=== PATIENT | male | born 1935 | race Caucasian/White ===

== ENCOUNTER → 2016-10-10 | Outpatient (CLI) | payer MEDICARE, BC ==
--- NOTE | 2016-10-11 13:59 | NM ---
EXAMINATION TYPE: NM WBC limited DATE OF EXAM: 10/11/2016 11:16 AM COMPARISON: 04/27/2016 radiographs HISTORY: 81-year-old male evaluate for osteomyelitis. Patient with right foot plantar infection for 2 months, possibly from slipper rubbing on the site. TECHNIQUE: Following administration of 31.7 mCi Tc99m Ceretec. Images obtained 4 hour(s) and 24 grzegorz r(s) post injection. Coned-down images of the distal bilateral lower extremities were taken in multip le projections. FINDINGS: No abnormal focal increased tracer activity is identified within either ankle or foot. IMPRESSION: No abnormal focal tracer activity within either ankle or foot.
== END | disposition home or self-care (01) ==
LOC: RADNMMAIN 07:01
PROVIDERS: ATTEND Podiatrist
DX: M86.8X8 Other osteomyelitis, other site (principal)
CPT/HCPCS: 78805; A9521

== ENCOUNTER 2018-01-22 12:56 | Emergency (ER) | payer MEDICARE, BC ==
[2018-01-22] MEDS ORDERED: SODIUM CHLORIDE 0.9% 1,000 ML IV STA (13:22)
--- NOTE | 2018-01-22 13:35 | ED ---
General Adult HPI - General Chief complaint: Chest Pain Stated complaint: syncope/cardiac Time Seen by Provider: 01/22/18 13:05 Source: EMS, RN notes reviewed, old records reviewed Mode of arrival: EMS Limitations: no limitations - History of Present Illness Initial comments: This is an 80-year-old male the ER for evaluation presents today for evaluation of a trip and fall. Patient states that he has no complaints does not want to be sent ER by EMS was called on him after he fell. Patient states he went to visit his son's grave ER today. He states he had no complaints earlier in the day has no complains now. Patient per EMS was found other: Patient fallen and they came to evaluate patient after he had fallen. - Related Data Home Medications Medication Instructions Recorded Confirmed Atorvastatin [Lipitor] 40 mg PO HS 12/07/15 01/22/18 CLIDINIUM-chlordiazePOXIDE [Librax] 1 cap PO DAILY 12/07/15 01/22/18 Clopidogrel [Plavix] 75 mg PO DAILY 12/07/15 01/22/18 Donepezil [Aricept] 5 mg PO DAILY 12/07/15 01/22/18 Enalapril [Vasotec] 40 mg PO DAILY 12/07/15 01/22/18 Furosemide [Lasix] 20 mg PO DAILY 12/07/15 01/22/18 Gabapentin [Neurontin] 100 mg PO TID 12/07/15 01/22/18 Insulin Aspart [NovoLOG Flexpen] 10 units SQ AC-TID 12/07/15 01/22/18 Ketorolac 0.5% Ophth Soln [Acular] 1 drops LEFT EYE BID 12/07/15 01/22/18 Travoprost [Travatan Z 0.004%] 1 drop RIGHT EYE HS 12/07/15 01/22/18 amLODIPine BESYLATE [Norvasc] 5 mg PO BID 12/07/15 01/22/18 cloNIDine HCL [Catapres] 0.1 mg PO HS 12/07/15 01/22/18 sitaGLIPtin [Januvia] 100 mg PO DAILY 12/07/15 01/22/18 traZODone HCL [Desyrel] 50 mg PO DAILY 12/07/15 01/22/18 Citalopram Hydrobromide [CeleXA] 20 mg PO DAILY 01/22/18 01/22/18 Insulin Glargine,Hum.rec.anlog 60 unit SQ QAM 01/22/18 01/22/18 [Basaglscott Cerna U-100] Oxybutynin Chloride [Oxybutynin 10 mg PO DAILY 01/22/18 01/22/18 Chloride ER] Previous Rx's Medication Instructions Recorded Albuterol Sulfate [Proair Hfa] 1 - 2 puff INHALATION Q4H PRN #1 01/22/18 inhaler Levofloxacin [Levaquin] 750 mg PO DAILY #7 tab 01/22/18 Allergies Allergy/AdvReac Type Severity Reaction Status Date / Time No Known Allergies Allergy Verified 01/22/18 13:31 Review of Systems ROS Statement: Those systems with pertinent positive or pertinent negative responses have been documented in the HPI. ROS Other: All systems not noted in ROS Statement are negative. Past Medical History Past Medical History: CVA/TIA, Diabetes Mellitus, Hyperlipidemia, Hypertension Additional Past Medical History / Comment(s): cataract left eye. Diverticulitis. fractured ankle 03-11-16,rt. foot wound History of Any Multi-Drug Resistant Organisms: None Reported Past Surgical History: Heart Catheterization With Stent, Hernia Repair, Tonsillectomy Additional Past Surgical History / Comment(s): VASECTOMY Past Anesthesia/Blood Transfusion Reactions: No Reported Reaction Date of Last Stent Placement:: February 01, 2011 Past Psychological History: No Psychological Hx Reported Smoking Status: Former smoker Past Alcohol Use History: None Reported Past Drug Use History: None Reported - Past Family History Mother Family Medical History: Myocardial Infarction ([place]) Additional Family Medical History / Comment(s): Mother of heart attack at 64. Mother had mental illness. Brother(s) Family Medical History: Cancer Additional Family Medical History / Comment(s): Patients half-brother had stomach cancer. General Exam Limitations: no limitations General appearance: alert, in no apparent distress Head exam: Present: atraumatic, normocephalic, normal inspection Eye exam: Present: normal appearance, PERRL, EOMI. Absent: scleral icterus, conjunctival injection, periorbital swelling ENT exam: Present: normal exam, mucous membranes moist Neck exam: Present: normal inspection. Absent: tenderness, meningismus, lymphadenopathy Respiratory exam: Present: normal lung sounds bilaterally. Absent: respiratory distress, wheezes, rales, rhonchi, stridor Cardiovascular Exam: Present: regular rate, normal rhythm, normal heart sounds. Absent: systolic murmur, diastolic murmur, rubs, gallop, clicks GI/Abdominal exam: Present: soft, normal bowel sounds. Absent: distended, tenderness, guarding, rebound, rigid Extremities exam: Present: normal inspection, full ROM, normal capillary refill. Absent: tenderness, pedal edema, joint swelling, calf tenderness Back exam: Present: normal inspection Neurological exam: Present: alert, oriented X3, CN II-XII intact Psychiatric exam: Present: normal affect, normal mood Skin exam: Present: warm, dry, intact, normal color. Absent: rash Course Vital Signs 01/22/18 01/22/18 12:58 14:03 Temperature 98.8 F Pulse Rate 94 69 Respiratory 20 18 Rate Blood Pressure 110/54 120/86 O2 Sat by Pulse 94 L 94 L Oximetry - Reevaluation(s) Reevaluation #1: 01/22/18 15:01 Patient is no acute distress EKG Findings - EKG Comments: EKG Findings:: EKG shows normal sinus rhythm rate of 89, VA 154, QRS 138, QTC 503 Medical Decision Making - Medical Decision Making 82 male positive x-ray for pneumonia, will discharge home per patient's request , patient to return if symptoms worsen - Lab Data Result diagrams: 01/22/18 13:45 01/22/18 13:45 Lab Results 01/22/18 01/22/18 01/22/18 Range/Units 13:45 13:45 13:45 WBC 9.2 (3.8-10.6) k/uL RBC 4.59 (4.30-5.90) m/uL Hgb 13.4 (13.0-17.5) gm/dL Hct 39.5 (39.0-53.0) % MCV 86.0 (80.0-100.0) fL MCH 29.2 (25.0-35.0) pg MCHC 33.9 (31.0-37.0) g/dL RDW 15.1 (11.5-15.5) % Plt Count 191 (150-450) k/uL Neutrophils % 69 % Lymphocytes % 21 % Monocytes % 5 % Eosinophils % 3 % Basophils % 1 % Neutrophils # 6.4 (1.3-7.7) k/uL Lymphocytes # 2.0 (1.0-4.8) k/uL Monocytes # 0.5 (0-1.0) k/uL Eosinophils # 0.3 (0-0.7) k/uL Basophils # 0.1 (0-0.2) k/uL PT (9.0-12.0) sec INR (<1.2) APTT (22.0-30.0) sec Sodium 143 (137-145) mmol/L Potassium 4.2 (3.5-5.1) mmol/L Chloride 102 (98-107) mmol/L Carbon Dioxide 25 (22-30) mmol/L Anion Gap 16 mmol/L BUN 18 (9-20) mg/dL Creatinine 0.88 (0.66-1.25) mg/dL Est GFR (CKD-EPI)AfAm >90 (>60 ml/min/1.73 sqM) Est GFR (CKD-EPI)NonAf 80 (>60 ml/min/1.73 sqM) Glucose 271 H (74-99) mg/dL Calcium 8.7 (8.4-10.2) mg/dL Magnesium 1.8 (1.6-2.3) mg/dL Total Bilirubin 0.8 (0.2-1.3) mg/dL AST 19 (17-59) U/L ALT 32 (21-72) U/L Alkaline Phosphatase 91 (38-126) U/L Total Creatine Kinase 56 (55-170) U/L CK-MB (CK-2) 1.0 (0.0-2.4) ng/mL CK-MB (CK-2) Rel Index 1.8 Troponin I 0.016 (0.000-0.034) ng/mL Total Protein 6.8 (6.3-8.2) g/dL Albumin 3.7 (3.5-5.0) g/dL 01/22/18 Range/Units 13:45 WBC (3.8-10.6) k/uL RBC (4.30-5.90) m/uL Hgb (13.0-17.5) gm/dL Hct (39.0-53.0) % MCV (80.0-100.0) fL MCH (25.0-35.0) pg MCHC (31.0-37.0) g/dL RDW (11.5-15.5) % Plt Count (150-450) k/uL Neutrophils % % Lymphocytes % % Monocytes % % Eosinophils % % Basophils % % Neutrophils # (1.3-7.7) k/uL Lymphocytes # (1.0-4.8) k/uL Monocytes # (0-1.0) k/uL Eosinophils # (0-0.7) k/uL Basophils # (0-0.2) k/uL PT 10.2 (9.0-12.0) sec INR 1.0 (<1.2) APTT 24.3 (22.0-30.0) sec Sodium (137-145) mmol/L Potassium (3.5-5.1) mmol/L Chloride (98-107) mmol/L Carbon Dioxide (22-30) mmol/L Anion Gap mmol/L BUN (9-20) mg/dL Creatinine (0.66-1.25) mg/dL Est GFR (CKD-EPI)AfAm (>60 ml/min/1.73 sqM) Est GFR (CKD-EPI)NonAf (>60 ml/min/1.73 sqM) Glucose (74-99) mg/dL Calcium (8.4-10.2) mg/dL Magnesium (1.6-2.3) mg/dL Total Bilirubin (0.2-1.3) mg/dL AST (17-59) U/L ALT (21-72) U/L Alkaline Phosphatase (38-126) U/L Total Creatine Kinase (55-170) U/L CK-MB (CK-2) (0.0-2.4) ng/mL CK-MB (CK-2) Rel Index Troponin I (0.000-0.034) ng/mL Total Protein (6.3-8.2) g/dL Albumin (3.5-5.0) g/dL - Radiology Data Radiology results: report reviewed (Chest x-ray is positive for pneumonia), image reviewed Disposition Clinical Impression: Community acquired bacterial pneumonia Disposition: HOME SELF-CARE Condition: Good Instructions: Community Acquired Pneumonia (ED) Prescriptions: Albuterol Sulfate [Proair Hfa] 1 - 2 puff INHALATION Q4H PRN #1 inhaler PRN Reason: Shortness Of Breath Levofloxacin [Levaquin] 750 mg PO DAILY #7 tab Is patient prescribed a controlled substance at d/c from ED?: No Referrals: Ricardo Shaver MD [Primary Care Provider] - 1-2 days
[2018-01-22 13:59] LABS: Basophils # (A) 0.1 k/uL (0-0.2); Basophils % (A) 1 %; Eosinophils # (A) 0.3 k/uL (0-0.7); Eosinophils % (A) 3 %; HCT 39.5 % (39.0-53.0); HGB 13.4 gm/dL (13.0-17.5); Lymphocytes % (A) 21 %; MCH 29.2 pg (25.0-35.0); MCHC 33.9 g/dL (31.0-37.0); Mean Platelet Volume 7.1; Monocytes # (A) 0.5 k/uL (0-1.0); Monocytes % (A) 5 %; Neutrophils # (A) 6.4 k/uL (1.3-7.7); Neutrophils % (A) 69 %; Platelet Count 191 k/uL (150-450); RBC 4.59 m/uL (4.30-5.90); RDW 15.1 % (11.5-15.5); WBC 9.2 k/uL (3.8-10.6)
[2018-01-22 14:09] LABS: Partial Thromboplastin Time 24.3 sec (22.0-30.0); Prothrombin Time 10.2 sec (9.0-12.0)
--- NOTE | 2018-01-22 14:12 | XR ---
EXAMINATION TYPE: XR chest 2V DATE OF EXAM: 01/22/2018 COMPARISON: 12/07/2015 HISTORY: 82-year-old male with chest pain TECHNIQUE: AP and lateral views FINDINGS: Heart upper limits of normal in size. Atherosclerotic arch calcifications. Mild diffuse interstitial prominence is unchanged. There is some patchy left basilar opacity, new from prior. No other consolid ation or pleural effusion. IMPRESSION: Some patchy left basilar atelectasis or early developing infiltrate. Clinically correlate.
[2018-01-22 14:16] LABS: ALT 32 U/L (21-72); AST 19 U/L (17-59); Albumin 3.7 g/dL (3.5-5.0); Alkaline Phosphatase 91 U/L (38-126); Anion Gap 16 mmol/L; Blood Urea Nitrogen 18 mg/dL (9-20); Calcium 8.7 mg/dL (8.4-10.2); Carbon Dioxide 25 mmol/L (22-30); Chloride 102 mmol/L (98-107); Glucose 271 mg/dL (74-99); Magnesium 1.8 mg/dL (1.6-2.3); Potassium 4.2 mmol/L (3.5-5.1); Sodium 143 mmol/L (137-145); Total Bilirubin 0.8 mg/dL (0.2-1.3); Total Protein 6.8 g/dL (6.3-8.2)
[2018-01-22 14:27] VITALS: RESP 18
[2018-01-22 14:33] LABS: Troponin I 0.016 ng/mL (0.000-0.034)
[2018-01-22] MEDS ORDERED: LEVOFLOXACIN 750MG-D5W PMX 750 MG in DEXTROSE/WATER 1 150ML.BAG IVPB STA (14:53)
[2018-01-22] MEDS ORDERED: IPRATROPIUM-ALBUTEROL 3 ML NEB INHALATION STA (14:53)
[2018-01-22] MEDS ORDERED: LEVOFLOXACIN 750 MG TAB PO STA (15:00)
[2018-01-22] MEDS ORDERED: cefTRIAXone IN SWFI 2,000 MG/20 ML SYRINGE IVP STA (15:01)
[2018-01-22 16:32] VITALS: BP 111/56; PULSE 75; TEMP 98.5
== END 2018-01-22 16:42 | disposition home or self-care (01) ==
LOC: EC 12:56
DX: J18.9 Pneumonia, unspecified organism (principal); R55 Syncope and collapse; E11.9 Type 2 diabetes mellitus without complications; E78.5 Hyperlipidemia, unspecified; I10 Essential (primary) hypertension; Z87.891 Personal history of nicotine dependence; Z79.4 Long term (current) use of insulin; Z79.02 Long term (current) use of antithrombotics/antiplatelets; Z79.899 Other long term (current) drug therapy; Z86.73 Personal history of transient ischemic attack (TIA), and cerebral infarction without residual deficits; Z82.49 Family history of ischemic heart disease and other diseases of the circulatory system; Z95.5 Presence of coronary angioplasty implant and graft
CPT/HCPCS: 36415; 94640; 93005; 80053; 82550; 82553; 83735; 84484; 85025; 85610; 85730; 71046; 99285; 96374; 96361; J0696

== ENCOUNTER 2018-04-16 12:42 | Inpatient (IN) | payer MEDICARE, BC ==
[2018-04-16] MEDS ORDERED: ACETAMINOPHEN TAB 500 MG TAB PO STA (13:18)
[2018-04-16] MEDS ORDERED: IPRATROPIUM-ALBUTEROL 3 ML NEB INHALATION STA (13:18)
--- NOTE | 2018-04-16 13:21 | ED ---
General Adult HPI - General Chief complaint: Shortness of Breath Stated complaint: Sob Time Seen by Provider: 04/16/18 12:55 Source: patient, family, EMS, RN notes reviewed Mode of arrival: EMS Limitations: no limitations - History of Present Illness Initial comments: Patient is a pleasant 82-year-old male presenting to the emergency department with cough and difficulty breathing. Symptoms have progressed over several days to a week. Patient feels generally weak all over. Patient is having cough however has difficulty clearing his sputum. Patient is having fevers at home. Patient is having difficulty getting up and getting around. Patient did twist his ankle the other day. Patient had negative x-rays. No leg pain or leg swelling. Patient has no reported history of lung disease. is the major historian. - Related Data Home Medications Medication Instructions Recorded Confirmed Atorvastatin [Lipitor] 40 mg PO HS 12/07/15 04/16/18 CLIDINIUM-chlordiazePOXIDE [Librax] 1 cap PO DAILY 12/07/15 04/16/18 Clopidogrel [Plavix] 75 mg PO DAILY 12/07/15 04/16/18 Donepezil [Aricept] 5 mg PO DAILY 12/07/15 04/16/18 Enalapril [Vasotec] 40 mg PO DAILY 12/07/15 04/16/18 Gabapentin [Neurontin] 100 mg PO TID 12/07/15 04/16/18 Insulin Aspart [NovoLOG Flexpen] 10 units SQ TID 12/07/15 04/16/18 amLODIPine BESYLATE [Norvasc] 5 mg PO BID 12/07/15 04/16/18 cloNIDine HCL [Catapres] 0.1 mg PO HS 12/07/15 04/16/18 sitaGLIPtin [Januvia] 100 mg PO DAILY 12/07/15 04/16/18 traZODone HCL [Desyrel] 50 mg PO DAILY 12/07/15 04/16/18 Citalopram Hydrobromide [CeleXA] 20 mg PO DAILY 01/22/18 04/16/18 Insulin Glargine,Hum.rec.anlog 60 unit SQ QAM 01/22/18 04/16/18 [Basaglar Kwikpen U-100] Oxybutynin Chloride [Oxybutynin 10 mg PO DAILY 01/22/18 04/16/18 Chloride ER] Amoxicillin 500 mg PO BID 04/16/18 04/16/18 Aspirin [Adult Low Dose Aspirin EC] 81 mg PO DAILY 04/16/18 04/16/18 Furosemide [Lasix] 40 mg PO DAILY 04/16/18 04/16/18 Allergies Allergy/AdvReac Type Severity Reaction Status Date / Time No Known Allergies Allergy Verified 04/16/18 13:22 Review of Systems ROS Statement: Those systems with pertinent positive or pertinent negative responses have been documented in the HPI. ROS Other: All systems not noted in ROS Statement are negative. Constitutional: Reports: fever Eyes: Denies: eye pain ENT: Denies: ear pain Respiratory: Reports: cough, dyspnea Cardiovascular: Denies: chest pain Endocrine: Reports: fatigue Gastrointestinal: Denies: abdominal pain Genitourinary: Denies: dysuria Musculoskeletal: Denies: back pain Skin: Denies: rash Neurological: Reports: weakness (Generalized) Past Medical History Past Medical History: CVA/TIA, Diabetes Mellitus, Hyperlipidemia, Hypertension Additional Past Medical History / Comment(s): cataract left eye. Diverticulitis. fractured ankle 03-11-16,rt. foot wound History of Any Multi-Drug Resistant Organisms: None Reported Past Surgical History: Heart Catheterization With Stent, Hernia Repair, Tonsillectomy Additional Past Surgical History / Comment(s): VASECTOMY Past Anesthesia/Blood Transfusion Reactions: No Reported Reaction Date of Last Stent Placement:: February 01, 2011 Past Psychological History: No Psychological Hx Reported Smoking Status: Former smoker Past Alcohol Use History: None Reported Past Drug Use History: None Reported - Past Family History Mother Family Medical History: Myocardial Infarction ([place]) Additional Family Medical History / Comment(s): Mother of heart attack at 64. Mother had mental illness. Brother(s) Family Medical History: Cancer Additional Family Medical History / Comment(s): Patients half-brother had stomach cancer. General Exam Limitations: no limitations General appearance: alert, in no apparent distress Head exam: Present: atraumatic Eye exam: Present: other (Abnormal pupil on the right which family states is chronic) ENT exam: Present: normal oropharynx Neck exam: Present: normal inspection. Absent: meningismus Respiratory exam: Present: rales (Right base) Cardiovascular Exam: Present: regular rate, normal rhythm GI/Abdominal exam: Present: soft. Absent: tenderness Extremities exam: Present: normal inspection. Absent: calf tenderness Neurological exam: Present: alert, other (Patient has difficulty sitting up in bed.) Expanded Motor strength exam: RUE: 5, LUE: 5, RLE: 5, LLE: 5 Psychiatric exam: Present: normal affect, normal mood Skin exam: Present: normal color Course Vital Signs 04/16/18 04/16/18 04/16/18 12:44 14:20 14:56 Temperature 100.4 F H Pulse Rate 93 81 Respiratory 20 18 Rate Blood Pressure 147/62 O2 Sat by Pulse 93 L Oximetry 04/16/18 04/16/18 15:05 15:47 Temperature 97.8 F Pulse Rate 78 83 Respiratory 18 Rate Blood Pressure 154/72 O2 Sat by Pulse 95 Oximetry - Reevaluation(s) Reevaluation #1: 04/16/18 17:11 There is suspicion for sepsis based on infectious bronchitis and elevated white blood cell count and vital signs. Blood culture and lactic acid have been ordered. IV antibiotic's will be ordered. This was diagnosed at 1711. EKG Findings - EKG Comments: EKG Findings:: Normal sinus rhythm 83. OK 150. QRS 134. QT 420. QTc 43. Left axis. Right bundle branch block. No acute ST change. Medical Decision Making - Medical Decision Making Patient reevaluated and lung sounds unchanged. Patient unable to get up and ambulate even with assistance. Family is not comfortable with discharge home. Case was discussed in detail with Dr. Head, who will admit his patient. He does request antibiotics for bronchitis. Patient could have possible early pneumonia. PT and OT will be consult as well. - Lab Data Result diagrams: 04/16/18 14:10 04/16/18 14:10 Lab Results 04/16/18 04/16/18 04/16/18 Range/Units 14:10 14:10 14:10 WBC 13.6 H (3.8-10.6) k/uL RBC 4.88 (4.30-5.90) m/uL Hgb 13.6 (13.0-17.5) gm/dL Hct 42.2 (39.0-53.0) % MCV 86.5 (80.0-100.0) fL MCH 27.8 (25.0-35.0) pg MCHC 32.1 (31.0-37.0) g/dL RDW 15.0 (11.5-15.5) % Plt Count 204 (150-450) k/uL Neutrophils % 74 % Lymphocytes % 17 % Monocytes % 5 % Eosinophils % 2 % Basophils % 0 % Neutrophils # 10.1 H (1.3-7.7) k/uL Lymphocytes # 2.3 (1.0-4.8) k/uL Monocytes # 0.7 (0-1.0) k/uL Eosinophils # 0.2 (0-0.7) k/uL Basophils # 0.1 (0-0.2) k/uL PT (9.0-12.0) sec INR (<1.2) APTT (22.0-30.0) sec Sodium 142 (137-145) mmol/L Potassium 4.0 (3.5-5.1) mmol/L Chloride 104 (98-107) mmol/L Carbon Dioxide 28 (22-30) mmol/L Anion Gap 10 mmol/L BUN 23 H (9-20) mg/dL Creatinine 1.19 (0.66-1.25) mg/dL Est GFR (CKD-EPI)AfAm 66 (>60 ml/min/1.73 sqM) Est GFR (CKD-EPI)NonAf 57 (>60 ml/min/1.73 sqM) Glucose 264 H (74-99) mg/dL Plasma Lactic Acid Gt 1.0 (0.7-2.0) mmol/L Calcium 8.5 (8.4-10.2) mg/dL Total Bilirubin 1.6 H (0.2-1.3) mg/dL AST 20 (17-59) U/L ALT 22 (21-72) U/L Alkaline Phosphatase 76 (38-126) U/L NT-Pro-B Natriuret Pep pg/mL Total Protein 7.3 (6.3-8.2) g/dL Albumin 4.0 (3.5-5.0) g/dL Urine Color Urine Appearance (Clear) Urine pH (5.0-8.0) Ur Specific Otis (1.001-1.035) Urine Protein (Negative) Urine Glucose (UA) (Negative) Urine Ketones (Negative) Urine Blood (Negative) Urine Nitrite (Negative) Urine Bilirubin (Negative) Urine Urobilinogen (<2.0) mg/dL Ur Leukocyte Esterase (Negative) 04/16/18 04/16/18 04/16/18 Range/Units 14:10 14:10 15:40 WBC (3.8-10.6) k/uL RBC (4.30-5.90) m/uL Hgb (13.0-17.5) gm/dL Hct (39.0-53.0) % MCV (80.0-100.0) fL MCH (25.0-35.0) pg MCHC (31.0-37.0) g/dL RDW (11.5-15.5) % Plt Count (150-450) k/uL Neutrophils % % Lymphocytes % % Monocytes % % Eosinophils % % Basophils % % Neutrophils # (1.3-7.7) k/uL Lymphocytes # (1.0-4.8) k/uL Monocytes # (0-1.0) k/uL Eosinophils # (0-0.7) k/uL Basophils # (0-0.2) k/uL PT 10.9 (9.0-12.0) sec INR 1.1 (<1.2) APTT 24.7 (22.0-30.0) sec Sodium (137-145) mmol/L Potassium (3.5-5.1) mmol/L Chloride (98-107) mmol/L Carbon Dioxide (22-30) mmol/L Anion Gap mmol/L BUN (9-20) mg/dL Creatinine (0.66-1.25) mg/dL Est GFR (CKD-EPI)AfAm (>60 ml/min/1.73 sqM) Est GFR (CKD-EPI)NonAf (>60 ml/min/1.73 sqM) Glucose (74-99) mg/dL Plasma Lactic Acid Gt (0.7-2.0) mmol/L Calcium (8.4-10.2) mg/dL Total Bilirubin (0.2-1.3) mg/dL AST (17-59) U/L ALT (21-72) U/L Alkaline Phosphatase (38-126) U/L NT-Pro-B Natriuret Pep 987 pg/mL Total Protein (6.3-8.2) g/dL Albumin (3.5-5.0) g/dL Urine Color Yellow Urine Appearance Clear (Clear) Urine pH 5.5 (5.0-8.0) Ur Specific Otis 1.015 (1.001-1.035) Urine Protein Trace H (Negative) Urine Glucose (UA) Negative (Negative) Urine Ketones Negative (Negative) Urine Blood Negative (Negative) Urine Nitrite Negative (Negative) Urine Bilirubin Negative (Negative) Urine Urobilinogen 2.0 (<2.0) mg/dL Ur Leukocyte Esterase Negative (Negative) - Radiology Data Radiology results: report reviewed (Computed tomography scan of the brain shows atrophy. No acute intercranial hemorrhage.), image reviewed (Chest x-ray shows no acute process.) Disposition Clinical Impression: General weakness, Bronchitis Disposition: ADMITTED IP TO THIS HOSP Is patient prescribed a controlled substance at d/c from ED?: No Referrals: Ricardo Shaver MD [Primary Care Provider] - 1-2 days Decision Time: 17:11
[2018-04-16] MEDS ORDERED: SODIUM CHLORIDE 0.9% 500 ML IV SCH (13:30)
[2018-04-16 14:30] LABS: Basophils # (A) 0.1 k/uL (0-0.2); Basophils % (A) 0 %; Eosinophils # (A) 0.2 k/uL (0-0.7); Eosinophils % (A) 2 %; HCT 42.2 % (39.0-53.0); HGB 13.6 gm/dL (13.0-17.5); Lymphocytes # (A) 2.3 k/uL (1.0-4.8); Lymphocytes % (A) 17 %; MCH 27.8 pg (25.0-35.0); MCHC 32.1 g/dL (31.0-37.0); MCV 86.5 fL (80.0-100.0); Mean Platelet Volume 7.6; Monocytes # (A) 0.7 k/uL (0-1.0); Monocytes % (A) 5 %; Neutrophils # (A) 10.1 k/uL (1.3-7.7); Neutrophils % (A) 74 %; Platelet Count 204 k/uL (150-450); RBC 4.88 m/uL (4.30-5.90); WBC 13.6 k/uL (3.8-10.6)
--- NOTE | 2018-04-16 14:37 | XR ---
EXAMINATION TYPE: XR chest 2V DATE OF EXAM: 04/16/2018 COMPARISON: 01/22/2018 HISTORY: 82-year-old male with fever and shortness of breath TECHNIQUE: AP and lateral views FINDINGS: Heart borderline enlarged. Rightward patient rotation ultrasound normal cardiac and mediastinal conto urs. Bony vasculature within normal limits. Strandy atelectasis lower lungs. No consolidation or pleu ral effusion seen. IMPRESSION: Rotated exam. Borderline heart size. No acute process seen.
[2018-04-16 14:42] LABS: INR 1.1 (<1.2); Partial Thromboplastin Time 24.7 sec (22.0-30.0); Prothrombin Time 10.9 sec (9.0-12.0)
[2018-04-16 14:47] LABS: Calcium 8.5 mg/dL (8.4-10.2); Total Bilirubin 1.6 mg/dL (0.2-1.3); Total Protein 7.3 g/dL (6.3-8.2)
[2018-04-16 15:52] LABS: Appearance,Urine Clear (Clear); Bilirubin,Urine Negative (Negative); Blood,Urine Negative (Negative); Color,Urine Yellow; Glucose,Urine (UA) Negative (Negative); Ketones,Urine Negative (Negative); Leukocyte Esterase,Urine Negative (Negative); Nitrite,Urine Negative (Negative); PH, Urine 5.5 (5.0-8.0); Protein,Urine Trace (Negative); Specific Gravity,Urine 1.015 (1.001-1.035)
--- NOTE | 2018-04-16 16:35 | CT ---
EXAMINATION TYPE: CT brain wo con DATE OF EXAM: 04/16/2018 COMPARISON: 12/07/2015 HISTORY: weakness/fever/cough CT DLP: 1072.3 mGycm Automated exposure control for dose reduction was used. FINDINGS: There is cerebral cortical atrophy. There is no mass effect nor midline shift. There is no sign of in tracranial hemorrhage. The calvarium is intact. There is mild mucosal thickening in the maxillary sin uses. IMPRESSION: CEREBRAL ATROPHY. NO ACUTE INTRACRANIAL ABNORMALITY. NO CHANGE.
[2018-04-16] MEDS ORDERED: IPRATROPIUM-ALBUTEROL 3 ML NEB INHALATION PRN (17:11)
[2018-04-16] MEDS ORDERED: AZITHROMYCIN 500 MG in DEXTROSE 5% IN WATER 250 ML IVPB STA ×2 (17:11)
[2018-04-16] MEDS ORDERED: PNEUMONIA PROTOCOL UTILIZED 1 EACH MISC PO PRN (17:11)
[2018-04-16] MEDS ORDERED: cefTRIAXone IN SWFI 1,000 MG/10 ML SYRINGE IVP STA (17:11)
--- NOTE | 2018-04-16 17:12 | XR ---
EXAMINATION TYPE: XR ankle complete LT DATE OF EXAM: 04/16/2018 COMPARISON: NONE HISTORY: Ankle pain for 3 days TECHNIQUE: 3 views FINDINGS: There is a plantar calcaneal spur. Ankle mortise is anatomic. I see no fracture. IMPRESSION: No acute abnormality of the left ankle.
[2018-04-16] MEDS: SODIUM CHLORIDE 0.9% 1,000 ML IV SCH (18:19)
[2018-04-16] MEDS: IPRATROPIUM-ALBUTEROL 3 ML NEB INHALATION SCH (20:20)
[2018-04-16 20:50] LABS: Glucose,Whole Blood 252 mg/dL (75-99)
[2018-04-16] MEDS ORDERED: ACETAMINOPHEN TAB 325 MG TAB PO PRN (20:55)
[2018-04-16] MEDS ORDERED: INSULIN ASPART 100 UNIT/ML 1 ML 10 ML VIAL SQ ONE (20:55)
--- NOTE | 2018-04-16 21:08 | P.HPIM ---
History of Present Illness Chief complaint Shortness of breath and temperatures and weakness. History of present illness The patient is an 82-year-old gentleman who was brought in by EMS from home per family he has had increasing shortness of breath along with cough. He has been more tired and lethargic at home apparently running temperatures. Patient a few days previous had fallen and injured his left ankle. Was found not to have a fracture and did see orthopedics as an outpatient and placed in a soft splint. Patient denies any chest pain. No hemoptysis. At that time. He has been becoming more bedridden and not moving about the house and lethargic. 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 Mixed urinary incontinence Obesity History of cognitive impairment/late-onset Alzheimer's dementia. Medications No known ALLERGIES Home medications Trazodone 50 mg daily Januvia 100 mg daily Catapres 0.1 mg twice a day Oxybutynin 10 mg daily NovoLog flex pen 10 units before meals 3 times a day Basal glargine 60 units every morning Neurontin 100 mg 3 times a day Lasix 40 mg daily Enalapril 40 mg daily Aricept 5 mg daily Plavix 75 mg daily Celexa 20 mg daily Librax one capsule daily Lipitor 40 mg at at bedtime Aspirin 81 mg daily Patient also was recently taking Augmentin twice a day. Past surgical history Patient has had previous heart catheterization and angioplasty. Hernia repair and tonsillectomy. Vasectomy Review of systems No history of any headache or visual disturbance. No nausea or vomiting. Denies any abdominal pain. No new urinary or bowel symptomatology. No unusual edema. Patient has been having some temperature elevation at home along with generalized weakness and not getting up and moving about the house since he had fallen and sprained his left ankle. Social history the patient is a former smoker. No history of any excessive alcohol intake. He lives at home with his who is his major meeting manager. Family history Positive history in his family for heart disease and diabetes. mother apparently of a heart attack at age of 64 and also had some apparent mental illness problems. Patient has a half brother who apparently had stomach cancer. Physical examination Temperature was 100.4, but has decreased down to 98.5 with a pulse of 80 and respirations 17. Blood pressure 142/70 and he is 93% saturated on 3 L nasal cannula. Patient is overall somewhat fatigued but generally alert and knows that he is at [facility] and that I am Dr. Shaver. Head is atraumatic. Extraocular movements are intact. Neck is not stiff. No adenopathy or thyromegaly. Lungs do reveal some expiratory rhonchi at bases. Heart tones were regular without murmurs or rubs. Abdomen is obese but soft and nontender without organomegaly detected. Genital and rectal exam deferred. There is a soft splint to the left foot and ankle. There is some tenderness with range of motion. No unusual distal edema. He generally is alert but somewhat fatigued. Mildly confused. No cranial nerves or other focal peripheral deficits noted. Laboratory White count is 13.6 with a hemoglobin 13.6 and a platelet count of 204. Neutrophils are elevated at 10.1. INR is 1.1 Electrolytes were normal. Potassium 4.0 and sodium 142. BUN of 23 with a creatinine 1.19 given him a GFR 57. Blood sugars about 250. Plasma lactic acid level was 1 mild bilirubin elevated at 1.6 but other liver function tests were good. Albumin 4.0. BNP was 987. Urine revealed negative leukocyte esterase and otherwise was clear. Trace protein. Chest x-ray was read as borderline heart size and rotated exam without definite acute process. Appears possibility of a right middle lobe pneumonia to my examination of the x-ray. Ankle x-ray shows no acute fracture. Brain CAT scan Evidence of atrophy without acute intracranial abnormality. EKG shows a normal sinus rhythm with a rate of 83 and a right bundle branch block pattern with left axis deviation. Impression Patient with elevated white count and increased confusion with cough and elevated temperature. Possible toxic encephalopathy from developing pneumonia versus underlying atelectasis. Recent fall at home with sprain of right ankle. History of diabetes with elevated blood sugar. Chronic stage III renal failure. A list of past medical problems as stated above in past medical history. Plans The patient has been started on IV antibiotics in the form of Zithromax and Rocephin. Cultures being obtained. Repeat chest x-ray in the morning. Respiratory treatments. Resuming patient's home medications Physical and occupational therapies. Further recommendations pending clinical response and results of above. Continuing patient's insulin with slightly modified dosing Discussed with patient and nursing staff this evening. Prognosis still guarded. Past Medical History Past Medical History: Coronary Artery Disease (CAD), CVA/TIA, Dementia, Diabetes Mellitus, Eye Disorder, Hyperlipidemia, Hypertension, Memory Impairment , Osteoarthritis (OA), Pneumonia, Syncope Additional Past Medical History / Comment(s): cataract left eye. Diverticulitis. lt fractured ankle 03-11-16,rt. foot wound-healed, tia, hiatal hernia occ hand tremors, hx of falls,uses walker when up. incont of urine/stool wears depends. . History of Any Multi-Drug Resistant Organisms: None Reported Past Surgical History: Heart Catheterization With Stent, Hernia Repair, Tonsillectomy Additional Past Surgical History / Comment(s): VASECTOMY, rt eye cataract removed Past Anesthesia/Blood Transfusion Reactions: No Reported Reaction Additional Past Anesthesia/Blood Transfusion Reaction / Comment(s): clausterphobic Date of Last Stent Placement:: February 01, 2011 Smoking Status: Former smoker - Past Family History Father History Unknown: Yes Mother Family Medical History: Myocardial Infarction ([place]) Additional Family Medical History / Comment(s): Mother of heart attack at 64. Mother had mental illness. Brother(s) Family Medical History: Cancer Additional Family Medical History / Comment(s): Patients half-brother had stomach cancer. Medications and Allergies Home Medications Medication Instructions Recorded Confirmed Type Atorvastatin [Lipitor] 40 mg PO HS 12/07/15 04/16/18 History CLIDINIUM-chlordiazePOXIDE [Librax] 1 cap PO DAILY 12/07/15 04/16/18 History Clopidogrel [Plavix] 75 mg PO DAILY 12/07/15 04/16/18 History Donepezil [Aricept] 5 mg PO DAILY 12/07/15 04/16/18 History Enalapril [Vasotec] 40 mg PO DAILY 12/07/15 04/16/18 History Gabapentin [Neurontin] 100 mg PO TID 12/07/15 04/16/18 History Insulin Aspart [NovoLOG Flexpen] 10 units SQ TID 12/07/15 04/16/18 History amLODIPine BESYLATE [Norvasc] 5 mg PO BID 12/07/15 04/16/18 History cloNIDine HCL [Catapres] 0.1 mg PO HS 12/07/15 04/16/18 History sitaGLIPtin [Januvia] 100 mg PO DAILY 12/07/15 04/16/18 History traZODone HCL [Desyrel] 50 mg PO DAILY 12/07/15 04/16/18 History Citalopram Hydrobromide [CeleXA] 20 mg PO DAILY 01/22/18 04/16/18 History Insulin Glargine,Hum.rec.anlog 60 unit SQ QAM 01/22/18 04/16/18 History [Basaglar Kwikpen U-100] Oxybutynin Chloride [Oxybutynin 10 mg PO DAILY 01/22/18 04/16/18 History Chloride ER] Amoxicillin 500 mg PO BID 04/16/18 04/16/18 History Aspirin [Adult Low Dose Aspirin EC] 81 mg PO DAILY 04/16/18 04/16/18 History Furosemide [Lasix] 40 mg PO DAILY 04/16/18 04/16/18 History Allergies Allergy/AdvReac Type Severity Reaction Status Date / Time No Known Allergies Allergy Verified 04/16/18 13:22 Physical Exam Vitals: Vital Signs Temp Pulse Pulse Resp BP BP Pulse Ox 04/16/18 20:34 82 04/16/18 20:21 80 93 L 04/16/18 19:54 98.5 F 67 17 142/70 90 L 04/16/18 18:13 79 16 159/74 94 L 04/16/18 15:47 97.8 F 83 18 154/72 95 04/16/18 15:05 78 04/16/18 14:56 81 04/16/18 14:20 18 04/16/18 12:44 100.4 F H 93 20 147/62 93 L Intake and Output 04/16/18 04/16/18 04/16/18 06:59 14:59 22:59 Other: Weight 104.326 kg Results CBC & Chem 7: 04/16/18 14:10 04/16/18 14:10 Labs: Abnormal Lab Results - Last 24 Hours (Table) 04/16/18 04/16/18 04/16/18 Range/Units 14:10 14:10 15:40 WBC 13.6 H (3.8-10.6) k/uL Neutrophils # 10.1 H (1.3-7.7) k/uL BUN 23 H (9-20) mg/dL Glucose 264 H (74-99) mg/dL Total Bilirubin 1.6 H (0.2-1.3) mg/dL Urine Protein Trace H (Negative) Thrombosis Risk Factor Assmnt - Choose All That Apply Any of the Below Risk Factors Present?: Yes Each Factor Represents 1 point: Medical pt on bed rest, Obesity (BMI >25), Serious lung disease incl. pneumonia (< 1month) Each Risk Factor Represents 3 Points: Age 75 years or older Thrombosis Risk Factor Assessment Total Risk Factor Score: 6 Thrombosis Risk Factor Assessment Level: High Risk
[2018-04-16] MEDS: amLODIPine 5 MG TAB PO SCH (21:12)
[2018-04-16] MEDS: cloNIDine HCL 0.1 MG TAB PO SCH (21:12)
[2018-04-16] MEDS: GABAPENTIN 100 MG CAP PO SCH (21:13)
[2018-04-16] MEDS: ATORVASTATIN 40 MG TAB PO SCH (21:13)
[2018-04-16] MEDS: traZODone HCL 50 MG TAB PO SCH (21:13)
[2018-04-16] MEDS ORDERED: INSULIN ASPART 100 UNIT/ML 1 ML 10 ML VIAL SQ SCH (22:00)
[2018-04-17] MEDS: SODIUM CHLORIDE 0.9% 1,000 ML IV SCH ×3 (06:33→21:35)
[2018-04-17 06:58] LABS: Glucose,Whole Blood 94 mg/dL (75-99)
[2018-04-17] MEDS: IPRATROPIUM-ALBUTEROL 3 ML NEB INHALATION SCH ×4 (07:12→20:57)
--- NOTE | 2018-04-17 08:11 | P.PN ---
Progress Note - Text Patient presented to the emergency room yesterday and admitted after having temperatures along with cough and lethargy at home. This all seemed to start after he had a fall and injured his left ankle. X-rays have not shown fracture. Chest x-ray was somewhat ambiguous yesterday. The patient has received antibiotics along with respiratory treatments. He states he feels somewhat better this morning. Temperature this morning is 97.7 with a pulse of 72 and respirations 14. Blood pressure 149/72 and he is 92% saturated on 3 L nasal cannula. Does not appear to be in any distress at this time. Lungs generally clear although crepitations at the bases bilaterally. Heart tones were regular. Abdomen nontender. No unusual distal edema. No new focal neurological changes. Patient to have repeat PA and lateral chest x-ray. Impression and plans At this point we will continue with IV antibiotics Await repeat chest x-ray. Physical and occupational therapies. Further recommendations pending clinical response and results of above.
[2018-04-17] MEDS: amLODIPine 5 MG TAB PO SCH ×2 (08:14→21:34)
[2018-04-17] MEDS: CITALOPRAM HYDROBROMIDE 20 MG TAB PO SCH (08:14)
[2018-04-17] MEDS: GABAPENTIN 100 MG CAP PO SCH ×3 (08:14→21:34)
[2018-04-17] MEDS: LISINOPRIL 20 MG TAB PO SCH (08:14)
[2018-04-17] MEDS: LINAGLIPTIN 5 MG TABLET PO SCH (08:15)
[2018-04-17] MEDS: ASPIRIN 81 MG PO SCH (08:15)
[2018-04-17] MEDS: OXYBUTYNIN 10 MG TAB.ER.24 PO SCH (08:15)
[2018-04-17] MEDS: CLOPIDOGREL 75 MG TAB PO SCH (08:15)
[2018-04-17] MEDS: FUROSEMIDE 40 MG TAB PO SCH (08:15)
[2018-04-17] MEDS: DONEPEZIL 5 MG TAB PO SCH (08:15)
[2018-04-17] MEDS: INSULIN ASPART 100 UNIT/ML 1 ML 10 ML VIAL SQ SCH ×3 (08:16→17:17)
[2018-04-17] MEDS: INSULIN DETEMIR 100 UNIT/ML 10 ML VIAL SQ SCH (08:16)
[2018-04-17] MEDS ORDERED: INSULIN DETEMIR 100 UNIT/ML 10 ML VIAL SQ SCH (09:00)
[2018-04-17] MEDS ORDERED: traZODone HCL 50 MG TAB PO SCH (09:00)
[2018-04-17] MEDS ORDERED: LISINOPRIL 20 MG TAB PO SCH (09:00)
[2018-04-17] MEDS: CLIDINIUM-chlordiazePOXIDE (2.5-5 MG) CAP PO SCH (11:18)
[2018-04-17 11:59] LABS: Glucose,Whole Blood 194 mg/dL (75-99)
[2018-04-17 16:45] LABS: Glucose,Whole Blood 214 mg/dL (75-99)
[2018-04-17] MEDS: AZITHROMYCIN 500 MG TAB PO SCH (17:18)
[2018-04-17] MEDS: cefTRIAXone IN SWFI 1,000 MG/10 ML SYRINGE IVP SCH (17:18)
[2018-04-17 17:26] LABS: Hemoglobin A1C 6.5 % (4.0-6.0)
--- NOTE | 2018-04-17 18:22 | XR ---
EXAMINATION TYPE: XR chest 2V DATE OF EXAM: 04/17/2018 COMPARISON: 04/16/2018 HISTORY: Fever TECHNIQUE: Frontal and lateral views of the chest are obtained. FINDINGS: There is no heart failure. There is some coarse infiltrate in the right lower lobe. The le ft lung is fairly clear. There is no definite pleural effusion. IMPRESSION: There is some right lower lobe pneumonia that is increased compared to yesterday. No hea rt failure.
--- NOTE | 2018-04-17 18:31 | P.GSCN ---
History of Present Illness Consult date: 04/17/18 Reason for Consult: Urinary retention and inability to insert urethral catheter History of present illness: The patient was admitted early this morning after he had apparently fallen at home 1 or 2 days ago and developed a fever, shortness of breath and lethargy. He was felt to have a pneumonia on admission and has been started on antibiotics. He was unable to void earlier today and apparently was in and out cathed for approximately 700 mL. He remained unable to void and attempts were made to insert a catheter this afternoon but this proved impossible due to the inability to identify the urethral meatus due to phimosis. The patient denies a previous history of urinary retention. He says he normally voids every 2-4 hours during the day and denies any daytime incontinence. He says he wears diapers at night due to intermittent incontinence. He believes he may have had a urinary tract infection in the distant past but he is had no infections recently. He denies any gross hematuria. Review of Systems - Constitutional Reports fever, Reports lethargy - Cardiovascular Denies shortness of breath - Respiratory Reports cough, Denies wheezing - Gastrointestinal Denies abdominal pain - Genitourinary Reports as per HPI Past Medical History Past Medical History: Coronary Artery Disease (CAD), CVA/TIA, Dementia, Diabetes Mellitus, Eye Disorder, Hyperlipidemia, Hypertension, Memory Impairment , Osteoarthritis (OA), Pneumonia, Syncope Additional Past Medical History / Comment(s): cataract left eye. Diverticulitis. lt fractured ankle 03-11-16,rt. foot wound-healed, tia, hiatal hernia occ hand tremors, hx of falls,uses walker when up. incont of urine/stool wears depends. . History of Any Multi-Drug Resistant Organisms: None Reported Past Surgical History: Heart Catheterization With Stent, Hernia Repair, Tonsillectomy Additional Past Surgical History / Comment(s): VASECTOMY, rt eye cataract removed Past Anesthesia/Blood Transfusion Reactions: No Reported Reaction Additional Past Anesthesia/Blood Transfusion Reaction / Comm: clausterphobic Date of Last Stent Placement:: February 01, 2011 Smoking Status: Former smoker - Past Family History Father History Unknown: Yes Mother Family Medical History: Myocardial Infarction ([place]) Additional Family Medical History / Comment(s): Mother of heart attack at 64. Mother had mental illness. Brother(s) Family Medical History: Cancer Additional Family Medical History / Comment(s): Patients half-brother had stomach cancer. Medications and Allergies Home Medications Medication Instructions Recorded Confirmed Type Atorvastatin [Lipitor] 40 mg PO HS 12/07/15 04/16/18 History CLIDINIUM-chlordiazePOXIDE [Librax] 1 cap PO DAILY 12/07/15 04/16/18 History Clopidogrel [Plavix] 75 mg PO DAILY 12/07/15 04/16/18 History Donepezil [Aricept] 5 mg PO DAILY 12/07/15 04/16/18 History Enalapril [Vasotec] 40 mg PO DAILY 12/07/15 04/16/18 History Gabapentin [Neurontin] 100 mg PO TID 12/07/15 04/16/18 History Insulin Aspart [NovoLOG Flexpen] 10 units SQ TID 12/07/15 04/16/18 History amLODIPine BESYLATE [Norvasc] 5 mg PO BID 12/07/15 04/16/18 History cloNIDine HCL [Catapres] 0.1 mg PO HS 12/07/15 04/16/18 History sitaGLIPtin [Januvia] 100 mg PO DAILY 12/07/15 04/16/18 History traZODone HCL [Desyrel] 50 mg PO DAILY 12/07/15 04/16/18 History Citalopram Hydrobromide [CeleXA] 20 mg PO DAILY 01/22/18 04/16/18 History Insulin Glargine,Hum.rec.anlog 60 unit SQ QAM 01/22/18 04/16/18 History [Basaglar Kwikpen U-100] Oxybutynin Chloride [Oxybutynin 10 mg PO DAILY 01/22/18 04/16/18 History Chloride ER] Amoxicillin 500 mg PO BID 04/16/18 04/16/18 History Aspirin [Adult Low Dose Aspirin EC] 81 mg PO DAILY 04/16/18 04/16/18 History Furosemide [Lasix] 40 mg PO DAILY 04/16/18 04/16/18 History Allergies Allergy/AdvReac Type Severity Reaction Status Date / Time No Known Allergies Allergy Verified 04/16/18 13:22 Surgical - Exam Vital Signs Temp Pulse Resp BP Pulse Ox 100.4 F H 93 20 147/62 93 L 04/16/18 12:44 04/16/18 12:44 04/16/18 12:44 04/16/18 12:44 04/16/18 12:44 - General well developed, well nourished, no distress, obese - Respiratory normal respiratory effort - Abdomen Abdomen: soft, non tender, no organomegaly Hernia: none - Genitourinary other (Penis is uncircumcised and there is moderate phimosis. Both testicles are descended. No hernias are present.) Results - Labs 04/16/18 14:10 04/16/18 14:10 Abnormal Lab Results - Last 24 Hours (Table) 04/16/18 04/17/18 04/17/18 Range/Units 20:42 11:53 16:42 POC Glucose (mg/dL) 252 H 194 H 214 H (75-99) mg/dL Microbiology - Last 24 Hours (Table) 04/16/18 14:10 Blood Culture - Preliminary Blood No Growth after 24 hours 04/16/18 15:40 Urine Culture - Preliminary Urine,Voided Assessment and Plan (1) Urinary retention Narrative/Plan: The source of the patient's incomplete bladder emptying or urinary retention is not clear. The patient apparently has long-standing diabetes mellitus and it is possible that he has had a gradually increasing postvoid residual due to diabetic neuropathy and inability to sense bladder fullness. This would be consistent with his episodes of enuresis in the past. I was able to insert a Restrepo catheter which drained clear urine. It may be of benefit to start the patient on an alpha wili like tamsulosin 0.4 mg daily. I would suggest the patient's catheter remain in place for 24-48 hours and when it is removed his postvoid residual should be monitored with a bladder scan unit. Current Visit: Yes Status: Acute Code(s): R33.9 - RETENTION OF URINE, UNSPECIFIED SNOMED Code(s): 173564839
[2018-04-17 20:40] LABS: Glucose,Whole Blood 181 mg/dL (75-99)
[2018-04-17] MEDS: cloNIDine HCL 0.1 MG TAB PO SCH (21:34)
[2018-04-17] MEDS: ATORVASTATIN 40 MG TAB PO SCH (21:34)
[2018-04-17] MEDS: traZODone HCL 50 MG TAB PO SCH (21:34)
[2018-04-18 07:08] LABS: Glucose,Whole Blood 124 mg/dL (75-99)
[2018-04-18] MEDS: IPRATROPIUM-ALBUTEROL 3 ML NEB INHALATION SCH ×4 (07:25→19:34)
--- NOTE | 2018-04-18 07:59 | P.PN ---
Progress Note - Text The patient is a 82-year-old man who presented 2 days previous from home with cough and lethargy. Patient was found to have a right lower lobe pneumonia on presentation. Patient has received IV antibiotics and respiratory treatments and has had overall some improvement. The patient is sitting up in bed trying to obtain his silverware to eat breakfast and having some difficulties with that. Still having some coughing. Denies shortness of breath or chest pain. Patient also had urinary retention yesterday and urology was consulted and a Restrepo catheter was placed. Temperature is 97.2 with a pulse of 68 and respirations 20. Blood pressure 154/ 71 and he is 100% saturated on 2 L. Lungs do reveal some scattered crepitations and rhonchi more so on the right. Heart tones were regular. Abdomen obese but nontender. No unusual distal edema. No focal neurological changes noted. Laboratory Blood sugar of 124 this morning. Other labs to follow. Chest x-ray: Follow-up chest x-ray did show changes in the right middle lobe consistent with right middle lobe pneumonia. Impressions and plans Patient overall with community acquired right middle lobe pneumonia. Continue with treatment with antibiotics and respiratory treatments. We'll continue Restrepo catheter drainage and will add tamsulosin. urological no regarded. May consider trial without catheter in a couple days. Continue with physical and occupational therapies. Have discussed with family. It appears patient would be a good rehab candidate for subacute rehab upon discharge. Long-term prognosis guarded.
[2018-04-18] MEDS: INSULIN ASPART 100 UNIT/ML 1 ML 10 ML VIAL SQ SCH ×3 (08:19→17:55)
[2018-04-18] MEDS: INSULIN DETEMIR 100 UNIT/ML 10 ML VIAL SQ SCH (08:19)
[2018-04-18] MEDS: LISINOPRIL 20 MG TAB PO SCH (08:20)
[2018-04-18] MEDS: CITALOPRAM HYDROBROMIDE 20 MG TAB PO SCH (08:20)
[2018-04-18] MEDS: OXYBUTYNIN 10 MG TAB.ER.24 PO SCH (08:20)
[2018-04-18] MEDS: GABAPENTIN 100 MG CAP PO SCH ×3 (08:20→20:38)
[2018-04-18] MEDS: FUROSEMIDE 40 MG TAB PO SCH (08:20)
[2018-04-18] MEDS: CLOPIDOGREL 75 MG TAB PO SCH (08:21)
[2018-04-18] MEDS: DONEPEZIL 5 MG TAB PO SCH (08:21)
[2018-04-18] MEDS: LINAGLIPTIN 5 MG TABLET PO SCH (08:21)
[2018-04-18] MEDS: ASPIRIN 81 MG PO SCH (08:21)
[2018-04-18] MEDS: SODIUM CHLORIDE 0.9% 1,000 ML IV SCH ×2 (08:21→20:38)
[2018-04-18] MEDS: amLODIPine 5 MG TAB PO SCH ×2 (08:22→20:38)
[2018-04-18 08:23] LABS: Basophils % (A) 0 %; Eosinophils # (A) 0.4 k/uL (0-0.7); Eosinophils % (A) 3 %; HCT 36.7 % (39.0-53.0); HGB 11.9 gm/dL (13.0-17.5); Lymphocytes % (A) 23 %; MCH 28.3 pg (25.0-35.0); MCHC 32.4 g/dL (31.0-37.0); MCV 87.4 fL (80.0-100.0); Mean Platelet Volume 7.6; Monocytes # (A) 0.7 k/uL (0-1.0); Monocytes % (A) 5 %; Neutrophils # (A) 8.8 k/uL (1.3-7.7); Neutrophils % (A) 67 %; Platelet Count 204 k/uL (150-450); RDW 14.9 % (11.5-15.5); WBC 13.1 k/uL (3.8-10.6)
[2018-04-18 08:34] LABS: Anion Gap 6 mmol/L; Blood Urea Nitrogen 21 mg/dL (9-20); Calcium 8.2 mg/dL (8.4-10.2); Carbon Dioxide 28 mmol/L (22-30); Chloride 109 mmol/L (98-107); Glucose 149 mg/dL (74-99); Potassium 4.1 mmol/L (3.5-5.1); Sodium 143 mmol/L (137-145)
[2018-04-18 11:28] LABS: Glucose,Whole Blood 193 mg/dL (75-99)
[2018-04-18] MEDS: CLIDINIUM-chlordiazePOXIDE (2.5-5 MG) CAP PO SCH (12:41)
[2018-04-18 17:14] LABS: Glucose,Whole Blood 211 mg/dL (75-99)
[2018-04-18] MEDS: cefTRIAXone IN SWFI 1,000 MG/10 ML SYRINGE IVP SCH (17:49)
[2018-04-18] MEDS: TAMSULOSIN 0.4 MG CAP.ER.24H PO SCH (17:49)
[2018-04-18] MEDS: AZITHROMYCIN 500 MG TAB PO SCH (17:49)
[2018-04-18] MEDS: ATORVASTATIN 40 MG TAB PO SCH (20:38)
[2018-04-18] MEDS: traZODone HCL 50 MG TAB PO SCH (20:38)
[2018-04-18] MEDS: cloNIDine HCL 0.1 MG TAB PO SCH (20:38)
[2018-04-18 21:04] LABS: Glucose,Whole Blood 181 mg/dL (75-99)
[2018-04-19] MEDS: SODIUM CHLORIDE 0.9% 1,000 ML IV SCH ×2 (05:48→10:37)
[2018-04-19 07:26] LABS: Glucose,Whole Blood 126 mg/dL (75-99)
[2018-04-19] MEDS: GABAPENTIN 100 MG CAP PO SCH ×3 (08:02→21:38)
[2018-04-19] MEDS: CLOPIDOGREL 75 MG TAB PO SCH (08:02)
[2018-04-19] MEDS: OXYBUTYNIN 10 MG TAB.ER.24 PO SCH (08:02)
[2018-04-19] MEDS: FUROSEMIDE 40 MG TAB PO SCH (08:02)
[2018-04-19] MEDS: INSULIN ASPART 100 UNIT/ML 1 ML 10 ML VIAL SQ SCH ×6 (08:02→21:39)
[2018-04-19] MEDS: LISINOPRIL 20 MG TAB PO SCH (08:03)
[2018-04-19] MEDS: amLODIPine 5 MG TAB PO SCH ×2 (08:03→21:38)
[2018-04-19] MEDS: DONEPEZIL 5 MG TAB PO SCH (08:03)
[2018-04-19] MEDS: ASPIRIN 81 MG PO SCH (08:03)
[2018-04-19] MEDS: LINAGLIPTIN 5 MG TABLET PO SCH (08:03)
[2018-04-19] MEDS: CITALOPRAM HYDROBROMIDE 20 MG TAB PO SCH (08:03)
[2018-04-19] MEDS: IPRATROPIUM-ALBUTEROL 3 ML NEB INHALATION SCH ×4 (08:45→19:24)
[2018-04-19] MEDS: CLIDINIUM-chlordiazePOXIDE (2.5-5 MG) CAP PO SCH (08:58)
--- NOTE | 2018-04-19 10:23 | P.PN ---
Progress Note - Text The patient is an 82-year-old gentleman who 3 days previous presented from home to the emergency room with cough and lethargy and was found to have a right middle lobe pneumonia. Patient has been gradually improving on the antibiotics along with his respiratory treatments and physical and occupational therapies. This morning he is alert up in bed. No complaints of pain or unusual shortness of breath. It appears he ate his breakfast well this morning. Vital signs reveal a temperature of 98.6 with a pulse of 72 and respirations 20. Blood pressure 143/56 and he is 94% saturated on 3 L nasal cannula. Lungs are generally clear with few diffuse rhonchi. More so on the right. Heart tones were regular. Abdomen obese but nontender. No unusual edema. No new focal neurological changes. Blood sugar this morning 126. Impressions and plans The right lower lobe pneumonia. General medical debility with his age and other comorbidities. At this time we'll decrease his IV fluids. Continue IV antibiotics. Anticipating transfer to [facility] on Saturday as discussed with patient this morning. Dr. Luevano masonry instructor for me over the weekend if there are any concerns or problems.
[2018-04-19] MEDS: INSULIN DETEMIR 100 UNIT/ML 10 ML VIAL SQ SCH (10:36)
[2018-04-19 12:04] LABS: Glucose,Whole Blood 353 mg/dL (75-99)
[2018-04-19 12:04] LABS: Glucose,Whole Blood 315 mg/dL (75-99)
[2018-04-19] MEDS: cefTRIAXone IN SWFI 1,000 MG/10 ML SYRINGE IVP SCH (17:08)
[2018-04-19] MEDS: AZITHROMYCIN 500 MG TAB PO SCH (17:09)
[2018-04-19] MEDS: TAMSULOSIN 0.4 MG CAP.ER.24H PO SCH (17:10)
[2018-04-19 17:15] LABS: Glucose,Whole Blood 266 mg/dL (75-99)
[2018-04-19 20:37] LABS: Glucose,Whole Blood 154 mg/dL (75-99)
[2018-04-19] MEDS: traZODone HCL 50 MG TAB PO SCH (21:38)
[2018-04-19] MEDS: ATORVASTATIN 40 MG TAB PO SCH (21:38)
[2018-04-19] MEDS: cloNIDine HCL 0.1 MG TAB PO SCH (21:39)
[2018-04-19] MEDS: HEPARIN SODIUM,PORCINE 5,000 UNIT/ML 1 ML VIAL SQ SCH (21:39)
[2018-04-20] MEDS: IPRATROPIUM-ALBUTEROL 3 ML NEB INHALATION SCH ×4 (07:26→19:15)
[2018-04-20 07:57] LABS: Glucose,Whole Blood 59 mg/dL (75-99)
[2018-04-20 07:57] LABS: Glucose,Whole Blood 72 mg/dL (75-99)
[2018-04-20] MEDS: DONEPEZIL 5 MG TAB PO SCH (08:03)
[2018-04-20] MEDS: FUROSEMIDE 40 MG TAB PO SCH (08:03)
[2018-04-20] MEDS: GABAPENTIN 100 MG CAP PO SCH ×3 (08:03→21:36)
[2018-04-20] MEDS: HEPARIN SODIUM,PORCINE 5,000 UNIT/ML 1 ML VIAL SQ SCH ×2 (08:03→21:36)
[2018-04-20] MEDS: INSULIN ASPART 100 UNIT/ML 1 ML 10 ML VIAL SQ SCH ×7 (08:03→21:36)
[2018-04-20] MEDS: OXYBUTYNIN 10 MG TAB.ER.24 PO SCH (08:04)
[2018-04-20] MEDS: amLODIPine 5 MG TAB PO SCH ×2 (08:04→21:36)
[2018-04-20] MEDS: CLOPIDOGREL 75 MG TAB PO SCH (08:04)
[2018-04-20] MEDS: ASPIRIN 81 MG PO SCH (08:04)
[2018-04-20] MEDS: LISINOPRIL 20 MG TAB PO SCH (08:04)
[2018-04-20] MEDS: CITALOPRAM HYDROBROMIDE 20 MG TAB PO SCH (08:04)
[2018-04-20] MEDS: INSULIN DETEMIR 100 UNIT/ML 10 ML VIAL SQ SCH (09:30)
[2018-04-20] MEDS: LINAGLIPTIN 5 MG TABLET PO SCH (09:31)
[2018-04-20] MEDS: CLIDINIUM-chlordiazePOXIDE (2.5-5 MG) CAP PO SCH (09:31)
[2018-04-20] MEDS: SODIUM CHLORIDE 0.9% 1,000 ML IV SCH (10:33)
[2018-04-20 12:40] LABS: Glucose,Whole Blood 149 mg/dL (75-99)
[2018-04-20 17:13] LABS: Glucose,Whole Blood 210 mg/dL (75-99)
[2018-04-20] MEDS: AZITHROMYCIN 500 MG TAB PO SCH (18:05)
[2018-04-20] MEDS: TAMSULOSIN 0.4 MG CAP.ER.24H PO SCH (18:05)
[2018-04-20] MEDS: cefTRIAXone IN SWFI 1,000 MG/10 ML SYRINGE IVP SCH (18:09)
[2018-04-20 20:29] LABS: Glucose,Whole Blood 134 mg/dL (75-99)
[2018-04-20] MEDS: traZODone HCL 50 MG TAB PO SCH (21:36)
[2018-04-20] MEDS: cloNIDine HCL 0.1 MG TAB PO SCH (21:36)
[2018-04-20] MEDS: ATORVASTATIN 40 MG TAB PO SCH (21:36)
[2018-04-20 23:48] VITALS: RESP 21
[2018-04-21 06:46] VITALS: BP 132/77; TEMP 97.4
[2018-04-21 07:30] LABS: Glucose,Whole Blood 76 mg/dL (75-99)
[2018-04-21] MEDS: INSULIN ASPART 100 UNIT/ML 1 ML 10 ML VIAL SQ SCH ×4 (07:36→12:47)
--- NOTE | 2018-04-21 08:09 | P.DS ---
Providers Date of admission: 04/17/18 08:24 Attending physician: Ricardo Shaver Consults: 04/17/18 14:36 Consult Physician Routine Consulting Provider: Shaun Hooks Consult Reason/Comments: urinary retention. Do you want consulting provider notified?: Yes Primary care physician: Ricardo Shaver The patient is an 82-year-old gentleman who was brought by EMS from his home with coughing, shortness of breath and increasing lethargy that started about 24 -48 hours prior to admission. He apparently was having temperatures at home also. Patient had suffered a fall injuring his left ankle 2-3 days prior to his presentation here. Patient was found in the emergency room to have what appeared to be an early right middle lobe pneumonia on chest x-ray which did further demonstrate changes on subsequent x-rays. Initial laboratory values revealed an elevated white count in the emergency room of 13.6 with a hemoglobin and also 13.6 and a platelet count of 204. There was a left shift of neutrophils. INR was 1.1. Electrolytes were generally unremarkable. GFR was 57 with a BUN of 23 and creatinine 1.19 giving him a acute on chronic renal failure with stage III. Blood sugar was 250. Albumin was 4.0. Patient did have a brain scan which revealed no acute intracranial abnormalities And his presenting EKG showed no definite acute ischemic changes. There was a right bundle branch block pattern. Sinus rhythm. Hospital course: The patient was treated with IV antibiotics and respiratory treatments. Urine culture grew out probable contaminants. Blood culture was no growth. Chest x-ray was stable. Patient clinically improved and was involved with physical and occupational therapies. Patient did develop some urinary incontinence that required Restrepo catheter placement. Patient has been started on tamsulosin. Discussions were held with the patient and his family. A consultation with social service and discharge planning. Anticipation for discharge to [facility] rehab over the next 24 hours. Discharge medications Ceftin 500 mg twice a day for 5 more days to complete course of treatment. He is to continue with his [facility] respiratory treatments 4 times a day. Acetaminophen 650 mg every 6 hours when necessary for pain. Trazodone 50 mg at at bedtime Januvia 100 mg daily Catapres 0.1 mg at at bedtime Amlodipine 5 mg twice a day Oxybutynin ER 10 mg daily NovoLog flex pen 8 units before meals Levemir insulin 36 units every morning Neurontin 100 mg 3 times a day for neuropathy Lasix 40 mg daily Enalapril 20 mg daily Aricept 5 mg daily Plavix 75 mg daily Citaloprim 10 mg daily Librax one capsule daily for irritable bowel Lipitor 40 mg at at bedtime for cholesterol Aspirin 81 mg daily Tamsulosin 4 mg daily Discharge diagnoses Acute right lower lobe pneumonia associated with elevated temperature, weakness , lethargy and shortness of breath. Confusion also consistent with septic encephalopathy from pulmonary source. Unspecified organism. Acute on chronic renal failure stage III, improved with fluids and treatment of underlying pneumonia. Acute symptoms likely related to pneumonia and prerenal azotemia. 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 Have discussed with patient, spouse and family regarding placement and prognosis. Overall it is guarded in light of his multiple medical concerns and age. The patient was seen 04/21/2018 The patient this morning is easily aroused. Generally alert. Denies any chest pain or shortness of breath. Vital signs reveal temperature of 97.4 with a pulse of 87 and respirations 21. Blood pressure was 132/77 and he was 92% saturated on 3 L nasal cannula. Lungs did reveal some scattered expiratory rhonchi. Otherwise generally clear. Heart tones were regular. Abdomen obese but nontender. No unusual distal edema. No new focal neurological changes. Blood sugars this morning range from 134 down to 76. Impressions and plans: Patient and family anticipating discharge to [facility] later today. Please see orders for medications as above. Plan - Discharge Summary Discharge Rx Participant: No New Discharge Prescriptions: No Action cloNIDine HCL [Catapres] 0.1 mg PO HS amLODIPine BESYLATE [Norvasc] 5 mg PO BID Insulin Aspart [NovoLOG Flexpen] 10 units SQ TID traZODone HCL [Desyrel] 50 mg PO HS Gabapentin [Neurontin] 100 mg PO TID Enalapril [Vasotec] 40 mg PO DAILY Clopidogrel [Plavix] 75 mg PO DAILY CLIDINIUM-chlordiazePOXIDE [Librax] 1 cap PO DAILY sitaGLIPtin [Januvia] 100 mg PO DAILY Atorvastatin [Lipitor] 40 mg PO HS Donepezil [Aricept] 5 mg PO DAILY Oxybutynin Chloride [Oxybutynin Chloride ER] 10 mg PO DAILY Citalopram Hydrobromide [CeleXA] 20 mg PO DAILY Insulin Glargine,Hum.rec.anlog [Basaglar Kwikpen U-100] 60 unit SQ QAM Amoxicillin 500 mg PO BID Aspirin [Adult Low Dose Aspirin EC] 81 mg PO DAILY Furosemide [Lasix] 40 mg PO DAILY Discharge Medication List Atorvastatin [Lipitor] 40 mg PO HS 12/07/15 [History] CLIDINIUM-chlordiazePOXIDE [Librax] 1 cap PO DAILY 12/07/15 [History] Clopidogrel [Plavix] 75 mg PO DAILY 12/07/15 [History] Donepezil [Aricept] 5 mg PO DAILY 12/07/15 [History] Enalapril [Vasotec] 40 mg PO DAILY 12/07/15 [History] Gabapentin [Neurontin] 100 mg PO TID 12/07/15 [History] Insulin Aspart [NovoLOG Flexpen] 10 units SQ TID 12/07/15 [History] amLODIPine BESYLATE [Norvasc] 5 mg PO BID 12/07/15 [History] cloNIDine HCL [Catapres] 0.1 mg PO HS 12/07/15 [History] sitaGLIPtin [Januvia] 100 mg PO DAILY 12/07/15 [History] traZODone HCL [Desyrel] 50 mg PO HS 12/07/15 [History] Citalopram Hydrobromide [CeleXA] 20 mg PO DAILY 01/22/18 [History] Insulin Glargine,Hum.rec.anlog [Basaglar Kwikpen U-100] 60 unit SQ QAM 01/22/18 [History] Oxybutynin Chloride [Oxybutynin Chloride ER] 10 mg PO DAILY 01/22/18 [History] Amoxicillin 500 mg PO BID 04/16/18 [History] Aspirin [Adult Low Dose Aspirin EC] 81 mg PO DAILY 04/16/18 [History] Furosemide [Lasix] 40 mg PO DAILY 04/16/18 [History] Follow up Appointment(s)/Referral(s): Ricardo Shaver MD [Primary Care Provider] - 3 Days Patient Instructions/Handouts: Acute Bronchitis (GEN) Activity/Diet/Wound Care/Special Instructions: Cardiac, diabetic diet. Fall precautions, up with assist.
[2018-04-21] MEDS: IPRATROPIUM-ALBUTEROL 3 ML NEB INHALATION SCH ×2 (08:17→11:47)
[2018-04-21] MEDS: amLODIPine 5 MG TAB PO SCH (09:14)
[2018-04-21] MEDS: ASPIRIN 81 MG PO SCH (09:15)
[2018-04-21] MEDS: CITALOPRAM HYDROBROMIDE 20 MG TAB PO SCH (09:15)
[2018-04-21] MEDS: CLOPIDOGREL 75 MG TAB PO SCH (09:16)
[2018-04-21] MEDS: FUROSEMIDE 40 MG TAB PO SCH (09:17)
[2018-04-21] MEDS: DONEPEZIL 5 MG TAB PO SCH (09:17)
[2018-04-21] MEDS: LINAGLIPTIN 5 MG TABLET PO SCH (09:17)
[2018-04-21] MEDS: GABAPENTIN 100 MG CAP PO SCH (09:17)
[2018-04-21] MEDS: LISINOPRIL 20 MG TAB PO SCH (09:17)
[2018-04-21] MEDS: INSULIN DETEMIR 100 UNIT/ML 10 ML VIAL SQ SCH (09:17)
[2018-04-21] MEDS: HEPARIN SODIUM,PORCINE 5,000 UNIT/ML 1 ML VIAL SQ SCH (09:17)
[2018-04-21] MEDS: OXYBUTYNIN 10 MG TAB.ER.24 PO SCH (09:18)
[2018-04-21] MEDS: SODIUM CHLORIDE 0.9% 1,000 ML IV SCH (09:18)
[2018-04-21] MEDS: CLIDINIUM-chlordiazePOXIDE (2.5-5 MG) CAP PO SCH (10:15)
[2018-04-21 11:57] LABS: Glucose,Whole Blood 158 mg/dL (75-99)
[2018-04-21 12:00] VITALS: PULSE 82
== END 2018-04-21 13:32 | DRG 193 ==
LOC: EC 12:42 → 4MS4W 17:28 → OBSVTOIN 04-17 08:24
PROVIDERS: ADMIT Internal Medicine; ATTEND Internal Medicine
DX: J18.9 Pneumonia, unspecified organism (principal); G93.41 Metabolic encephalopathy; N17.9 Acute kidney failure, unspecified; E11.22 Type 2 diabetes mellitus with diabetic chronic kidney disease; E11.40 Type 2 diabetes mellitus with diabetic neuropathy, unspecified; E78.5 Hyperlipidemia, unspecified; F02.80 Dementia in other diseases classified elsewhere, unspecified severity, without behavioral disturbance, psychotic disturbance, mood disturbance, and anxiety; G30.1 Alzheimer's disease with late onset; G47.00 Insomnia, unspecified; I12.9 Hypertensive chronic kidney disease with stage 1 through stage 4 chronic kidney disease, or unspecified chronic kidney disease; I25.10 Atherosclerotic heart disease of native coronary artery without angina pectoris; N18.3 Chronic kidney disease, stage 3 (moderate); N47.1 Phimosis; N39.46 Mixed incontinence; R15.9 Full incontinence of feces; E66.9 Obesity, unspecified; F32.9 Major depressive disorder, single episode, unspecified; H26.9 Unspecified cataract; K44.9 Diaphragmatic hernia without obstruction or gangrene; M47.816 Spondylosis without myelopathy or radiculopathy, lumbar region; R33.9 Retention of urine, unspecified; M15.9 Polyosteoarthritis, unspecified; K57.90 Diverticulosis of intestine, part unspecified, without perforation or abscess without bleeding; S99.912A Unspecified injury of left ankle, initial encounter; Z74.01 Bed confinement status; Z79.02 Long term (current) use of antithrombotics/antiplatelets; Z79.4 Long term (current) use of insulin; Z79.82 Long term (current) use of aspirin; Z79.899 Other long term (current) drug therapy; Z86.73 Personal history of transient ischemic attack (TIA), and cerebral infarction without residual deficits; Z91.81 History of falling; Z87.891 Personal history of nicotine dependence; Z95.5 Presence of coronary angioplasty implant and graft; Z98.41 Cataract extraction status, right eye; Z96.1 Presence of intraocular lens; Z87.440 Personal history of urinary (tract) infections; Z80.0 Family history of malignant neoplasm of digestive organs; Z82.49 Family history of ischemic heart disease and other diseases of the circulatory system; Z81.8 Family history of other mental and behavioral disorders; W19.XXXA Unspecified fall, initial encounter; Y92.9 Unspecified place or not applicable
CPT/HCPCS: 36415; 70450; 71046; 80048; 80053; 81003; 83036; 83605; 83880; 85025; 85610; 85730; 87040; 87086; 93005; 94640; 94760; 96361; 96365; 96375; 99285

== ENCOUNTER → 2019-07-31 | Outpatient (CLI) | payer MEDICARE, BC | END | disposition home or self-care (01) | LOC: LABWHC1 15:22 | PROVIDERS: ATTEND Family Medicine | DX: R19.7 Diarrhea, unspecified (principal); R10.9 Unspecified abdominal pain | CPT/HCPCS: 83630; 87045; 87046; 87324; 87328; 87329 ==

== ENCOUNTER → 2020-12-23 | Outpatient (CLI) | payer MEDICARE ==
[2020-12-23 19:26] LABS: Basophils # (A) 0.08 X 10*3/uL (0.00-0.10); Basophils % (A) 0.9 %; Eosinophils # (A) 0.26 X 10*3/uL (0.04-0.35); Eosinophils % (A) 2.9 %; HCT 40.9 % (39.6-50.0); HGB 12.6 g/dL (13.0-17.0); Lymphocytes # (A) 2.43 X 10*3/uL (0.90-5.00); Lymphocytes % (A) 27.1 %; MCH 26.4 pg (27.0-32.0); MCHC 30.8 g/dL (32.0-37.0); MCV 85.6 fL (80.0-97.0); Mean Platelet Volume 10.6 fL (9.5-12.2); Monocytes # (A) 0.66 X 10*3/uL (0.20-1.00); Monocytes % (A) 7.4 %; Neutrophils # (A) 5.51 X 10*3/uL (1.80-7.70); Neutrophils % (A) 61.5 %; Platelet Count 231 X 10*3/uL (140-440); RBC 4.78 X 10*6/uL (4.40-5.60); RDW 15.5 % (11.5-14.5); WBC 8.96 X 10*3/uL (4.50-10.00)
[2020-12-23 20:41] LABS: African American GFR (CKD) 79.2 (60.0-200.0); Albumin 3.8 g/dL (3.80-4.90); Albumin/Globulin Ratio 1.36 (1.60-3.17); Anion Gap 5.5 mmol/L (4.00-12.00); Calcium 8.7 mg/dL (8.7-10.3); Carbon Dioxide 30.5 mmol/L (21.6-31.8); Globulin 2.8 g/dL (1.6-3.3); Non-African American GFR(CKD) 68.3 (60.0-200.0); Potassium 4.1 mmol/L (3.5-5.5); Total Bilirubin 0.4 mg/dL (0.2-1.2); Total Protein 6.6 g/dL (6.2-8.2)
== END | disposition home or self-care (01) ==
LOC: LABWHC1 11:03
PROVIDERS: ATTEND Podiatrist
DX: L97.521 Non-pressure chronic ulcer of other part of left foot limited to breakdown of skin (principal)
CPT/HCPCS: 36415; 80053; 84134; 85025

== ENCOUNTER 2022-08-11 18:33 | Emergency (ER) | payer MEDICARE ==
[2022-08-11 18:41] VITALS: BP 130/60; PULSE 59; RESP 18; TEMP 99.1
--- NOTE | 2022-08-11 19:11 | CT ---
EXAMINATION TYPE: CT brain cspine wo con DATE OF EXAM: 08/11/2022 COMPARISON: None HISTORY: Fall. CT DLP: 1608.5 mGycm Automated exposure control for dose reduction was used. Images obtained of the brain and cervical spine without contrast. The cervical vertebra have normal alignment. There is mild disc space narrowing at C5-6 and C6-7. The re is minimal hypertrophic cervical facet arthropathy. Prevertebral soft tissues are intact. The skul l base is intact. There is diffuse cerebral cortical atrophy. There is no mass effect nor midline shift. No sign of int racranial hemorrhage. There is some 3 cm area of cortical hypodensity right posterior temporal lobe c onsistent with old infarct. There is similar to centimeter hypodense area in the left posterior front al lobe consistent with old cortical infarct. The calvarium is intact. 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 These infarcts are a change com pared to old CT scan. Cervical spondylotic changes. No fracture.
[2022-08-11] MEDS ORDERED: HYDROmorphone 1 MG/ML 1 ML SYRINGE IVP STA (19:31)
[2022-08-11] MEDS ORDERED: MIDAZOLAM 1 MG/ML 5 ML VIAL IV STA (19:31)
--- NOTE | 2022-08-11 19:34 | XR ---
EXAMINATION TYPE: XR knee limited RT DATE OF EXAM: 08/11/2022 COMPARISON: NONE HISTORY: Fall. Pain TECHNIQUE: 2 views FINDINGS: There is narrowing of the medial joint space of the knee. No fracture nor dislocation. Ther e is no sign of joint effusion. There is vascular calcification. IMPRESSION: Osteoarthritis. No fracture.
--- NOTE | 2022-08-11 19:34 | XR ---
EXAMINATION TYPE: XR Hip RT and AP Pelvis DATE OF EXAM: 08/11/2022 COMPARISON: 06/28/2013 HISTORY: Pain TECHNIQUE: 4 views FINDINGS: The pelvic ring is intact. The proximal right femur and hip joint are intact. Acetabula javier ear intact. Sacroiliac joints are intact. There is mild acetabular spurring. IMPRESSION: There is mild osteoarthritis. No fracture. No significant change compared to old exams
--- NOTE | 2022-08-11 19:35 | XR ---
EXAMINATION TYPE: XR ankle limited RT DATE OF EXAM: 08/11/2022 COMPARISON: NONE HISTORY: Fall. Pain TECHNIQUE: 2 views FINDINGS: Ankle mortise appears anatomic. There is some deformity of the distal fibula consistent wit h an old fracture. There is vascular calcification. There is plantar and Achilles calcaneal spurring. IMPRESSION: No acute abnormality of the right ankle.
--- NOTE | 2022-08-11 19:37 | XR ---
EXAMINATION TYPE: XR chest 1V DATE OF EXAM: 08/11/2022 COMPARISON: 04/17/2018 HISTORY: Fall. Pain TECHNIQUE: FINDINGS: There is no heart failure nor confluent pneumonic infiltrate. Costophrenic angles are clear . There are no hilar masses. The bony thorax is intact no pneumothorax. IMPRESSION: No active cardiopulmonary disease. There is clearing of the minimal infiltrate right lung base compared to old exam.
--- NOTE | 2022-08-11 21:58 | ED ---
General Adult HPI - General Chief complaint: Fall Stated complaint: fall Time Seen by Provider: 08/11/22 18:35 Source: EMS Mode of arrival: EMS Limitations: no limitations - History of Present Illness Initial comments: This is an 87-year-old male with extensive past medical history presents emergency department after a fall in his bathroom. The patient is a history of dementia but was able to answer all questions appropriately at this time. The patient was brought in by EMS after he was found on the ground in the bathroom. The patient stated he was getting up off of the toilet when he fell forward, hitting his head but did not lose consciousness. The patient complained of mild right hip pain but did not have any other acute pain or injuries at this time. The patient is being taken care of at home with his was unable to help him up off the ground so EMS was called. The patient stated that he did not have any lightheadedness or dizziness prior to the fall. The patient was resting in bed comfortably without any further acute pain or distress on evaluation. - Related Data Home Medications Medication Instructions Recorded Confirmed Atorvastatin [Lipitor] 40 mg PO HS 12/07/15 04/16/18 CLIDINIUM-chlordiazePOXIDE [Librax] 1 cap PO DAILY 12/07/15 04/16/18 Clopidogrel [Plavix] 75 mg PO DAILY 12/07/15 04/16/18 Donepezil [Aricept] 5 mg PO DAILY 12/07/15 04/16/18 Enalapril [Vasotec] 40 mg PO DAILY 12/07/15 04/16/18 Gabapentin [Neurontin] 100 mg PO TID 12/07/15 04/16/18 Insulin Aspart [NovoLOG Flexpen] 10 units SQ TID 12/07/15 04/16/18 amLODIPine BESYLATE [Norvasc] 5 mg PO BID 12/07/15 04/16/18 cloNIDine HCL [Catapres] 0.1 mg PO HS 12/07/15 04/16/18 sitaGLIPtin [Januvia] 100 mg PO DAILY 12/07/15 04/16/18 traZODone HCL [Desyrel] 50 mg PO HS 12/07/15 04/21/18 Citalopram Hydrobromide [CeleXA] 20 mg PO DAILY 05/16/18 08/08/18 Insulin Glargine,Hum.rec.anlog 60 unit SQ QAM 01/22/18 04/16/18 [Basaglar Ryanikpen U-100] Oxybutynin Chloride [Oxybutynin 10 mg PO DAILY 01/22/18 04/16/18 Chloride ER] Amoxicillin 500 mg PO BID 04/16/18 04/16/18 Aspirin [Adult Low Dose Aspirin EC] 81 mg PO DAILY 04/16/18 04/16/18 Furosemide [Lasix] 40 mg PO DAILY 04/16/18 04/16/18 Allergies Allergy/AdvReac Type Severity Reaction Status Date / Time No Known Allergies Allergy Verified 04/16/18 13:22 Review of Systems ROS Statement: Those systems with pertinent positive or pertinent negative responses have been documented in the HPI. ROS Other: All systems not noted in ROS Statement are negative. Past Medical History Past Medical History: Coronary Artery Disease (CAD), CVA/TIA, Dementia, Diabetes Mellitus, Eye Disorder, Hyperlipidemia, Hypertension, Memory Impairment, Osteoarthritis (OA), Pneumonia, Syncope Additional Past Medical History / Comment(s): cataract left eye. Diverticulitis. lt fractured ankle 03-11-16,rt. foot wound-healed, tia, hiatal hernia occ hand tremors, hx of falls,uses walker when up. incont of urine/stool wears depends. . History of Any Multi-Drug Resistant Organisms: None Reported Past Surgical History: Heart Catheterization With Stent, Hernia Repair, Tonsillectomy Additional Past Surgical History / Comment(s): VASECTOMY, rt eye cataract removed Past Anesthesia/Blood Transfusion Reactions: No Reported Reaction Additional Past Anesthesia/Blood Transfusion Reaction / Comment(s): clausterphobic Date of Last Stent Placement:: February 01, 2011 Past Psychological History: No Psychological Hx Reported Smoking Status: Current every day smoker Past Alcohol Use History: Abuse Past Drug Use History: None Reported - Past Family History Father History Unknown: Yes Mother Family Medical History: Myocardial Infarction ([place]) Additional Family Medical History / Comment(s): Mother of heart attack at 64. Mother had mental illness. Brother(s) Family Medical History: Cancer Additional Family Medical History / Comment(s): Patients half-brother had stomach cancer. General Exam Limitations: no limitations General appearance: alert, in no apparent distress Head exam: Present: atraumatic, normocephalic, normal inspection Eye exam: Present: normal appearance, PERRL Pupils: Present: normal accommodation ENT exam: Present: normal exam, normal oropharynx, mucous membranes moist Neck exam: Present: normal inspection, full ROM Respiratory exam: Present: normal lung sounds bilaterally Cardiovascular Exam: Present: regular rate, normal rhythm, normal heart sounds GI/Abdominal exam: Present: soft, normal bowel sounds Extremities exam: Present: normal inspection, full ROM, other (Minor tenderness to rotation to the right hip, right knee but full range of motion noted) Back exam: Present: normal inspection, full ROM Neurological exam: Present: alert, altered, other (ANOx1-2, which is at his baseline) Psychiatric exam: Present: normal affect, normal mood Skin exam: Present: warm, dry Course Vital Signs 08/11/22 18:35 Temperature 99.1 F Pulse Rate 59 L Respiratory 18 Rate Blood Pressure 130/60 O2 Sat by Pulse 92 L Oximetry Medical Decision Making - Medical Decision Making The patient was seen and evaluated in the emergency department. Physical exam, the patient was resting in bed without any acute distress. Vital signs admission were stable and within normal limits. Due to the nature the patient's complaints, imaging including CT head, CT C-spine, chest x-ray, pelvis x-ray, knee x-ray and ankle x-ray. CT head and CT C-spine were both read and interpreted by myself. CT head showed old left frontal and right posterior temporal lobe cortical infarcts. The patient denied of any current or acute strokelike symptoms consistent with the findings of old infarcts. CT C-spine also showed no fractures. Chest x-ray, pelvis x-ray, knee x-ray and ankle x-ray were all obtained and read and interpreted by myself. All x-rays were negative for any fractures or pathology. The patient's family was present at the bedside and told of all of these results. They did state that the patient was at his baseline and was awake and alert. The did state that they were comfortable taking the patient home. The family was offered the option for continued evaluation and possible placement for falling at home however the patient's stated that she preferred to take care of him at home and if he continues to fall repeatedly that she will seek evaluation for group home placement. The patient's was not interested in seeking group home placement at this time. The patient was deemed stable for discharge. The patient was discharged home with both his daughter and his . Disposition Clinical Impression: Fall, Contusion of right hip Disposition: HOME SELF-CARE Condition: Stable Instructions (If sedation given, give patient instructions): Fall Prevention for Older Adults (ED) Is patient prescribed a controlled substance at d/c from ED?: No Referrals: Pablo Multani MD [Primary Care Provider] - 1-2 days Time of Disposition: 21:50
== END 2022-08-11 22:26 | disposition home or self-care (01) ==
LOC: EC 18:33
DX: S70.01XA Contusion of right hip, initial encounter (principal); M46.92 Unspecified inflammatory spondylopathy, cervical region; E11.36 Type 2 diabetes mellitus with diabetic cataract; I10 Essential (primary) hypertension; I25.10 Atherosclerotic heart disease of native coronary artery without angina pectoris; G45.9 Transient cerebral ischemic attack, unspecified; F17.200 Nicotine dependence, unspecified, uncomplicated; E78.5 Hyperlipidemia, unspecified; Z79.02 Long term (current) use of antithrombotics/antiplatelets; Z79.84 Long term (current) use of oral hypoglycemic drugs; Z79.4 Long term (current) use of insulin; Z79.899 Other long term (current) drug therapy; Z79.82 Long term (current) use of aspirin; W18.11XA Fall from or off toilet without subsequent striking against object, initial encounter
CPT/HCPCS: 70450; 71045; 72125; 73502; 99284

== ENCOUNTER 2022-12-13 14:56 | Emergency (ER) | payer MEDICARE ==
--- NOTE | 2022-12-13 15:23 | ED ---
General Adult HPI - General Chief complaint: ENT Stated complaint: GIRISH Time Seen by Provider: 12/13/22 15:00 Source: patient, RN notes reviewed, old records reviewed Mode of arrival: EMS Limitations: no limitations - History of Present Illness Initial comments: 87-year-old male, alert and oriented x 3, presents to the emergency room via EMS with sent by after choking on mucus. EMS states they gave an updraft treatment with relief. Patient has no complaints at this time. States he was eating when he started choking but doesn't know what he was eating. Patient does have a history of dementia, coronary artery disease, CVA, hypertension -: hour(s) Severity scale (1-10): 0 Consistency: now resolved Associated Symptoms: denies other symptoms Treatments Prior to Arrival: other (albuerol by EMS) - Related Data Home Medications Medication Instructions Recorded Confirmed Atorvastatin [Lipitor] 40 mg PO HS 12/07/15 12/13/22 Clopidogrel [Plavix] 75 mg PO DAILY 12/07/15 12/13/22 Enalapril [Vasotec] 40 mg PO DAILY 12/07/15 12/13/22 Gabapentin [Neurontin] 100 mg PO BID 12/07/15 12/13/22 Insulin Aspart [NovoLOG Flexpen] 6 units SQ AC-TID 12/07/15 12/13/22 amLODIPine BESYLATE [Norvasc] 5 mg PO BID 12/07/15 12/13/22 cloNIDine HCL [Catapres] 0.1 mg PO DAILY 12/07/15 12/13/22 sitaGLIPtin [Januvia] 100 mg PO DAILY 12/07/15 12/13/22 traZODone HCL [Desyrel] 50 mg PO HS 12/07/15 12/13/22 Insulin Glargine,Hum.rec.anlog 60 unit SQ DAILY 01/22/18 12/13/22 [Basaglar Kwikpen U-100] Oxybutynin Chloride [Oxybutynin 10 mg PO DAILY 01/22/18 12/13/22 Chloride ER] Furosemide [Lasix] 40 mg PO DAILY 04/16/18 12/13/22 Citalopram Hydrobromide [CeleXA] 20 mg PO DAILY 12/13/22 12/13/22 Donepezil [Aricept] 10 mg PO HS 12/13/22 12/13/22 Ketorolac 0.5% Ophth Soln [Acular 1 drop LEFT EYE BID 12/13/22 12/13/22 0.5%] Travoprost [Travatan Z 0.004%] 1 drop RIGHT EYE HS 12/13/22 12/13/22 Triamcinolone 0.5% Cream [Kenalog 1 applic TOPICAL DAILY 12/13/22 12/13/22 0.5% Cream] predniSONE 10 mg PO DAILY 12/13/22 12/13/22 Allergies Allergy/AdvReac Type Severity Reaction Status Date / Time No Known Allergies Allergy Verified 12/13/22 15:11 Review of Systems ROS Statement: Those systems with pertinent positive or pertinent negative responses have been documented in the HPI. ROS Other: All systems not noted in ROS Statement are negative. Past Medical History Past Medical History: Coronary Artery Disease (CAD), CVA/TIA, Dementia, Diabetes Mellitus, Eye Disorder, Hyperlipidemia, Hypertension, Memory Impairment, Osteoarthritis (OA), Pneumonia, Syncope Additional Past Medical History / Comment(s): cataract left eye. Diverticulitis. lt fractured ankle 03-11-16,rt. foot wound-healed, tia, hiatal hernia occ hand tremors, hx of falls,uses walker when up. incont of urine/stool wears depends. . History of Any Multi-Drug Resistant Organisms: None Reported Past Surgical History: Heart Catheterization With Stent, Hernia Repair, Tons illectomy Additional Past Surgical History / Comment(s): VASECTOMY, rt eye cataract removed Past Anesthesia/Blood Transfusion Reactions: No Reported Reaction Additional Past Anesthesia/Blood Transfusion Reaction / Comment(s): clausterphobic Date of Last Stent Placement:: February 01, 2011 Past Psychological History: No Psychological Hx Reported Smoking Status: Former smoker Past Alcohol Use History: Abuse Past Drug Use History: None Reported - Past Family History Father History Unknown: Yes Mother Family Medical History: Myocardial Infarction (SC) Additional Family Medical History / Comment(s): Mother of heart attack at 64. Mother had mental illness. Brother(s) Family Medical History: Cancer Additional Family Medical History / Comment(s): Patients half-brother had stomach cancer. General Exam Limitations: no limitations General appearance: alert, in no apparent distress Head exam: Present: atraumatic Eye exam: Absent: scleral icterus, conjunctival injection, periorbital swelling ENT exam: Present: normal oropharynx, mucous membranes moist Neck exam: Present: full ROM. Absent: tenderness, meningismus Respiratory exam: Absent: respiratory distress, accessory muscle use Cardiovascular Exam: Present: regular rate GI/Abdominal exam: Present: soft. Absent: distended, tenderness, guarding, rebound, rigid Extremities exam: Present: normal capillary refill Neurological exam: Present: alert Psychiatric exam: Present: normal affect, normal mood Skin exam: Present: warm, dry, normal color. Absent: cyanosis, diaphoretic, petechiae, pallor Course Vital Signs 12/13/22 12/13/22 14:58 16:11 Temperature 99.0 F 98.7 F Pulse Rate 60 71 Respiratory 20 16 Rate Blood Pressure 128/69 163/77 O2 Sat by Pulse 94 L 94 L Oximetry Medical Decision Making - Medical Decision Making T Chest x-ray interpreted by me shows no evidence of focal consolidation. No evidence of foreign body. Radiologist interpretation no evidence for acute pulmonary disease. Patient denies any chest pain or difficulty in breathing. Vital signs are stable. Lungs sounds clear. Oxygen saturation 94-96%. Abdomen is soft and nontender. Airway is clear. Patient was observed in the emergency room with no complaints or episodes of dyspnea. States that he is feeling better. He is alert and oriented 3. He'll be discharged home to family directed to follow up with primary care doc tor and return with any new or concerning symptoms. Case discussed with Dr. Cristina Was pt. sent in by a medical professional or institution (, PA, [employer], urgent care, hospital, or [facility]...) When possible be specific @ -No Did you speak to anyone other than the patient for history (EMS, parent, family, police, friend...)? What history was obtained from this source @ -EMS Did you review nursing and triage notes (agree or disagree)? Why? @ -I reviewed and agree with nursing and triage notes Were old charts reviewed (outside hosp., previous admission, EMS record, old EKG, old radiological studies, urgent care reports/EKG's, [facility] records)? Report findings @ -No old charts were reviewed Differential Diagnosis (chest pain, altered mental status, abdominal pain women, abdominal pain men, vaginal bleeding, weakness, fever, dyspnea, syncope, headache, dizziness, GI bleed, back pain, seizure, CVA, palpatations, mental health, musculoskeletal)? @ -Differential Dyspnea: COPD, pneumonia, pneumothorax, pulmonary effusion, anaphylaxis, this is not meant to be an all-inclusive list. EKG interpreted by me (3pts min.). @ -n/a X-rays interpreted by me (1pt min.). @ -Yes as above CT interpreted by me (1pt min.). @ -None done U/S interpreted by me (1pt. min.). @ -None done What testing was considered but not performed or refused? (CT, X-rays, U/S, labs)? Why? @ -None What meds were considered but not given or refused? Why? @ -None Did you discuss the management of the patient with other professionals (professionals i.e. , PA, [employer], lab, RT, psych nurse, social media sr strategy manager, manager perioperative, teacher, chief technology officer, therapeutic case manager)? Give summary @ -No Was smoking cessation discussed for >3mins.? @ -No Was critical care preformed (if so, how long)? @ -No Were there social determinants of health that impacted care today? How? (Homelessness, low income, unemployed, alcoholism, drug addiction, transportation, low edu. Level, literacy, decrease access to med. care, group home, rehab)? @ -No Was there de-escalation of care discussed even if they declined (Discuss DNR or withdrawal of care, Hospice)? DNR status @ -No What co-morbidities impacted this encounter? (DM, HTN, Smoking, COPD, CAD, Cancer, CVA, ARF, Chemo, Hep., AIDS, mental health diagnosis, sleep apnea, morbid obesity)? @ -Dementia, hypertension, CVA, CAD Was patient admitted / discharged? Hospital course, mention meds given and route, prescriptions, significant lab abnormalities, going to OR and other pertinent info. @ -Discharged Undiagnosed new problem with uncertain prognosis? @ -No Drug Therapy requiring intensive monitoring for toxicity (Heparin, Nitro, Insulin, Cardizem)? @ -No Were any procedures done? @ -No Diagnosis/symptom? @ -Choking episode Acute, or Chronic, or Acute on Chronic? @ -Acute Uncomplicated (without systemic symptoms) or Complicated (systemic symptoms)? @ -Uncomplicated Side effects of treatment? @ -No Exacerbation, Progression, or Severe Exacerbation? @ -No Poses a threat to life or bodily function? How? (Chest pain, USA, SC, pneumonia, PE, COPD, DKA, ARF, appy, cholecystitis, CVA, Diverticulitis, Homicidal, Suicidal, threat to staff... and all critical care pts) @ -No Disposition Clinical Impression: Choking due to phlegm Disposition: HOME SELF-CARE Condition: Good Instructions (If sedation given, give patient instructions): Acute Cough (ED) Additional Instructions: Increase your fluid intake to thin mucous. Return to the emergency room with any new or concerning symptoms. Follow-up with the primary care doctor next week. Is patient prescribed a controlled substance at d/c from ED?: No Referrals: Pablo Multani MD [Primary Care Provider] - 1-2 days Time of Disposition: 16:04
--- NOTE | 2022-12-13 15:48 | XR ---
EXAMINATION TYPE: XR chest 2V DATE OF EXAM: 12/13/2022 COMPARISON: 08/11/22 HISTORY: Shortness of breath TECHNIQUE: Frontal and lateral views of the chest are obtained. FINDINGS: Scattered senescent parenchymal changes noted. Hyperinflation compatible with COPD. No evidence for infiltrate. No evidence for atelectasis. Heart size is stable. Mediastinal structures are stable and grossly unremarkable. No evidence for hilar prominence. Degenerative changes dorsal spine. IMPRESSION: 1. No evidence for acute pulmonary disease.
[2022-12-13 16:11] VITALS: BP 163/77; PULSE 71; RESP 16; TEMP 98.7
== END 2022-12-13 16:42 | disposition home or self-care (01) ==
LOC: EC 14:56
DX: R09.89 Other specified symptoms and signs involving the circulatory and respiratory systems (principal); E11.36 Type 2 diabetes mellitus with diabetic cataract; I10 Essential (primary) hypertension; I25.10 Atherosclerotic heart disease of native coronary artery without angina pectoris; F03.90 Unspecified dementia, unspecified severity, without behavioral disturbance, psychotic disturbance, mood disturbance, and anxiety; E78.5 Hyperlipidemia, unspecified; M19.90 Unspecified osteoarthritis, unspecified site; Z87.891 Personal history of nicotine dependence; Z79.4 Long term (current) use of insulin; Z79.84 Long term (current) use of oral hypoglycemic drugs; Z79.02 Long term (current) use of antithrombotics/antiplatelets; Z79.899 Other long term (current) drug therapy; Z86.73 Personal history of transient ischemic attack (TIA), and cerebral infarction without residual deficits
CPT/HCPCS: 71046; 99285

== ENCOUNTER 2023-02-24 20:50 | Inpatient (IN) | payer MEDICARE ==
[2023-02-24] MEDS ORDERED: PROPOFOL 10 MG/ML 20 ML VIAL IV ONE (20:58)
[2023-02-24] MEDS ORDERED: SODIUM CHLORIDE 0.9% 1,000 ML IV STA ×2 (21:08→22:57)
[2023-02-24] MEDS ORDERED: IPRATROPIUM-ALBUTEROL 3 ML NEB INHALATION STA (21:08)
[2023-02-24] MEDS ORDERED: DEXAMETHASONE SOD PHOSPHATE 10 MG/ML 1 ML VIAL IV STA (21:09)
--- NOTE | 2023-02-24 21:14 | XR ---
EXAMINATION TYPE: XR chest 1V portable DATE OF EXAM: 02/24/2023 9:10 PM COMPARISON: Chest x-ray 12/13/2022 TECHNIQUE: XR chest 1V portable . CLINICAL INDICATION:Male, 87 years old with history of shortness of breath; FINDINGS: Lungs/Pleura: Low lung volumes are present. There is no evidence of pleural effusion, focal consolida tion, or pneumothorax. Pulmonary vascularity: Unremarkable. Heart/mediastinum: Cardiomediastinal silhouette is unremarkable. Atherosclerotic calcifications are seen in the aorta. Musculoskeletal: No acute osseous pathology. IMPRESSION: No acute cardiopulmonary disease/process.
[2023-02-24] MEDS ORDERED: DILTIAZEM DRIP BOLUS FROM BAG 1 MG SOLN IV ONE (21:33)
[2023-02-24] MEDS ORDERED: HEPARIN SODIUM 1,000 UN/ML (10ML VL) IV ONE (21:39)
[2023-02-24] MEDS ORDERED: HEPARIN SODIUM 1,000 UN/ML (10ML VL) IV PRN (21:39)
[2023-02-24 21:46] LABS: ALT 28 U/L (4-49); AST 23 U/L (17-59); African American GFR (CKD) 75 (>60 ml/min/1.73 sqM); Albumin 3.9 g/dL (3.5-5.0); Alkaline Phosphatase 98 U/L (38-126); Anion Gap 10 mmol/L; Blood Urea Nitrogen 28 mg/dL (9-20); Calcium 8.4 mg/dL (8.4-10.2); Carbon Dioxide 29 mmol/L (22-30); Chloride 104 mmol/L (98-107); Glucose 160 mg/dL (74-99); Magnesium 2.1 mg/dL (1.6-2.3); Non-African American GFR(CKD) 65 (>60 ml/min/1.73 sqM); Partial Thromboplastin Time 23.6 sec (22.0-30.0); Potassium 3.9 mmol/L (3.5-5.1); Prothrombin Time 10.7 sec (9.0-12.0); Sodium 143 mmol/L (137-145); Total Bilirubin 0.9 mg/dL (0.2-1.3); Total Protein 7.6 g/dL (6.3-8.2)
[2023-02-24] MEDS: DILTIAZEM 125 MG in SODIUM CHLORIDE 0.9% 100 ML IV SCH (21:46)
--- NOTE | 2023-02-24 21:47 | ED ---
General Adult HPI - General Chief complaint: Shortness of Breath Stated complaint: choking Time Seen by Provider: 02/24/23 20:51 Source: patient Mode of arrival: EMS - History of Present Illness Initial comments: Dictation was produced using [employer]reeze[employer] dictation software. please excuse any grammatical, word or spelling errors. Chief Complaint: 87-year-old male presents emergency department for choking episode. History of Present Illness: It is a 87-year-old male he was recently diagnosed with pneumonia. EMS brought the patient in from home. According to EMS patient was noted to have a choking episode. Prior to that he was in his usual state of health. Patient is a poor historian states that he does have a history of A. fib and that he is on anticoagulation medications and heart controlling medications. After further review review with the chart. The patient is not on any anticoagulation medications doesn't have a history of A. fib and is not on any beta blockers. Unable to be in ROS secondary to mental status - Related Data Home Medications Medication Instructions Recorded Confirmed Atorvastatin [Lipitor] 40 mg PO HS 12/07/15 02/24/23 Clopidogrel [Plavix] 75 mg PO DAILY 12/07/15 02/24/23 Enalapril [Vasotec] 40 mg PO DAILY 12/07/15 02/24/23 Gabapentin [Neurontin] 100 mg PO BID 12/07/15 02/24/23 Insulin Aspart [NovoLOG Flexpen] 6 units SQ AC-TID 12/07/15 02/24/23 amLODIPine BESYLATE [Norvasc] 5 mg PO BID 12/07/15 02/24/23 cloNIDine HCL [Catapres] 0.1 mg PO DAILY 12/07/15 02/24/23 sitaGLIPtin [Januvia] 100 mg PO DAILY 12/07/15 02/24/23 traZODone HCL [Desyrel] 50 mg PO HS 12/07/15 02/24/23 Insulin Glargine,Hum.rec.anlog 60 unit SQ DAILY 01/22/18 02/24/23 [Basaglar Kwikpen U-100] Oxybutynin Chloride [Oxybutynin 10 mg PO DAILY 01/22/18 02/24/23 Chloride ER] Furosemide [Lasix] 40 mg PO DAILY 04/16/18 02/24/23 Citalopram Hydrobromide [CeleXA] 20 mg PO DAILY 12/13/22 02/24/23 Donepezil [Aricept] 10 mg PO HS 12/13/22 02/24/23 Ketorolac 0.5% Ophth Soln [Acular 1 drop LEFT EYE BID 12/13/22 02/24/23 0.5%] Travoprost [Travatan Z 0.004%] 1 drop RIGHT EYE HS 12/13/22 02/24/23 Triamcinolone 0.5% Cream [Kenalog 1 applic TOPICAL DAILY 12/13/22 02/24/23 0.5% Cream] Albuterol Inhaler [Ventolin Hfa 2 puff INHALATION RT-Q4H PRN 02/24/23 02/24/23 Inhaler] Benzonatate [Tessalon Perle] 200 mg PO TID PRN 02/24/23 02/24/23 Ciprofloxacin HCl [Cipro] 250 mg PO Q12H 02/24/23 02/24/23 Allergies Allergy/AdvReac Type Severity Reaction Status Date / Time No Known Allergies Allergy Verified 02/24/23 22:13 Review of Systems ROS Statement: Those systems with pertinent positive or pertinent negative responses have been documented in the HPI. ROS Other: All systems not noted in ROS Statement are negative. Past Medical History Past Medical History: Coronary Artery Disease (CAD), CVA/TIA, Dementia, Diabetes Mellitus, Eye Disorder, Hyperlipidemia, Hypertension, Memory Impairment, Osteoarthritis (OA), Pneumonia, Syncope Additional Past Medical History / Comment(s): cataract left eye. Diverticulitis. lt fractured ankle 716,rt. foot wound-healed, tia, hiatal hernia occ hand tremors, hx of falls,uses walker when up. incont of urine/stool wears depends. . History of Any Multi-Drug Resistant Organisms: None Reported Past Surgical History: Heart Catheterization With Stent, Hernia Repair, Tonsillectomy Additional Past Surgical History / Comment(s): VASECTOMY, rt eye cataract removed Past Anesthesia/Blood Transfusion Reactions: No Reported Reaction Additional Past Anesthesia/Blood Transfusion Reaction / Comment(s): clausterphobic Date of Last Stent Placement:: February 01, 2011 Past Psychological History: No Psychological Hx Reported Smoking Status: Former smoker - Past Family History Father History Unknown: Yes Mother Family Medical History: Myocardial Infarction (MA) Additional Family Medical History / Comment(s): Mother of heart attack at 64. Mother had mental illness. Brother(s) Family Medical History: Cancer Additional Family Medical History / Comment(s): Patients half-brother had stomach cancer. General Exam - General Exam Comments Initial Comments: PHYSICAL EXAM: General Impression: Alert and oriented x2/4, dyspneic, acute distress secondary to dyspnea HEENT: Normocephalic atraumatic, extra-ocular movements intact, pupils equal and reactive to light bilaterally, dry mucous membranes Cardiovascular: Tachycardic, irregular Chest: Tachypneic, retracting, diffuse auscultatory lung wheezes, gurgly breathing Abdomen: abdomen soft, non-tender, non-distended, no organomegaly Musculoskeletal: Pulses present and equal in all extremities, 1+ pitting edema to bilateral lower extremity is Motor: no focal deficits noted Neurological: CN II-XII grossly intact, no focal motor or sensory deficits noted Skin: Intact with no visualized rashes Course Vital Signs 02/24/23 02/24/23 02/24/23 20:52 21:11 21:15 Temperature 98.3 F Pulse Rate 154 H 135 H 141 H Respiratory 26 H 51 H 26 H Rate Blood Pressure 143/82 126/80 107/71 O2 Sat by Pulse 98 92 L 93 L Oximetry Fraction of 100 Inspired Oxygen (FIO2) 02/24/23 02/24/23 02/24/23 21:30 21:45 22:15 Temperature Pulse Rate 146 H 140 H 141 H Respiratory 33 H 31 H 35 H Rate Blood Pressure 153/91 128/115 107/94 O2 Sat by Pulse 97 97 100 Oximetry Fraction of Inspired Oxygen (FIO2) 02/24/23 02/24/23 02/24/23 22:30 23:00 23:15 Temperature Pulse Rate 142 H 142 H 154 H Respiratory 39 H 30 H 26 H Rate Blood Pressure 107/61 135/68 132/111 O2 Sat by Pulse 99 98 99 Oximetry Fraction of Inspired Oxygen (FIO2) 02/25/23 02/25/23 00:00 00:20 Temperature Pulse Rate 132 H 147 H Respiratory Rate Blood Pressure O2 Sat by Pulse Oximetry Fraction of 80 Inspired Oxygen (FIO2) - Reevaluation(s) Reevaluation #1: 02/24/23 21:46 Patient seen and evaluated trauma bay #2. Patient was in significant distress. His equipment monitor phototypesetting showed atrial fibrillation with RVR. Patient complaining of chest pressure. Patient clinical presentation concerning for decompensating condition with A. fib with RVR. Multiple attempts are made for cigarette as cardioversion. Patient briefly was a normal sinus rhythm however converted almost instantaneously back to A. fib with RVR. [id number] bedside ultraso und was performed. There were no signs of pulmonary edema. BiPAP was placed. Patient given breathing treatment and Decadron. After several minutes of BiPAP patient is reevaluated with improvement of respiratory condition. Suspect that patient had aspiration event. Chest x-ray was nonacute Chart review was performed. Patient has no history of A. fib, no history of anticoagulation medications. He does have a history of dementia. 02/24/23 21:49 EKG Findings - EKG Comments: EKG Findings:: My EKG interpretation: Ventricular rate 159, A. fib with RVR, QRS 142, QTC 397. No AR prolongation, no QTC prolongation,. No obvious ischemic changes. EKG consistent with A. fib with RVR Medical Decision Making - Medical Decision Making Was pt. sent in by a medical professional or institution (, PA, SLITTER SCORER CUT OFF OPERATOR, urgent care, hospital, or fpc...) When possible be specific @ -No Did you speak to anyone other than the patient for history (EMS, parent, family, police, friend...)? What history was obtained from this source @ -spoke with family members and state that patient had what appeared to be limited choking episode Did you review nursing and triage notes (agree or disagree)? Why? @ -I reviewed and agree with nursing and triage notes Were old charts reviewed ([facility] hosp., previous admission, EMS record, old EKG, old radiological studies, urgent care reports/EKG's, fpc records)? Report findings @ -Prior chart was reviewed she is a patient was seen here several months ago for a similar issue Differential Diagnosis (chest pain, altered mental status, abdominal pain women, abdominal pain men, vaginal bleeding, musculoskeletal, weakness, fever, dyspnea, syncope, headache, dizziness, GI bleed, back pain, seizure, CVA, palpatations, mental health)? @ -Differential Dyspnea: Coronary syndrome, arrhythmia, tamponade, asthma, COPD, pulmonary embolism, pneu monia, pneumothorax, pulmonary effusion, anaphylaxis, diabetic ketoacidosis, flailed chest, pulmonary contusion, diaphragmatic rupture, anemia, neuromuscular, this is not meant to be an all-inclusive list. EKG interpreted by me (3pts min.). @ -See above X-rays interpreted by me (1pt min.). @ -chest X-rays not acute CT interpreted by me (1pt min.). @ -None done U/S interpreted by me (1pt. min.). @ -None done What testing was considered but not performed or refused? (CT, X-rays, U/S, labs)? Why? @ -None What meds were considered but not given or refused? Why? @ -None Did you discuss the management of the patient with other professionals (david khan i.e. , PA, SLITTER SCORER CUT OFF OPERATOR, lab, RT, psych nurse, elementary school social worker, it manager, teacher, youth officer, window caser)? Give summary @ -Case with icu nurse practitioner who evaluated patient bedside Was smoking cessation discussed for >3mins.? @ -No Was critical care preformed (if so, how long)? @ -73 minutes Were there social determinants of health that impacted care today? How? (Homelessness, low income, unemployed, alcoholism, drug addiction, transportation, low edu. Level, literacy, decrease access to med. care, care home, rehab)? @ -No Was there de-escalation of care discussed even if they declined (Discuss DNR or withdrawal of care, Hospice)? DNR status @ -No What co-morbidities impacted this encounter? (DM, HTN, Smoking, COPD, CAD, Cancer, CVA, ARF, Chemo, Hep., AIDS, mental health diagnosis, sleep apnea, mo rbid obesity)? @ -None Was patient admitted / discharged? Hospital course, mention meds given and route, prescriptions, significant lab abnormalities, going to OR and other pertinent info. @ -87-year-old male presents emergency department for respiratory failure. Patient dyspneic upon arrival. Clinical presentation suspicious for aspiration. Patient also and new-onset A. fib with RVR. Patient on BiPAP for several minutes which improved his breathing. Patient also is on Cardizem converted to normal sinus rhythm. Patient remained to [facility] hospitalist group with consultation to cardiology and pulmonology. Undiagnosed new problem with uncertain prognosis? @ -No Drug Therapy requiring intensive monitoring for toxicity (Heparin, Nitro, Insulin, Cardizem)? @ -No Were any procedures done? @ -No Diagnosis/symptom? Acute, or Chronic, or Acute on Chronic? Uncomplicated (without systemic symptoms) or Complicated (systemic symptoms)? @ -1. Respiratory failure, 2. New-onset A. fib Side effects of treatment? @ -No Exacerbation, Progression, or Severe Exacerbation? @ -No Poses a threat to life or bodily function? How? (Chest pain, USA, MA, pneumonia, PE, COPD, DKA, ARF, appy, cholecystitis, CVA, Diverticulitis, Homicidal, Suicidal, threat to staff... and all critical care pts) @ -yes - Lab Data Result diagrams: 02/24/23 21:00 02/24/23 21:00 Lab Results 02/24/23 02/24/23 02/24/23 Range/Units 21:00 21:00 21:00 WBC 12.5 H (3.8-10.6) k/uL RBC 5.15 (4.30-5.90) m/uL Hgb 14.3 (13.0-17.5) gm/dL Hct 45.9 (39.0-53.0) % MCV 89.2 (80.0-100.0) fL MCH 27.9 (25.0-35.0) pg MCHC 31.2 (31.0-37.0) g/dL RDW 15.1 (11.5-15.5) % Plt Count 193 (150-450) k/uL MPV 8.0 Neutrophils % (Manual) 33 % Band Neuts % (Manual) 2 % Lymphocytes % (Manual) 50 % Monocytes % (Manual) 11 % Eosinophils % (Manual) 4 % Neutrophils # (Manual) 4.30 (1.3-7.7) k/uL Lymphocytes # (Manual) 6.25 H (1.0-4.8) k/uL Monocytes # (Manual) 1.38 H (0-1.0) k/uL Eosinophils # (Manual) 0.50 (0-0.7) k/uL Nucleated RBCs 0 (0-0) /100 WBC Hypochromasia Slight Ovalocytes Present PT 10.7 (9.0-12.0) sec INR 1.0 (<1.2) APTT 23.6 (22.0-30.0) sec Sample Site ABG pH (7.35-7.45) ABG pCO2 (35-45) mmHg ABG pO2 (83-108) mmHg ABG HCO3 (21-25) mmol/L ABG Total CO2 (19-24) mmol/L ABG O2 Saturation (94-97) % ABG Base Excess mmol/L Blair Test FiO2 % Sodium 143 (137-145) mmol/L Potassium 3.9 (3.5-5.1) mmol/L Chloride 104 (98-107) mmol/L Carbon Dioxide 29 (22-30) mmol/L Anion Gap 10 mmol/L BUN 28 H (9-20) mg/dL Creatinine 1.04 (0.66-1.25) mg/dL Est GFR (CKD-EPI)AfAm 75 (>60 ml/min/1.73 sqM) Est GFR (CKD-EPI)NonAf 65 (>60 ml/min/1.73 sqM) Glucose 160 H (74-99) mg/dL Lactic Ac Sepsis Rflx Plasma Lactic Acid Gt (0.7-2.0) mmol/L Calcium 8.4 (8.4-10.2) mg/dL Magnesium 2.1 (1.6-2.3) mg/dL Total Bilirubin 0.9 (0.2-1.3) mg/dL AST 23 (17-59) U/L ALT 28 (4-49) U/L Alkaline Phosphatase 98 (38-126) U/L Troponin I (0.000-0.034) ng/mL NT-Pro-B Natriuret Pep pg/mL Total Protein 7.6 (6.3-8.2) g/dL Albumin 3.9 (3.5-5.0) g/dL 02/24/23 02/24/23 02/24/23 Range/Units 21:00 21:00 21:00 WBC (3.8-10.6) k/uL RBC (4.30-5.90) m/uL Hgb (13.0-17.5) gm/dL Hct (39.0-53.0) % MCV (80.0-100.0) fL MCH (25.0-35.0) pg MCHC (31.0-37.0) g/dL RDW (11.5-15.5) % Plt Count (150-450) k/uL MPV Neutrophils % (Manual) % Band Neuts % (Manual) % Lymphocytes % (Manual) % Monocytes % (Manual) % Eosinophils % (Manual) % Neutrophils # (Manual) (1.3-7.7) k/uL Lymphocytes # (Manual) (1.0-4.8) k/uL Monocytes # (Manual) (0-1.0) k/uL Eosinophils # (Manual) (0-0.7) k/uL Nucleated RBCs (0-0) /100 WBC Hypochromasia Ovalocytes PT (9.0-12.0) sec INR (<1.2) APTT (22.0-30.0) sec Sample Site ABG pH (7.35-7.45) ABG pCO2 (35-45) mmHg ABG pO2 (83-108) mmHg ABG HCO3 (21-25) mmol/L ABG Total CO2 (19-24) mmol/L ABG O2 Saturation (94-97) % ABG Base Excess mmol/L Blair Test FiO2 % Sodium (137-145) mmol/L Potassium (3.5-5.1) mmol/L Chloride (98-107) mmol/L Carbon Dioxide (22-30) mmol/L Anion Gap mmol/L BUN (9-20) mg/dL Creatinine (0.66-1.25) mg/dL Est GFR (CKD-EPI)AfAm (>60 ml/min/1.73 sqM) Est GFR (CKD-EPI)NonAf (>60 ml/min/1.73 sqM) Glucose (74-99) mg/dL Lactic Ac Sepsis Rflx Plasma Lactic Acid Gt 2.6 H* (0.7-2.0) mmol/L Calcium (8.4-10.2) mg/dL Magnesium (1.6-2.3) mg/dL Total Bilirubin (0.2-1.3) mg/dL AST (17-59) U/L ALT (4-49) U/L Alkaline Phosphatase (38-126) U/L Troponin I 0.016 (0.000-0.034) ng/mL NT-Pro-B Natriuret Pep 802 pg/mL Total Protein (6.3-8.2) g/dL Albumin (3.5-5.0) g/dL 02/24/23 02/24/23 02/25/23 Range/Units 22:00 22:52 01:48 WBC (3.8-10.6) k/uL RBC (4.30-5.90) m/uL Hgb (13.0-17.5) gm/dL Hct (39.0-53.0) % MCV (80.0-100.0) fL MCH (25.0-35.0) pg MCHC (31.0-37.0) g/dL RDW (11.5-15.5) % Plt Count (150-450) k/uL MPV Neutrophils % (Manual) % Band Neuts % (Manual) % Lymphocytes % (Manual) % Monocytes % (Manual) % Eosinophils % (Manual) % Neutrophils # (Manual) (1.3-7.7) k/uL Lymphocytes # (Manual) (1.0-4.8) k/uL Monocytes # (Manual) (0-1.0) k/uL Eosinophils # (Manual) (0-0.7) k/uL Nucleated RBCs (0-0) /100 WBC Hypochromasia Ovalocytes PT (9.0-12.0) sec INR (<1.2) APTT (22.0-30.0) sec Sample Site Left Brachial L rad ABG pH 7.29 L 7.28 L (7.35-7.45) ABG pCO2 65 H 63 H (35-45) mmHg ABG pO2 385 H 69 L (83-108) mmHg ABG HCO3 31 H 29 H (21-25) mmol/L ABG Total CO2 33 H 31 H (19-24) mmol/L ABG O2 Saturation 100.0 H 93.2 L (94-97) % ABG Base Excess 4.6 2.3 mmol/L Blair Test Yes Yes FiO2 100 80 % Sodium (137-145) mmol/L Potassium (3.5-5.1) mmol/L Chloride (98-107) mmol/L Carbon Dioxide (22-30) mmol/L Anion Gap mmol/L BUN (9-20) mg/dL Creatinine (0.66-1.25) mg/dL Est GFR (CKD-EPI)AfAm (>60 ml/min/1.73 sqM) Est GFR (CKD-EPI)NonAf (>60 ml/min/1.73 sqM) Glucose (74-99) mg/dL Lactic Ac Sepsis Rflx Y Plasma Lactic Acid Gt (0.7-2.0) mmol/L Calcium (8.4-10.2) mg/dL Magnesium (1.6-2.3) mg/dL Total Bilirubin (0.2-1.3) mg/dL AST (17-59) U/L ALT (4-49) U/L Alkaline Phosphatase (38-126) U/L Troponin I (0.000-0.034) ng/mL NT-Pro-B Natriuret Pep pg/mL Total Protein (6.3-8.2) g/dL Albumin (3.5-5.0) g/dL Disposition Clinical Impression: Respiratory failure Disposition: ADMITTED IP TO THIS [facility] Condition: Fair Referrals: Pablo Multani MD [Primary Care Provider] - 1-2 days Decision Time: 23:30
[2023-02-24] MEDS: HEPARIN SOD,PORK IN 0.45% NACL 25,000 UNIT in 0.45% NACL 1 250ML.BAG IV SCH (21:51)
[2023-02-24 22:00] LABS: HCT 45.9 % (39.0-53.0); HGB 14.3 gm/dL (13.0-17.5); Hypochromasia Slight; MCH 27.9 pg (25.0-35.0); MCHC 31.2 g/dL (31.0-37.0); MCV 89.2 fL (80.0-100.0); Platelet Count 193 k/uL (150-450); RBC 5.15 m/uL (4.30-5.90); RDW 15.1 % (11.5-15.5); WBC 12.5 k/uL (3.8-10.6)
[2023-02-24 22:03] LABS: ABG Base Excess 4.6 mmol/L; ABG HCO3 31 mmol/L (21-25); ABG PCO2 65 mmHg (35-45); ABG PH 7.29 (7.35-7.45); ABG PO2 385 mmHg (83-108); ABG TCO2 33 mmol/L (19-24); Allen Test Performed? Yes
[2023-02-24 22:35] LABS: Band Neutrophils % 2 %; Lymphocytes # (M) 6.25 k/uL (1.0-4.8); Monocytes # (M) 1.38 k/uL (0-1.0); Neutrophils % (M) 33 %; Nucleated Red Blood Cells 0 /100 WBC (0-0); Total Cells Counted 100
[2023-02-24 22:36] LABS: Ovalocytes Present
[2023-02-25 01:50] LABS: ABG Base Excess 2.3 mmol/L; ABG HCO3 29 mmol/L (21-25); ABG Oxygen Saturation 93.2 % (94-97); ABG PCO2 63 mmHg (35-45); ABG PH 7.28 (7.35-7.45); ABG PO2 69 mmHg (83-108); ABG TCO2 31 mmol/L (19-24); Allen Test Performed? Yes
[2023-02-25] MEDS ORDERED: NALOXONE 0.4 MG/ML 1 ML VIAL IV PRN (02:27)
[2023-02-25] MEDS ORDERED: ONDANSETRON 4 MG/2 ML VIAL IVP PRN (02:27)
[2023-02-25] MEDS ORDERED: IPRATROPIUM-ALBUTEROL 3 ML NEB INHALATION PRN (03:35)
--- NOTE | 2023-02-25 03:47 | P.CNPUL ---
History of Present Illness Consult date: 02/25/23 Requesting physician: Matthew Reyes Reason for consult: dyspnea Chief complaint: Choking and shortness of breath History of present illness: I am seeing this patient in new consultation today 02/25/2023 in the emergency room for acute hypoxemic and hypercapnic respiratory failure. Patient is an 87-year-old male with past medical history significant for Parkinson's disease, moderate to severe dementia, coronary artery disease with previous stent, hypertension, hyperlipidemia, diabetes mellitus, TIA, remote history of alcoholism, and remote history of smoking. Patient himself is a poor historian, his is at bedside, and provides most of the information. She states that yesterday evening the patient was eating popcorn and had a choking episode. He then became severely short of breath, and she called EMS. She also reports that he was recently diagnosed with pneumonia last Saturday and was treated with antibiotics on an outpatient basis. Reportedly, the patient does follow with a bog cutter located by [facility], and uses an albuterol inhaler, on a when necessary basis. On arrival to the emergency room, the patient was in atrial fibrillation with rapid ventricular rate, and a cardioversion was attempted by the ER physician. The patient reportedly went right back into atrial fibrillation with RVR. He was then started on Cardizem which is currently infusing at 15 mg per hour and low-dose heparin infusion per protocol. denies any prior history of atrial fibrillation. While in the room, the patient actually did convert into normal sinus rhythm currently at 80 bpm. Patient is currently sitting up in bed, baseline confused, in no acute dis tress. He is on a BiPAP with settings 12/6 and FiO2 of 80%. He is oxygenating at 99% on these settings. Most recent ABG was done on an FiO2 of 100% and shows a PaO2 of 385, pCO2 65, and pH of 7.29. Repeat ABG was done, but is believed to be a venous sample. Chest x-ray on arrival shows no acute cardiopulmonary process. CBC on arrival shows some mild leukocytosis with a WBC count of 12.5, hemoglobin 14.3, hematocrit 46, platelets 193. BMP shows sodium 143, potassium 3.9, chloride 104, serum CO2 29, BUN 28, creatinine 1.04, glucose 160. Lactic acid level was mildly elevated at 2.6. Normal saline is ordered at 75 ML's per hour. Troponin was 0.016. NT proBNP was only slightly elevated when adjusted for age at 802. Vital signs are stable at this time. Review of Systems REVIEW OF SYSTEMS: CONSTITUTIONAL: Denies any recent significant weight loss or weight gain. EYES: Denies change in vision. EARS, NOSE, MOUTH, THROAT: Denies headaches, denies sore throat. CARDIOVASCULAR: Denies chest pain, palpitations or syncopal episodes. RESPIRATORY: Denies cough, congestion or hemoptysis. Admits shortness of breath GASTROINTESTINAL: Denies change in appetite, abdominal pain, nausea and vomiting, or diarrhea GENITOURINARY: Denies hematuria, denies infections. MUSKULOSKELETAL: Denies pain, denies swelling. INTEGUMENTARY: Denies rash, denies eczema. NEUROLOGICAL: Denies recent memory loss, no recent seizure activity. PSYCHIATRIC: Denies anxiety, denies depression. HEMATOLOGIC/LYMPHATIC: Denies anemia, denies enlarged lymph node Past Medical History Past Medical History: Coronary Artery Disease (CAD), CVA/TIA, Dementia, Diabetes Mellitus, Eye Disorder, Hyperlipidemia, Hypertension, Memory Impairment, Osteoarthritis (OA), Pneumonia, Syncope Additional Past Medical History / Comment(s): cataract left eye. Diverticulitis. lt fractured ankle 16,rt. foot wound-healed, tia, hiatal hernia occ hand tremors, hx of falls,uses walker when up. incont of urine/stool wears depends. . History of Any Multi-Drug Resistant Organisms: None Reported Past Surgical History: Heart Catheterization With Stent, Hernia Repair, Tonsillectomy Additional Past Surgical History / Comment(s): VASECTOMY, rt eye cataract removed Past Anesthesia/Blood Transfusion Reactions: No Reported Reaction Additional Past Anesthesia/Blood Transfusion Reaction / Comment(s): clausterphobic Date of Last Stent Placement:: February 01, 2011 Past Psychological History: No Psychological Hx Reported Smoking Status: Former smoker - Past Family History Father History Unknown: Yes Mother Family Medical History: Myocardial Infarction ([place]) Additional Family Medical History / Comment(s): Mother of heart attack at 64. Mother had mental illness. Brother(s) Family Medical History: Cancer Additional Family Medical History / Comment(s): Patients half-brother had stomach cancer. Medications and Allergies Home Medications Medication Instructions Recorded Confirmed Type Atorvastatin [Lipitor] 40 mg PO HS 12/07/15 02/24/23 History Clopidogrel [Plavix] 75 mg PO DAILY 12/07/15 02/24/23 History Enalapril [Vasotec] 40 mg PO DAILY 12/07/15 02/24/23 History Gabapentin [Neurontin] 100 mg PO BID 12/07/15 02/24/23 History Insulin Aspart [NovoLOG Flexpen] 6 units SQ AC-TID 12/07/15 02/24/23 History amLODIPine BESYLATE [Norvasc] 5 mg PO BID 12/07/15 02/24/23 History cloNIDine HCL [Catapres] 0.1 mg PO DAILY 12/07/15 02/24/23 History sitaGLIPtin [Januvia] 100 mg PO DAILY 12/07/15 02/24/23 History traZODone HCL [Desyrel] 50 mg PO HS 12/07/15 02/24/23 History Insulin Glargine,Hum.rec.anlog 60 unit SQ DAILY 01/22/18 02/24/23 History [Basaglar Kwikpen U-100] Oxybutynin Chloride [Oxybutynin 10 mg PO DAILY 01/22/18 02/24/23 History Chloride ER] Furosemide [Lasix] 40 mg PO DAILY 04/16/18 02/24/23 History Citalopram Hydrobromide [CeleXA] 20 mg PO DAILY 12/13/22 02/24/23 History Donepezil [Aricept] 10 mg PO HS 12/13/22 02/24/23 History Ketorolac 0.5% Ophth Soln [Acular 1 drop LEFT EYE BID 12/13/22 02/24/23 History 0.5%] Travoprost [Travatan Z 0.004%] 1 drop RIGHT EYE HS 12/13/22 02/24/23 History Triamcinolone 0.5% Cream [Kenalog 1 applic TOPICAL DAILY 12/13/22 02/24/23 History 0.5% Cream] Albuterol Inhaler [Ventolin Hfa 2 puff INHALATION RT-Q4H PRN 02/24/23 02/24/23 History Inhaler] Benzonatate [Tessalon Perle] 200 mg PO TID PRN 02/24/23 02/24/23 History Ciprofloxacin HCl [Cipro] 250 mg PO Q12H 02/24/23 02/24/23 History Allergies Allergy/AdvReac Type Severity Reaction Status Date / Time No Known Allergies Allergy Verified 02/24/23 22:13 Physical Exam Vitals: Vital Signs Temp Pulse Resp BP Pulse Ox FiO2 02/25/23 00:20 147 H 02/25/23 00:00 132 H 80 02/24/23 23:15 154 H 26 H 132/111 99 02/24/23 23:00 142 H 30 H 135/68 98 02/24/23 22:30 142 H 39 H 107/61 99 02/24/23 22:15 141 H 35 H 107/94 100 02/24/23 21:45 140 H 31 H 128/115 97 02/24/23 21:30 146 H 33 H 153/91 97 02/24/23 21:15 141 H 26 H 107/71 93 L 100 02/24/23 21:11 135 H 51 H 126/80 92 L 02/24/23 20:52 98.3 F 154 H 26 H 143/82 98 Intake and Output 02/24/23 02/24/23 02/25/23 14:59 22:59 06:59 Intake Total 4.417 Balance 4.417 Intake: Intake, IV Titration 4.417 Amount Diltiazem 125 mg In 4.417 Sodium Chloride 0.9% 100 ml @ 5 MG/HR 5 mls/hr IV .Q24H [facility] Rx#:[id number] Other: Weight 83.915 kg GENERAL EXAM: Alert but disoriented, 87-year-old white male, fairly comfortable in no apparent distress. HEAD: Normocephalic and atraumatic EYES: Normal reaction of pupils, equal size. NOSE: Clear with pink turbinates. THROAT: No erythema or exudates. NECK: No masses, no JVD. CHEST: No chest wall deformity. LUNGS: Equal air entry with coarse rhonchi heard throughout. On the BiPAP with settings 12/6 and FiO2 of 80%. No conversational dyspnea or accessory muscle use.. CVS: S1 and S2 normal with no audible murmur, regular rhythm. No extra heart sounds ABDOMEN: No hepatosplenomegaly, active bowel sounds, no guarding or rigidity. SPINE: No scoliosis or deformity SKIN: No rashes CENTRAL NERVOUS SYSTEM: No focal deficits, tone is normal in all 4 extremities. EXTREMITIES: There is no peripheral edema, clubbing, or cyanosis. Peripheral pulses are intact. Results - Laboratory Findings CBC and BMP: 02/24/23 21:00 02/24/23 21:00 ABG ABG pH 7.28 (7.35-7.45) L 02/25/23 01:48 ABG pCO2 63 mmHg (35-45) H 02/25/23 01:48 ABG pO2 69 mmHg (83-108) L 02/25/23 01:48 ABG O2 Saturation 93.2 % (94-97) L 02/25/23 01:48 PT/INR, D-dimer PT 10.7 sec (9.0-12.0) 02/24/23 21:00 INR 1.0 (<1.2) 02/24/23 21:00 Abnormal lab findings: Abnormal Labs 02/24/23 02/24/23 02/24/23 21:00 21:00 21:00 WBC 12.5 H Lymphocytes # (Manual) 6.25 H Monocytes # (Manual) 1.38 H ABG pH ABG pCO2 ABG pO2 ABG HCO3 ABG Total CO2 ABG O2 Saturation BUN 28 H Glucose 160 H Plasma Lactic Acid Gt 2.6 H* 02/24/23 02/25/23 22:00 01:48 WBC Lymphocytes # (Manual) Monocytes # (Manual) ABG pH 7.29 L 7.28 L ABG pCO2 65 H 63 H ABG pO2 385 H 69 L ABG HCO3 31 H 29 H ABG Total CO2 33 H 31 H ABG O2 Saturation 100.0 H 93.2 L BUN Glucose Plasma Lactic Acid Gt - Diagnostic Findings Chest x-ray: image reviewed Assessment and Plan Assessment: New-onset atrial fibrillation with rapid ventricular response, converted to normal sinus rhythm. Dysphagia, with multiple reported choking episodes Acute hypoxemic and hypercapnic respiratory failure, currently on BiPAP. Chest x-ray on arrival shows no acute cardiopulmonary process. Parkinson's disease Dementia Hypertension Hyperlipidemia Coronary artery disease, with prior cardiac stent Diabetes mellitus 2, insulin-dependent History of TIA Remote history of alcohol abuse Ex-smoker Plan: Patient's medications, labs, chest x-ray reviewed Continue BiPAP support Wean FiO2 to maintain oxygen saturation of 92% or greater When necessary bronchodilators Patient did convert to normal sinus rhythm Currently on a combination of Cardizem and low intensity heparin infusions per cardiology Consult speech therapy for swallow evaluation Patient will be admitted to the cardiac stepdown unit. We will continue to follow, and make recommendations I have personally seen and examined the patient, performed the documentation and the assessment and plan as written. Number of minutes spent on the visit:20 Is a joint evaluation that was done along with the nurse practitioner. The quite debilitated at 87-year-old male patient with known history of dementia and Parkinson's disease also known to have CAD, hypertension hyperlipidemia and diabetes mellitus. He is an ex-smoker. There may be an underlying COPD. The patient comes into the hospital because of choking, shortness of breath and he states that he also fell. He was diagnosed having a pneumonia approximately a week ago and he was treated with antibiotics on an outpatient basis. During this current hospital stay, the patient was found to be nature fibrillation with RVR and the patient was started on a Cardizem drip. He was also placed on a BiPAP. Currently is off the BiPAP and he is on 4 L of O2 nasal cannula. His cardiac rhythm is still nature fibrillation. The patient has converted into sinus rhythm however I was told that on and off she goes to the A. fib still. He remains on IV heparin for now. Breath sounds are quite diminished in lung bases and the patient is also showing some crackles patient has been taken off the Cardizem drip. The patient is on bronchodilators for now. Recommend a swallow evaluation. Recommend a echocardiogram. Recommend cardiology consultation regarding his A. fib. Not a good candidate for long-term and coag ulation because of his increased risk of falls. Down FiO2 as tolerated. We'll continue to follow. Continue bronchodilators. This evaluation was on a more than 30 minutes. Time with Patient: Greater than 30
[2023-02-25] MEDS: DILTIAZEM 125 MG in SODIUM CHLORIDE 0.9% 100 ML IV SCH (05:30)
[2023-02-25 06:21] LABS: Glucose,Whole Blood 286 mg/dL (70-110)
[2023-02-25] MEDS ORDERED: BENZONATATE 100 MG CAP PO PRN (07:26)
[2023-02-25] MEDS ORDERED: ALBUTEROL HFA INHALER INHALATION PRN (07:26)
[2023-02-25] MEDS ORDERED: DEXTROSE 50% SYRINGE 50 ML IVP PRN ×2 (07:28)
[2023-02-25] MEDS: IPRATROPIUM-ALBUTEROL 3 ML NEB INHALATION SCH ×4 (07:57→21:25)
[2023-02-25 08:13] LABS: ABG Base Excess 3.4 mmol/L; ABG HCO3 30 mmol/L (21-25); ABG Oxygen Saturation 98.4 % (94-97); ABG PCO2 57 mmHg (35-45); ABG PH 7.32 (7.35-7.45); ABG PO2 111 mmHg (83-108); ABG TCO2 31 mmol/L (19-24); Allen Test Performed? Yes
[2023-02-25] MEDS: SODIUM CHLORIDE 0.9% 1,000 ML IV SCH ×2 (08:52→16:47)
[2023-02-25 09:15] LABS: Glucose,Whole Blood 323 mg/dL (70-110)
[2023-02-25] MEDS: INSULIN DETEMIR (LEVEMIR) 100 UNIT/ML SYR SQ SCH ×2 (09:19→21:45)
[2023-02-25] MEDS: INSULIN ASPART (NovoLOG) 100 UNIT/ML VIAL SQ SCH ×4 (09:19→21:46)
[2023-02-25] MEDS: CITALOPRAM HYDROBROMIDE 20 MG TAB PO SCH (09:19)
[2023-02-25] MEDS: OXYBUTYNIN 10 MG TAB.ER.24 PO SCH (09:19)
[2023-02-25] MEDS: CLOPIDOGREL 75 MG TAB PO SCH (09:19)
[2023-02-25] MEDS: LINAGLIPTIN 5 MG TABLET PO SCH (09:19)
[2023-02-25] MEDS: GABAPENTIN 100 MG CAP PO SCH ×2 (09:19→21:46)
[2023-02-25] MEDS: KETOROLAC 0.5% OPHTH DROPS 5 ML BTL LEFT EYE SCH ×2 (09:20→22:07)
[2023-02-25] MEDS: METOPROLOL TARTRATE 25 MG TAB PO SCH ×2 (09:23→21:46)
[2023-02-25 10:53] LABS: T4, Free (Free Thyroxine) 1.87 ng/dL (0.78-2.19)
[2023-02-25 11:32] LABS: Glucose,Whole Blood 434 mg/dL (70-110)
--- NOTE | 2023-02-25 14:12 | P.CRDCN ---
History of Present Illness Consult date: 02/25/23 Consult reason: atrial fibrillation (New onset) History of present illness: History of present illness: This is an 87-year-old with a past medical history of coronary artery disease with PCI stent of the RCA in 2010, diabetes, hypertension, dyslipidemia, remote history of tobacco use. We have been asked to evaluate the patient for new onset atrial fibrillation. Patient was brought into the hospital after having a choking episode at home. Patient is seen today on the cardiac stepdown unit. He is currently on BiPAP noted to have leukocytosis. He denies having any chest pain. He denies palpitations. He has been started on Cardizem drip and telemetry is atrial fibrillation with controlled rate. He is also on a heparin drip. EKG atrial fibrillation with ventricular rate of 159 Chest x-ray: No acute process WBC 12.5, hemoglobin 14.3, platelet count 193. INR 1. Electrolytes normal. BUN 28 creatinine 1.04. Lactic acid 2.6 with repeat of 1.2. Liver function tests were normal. Troponin negative 1. ProBNP 802. TSH 0.437 with normal free T4 1 0.87. Home cardiac medications: Amlodipine 5 mg twice daily, Lipitor 40 mg at bedtime, Catapres 0.1 mg daily, Plavix 75 mg daily, Lasix 40 mg daily Review Of Systems: At the time of my evaluation: Constitutional: No fever, no chills. No weakness, fatigue or lethargy. EENT: No headache. No dizziness. Lungs: Reports shortness of breath, cough, no sputum production. No wheezing. Cardiovascular: No chest pain, no lower extremity edema. No palpitations. No paroxysmal nocturnal dyspnea. No orthopnea. No lightheadedness or dizziness. No syncopal episodes. Abdominal: No abdominal pain. No nausea, vomiting. No diarrhea. No constipation. No bloody or tarry stools. Genitourinary: No dysuria.. No urinary retention. Musculoskeletal: No myalgias. No muscle weakness, no frequent falls. No back pain. No neck pain. Integumentary: No wounds. No rash. No unusual bruising. Neurologic: No aphasia. No facial droop. No change in mentation. No head injury. No headache. Physical examination: Gen: This is an 87-year-old male. He is resting bed appears to be in minimal distress VS: reviewed HEENT: Head is atraumatic, normocephalic. Pupils equal, round. Sclerae is anicteric. NECK: Supple. No JVD. . LUNGS: Diminished bilaterally. No intercostal retractions. HEART: Regular rate and rhythm. No murmur. ABDOMEN: Soft No tenderness. EXTREMITIES: No pedal edema. No calf tenderness. NEUROLOGICAL: Patient is awake, alert and oriented x3. Assessment: New onset atrial fibrillation presented with RVR, paroxysmal Coronary artery disease with previous stent Hypertension Hyperlipidemia Diabetes Plan: Discontinue Cardizem drip Continue heparin drip for another 24 hours Start patient on metoprolol 25 mg twice daily Obtain 2-D echocardiogram and Doppler study to assess cardiac structure and function Further recommendations to follow based upon clinical course Thank you kindly for this consultation. Nurse practitioner note has been reviewed, I agree with documented findings and plan of care. Patient was seen and examined. Past Medical History Past Medical History: Coronary Artery Disease (CAD), CVA/TIA, Dementia, Diabetes Mellitus, Eye Disorder, Hyperlipidemia, Hypertension, Memory Impairment, Osteoa rthritis (OA), Pneumonia, Syncope Additional Past Medical History / Comment(s): cataract left eye. Diverticulitis. lt fractured ankle 16,rt. foot wound-healed, tia, hiatal hernia occ hand tremors, hx of falls,uses walker when up. incont of urine/stool wears depends. . History of Any Multi-Drug Resistant Organisms: None Reported Past Surgical History: Heart Catheterization With Stent, Hernia Repair, Tonsillectomy Additional Past Surgical History / Comment(s): VASECTOMY, rt eye cataract lindy victoriano Past Anesthesia/Blood Transfusion Reactions: No Reported Reaction Additional Past Anesthesia/Blood Transfusion Reaction / Comment(s): lalo ic Date of Last Stent Placement:: February 01, 2011 Smoking Status: Former smoker - Past Family History Father History Unknown: Yes Mother Family Medical History: Myocardial Infarction ([place]) Additional Family Medical History / Comment(s): Mother of heart attack at 64. Mother had mental illness. Brother(s) Family Medical History: Cancer Additional Family Medical History / Comment(s): Patients half-brother had stomach cancer. Medications and Allergies Home Medications Medication Instructions Recorded Confirmed Type Atorvastatin [Lipitor] 40 mg PO HS 12/0602/24/23 History Clopidogrel [Plavix] 75 mg PO DAILY 12/07/15 02/24/23 History Enalapril [Vasotec] 40 mg PO DAILY 12/07/15 02/24/23 History Gabapentin [Neurontin] 100 mg PO BID 12/07/15 02/24/23 History Insulin Aspart [NovoLOG Flexpen] 6 units SQ AC-TID 12/07/15 02/24/23 History amLODIPine BESYLATE [Norvasc] 5 mg PO BID 12/07/15 02/24/23 History cloNIDine HCL [Catapres] 0.1 mg PO DAILY 12/07/15 02/24/23 History sitaGLIPtin [Januvia] 100 mg PO DAILY 12/07/15 02/24/23 History traZODone HCL [Desyrel] 50 mg PO HS 12/07/15 02/24/23 History Insulin Glargine,Hum.rec.anlog 60 unit SQ DAILY 01/22/18 02/24/23 History [Basaglar Kwikpen U-100] Oxybutynin Chloride [Oxybutynin 10 mg PO DAILY 01/22/18 02/24/23 History Chloride ER] Furosemide [Lasix] 40 mg PO DAILY 04/16/18 02/24/23 History Citalopram Hydrobromide [CeleXA] 20 mg PO DAILY 12/13/22 02/24/23 History Donepezil [Aricept] 10 mg PO HS 12/13/22 02/24/23 History Ketorolac 0.5% Ophth Soln [Acular 1 drop LEFT EYE BID 12/13/22 02/24/23 History 0.5%] Travoprost [Travatan Z 0.004%] 1 drop RIGHT EYE HS 12/13/22 02/24/23 History Triamcinolone 0.5% Cream [Kenalog 1 applic TOPICAL DAILY 12/13/22 02/24/23 History 0.5% Cream] Albuterol Inhaler [Ventolin Hfa 2 puff INHALATION RT-Q4H PRN 02/24/23 02/24/23 History Inhaler] Benzonatate [Tessalon Perle] 200 mg PO TID PRN 02/24/23 02/24/23 History Ciprofloxacin HCl [Cipro] 250 mg PO Q12H 02/24/23 02/24/23 History Allergies Allergy/AdvReac Type Severity Reaction Status Date / Time No Known Allergies Allergy Verified 02/24/23 22:13 Physical Exam Vitals: Vital Signs Temp Pulse Pulse Resp BP BP Pulse Ox 02/25/23 08:18 02/25/23 07:59 02/25/23 07:57 51 L 02/25/23 06:30 02/25/23 05:00 97.6 F 63 22 117/64 98 02/25/23 04:30 02/25/23 02:00 75 14 146/72 92 L 02/25/23 01:00 140 H 12 123/78 94 L 02/25/23 00:20 147 H 02/25/23 00:00 152 H 14 110/63 96 02/24/23 23:15 154 H 26 H 132/111 99 02/24/23 23:00 142 H 30 H 135/68 98 02/24/23 22:30 142 H 39 H 107/61 99 02/24/23 22:15 141 H 35 H 107/94 100 02/24/23 21:45 140 H 31 H 128/115 97 02/24/23 21:30 146 H 33 H 153/91 97 02/24/23 21:15 141 H 26 H 107/71 93 L 02/24/23 21:11 135 H 51 H 126/80 92 L 02/24/23 20:52 98.3 F 154 H 26 H 143/82 98 FiO2 02/25/23 08:18 40 02/25/23 07:59 50 02/25/23 07:57 02/25/23 06:30 50 02/25/23 05:00 80 02/25/23 04:30 80 02/25/23 02:00 02/25/23 01:00 02/25/23 00:20 02/25/23 00:00 80 02/24/23 23:15 02/24/23 23:00 02/24/23 22:30 02/24/23 22:15 02/24/23 21:45 02/24/23 21:30 02/24/23 21:15 100 02/24/23 21:11 02/24/23 20:52 Intake and Output 02/24/23 02/25/23 02/25/23 22:59 06:59 14:59 Intake Total 4.417 107.5 Balance 4.417 107.5 Intake: Intake, IV Titration 4.417 107.5 Amount Diltiazem 125 mg In 4.417 107.5 Sodium Chloride 0.9% 100 ml @ 5 MG/HR 5 mls/hr IV .Q24H [facility] Rx#:[id number] Other: # Voids 1 # Bowel Movements 1 Weight 83.915 kg 96 kg Results 02/24/23 21:00 02/24/23 21:00 Cardiac Enzymes 02/24/23 02/24/23 Range/Units 21:00 21:00 AST 23 (17-59) U/L Troponin I 0.016 (0.000-0.034) ng/mL Coagulation 02/24/23 Range/Units 21:00 PT 10.7 (9.0-12.0) sec APTT 23.6 (22.0-30.0) sec CBC 02/24/23 Range/Units 21:00 WBC 12.5 H (3.8-10.6) k/uL RBC 5.15 (4.30-5.90) m/uL Hgb 14.3 (13.0-17.5) gm/dL Hct 45.9 (39.0-53.0) % Plt Count 193 (150-450) k/uL Comprehensive Metabolic Panel 02/24/23 Range/Units 21:00 Sodium 143 (137-145) mmol/L Potassium 3.9 (3.5-5.1) mmol/L Chloride 104 (98-107) mmol/L Carbon Dioxide 29 (22-30) mmol/L BUN 28 H (9-20) mg/dL Creatinine 1.04 (0.66-1.25) mg/dL Glucose 160 H (74-99) mg/dL Calcium 8.4 (8.4-10.2) mg/dL AST 23 (17-59) U/L ALT 28 (4-49) U/L Alkaline Phosphatase 98 (38-126) U/L Total Protein 7.6 (6.3-8.2) g/dL Albumin 3.9 (3.5-5.0) g/dL Current Medications Generic Name Dose Route Start Last Admin Trade Name Freq PRN Reason Stop Dose Admin Albuterol Sulfate 2 puff 02/25/23 07:26 Albuterol Hfa Inhaler INHALATION RT-Q4H PRN Shortness Of Breath Albuterol/Ipratropium 3 ml 02/25/23 08:00 02/25/23 07:57 Ipratropium-Albuterol 3 Ml Neb INHALATION 3 ml RT-QID [facility] Administration Albuterol/Ipratropium 3 ml 02/25/23 03:35 Ipratropium-Albuterol 3 Ml Neb INHALATION RT-Q2H PRN Shortness Of Breath Or Wheezing Atorvastatin Calcium 40 mg 02/25/23 21:00 Atorvastatin 40 Mg Tab PO HS [facility] Benzonatate 200 mg 02/25/23 07:26 Benzonatate 100 Mg Cap PO TID PRN Cough Citalopram Hydrobromide 20 mg 02/25/23 09:00 Citalopram Hydrobromide 20 Mg Tab PO DAILY [facility] Clopidogrel Bisulfate 75 mg 02/25/23 09:00 Clopidogrel 75 Mg Tab PO DAILY [facility] Dextrose/Water 25 ml 02/25/23 07:28 Dextrose 50% Syringe 50 Ml IVP PER PROTOCOL PRN Hypoglycemia Protocol Dextrose/Water 50 ml 02/25/23 07:28 Dextrose 50% Syringe 50 Ml IVP PER PROTOCOL PRN Hypoglycemia Protocol Donepezil HCl 10 mg 02/25/23 21:00 Donepezil 10 Mg Tab PO HS [facility] Gabapentin 100 mg 02/25/23 09:00 Gabapentin 100 Mg Cap PO BID [facility] Heparin Sodium (Porcine) 0 unit 02/24/23 21:39 Heparin Sodium 1,000 Un/Ml (10ml Vl) IV PER PROTOCOL PRN Low PTT Protocol Diltiazem HCl 125 mg/ Sodium 125 mls @ 5 mls/hr 02/24/23 21:45 02/25/23 05:30 Chloride IV 5 mg/hr .Q24H [facility] 5 mls/hr Administration 5 MG/HR Heparin Sodium/Sodium Chloride 250 mls @ 10 mls/hr 02/24/23 21:45 02/24/23 21:51 25,000 unit/ Sodium Chloride IV 11.917 units/kg/hr .Q24H [facility] 10 mls/hr Administration Protocol 11.917 UNITS/KG/HR Sodium Chloride 1,000 mls @ 75 mls/hr 02/25/23 02:30 Saline 0.9% IV .[id number] [facility] Insulin Aspart 0 unit 02/25/23 07:30 Insulin Aspart (Novolog) 100 Unit/Ml Vial SQ ACHS [facility] Protocol Insulin Detemir 14 unit 02/25/23 09:00 Insulin Detemir (Levemir) 100 Unit/Ml Syr 0.15 unit/kg (14 unit) SQ BID@0700,2100 [facility] Ketorolac Tromethamine 1 drops 02/25/23 09:00 Ketorolac 0.5% Ophth Drops 5 Ml Btl LEFT EYE BID [facility] Latanoprost 1 drops 02/25/23 21:00 Latanoprost 0.005% Ophth Drops 2.5 Ml Btl RIGHT EYE HS [facility] Linagliptin 5 mg 02/25/23 09:00 Linagliptin 5 Mg Tablet PO DAILY [facility] Naloxone HCl 0.2 mg 02/25/23 02:27 Naloxone 0.4 Mg/Ml 1 Ml Vial IV Q2M PRN Opioid Reversal Ondansetron HCl 4 mg 02/25/23 02:27 Ondansetron 4 Mg/2 Ml Vial IVP Q8HR PRN Nausea And Vomiting Oxybutynin Chloride 10 mg 02/25/23 09:00 Oxybutynin 10 Mg Tab.Er.24 PO DAILY [facility] Trazodone HCl 50 mg 02/25/23 21:00 Trazodone Hcl 50 Mg Tab PO HS [facility] Intake and Output 02/24/23 02/25/23 02/25/23 22:59 06:59 14:59 Intake Total 4.417 107.5 Balance 4.417 107.5 Intake: Intake, IV Titration 4.417 107.5 Amount Diltiazem 125 mg In 4.417 107.5 Sodium Chloride 0.9% 100 ml @ 5 MG/HR 5 mls/hr IV .Q24H [facility] Rx#:[id number] Other: # Voids 1 # Bowel Movements 1 Weight 83.915 kg 96 kg 02/24/23 21:00 02/24/23 21:00
--- NOTE | 2023-02-25 14:23 | P.HPIM ---
History of Present Illness H&P Date: 02/25/23 History of present illness; patient is a 87-year-old gentleman with past medical history significant for dementia,Parkinson's disease, moderate to severe dementia, coronary artery disease with previous stent, hypertension, hyperlipidemia, diabetes mellitus, TIA who presented to the ER following an ep isode of choking on his food that resulted in him being short of breath. Patient apparently was eating popcorn when he choked on it and started coughing and became extreme short of breath. EMS was called and patient was brought to the ER. Patient recently been admitted to [facility] for pneumonia. Patient went to A. fib with RVR in the ER, patient was cardioverted but patient went back into A. fib. Initial lab work done in the ER showed meniscal 0.5, hemoglobin 14.3, creatinine 193, sodium 143, potassium 3.9, BUN 28, creatinine 1.04, REVIEW OF SYSTEMS: Review of systems cannot be obtained because of patient history of dementia PHYSICAL EXAMINATION: GENERAL: The patient is alert to self and person, not in any acute distress. Well developed, well nourished. HEENT: Pupils are round and equally reacting to light. EOMI. No scleral icterus. No conjunctival pallor. Normocephalic, atraumatic. No pharyngeal erythema. No thyromegaly. CARDIOVASCULAR: S1 and S2 present. No murmurs, rubs, or gallops. PULMONARY: Chest is clear to auscultation, no wheezing or crackles. ABDOMEN: Soft, nontender, nondistended, normoactive bowel sounds. No palpable organomegaly. MUSCULOSKELETAL: No joint swelling or deformity. EXTREMITIES: No cyanosis, clubbing, or pedal edema. NEUROLOGICAL: Gross neurological examination did not reveal any focal deficits. SKIN: No rashes. Assessment and plan Acute hypoxic respiratory failure Aspiration pneumonitis A. fib with RVR Dysphagia, with multiple reported choking episodes Parkinson's disease Dementia Hypertension Hyperlipidemia Coronary artery disease, with prior cardiac stent Diabetes mellitus 2, insulin-dependent History of TIA Monitor vital signs Monitor CBC Monitor CMP Continue oxygen supplementation Aspiration precautions Continue IV Cardizem drip Continue heparin drip 2-D echo Monitor blood sugar levels, continue sliding scale insulin, continue Lantus 14 units twice a day Cardiology consulted Pulmonary consulted DVT prophylaxis: Past Medical History Past Medical History: Coronary Artery Disease (CAD), CVA/TIA, Dementia, Diabetes Mellitus, Eye Disorder, Hyperlipidemia, Hypertension, Memory Impairment, Oste oarthritis (OA), Pneumonia, Syncope Additional Past Medical History / Comment(s): cataract left eye. Diverticulitis. lt fractured ankle 03-11-16,rt. foot wound-healed, tia, hiatal hernia occ hand tremors, hx of falls,uses walker when up. incont of urine/stool wears depends. . History of Any Multi-Drug Resistant Organisms: None Reported Past Surgical History: Heart Catheterization With Stent, Hernia Repair, Tonsillectomy Additional Past Surgical History / Comment(s): VASECTOMY, rt eye cataract re moved Past Anesthesia/Blood Transfusion Reactions: No Reported Reaction Additional Past Anesthesia/Blood Transfusion Reaction / Comment(s): ambar turcios Date of Last Stent Placement:: February 01, 2011 Smoking Status: Former smoker - Past Family History Father History Unknown: Yes Mother Family Medical History: Myocardial Infarction (VT) Additional Family Medical History / Comment(s): Mother of heart attack at 64. Mother had mental illness. Brother(s) Family Medical History: Cancer Additional Family Medical History / Comment(s): Patients half-brother had stomach cancer. Medications and Allergies Home Medications Medication Instructions Recorded Confirmed Type Atorvastatin [Lipitor] 40 mg PO HS 12/07/15 02/24/23 History Clopidogrel [Plavix] 75 mg PO DAILY 12/07/15 02/24/23 History Enalapril [Vasotec] 40 mg PO DAILY 12/07/15 02/24/23 History Gabapentin [Neurontin] 100 mg PO BID 12/07/15 02/24/23 History Insulin Aspart [NovoLOG Flexpen] 6 units SQ AC-TID 12/07/15 02/24/23 History amLODIPine BESYLATE [Norvasc] 5 mg PO BID 12/07/15 02/24/23 History cloNIDine HCL [Catapres] 0.1 mg PO DAILY 12/07/15 02/24/23 History sitaGLIPtin [Januvia] 100 mg PO DAILY 12/07/15 02/24/23 History traZODone HCL [Desyrel] 50 mg PO HS 12/07/15 02/24/23 History Insulin Glargine,Hum.rec.anlog 60 unit SQ DAILY 01/22/18 02/24/23 History [Basaglar Ryanikpen U-100] Oxybutynin Chloride [Oxybutynin 10 mg PO DAILY 01/22/18 02/24/23 History Chloride ER] Furosemide [Lasix] 40 mg PO DAILY 04/16/18 02/24/23 History Citalopram Hydrobromide [CeleXA] 20 mg PO DAILY 12/13/22 02/24/23 History Donepezil [Aricept] 10 mg PO HS 12/13/22 02/24/23 History Ketorolac 0.5% Ophth Soln [Acular 1 drop LEFT EYE BID 12/13/22 02/24/23 History 0.5%] Travoprost [Travatan Z 0.004%] 1 drop RIGHT EYE HS 12/13/22 02/24/23 History Triamcinolone 0.5% Cream [Kenalog 1 applic TOPICAL DAILY 12/13/22 02/24/23 History 0.5% Cream] Albuterol Inhaler [Ventolin Hfa 2 puff INHALATION RT-Q4H PRN 02/24/23 02/24/23 History Inhaler] Benzonatate [Tessalon Perle] 200 mg PO TID PRN 02/24/23 02/24/23 History Ciprofloxacin HCl [Cipro] 250 mg PO Q12H 02/24/23 02/24/23 History Allergies Allergy/AdvReac Type Severity Reaction Status Date / Time No Known Allergies Allergy Verified 02/24/23 22:13 Physical Exam Vitals: Vital Signs Temp Pulse Pulse Resp BP BP Pulse Ox 02/25/23 08:18 02/25/23 08:00 97.9 F 79 18 150/68 02/25/23 07:59 02/25/23 07:57 51 L 02/25/23 06:30 02/25/23 05:00 97.6 F 63 22 117/64 98 02/25/23 04:30 02/25/23 02:00 75 14 146/72 92 L 02/25/23 01:00 140 H 12 123/78 94 L 02/25/23 00:20 147 H 02/25/23 00:00 152 H 14 110/63 96 02/24/23 23:15 154 H 26 H 132/111 99 02/24/23 23:00 142 H 30 H 135/68 98 02/24/23 22:30 142 H 39 H 107/61 99 02/24/23 22:15 141 H 35 H 107/94 100 02/24/23 21:45 140 H 31 H 128/115 97 02/24/23 21:30 146 H 33 H 153/91 97 02/24/23 21:15 141 H 26 H 107/71 93 L 02/24/23 21:11 135 H 51 H 126/80 92 L 02/24/23 20:52 98.3 F 154 H 26 H 143/82 98 FiO2 02/25/23 08:18 40 02/25/23 08:00 02/25/23 07:59 50 02/25/23 07:57 02/25/23 06:30 50 02/25/23 05:00 80 02/25/23 04:30 80 02/25/23 02:00 02/25/23 01:00 02/25/23 00:20 02/25/23 00:00 80 02/24/23 23:15 02/24/23 23:00 02/24/23 22:30 02/24/23 22:15 02/24/23 21:45 02/24/23 21:30 02/24/23 21:15 100 02/24/23 21:11 02/24/23 20:52 Intake and Output 02/24/23 02/25/23 02/25/23 22:59 06:59 14:59 Intake Total 4.417 107.5 19.417 Balance 4.417 107.5 19.417 Intake: Intake, IV Titration 4.417 107.5 19.417 Amount Diltiazem 125 mg In 4.417 107.5 19.417 Sodium Chloride 0.9% 100 ml @ 5 MG/HR 5 mls/hr IV .Q24H [facility] Rx#:[id number] Other: # Voids 1 # Bowel Movements 1 Weight 83.915 kg 96 kg Results CBC & Chem 7: 02/24/23 21:00 02/24/23 21:00 Labs: Abnormal Lab Results - Last 24 Hours (Table) 02/24/23 02/24/23 02/24/23 Range/Units 21:00 21:00 21:00 WBC 12.5 H (3.8-10.6) k/uL Lymphocytes # (Manual) 6.25 H (1.0-4.8) k/uL Monocytes # (Manual) 1.38 H (0-1.0) k/uL ABG pH (7.35-7.45) ABG pCO2 (35-45) mmHg ABG pO2 (83-108) mmHg ABG HCO3 (21-25) mmol/L ABG Total CO2 (19-24) mmol/L ABG O2 Saturation (94-97) % BUN 28 H (9-20) mg/dL Glucose 160 H (74-99) mg/dL POC Glucose (mg/dL) (70-110) mg/dL Plasma Lactic Acid Gt 2.6 H* (0.7-2.0) mmol/L 02/24/23 02/25/23 02/25/23 Range/Units 22:00 01:48 06:06 WBC (3.8-10.6) k/uL Lymphocytes # (Manual) (1.0-4.8) k/uL Monocytes # (Manual) (0-1.0) k/uL ABG pH 7.29 L 7.28 L (7.35-7.45) ABG pCO2 65 H 63 H (35-45) mmHg ABG pO2 385 H 69 L (83-108) mmHg ABG HCO3 31 H 29 H (21-25) mmol/L ABG Total CO2 33 H 31 H (19-24) mmol/L ABG O2 Saturation 100.0 H 93.2 L (94-97) % BUN (9-20) mg/dL Glucose (74-99) mg/dL POC Glucose (mg/dL) 286 H (70-110) mg/dL Plasma Lactic Acid Gt (0.7-2.0) mmol/L 02/25/23 02/25/23 Range/Units 08:09 09:13 WBC (3.8-10.6) k/uL Lymphocytes # (Manual) (1.0-4.8) k/uL Monocytes # (Manual) (0-1.0) k/uL ABG pH 7.32 L (7.35-7.45) ABG pCO2 57 H (35-45) mmHg ABG pO2 111 H (83-108) mmHg ABG HCO3 30 H (21-25) mmol/L ABG Total CO2 31 H (19-24) mmol/L ABG O2 Saturation 98.4 H (94-97) % BUN (9-20) mg/dL Glucose (74-99) mg/dL POC Glucose (mg/dL) 323 H (70-110) mg/dL Plasma Lactic Acid Gt (0.7-2.0) mmol/L Thrombosis Risk Factor Assmnt - Choose All That Apply Any of the Below Risk Factors Present?: Yes Each Factor Represents 1 point: Abnormal pulmonary function (COPD), Obesity (BMI >25) Each Risk Factor Represents 3 Points: Age 75 years or older Thrombosis Risk Factor Assessment Total Risk Factor Score: 5 Thrombosis Risk Factor Assessment Level: High Risk
[2023-02-25] MEDS ORDERED: HEPARIN SODIUM 1,000 UN/ML (10ML VL) IVP ONE (16:41)
[2023-02-25 17:53] LABS: Glucose,Whole Blood 236 mg/dL (70-110)
[2023-02-25 20:32] LABS: Glucose,Whole Blood 263 mg/dL (70-110)
[2023-02-25] MEDS: DONEPEZIL 10 MG TAB PO SCH (21:46)
[2023-02-25] MEDS: traZODone HCL 50 MG TAB PO SCH (21:46)
[2023-02-25] MEDS: ATORVASTATIN 40 MG TAB PO SCH (21:46)
[2023-02-25] MEDS: HEPARIN SOD,PORK IN 0.45% NACL 25,000 UNIT in 0.45% NACL 1 250ML.BAG IV SCH (21:48)
[2023-02-25] MEDS: LATANOPROST 0.005% OPHTH DROPS 2.5 ML BTL RIGHT EYE SCH (22:07)
[2023-02-26] MEDS: HEPARIN SOD,PORK IN 0.45% NACL 25,000 UNIT in 0.45% NACL 1 250ML.BAG IV SCH (01:46)
[2023-02-26 05:59] LABS: Glucose,Whole Blood 159 mg/dL (70-110)
[2023-02-26] MEDS: INSULIN DETEMIR (LEVEMIR) 100 UNIT/ML SYR SQ SCH ×2 (06:50→21:06)
[2023-02-26] MEDS: INSULIN ASPART (NovoLOG) 100 UNIT/ML VIAL SQ SCH ×4 (06:51→21:06)
[2023-02-26 08:17] LABS: Basophils % (A) 0 %; Eosinophils % (A) 0 %; HCT 36.5 % (39.0-53.0); HGB 11.5 gm/dL (13.0-17.5); Hypochromasia Slight; Lymphocytes # (A) 1.3 k/uL (1.0-4.8); Lymphocytes % (A) 9 %; MCH 27.8 pg (25.0-35.0); MCHC 31.5 g/dL (31.0-37.0); MCV 88.3 fL (80.0-100.0); Mean Platelet Volume 8.1; Monocytes # (A) 0.5 k/uL (0-1.0); Monocytes % (A) 3 %; Neutrophils # (A) 13.4 k/uL (1.3-7.7); Neutrophils % (A) 87 %; Platelet Count 218 k/uL (150-450); RBC 4.13 m/uL (4.30-5.90); RDW 15.2 % (11.5-15.5); WBC 15.4 k/uL (3.8-10.6)
[2023-02-26 08:32] LABS: ALT 26 U/L (4-49); AST 30 U/L (17-59); African American GFR (CKD) 77 (>60 ml/min/1.73 sqM); Albumin 3.4 g/dL (3.5-5.0); Alkaline Phosphatase 75 U/L (38-126); Anion Gap 7 mmol/L; Blood Urea Nitrogen 38 mg/dL (9-20); Carbon Dioxide 29 mmol/L (22-30); Chloride 107 mmol/L (98-107); Glucose 136 mg/dL (74-99); Non-African American GFR(CKD) 67 (>60 ml/min/1.73 sqM); Potassium 3.8 mmol/L (3.5-5.1); Sodium 143 mmol/L (137-145); Total Bilirubin 0.6 mg/dL (0.2-1.3); Total Protein 6.6 g/dL (6.3-8.2)
[2023-02-26 08:56] LABS: Glucose,Whole Blood 163 mg/dL (70-110)
[2023-02-26] MEDS ORDERED: NON FORMULARY DRUG (Insulin Glargine,Hum.Rec.Anlog [Basaglar Kwikpen U-100] 100 UNIT/ML In SQ SCH (09:00)
[2023-02-26] MEDS: OXYBUTYNIN 10 MG TAB.ER.24 PO SCH (09:33)
[2023-02-26] MEDS: CITALOPRAM HYDROBROMIDE 20 MG TAB PO SCH (09:34)
[2023-02-26] MEDS: METOPROLOL TARTRATE 25 MG TAB PO SCH ×2 (09:34→21:06)
[2023-02-26] MEDS: KETOROLAC 0.5% OPHTH DROPS 5 ML BTL LEFT EYE SCH ×2 (09:34→21:08)
[2023-02-26] MEDS: LINAGLIPTIN 5 MG TABLET PO SCH (09:34)
[2023-02-26] MEDS: CLOPIDOGREL 75 MG TAB PO SCH (09:34)
[2023-02-26] MEDS: GABAPENTIN 100 MG CAP PO SCH ×2 (09:34→21:05)
[2023-02-26] MEDS: IPRATROPIUM-ALBUTEROL 3 ML NEB INHALATION SCH ×4 (09:59→19:36)
--- NOTE | 2023-02-26 11:25 | P.PN ---
Subjective Progress Note Date: 02/26/23 I am seeing this patient in new consultation today 02/25/2023 in the emergency room for acute hypoxemic and hypercapnic respiratory failure. Patient is an 87-year-old male with past medical history significant for Parkinson's disease, moderate to severe dementia, coronary artery disease with previous stent, hypertension, hyperlipidemia, diabetes mellitus, TIA, remote history of alcoholism, and remote history of smoking. Patient himself is a poor historian, his is at bedside, and provides most of the information. She states that yesterday evening the patient was eating popcorn and had a choking episode. He then became severely short of breath, and she called EMS. She also reports that he was recently diagnosed with pneumonia last Saturday and was treated with antibiotics on an outpatient basis. Reportedly, the patient does follow with a medical records custodian located by [facility], and uses an albuterol inhaler, on a when necessary basis. On arrival to the emergency room, the patient was in atrial fibrillation with rapid ventricular rate, and a cardioversion was attempted by the ER physician. The patient reportedly went right back into atrial fibrillation with RVR. He was then started on Cardizem which is currently infusing at 15 mg per hour and low-dose heparin infusion per protocol. denies any prior history of atrial fibrillation. While in the room, the patient actually did convert into normal sinus rhythm currently at 80 bpm. Patient is currently sitting up in bed, baseline confused, in no acute distress. He is on a BiPAP with settings 12/6 and FiO2 of 80%. He is oxygenating at 99% on these settings. Most recent ABG was done on an FiO2 of 100% and shows a PaO2 of 385, pCO2 65, and pH of 7.29. Repeat ABG was done, but is believed to be a venous sample. Chest x-ray on arrival shows no acute cardiopulmonary process. CBC on arrival shows some mild leukocytosis with a WBC count of 12.5, hemoglobin 14.3, hematocrit 46, platelets 193. BMP shows sodium 143, potassium 3.9, chloride 104, serum CO2 29, BUN 28, creatinine 1.04, glucose 160. Lactic acid level was mildly elevated at 2.6. Normal saline is ordered at 75 ML's per hour. Troponin was 0.016. NT proBNP was only slightly elevated when adjusted for age at 89. Vital signs are stable at this time. On today's evaluation of 02/26/2023, seeing the patient for a follow-up. The patient is feeling well. No new complaints. He is able to swallow. He remains on 5 L of oxygen by nasal cannula. No respiratory distress. He is communicating. He is known to have dementia with Parkinson's disease. Is also known to have coronary artery disease, previous history of coronary stent in [facility], hypertension hyperlipidemia and diabetes mellitus and previous history of TIA. He also has previous history of alcoholism and smoking. His current cardiac rhythm is sinus. He is off the Cardizem drip is on IV heparin still.Blood work shows a WBC count of 15.4, hemoglobin 11.5 and a platelet count of 218. Sodiums of 143, potassium levels at 3.8 with a chloride of 107 with a BUN of 38 and a creatinine of 1.1. Lactic acid level is down to 1.2. Objective - Vital Signs Vital signs: Vital Signs Temp 97.0 F L 02/26/23 08:00 Pulse 76 02/26/23 08:00 Resp 20 02/26/23 08:00 BP 128/68 02/26/23 08:00 Pulse Ox 89 L 02/26/23 08:00 FiO2 40 02/25/23 08:18 Intake & Output 02/25/23 02/26/23 02/26/23 18:59 06:59 18:59 Intake Total 327.250 602.167 480 Output Total 0 Balance 327.250 602.167 480 Weight 96.5 kg Intake: Intake, IV Titration 207.250 62.167 Amount Diltiazem 125 mg In 19.417 Sodium Chloride 0.9% 100 ml @ 5 MG/HR 5 mls/hr IV .Q24H [facility] Rx#:[id number] Heparin Sod,Pork in 0.45% 187.833 62.167 NaCl 25,000 unit In 0.45 % NaCl 1 250ml.bag @ 11. 917 UNITS/KG/HR 10 mls/hr IV .Q24H [facility] Rx#: [id number] Oral 120 540 480 Output: Urine 0 Other: Voiding Method Urinal Diaper # Voids 2 # Bowel Movements 1 - Exam GENERAL EXAM: Alert but disoriented, 87-year-old white male, fairly comfortable in no apparent distress. Patient is currently on 4 L of oxygen by nasal cannula and the patient is currently off the BiPAP HEAD: Normocephalic and atraumatic EYES: Normal reaction of pupils, equal size. NOSE: Clear with pink turbinates. THROAT: No erythema or exudates. NECK: No masses, no JVD. CHEST: No chest wall deformity. LUNGS: Equal air entry with coarse rhonchi heard throughout. No conversational dyspnea or accessory muscle use.. CVS: S1 and S2 normal with no audible murmur, regular rhythm. No extra heart sounds ABDOMEN: No hepatosplenomegaly, active bowel sounds, no guarding or rigidity. SPINE: No scoliosis or deformity SKIN: No rashes CENTRAL NERVOUS SYSTEM: No focal deficits, tone is normal in all 4 extremities. EXTREMITIES: There is no peripheral edema, clubbing, or cyanosis. Peripheral pulses are intact. - Labs CBC & Chem 7: 02/26/23 07:34 02/26/23 07:34 Labs: Abnormal Lab Results - Last 24 Hours (Table) 02/24/23 02/25/23 02/25/23 Range/Units 20:55 11:31 15:51 WBC (3.8-10.6) k/uL RBC (4.30-5.90) m/uL Hgb (13.0-17.5) gm/dL Hct (39.0-53.0) % Neutrophils # (1.3-7.7) k/uL APTT 34.5 H (22.0-30.0) sec BUN (9-20) mg/dL Glucose (74-99) mg/dL POC Glucose (mg/dL) 163 H 434 H (70-110) mg/dL Calcium (8.4-10.2) mg/dL Albumin (3.5-5.0) g/dL 02/25/23 02/25/23 02/25/23 Range/Units 17:48 20:28 22:10 WBC (3.8-10.6) k/uL RBC (4.30-5.90) m/uL Hgb (13.0-17.5) gm/dL Hct (39.0-53.0) % Neutrophils # (1.3-7.7) k/uL APTT 39.5 H (22.0-30.0) sec BUN (9-20) mg/dL Glucose (74-99) mg/dL POC Glucose (mg/dL) 236 H 263 H (70-110) mg/dL Calcium (8.4-10.2) mg/dL Albumin (3.5-5.0) g/dL 02/26/23 02/26/23 02/26/23 Range/Units 05:46 07:34 07:34 WBC 15.4 H (3.8-10.6) k/uL RBC 4.13 L (4.30-5.90) m/uL Hgb 11.5 L (13.0-17.5) gm/dL Hct 36.5 L (39.0-53.0) % Neutrophils # 13.4 H (1.3-7.7) k/uL APTT (22.0-30.0) sec BUN 38 H (9-20) mg/dL Glucose 136 H (74-99) mg/dL POC Glucose (mg/dL) 159 H (70-110) mg/dL Calcium 8.0 L (8.4-10.2) mg/dL Albumin 3.4 L (3.5-5.0) g/dL 02/26/23 Range/Units 08:43 WBC (3.8-10.6) k/uL RBC (4.30-5.90) m/uL Hgb (13.0-17.5) gm/dL Hct (39.0-53.0) % Neutrophils # (1.3-7.7) k/uL APTT 46.9 H (22.0-30.0) sec BUN (9-20) mg/dL Glucose (74-99) mg/dL POC Glucose (mg/dL) (70-110) mg/dL Calcium (8.4-10.2) mg/dL Albumin (3.5-5.0) g/dL Assessment and Plan Assessment: Acute hypoxic respiratory failure currently on 4 L of O2 nasal cannula, consider aspiration as the patient was having dysphagia and choking episodes New-onset atrial fibrillation with rapid ventricular response, converted to normal sinus rhythm. Dysphagia, with multiple reported choking episodes Acute hypoxemic and hypercapnic respiratory failure, currently on BiPAP. Chest x-ray on arrival shows no acute cardiopulmonary process. Parkinson's disease Dementia Hypertension Hyperlipidemia Coronary artery disease, with prior cardiac stent Diabetes mellitus 2, insulin-dependent History of TIA Remote history of alcohol abuse Ex-smoker Plan: As cardiac rhythm is sinus Anticoagulation per cardiology Repeat chest x-ray Provide incentive spirometer Wean FiO2 as tolerated Swallow evaluation We'll continue to follow.
[2023-02-26 11:46] LABS: Glucose,Whole Blood 167 mg/dL (70-110)
[2023-02-26] MEDS: APIXABAN 5 MG TAB PO SCH ×2 (12:07→21:05)
--- NOTE | 2023-02-26 12:22 | CA ---
Transthoracic Echo Report Name: Tarik Smith Age: 87 Gender: M : 1935 Exam Date: 02/25/2023 14:00 Exam Location: [facility] Ht (in): 72 Wt (lb): 211 Ordering Physician: Nicole Whiting Attending/Referring Phys: [id number], [employer] Director María Slater RDCS Procedure CPT: Indications: LVF Cardiac Hx: Technical Quality: Fair Contrast 1: Total Dose (mL): Contrast 2: Total Dose (mL): MEASUREMENTS (Male / Female) Normal Values 2D ECHO LV Diastolic Diameter PLAX 5.4 cm 4.2 - 5.9 / 3.9 - 5.3 cm LV Systolic Diameter PLAX 4.3 cm IVS Diastolic Thickness 1.4 cm 0.6 - 1.0 / 0.6 - 0.9 cm LVPW Diastolic Thickness 1.4 cm 0.6 - 1.0 / 0.6 - 0.9 cm LV Relative Wall Thickness 0.5 RV Internal Dim ED PLAX 2.8 cm LVOT Diameter 2.4 cm LA Systolic Diameter LX 4.5 cm 3.0 - 4.0 / 2.7 - 3.8 cm LV Diastolic Volume MOD 4C 157.1 cm??? LV Systolic Volume MOD 4C 95.1 cm??? LV Ejection Fraction MOD 4C 39.5 % LV Cardiac Index MOD 4C 1506.7 cm???/min???m??? LV Diastolic Length 4C 8.8 cm LV Systolic Length 4C 7.5 cm LV Diastolic Volume MOD 2C 114.4 cm??? LV Systolic Volume MOD 2C 76.7 cm??? LV Ejection Fraction MOD 2C 32.9 % LV Cardiac Index MOD 2C 915.0 cm???/min???m??? LV Diastolic Length 2C 8.9 cm LV Systolic Length 2C 7.5 cm LA Volume 66.7 cm??? 18 - 58 / 22 - 52 cm??? M-MODE Aortic Root Diameter MM 3.6 cm MV E Point Septal Separation 2.6 cm DOPPLER AV Peak Velocity 272.3 cm/s AV Peak Gradient 29.7 mmHg AV Mean Velocity 193.2 cm/s AV Mean Gradient 16.5 mmHg AV Velocity Time Integral 70.5 cm LVOT Peak Velocity 96.9 cm/s LVOT Peak Gradient 3.8 mmHg AV Area Cont Eq pk 1.6 cm??? MV Area PHT 2.0 cm??? Mitral E Point Velocity 106.2 cm/s Mitral A Point Velocity 137.1 cm/s Mitral E to A Ratio 0.8 MV Deceleration Time 383.6 ms MV E' Velocity 3.8 cm/s Mitral E to MV E' Ratio 27.7 TR Peak Velocity 276.4 cm/s TR Peak Gradient 30.6 mmHg Right Ventricular Systolic Press 45.4 mmHg FINDINGS Left Ventricle Left ventricular ejection fraction is estimated at 35-40 %. Left ventricular cavity size normal. Moderate concentric left ventricular hypertrophy. Moderately reduced global left ventricular systolic function. Right Ventricle Normal right ventricular size and function. Mild to moderate pulmonary hypertension. Right ventricular systolic pressure estimated at 45 mm hg. Right Atrium Normal right atrial size. Left Atrium Mildly increased left atrial diameter. Mildly increased left atrial volume. Mitral Valve Mitral valve thickened. Moderate mitral annular calcification. Trace mitral regurgitation. Aortic Valve Aortic valve not well visualized. Mild aortic stenosis with a peak gradient of 30 mmHg and a mean gradient of 17 mmHg. Aortic valve sclerosis. Tricuspid Valve Structurally normal tricuspid valve. Mild tricuspid regurgitation. Pulmonic Valve Pulmonic valve not well visualized. Pericardium Normal pericardium. No pericardial effusion. Aorta Normal size aortic root and proximal ascending aorta. CONCLUSIONS Left ventricular ejection fraction 3540% Moderate increased left ventricular wall thickness RVSP 45 Trace mitral regurgitation Moderate mitral calcification Mild to moderate aortic stenosis Previewed by: Dr. Trip Anderson DO (Electronically Signed) Final Date: 26 February 2023 12:21
[2023-02-26] MEDS: lisinopriL 20 MG TAB PO SCH ×2 (13:26→21:09)
--- NOTE | 2023-02-26 13:27 | P.PN ---
Subjective Progress Note Date: 02/26/23 patient is a 87-year-old gentleman with past medical history significant for dementia,Parkinson's disease, moderate to severe dementia, coronary artery disease with previous stent, hypertension, hyperlipidemia, diabetes mellitus, TIA who presented to the ER following an episode of choking on his food that resulted in him being short of breath. Patient apparently was eating popcorn when he choked on it and started coughing and became extreme short of breath. EMS was called and patient was brought to the ER. Patient recently been admitted to [facility] for pneumonia. Patient went to [facility] with RVR in the ER, patient was cardioverted but patient went back into [facility]. Initial lab work done in the ER showed meniscal 0.5, hemoglobin 14.3, creatinine 193, sodium 143, potassium 3.9, BUN 28, creatinine 1.04, 02/26. Patient seen and examined. Patient has history of dementia, at the bedside. States he feels better. Has a lot of chest congestion. Currently on 3 L of oxygen REVIEW OF SYSTEMS: CONSTITUTIONAL: No fever, no malaise,. CARDIOVASCULAR: No chest pain, no palpitations, no syncope. PULMONARY: No shortness of breath, no cough, GASTROINTESTINAL: No diarrhea, no nausea, no vomiting, no abdominal pain. NEUROLOGICAL: No headaches, no weakness, PHYSICAL EXAMINATION: GENERAL: The patient is alert self place and person, not in any acute distress. Well developed, well nourished. HEENT: Pupils are round and equally reacting to light. EOMI. No scleral icterus. No conjunctival pallor. Normocephalic, atraumatic. No pharyngeal erythema. No thyromegaly. CARDIOVASCULAR: S1 and S2 present. No murmurs, rubs, or gallops. PULMONARY: Coarse breath sounds bilaterally, expiratory rhonchi audible ABDOMEN: Soft, nontender, nondistended, normoactive bowel sounds. No palpable organomegaly. MUSCULOSKELETAL: No joint swelling or deformity. EXTREMITIES: No cyanosis, clubbing, or pedal edema. NEUROLOGICAL: Gross neurological examination did not reveal any focal deficits. SKIN: No rashes. Assessment and plan Acute hypoxic respiratory failure Aspiration pneumonitis A. fib with RVR Dysphagia, with multiple reported choking episodes Parkinson's disease Dementia Hypertension Hyperlipidemia Coronary artery disease, with prior cardiac stent Diabetes mellitus 2, insulin-dependent History of TIA Monitor vital signs Monitor CBC Monitor CMP Continue oxygen supplementation Aspiration precautions Encourage use of I-S Added Mucinex Heparin Discontinued, switched to oral Eliquis 2-D echo Monitor blood sugar levels, continue sliding scale insulin, continue Lantus 14 units twice a day Follow-up on cardiology recommendations Follow-up on pulmonary recommendations PT and OT consult Objective - Vital Signs Vital signs: Vital Signs Temp 97.1 F L 02/26/23 12:00 Pulse 62 02/26/23 12:00 Resp 18 02/26/23 12:00 BP 189/84 02/26/23 12:00 Pulse Ox 93 L 02/26/23 12:00 FiO2 40 02/26/23 11:40 Intake & Output 02/25/23 02/26/23 02/26/23 18:59 06:59 18:59 Intake Total 327.250 602.167 593.76 Output Total 0 Balance 327.250 602.167 593.76 Weight 96.5 kg Intake: Intake, IV Titration 207.250 62.167 113.76 Amount Diltiazem 125 mg In 19.417 Sodium Chloride 0.9% 100 ml @ 5 MG/HR 5 mls/hr IV .Q24H [facility] Rx#:[id number] Heparin Sod,Pork in 0.45% 187.833 62.167 113.76 NaCl 25,000 unit In 0.45 % NaCl 1 250ml.bag @ 11. 917 UNITS/KG/HR 10 mls/hr IV .Q24H [facility] Rx#: [id number] Oral 120 540 480 Output: Urine 0 Other: Voiding Method Urinal Urinal Diaper Diaper # Voids 2 # Bowel Movements 1 - Labs CBC & Chem 7: 02/26/23 07:34 02/26/23 07:34 Labs: Abnormal Lab Results - Last 24 Hours (Table) 02/24/23 02/25/23 02/25/23 Range/Units 20:55 15:51 17:48 WBC (3.8-10.6) k/uL RBC (4.30-5.90) m/uL Hgb (13.0-17.5) gm/dL Hct (39.0-53.0) % Neutrophils # (1.3-7.7) k/uL APTT 34.5 H (22.0-30.0) sec BUN (9-20) mg/dL Glucose (74-99) mg/dL POC Glucose (mg/dL) 163 H 236 H (70-110) mg/dL Calcium (8.4-10.2) mg/dL Albumin (3.5-5.0) g/dL 02/25/23 02/25/23 02/26/23 Range/Units 20:28 22:10 05:46 WBC (3.8-10.6) k/uL RBC (4.30-5.90) m/uL Hgb (13.0-17.5) gm/dL Hct (39.0-53.0) % Neutrophils # (1.3-7.7) k/uL APTT 39.5 H (22.0-30.0) sec BUN (9-20) mg/dL Glucose (74-99) mg/dL POC Glucose (mg/dL) 263 H 159 H (70-110) mg/dL Calcium (8.4-10.2) mg/dL Albumin (3.5-5.0) g/dL 02/26/23 02/26/23 02/26/23 Range/Units 07:34 07:34 08:43 WBC 15.4 H (3.8-10.6) k/uL RBC 4.13 L (4.30-5.90) m/uL Hgb 11.5 L (13.0-17.5) gm/dL Hct 36.5 L (39.0-53.0) % Neutrophils # 13.4 H (1.3-7.7) k/uL APTT 46.9 H (22.0-30.0) sec BUN 38 H (9-20) mg/dL Glucose 136 H (74-99) mg/dL POC Glucose (mg/dL) (70-110) mg/dL Calcium 8.0 L (8.4-10.2) mg/dL Albumin 3.4 L (3.5-5.0) g/dL 02/26/23 Range/Units 11:45 WBC (3.8-10.6) k/uL RBC (4.30-5.90) m/uL Hgb (13.0-17.5) gm/dL Hct (39.0-53.0) % Neutrophils # (1.3-7.7) k/uL APTT (22.0-30.0) sec BUN (9-20) mg/dL Glucose (74-99) mg/dL POC Glucose (mg/dL) 167 H (70-110) mg/dL Calcium (8.4-10.2) mg/dL Albumin (3.5-5.0) g/dL Microbiology - Last 24 Hours (Table) 02/25/23 03:05 Blood Culture - Preliminary Blood 02/25/23 03:20 Blood Culture - Preliminary Blood
--- NOTE | 2023-02-26 14:48 | P.PN ---
Subjective Progress Note Date: 02/26/23 History of present illness: This is an 87-year-old with a past medical history of coronary artery disease with PCI stent of the RCA in 2010, diabetes, hypertension, dyslipidemia, remote history of tobacco use. We have been asked to evaluate the patient for new onset atrial fibrillation. Patient was brought into the hospital after having a choking episode at home. Patient is seen today on the cardiac stepdown unit. He is currently on BiPAP noted to have leukocytosis. He denies having any chest pain. He denies palpitations. He has been started on Cardizem drip and telemetry is atrial fibrillation with controlled rate. He is also on a heparin drip. EKG atrial fibrillation with ventricular rate of 159 Chest x-ray: No acute process WBC 12.5, hemoglobin 14.3, platelet count 193. INR 1. Electrolytes normal. BUN 28 creatinine 1.04. Lactic acid 2.6 with repeat of 1.2. Liver function tests were normal. Troponin negative 1. ProBNP 802. TSH 0.437 with normal free T4 1 0.87. Home cardiac medications: Amlodipine 5 mg twice daily, Lipitor 40 mg at bedtime, Catapres 0.1 mg daily, Plavix 75 mg daily, Lasix 40 mg daily 02/26 Patient is seen this morning in follow-up. His heart rate is in the 50s to 70s, blood pressure 120/68, pulse ox 89% on room air placed on 4 L nasal cannula. telemetry is atrial fibrillation controlled rate Echocardiogram reveals EF of 3540 percent. Moderate increased left ventricular wall thickness. RVSP 45, trace mitral regurgitation, moderate mitral calcification, [id number] aortic stenosis. Repeat blood work reveals hemoglobin 11.5, WBC 15.4. Pot assium 3.8, BUN 38 creatinine 1.01. Physical examination: Gen: This is an 87-year-old male. He is resting bed appears to be in minimal distress VS: reviewed HEENT: Head is atraumatic, normocephalic. Pupils equal, round. Sclerae is anicteric. NECK: Supple. No JVD. . LUNGS: Diminished bilaterally. No intercostal retractions. HEART: Irregular rate and rhythm. No murmur. ABDOMEN: Soft No tenderness. EXTREMITIES: No pedal edema. No calf tenderness. NEUROLOGICAL: Patient is awake, alert. Assessment: New onset atrial fibrillation presented with RVR, paroxysmal Coronary artery disease with previous stent Hypertension Hyperlipidemia Diabetes Plan: Discontinue heparin drip and start patient on eliquis 5 mg twice daily Continue patient on metoprolol 25 mg twice daily Cardiology will sign off and follow on an as-needed basis. Please reconsult for any new concerns. Nurse practitioner note has been reviewed, I agree with documented findings and plan of care. Patient was seen and examined. Objective - Vital Signs Vital signs: Vital Signs Temp 97.1 F L 02/26/23 12:00 Pulse 62 02/26/23 12:00 Resp 18 02/26/23 12:00 BP 189/84 02/26/23 12:00 Pulse Ox 93 L 02/26/23 12:00 FiO2 40 02/26/23 11:40 Intake & Output 02/25/23 02/26/23 02/26/23 18:59 06:59 18:59 Intake Total 327.250 602.167 711.76 Output Total 0 Balance 327.250 602.167 711.76 Weight 96.5 kg Intake: Intake, IV Titration 207.250 62.167 113.76 Amount Diltiazem 125 mg In 19.417 Sodium Chloride 0.9% 100 ml @ 5 MG/HR 5 mls/hr IV .Q24H [facility] Rx#:[id number] Heparin Sod,Pork in 0.45% 187.833 62.167 113.76 NaCl 25,000 unit In 0.45 % NaCl 1 250ml.bag @ 11. 917 UNITS/KG/HR 10 mls/hr IV .Q24H [facility] Rx#: [id number] Oral 120 540 598 Output: Urine 0 Other: Voiding Method Urinal Urinal Diaper Diaper # Voids 2 # Bowel Movements 1 - Labs CBC & Chem 7: 02/26/23 07:34 02/26/23 07:34 Labs: Abnormal Lab Results - Last 24 Hours (Table) 02/24/23 02/25/23 02/25/23 Range/Units 20:55 15:51 17:48 WBC (3.8-10.6) k/uL RBC (4.30-5.90) m/uL Hgb (13.0-17.5) gm/dL Hct (39.0-53.0) % Neutrophils # (1.3-7.7) k/uL APTT 34.5 H (22.0-30.0) sec BUN (9-20) mg/dL Glucose (74-99) mg/dL POC Glucose (mg/dL) 163 H 236 H (70-110) mg/dL Calcium (8.4-10.2) mg/dL Albumin (3.5-5.0) g/dL 02/25/23 02/25/23 02/26/23 Range/Units 20:28 22:10 05:46 WBC (3.8-10.6) k/uL RBC (4.30-5.90) m/uL Hgb (13.0-17.5) gm/dL Hct (39.0-53.0) % Neutrophils # (1.3-7.7) k/uL APTT 39.5 H (22.0-30.0) sec BUN (9-20) mg/dL Glucose (74-99) mg/dL POC Glucose (mg/dL) 263 H 159 H (70-110) mg/dL Calcium (8.4-10.2) mg/dL Albumin (3.5-5.0) g/dL 02/26/23 02/26/23 02/26/23 Range/Units 07:34 07:34 08:43 WBC 15.4 H (3.8-10.6) k/uL RBC 4.13 L (4.30-5.90) m/uL Hgb 11.5 L (13.0-17.5) gm/dL Hct 36.5 L (39.0-53.0) % Neutrophils # 13.4 H (1.3-7.7) k/uL APTT 46.9 H (22.0-30.0) sec BUN 38 H (9-20) mg/dL Glucose 136 H (74-99) mg/dL POC Glucose (mg/dL) (70-110) mg/dL Calcium 8.0 L (8.4-10.2) mg/dL Albumin 3.4 L (3.5-5.0) g/dL 02/26/23 Range/Units 11:45 WBC (3.8-10.6) k/uL RBC (4.30-5.90) m/uL Hgb (13.0-17.5) gm/dL Hct (39.0-53.0) % Neutrophils # (1.3-7.7) k/uL APTT (22.0-30.0) sec BUN (9-20) mg/dL Glucose (74-99) mg/dL POC Glucose (mg/dL) 167 H (70-110) mg/dL Calcium (8.4-10.2) mg/dL Albumin (3.5-5.0) g/dL Microbiology - Last 24 Hours (Table) 02/25/23 03:05 Blood Culture - Preliminary Blood 02/25/23 03:20 Blood Culture - Preliminary Blood
[2023-02-26 16:39] LABS: Glucose,Whole Blood 266 mg/dL (70-110)
[2023-02-26] MEDS: TAMSULOSIN 0.4 MG CAP.ER.24H PO SCH (18:13)
[2023-02-26 20:32] LABS: Glucose,Whole Blood 328 mg/dL (70-110)
[2023-02-26] MEDS: guaiFENesin 600 MG TABLET.ER PO SCH (21:05)
[2023-02-26] MEDS: DONEPEZIL 10 MG TAB PO SCH (21:05)
[2023-02-26] MEDS: traZODone HCL 50 MG TAB PO SCH (21:05)
[2023-02-26] MEDS: ATORVASTATIN 40 MG TAB PO SCH (21:06)
[2023-02-26] MEDS: LATANOPROST 0.005% OPHTH DROPS 2.5 ML BTL RIGHT EYE SCH (21:08)
[2023-02-27 06:19] LABS: Glucose,Whole Blood 127 mg/dL (70-110)
[2023-02-27] MEDS: INSULIN ASPART (NovoLOG) 100 UNIT/ML VIAL SQ SCH ×4 (06:21→20:52)
[2023-02-27] MEDS: SODIUM CHLORIDE 0.9% 1,000 ML IV SCH (06:59)
[2023-02-27] MEDS: INSULIN DETEMIR (LEVEMIR) 100 UNIT/ML SYR SQ SCH ×2 (07:00→20:58)
[2023-02-27] MEDS: IPRATROPIUM-ALBUTEROL 3 ML NEB INHALATION SCH ×4 (07:15→20:01)
--- NOTE | 2023-02-27 07:25 | XR ---
EXAMINATION TYPE: XR chest 1V portable DATE OF EXAM: 02/27/2023 COMPARISON: 02/24/2023 INDICATION: Follow-up, short of breath TECHNIQUE: Single frontal view of the chest is obtained. FINDINGS: The heart size is normal. The pulmonary vasculature is normal. Mild infiltrate has developed at the left base. Correlate for atelectasis. Developing pneumonia shou ld be considered. IMPRESSION: 1. Developing infiltrate left base at the diaphragm. Follow-up is recommended.
[2023-02-27] MEDS: GABAPENTIN 100 MG CAP PO SCH ×2 (08:32→20:56)
[2023-02-27] MEDS: CLOPIDOGREL 75 MG TAB PO SCH (08:32)
[2023-02-27] MEDS: CITALOPRAM HYDROBROMIDE 20 MG TAB PO SCH (08:32)
[2023-02-27] MEDS: LINAGLIPTIN 5 MG TABLET PO SCH (08:32)
[2023-02-27] MEDS: OXYBUTYNIN 10 MG TAB.ER.24 PO SCH (08:33)
[2023-02-27] MEDS: lisinopriL 20 MG TAB PO SCH ×2 (08:33→20:57)
[2023-02-27] MEDS: APIXABAN 5 MG TAB PO SCH ×2 (08:33→20:57)
[2023-02-27] MEDS: METOPROLOL TARTRATE 25 MG TAB PO SCH ×2 (08:33→20:57)
[2023-02-27] MEDS: KETOROLAC 0.5% OPHTH DROPS 5 ML BTL LEFT EYE SCH ×2 (08:33→20:58)
[2023-02-27 11:38] LABS: Glucose,Whole Blood 440 mg/dL (70-110)
[2023-02-27] MEDS: AMOXIC-POT CLAV 875-125MG 1 EACH TAB PO SCH ×2 (11:53→20:57)
[2023-02-27] MEDS: guaiFENesin 600 MG TABLET.ER PO SCH ×2 (11:53→20:57)
--- NOTE | 2023-02-27 14:40 | P.PN ---
Subjective Progress Note Date: 02/27/23 patient is a 87-year-old gentleman with past medical history significant for dementia,Parkinson's disease, moderate to severe dementia, coronary artery disease with previous stent, hypertension, hyperlipidemia, diabetes mellitus, TIA who presented to the ER following an episode of choking on his food that resulted in him being short of breath. Patient apparently was eating popcorn when he choked on it and started coughing and became extreme short of breath. EMS was called and patient was brought to the ER. Patient recently been admitted to [facility] for pneumonia. Patient went to . [facility] with RVR in the ER, patient was cardioverted but patient went back into [facility]. Initial lab work done in the ER showed meniscal 0.5, hemoglobin 14.3, creatinine 193, sodium 143, potassium 3.9, BUN 28, creatinine 1.04, 02/26. Patient seen and examined. Patient has history of dementia, at the bedside. States he feels better. Has a lot of chest congestion. Currently on 4 L of oxygen 02/27. Patient seen and examined. Currently on 2 L of oxygen. Blood sugars are elevated. REVIEW OF SYSTEMS: CONSTITUTIONAL: No fever, no malaise,. CARDIOVASCULAR: No chest pain, no palpitations, no syncope. PULMONARY: No shortness of breath, no cough, GASTROINTESTINAL: No diarrhea, no nausea, no vomiting, no abdominal pain. NEUROLOGICAL: No headaches, no weakness, PHYSICAL EXAMINATION: GENERAL: The patient is alert self place and person, not in any acute distress. Well developed, well nourished. HEENT: Pupils are round and equally reacting to light. EOMI. No scleral icterus. No conjunctival pallor. Normocephalic, atraumatic. No pharyngeal erythema. No thyromegaly. CARDIOVASCULAR: S1 and S2 present. No murmurs, rubs, or gallops. PULMONARY: Coarse breath sounds bilaterally, expiratory rhonchi audible ABDOMEN: Soft, nontender, nondistended, normoactive bowel sounds. No palpable organomegaly. MUSCULOSKELETAL: No joint swelling or deformity. EXTREMITIES: No cyanosis, clubbing, or pedal edema. NEUROLOGICAL: Gross neurological examination did not reveal any focal deficits. SKIN: No rashes. Assessment and plan Acute hypoxic respiratory failure Aspiration pneumonitis A. fib with RVR Dysphagia, with multiple reported choking episodes Parkinson's disease Dementia Hypertension Hyperlipidemia Coronary artery disease, with prior cardiac stent Diabetes mellitus 2, insulin-dependent History of TIA Monitor vital signs Monitor CBC Monitor CMP Continue oxygen supplementation Aspiration precautions Encourage use of I-S Continue Mucinex Continue Eliquis Lopressor 2-D echo done showed LVEF of 35-40%, trace mitral regurg, moderate mitral calcification, [id number] aortic stenosis Monitor blood sugar levels, continue sliding scale insulin, increase Levemir to 18 units twice a day Changed to diabetic diet with 1800 tamera It Systems Administrator signed off Follow-up on pulmonary recommendations PT and OT consult Objective - Vital Signs Vital signs: Vital Signs Temp 97.8 F 02/27/23 08:31 Pulse 76 02/27/23 08:31 Resp 16 02/27/23 08:31 BP 155/71 02/27/23 08:31 Pulse Ox 96 02/27/23 08:31 FiO2 40 02/26/23 11:40 Intake & Output 02/26/23 02/27/23 02/27/23 18:59 06:59 18:59 Intake Total 711.76 540 118 Output Total 200 Balance 711.76 340 118 Intake: Intake, IV Titration 113.76 Amount Heparin Sod,Pork in 0.45% 113.76 NaCl 25,000 unit In 0.45 % NaCl 1 250ml.bag @ 11. 917 UNITS/KG/HR 10 mls/hr IV .Q24H [facility] Rx#: [id number] Oral 598 540 118 Output: Urine 200 Other: Voiding Method Urinal Urinal Diaper Diaper # Voids 2 2 # Bowel Movements 1 - Labs CBC & Chem 7: 02/26/23 07:34 02/26/23 07:34 Labs: Abnormal Lab Results - Last 24 Hours (Table) 02/26/23 02/26/23 02/26/23 Range/Units 11:45 16:32 20:19 POC Glucose (mg/dL) 167 H 266 H 328 H (70-110) mg/dL 02/27/23 Range/Units 05:57 POC Glucose (mg/dL) 127 H (70-110) mg/dL Microbiology - Last 24 Hours (Table) 02/25/23 03:05 Blood Culture - Preliminary Blood 02/25/23 03:20 Blood Culture - Preliminary Blood
[2023-02-27 16:17] LABS: Glucose,Whole Blood 131 mg/dL (70-110)
--- NOTE | 2023-02-27 16:33 | P.PN ---
Subjective Progress Note Date: 02/27/23 I am seeing this patient in new consultation today 02/25/2023 in the emergency room for acute hypoxemic and hypercapnic respiratory failure. Patient is an 87-year-old male with past medical history significant for Parkinson's disease, moderate to severe dementia, coronary artery disease with previous stent, hypertension, hyperlipidemia, diabetes mellitus, TIA, remote history of alcoholism, and remote history of smoking. Patient himself is a poor historian, his is at bedside, and provides most of the information. She states that yesterday evening the patient was eating popcorn and had a choking episode. He then became severely short of breath, and she called EMS. She also reports that he was recently diagnosed with pneumonia last Saturday and was treated with antibiotics on an outpatient basis. Reportedly, the patient does follow with a hat mender located by [facility], and uses an albuterol inhaler, on a when necessary basis. On arrival to the emergency room, the patient was in atrial fibrillation with rapid ventricular rate, and a cardioversion was attempted by the ER physician. The patient reportedly went right back into atrial fibrillation with RVR. He was then started on Cardizem which is currently infusing at 15 mg per hour and low-dose heparin infusion per protocol. denies any prior history of atrial fibrillation. While in the room, the patient actually did convert into normal sinus rhythm currently at 80 bpm. Patient is currently sitting up in bed, baseline confused, in no acute distress. He is on a BiPAP with settings 12/6 and FiO2 of 80%. He is oxygenating at 99% on these settings. Most recent ABG was done on an FiO2 of 100% and shows a PaO2 of 385, pCO2 65, and pH of 7.29. Repeat ABG was done, but is believed to be a venous sample. Chest x-ray on arrival shows no acute cardiopulmonary process. CBC on arrival shows some mild leukocytosis with a WBC count of 12.5, hemoglobin 14.3, hematocrit 46, platelets 193. BMP shows sodium 143, potassium 3.9, chloride 104, serum CO2 29, BUN 28, creatinine 1.04, glucose 160. Lactic acid level was mildly elevated at 2.6. Normal saline is ordered at 75 ML's per hour. Troponin was 0.016. NT proBNP was only slightly elevated when adjusted for age at 802. Vital signs are stable at this time. On today's evaluation of 02/26/2023, seeing the patient for a follow-up. The patient is feeling well. No new complaints. He is able to swallow. He remains on 5 L of oxygen by nasal cannula. No respiratory distress. He is communicating. He is known to have dementia with Parkinson's disease. Is also known to have coronary artery disease, previous history of coronary stent in [facility], hypertension hyperlipidemia and diabetes mellitus and previous history of TIA. He also has previous history of alcoholism and smoking. His current cardiac rhythm is sinus. He is off the Cardizem drip is on IV heparin still.Blood work shows a WBC count of 15.4, hemoglobin 11.5 and a platelet count of 218. Sodiums of 143, potassium levels at 3.8 with a chloride of 107 with a BUN of 38 and a creatinine of 1.1. Lactic acid level is down to 1.2. On today's evaluation of 02/27/2023. The patient is doing well. He is on 4 L of action by nasal cannula. No signs of any significant respiratory distress. Swallowing adequately. Remains in normal sinus rhythm. A repeat chest x-ray showed some limited infiltration of the lung bases and based on that I give the patient course of antibiotics with Augmentin. Aggressively case remains unchanged. Objective - Vital Signs Vital signs: Vital Signs Temp 97.8 F 02/27/23 08:31 Pulse 64 02/27/23 11:25 Resp 16 02/27/23 08:31 BP 155/71 02/27/23 08:31 Pulse Ox 96 02/27/23 08:31 FiO2 40 02/26/23 11:40 Intake & Output 02/26/23 02/27/23 02/27/23 18:59 06:59 18:59 Intake Total 711.76 540 138 Output Total 200 Balance 711.76 340 138 Intake: IV 20 Invasive Line 1 10 Invasive Line 2 10 Intake, IV Titration 113.76 Amount Heparin Sod,Pork in 0.45% 113.76 NaCl 25,000 unit In 0.45 % NaCl 1 250ml.bag @ 11. 917 UNITS/KG/HR 10 mls/hr IV .Q24H [facility] Rx#: [id number] Oral 598 540 118 Output: Urine 200 Other: Voiding Method Urinal Urinal Diaper Diaper # Voids 2 2 # Bowel Movements 1 - Exam GENERAL EXAM: Alert but disoriented, 87-year-old white male, fairly comfortable in no apparent distress. Patient is currently on 4 L of oxygen by nasal cannula HEAD: Normocephalic and atraumatic EYES: Normal reaction of pupils, equal size. NOSE: Clear with pink turbinates. THROAT: No erythema or exudates. NECK: No masses, no JVD. CHEST: No chest wall deformity. LUNGS: Equal air entry with coarse rhonchi heard throughout. No conversational dyspnea or accessory muscle use.. CVS: S1 and S2 normal with no audible murmur, regular rhythm. No extra heart sounds ABDOMEN: No hepatosplenomegaly, active bowel sounds, no guarding or rigidity. SPINE: No scoliosis or deformity SKIN: No rashes CENTRAL NERVOUS SYSTEM: No focal deficits, tone is normal in all 4 extremities. EXTREMITIES: There is no peripheral edema, clubbing, or cyanosis. Peripheral pulses are intact. - Labs CBC & Chem 7: 02/26/23 07:34 02/26/23 07:34 Labs: Abnormal Lab Results - Last 24 Hours (Table) 02/26/23 02/26/23 02/26/23 Range/Units 11:45 16:32 20:19 POC Glucose (mg/dL) 167 H 266 H 328 H (70-110) mg/dL 02/27/23 Range/Units 05:57 POC Glucose (mg/dL) 127 H (70-110) mg/dL Microbiology - Last 24 Hours (Table) 02/25/23 03:05 Blood Culture - Preliminary Blood 02/25/23 03:20 Blood Culture - Preliminary Blood Assessment and Plan Assessment: Acute hypoxic respiratory failure currently on 4 L of O2 nasal cannula, consider aspiration as the patient was having dysphagia and choking episodes, consider possibility of aspiration pneumonia and the patient is going to be started on Augmentin New-onset atrial fibrillation with rapid ventricular response, converted to normal sinus rhythm. Dysphagia, with multiple reported choking episodes Acute hypoxemic and hypercapnic respiratory failure, currently on BiPAP. Chest x-ray on arrival shows no acute cardiopulmonary process. Parkinson's disease Dementia Hypertension Hyperlipidemia Coronary artery disease, with prior cardiac stent Diabetes mellitus 2, insulin-dependent History of TIA Remote history of alcohol abuse Ex-smoker Plan: Oral Augmentin a total of seven-day course As cardiac rhythm is sinus Anticoagulation per cardiology Chest exit from today was noted Provide incentive spirometer Wean FiO2 as tolerated Swallow evaluation completed We'll continue to follow.
[2023-02-27] MEDS: TAMSULOSIN 0.4 MG CAP.ER.24H PO SCH (18:50)
[2023-02-27 20:20] LABS: Glucose,Whole Blood 128 mg/dL (70-110)
[2023-02-27] MEDS: traZODone HCL 50 MG TAB PO SCH (20:57)
[2023-02-27] MEDS: DONEPEZIL 10 MG TAB PO SCH (20:57)
[2023-02-27] MEDS: ATORVASTATIN 40 MG TAB PO SCH (20:57)
[2023-02-27] MEDS: LATANOPROST 0.005% OPHTH DROPS 2.5 ML BTL RIGHT EYE SCH (20:58)
[2023-02-27] MEDS ORDERED: METOPROLOL TARTRATE 25 MG TAB PO STA (21:32)
[2023-02-28 06:03] LABS: Glucose,Whole Blood 117 mg/dL (70-110)
[2023-02-28] MEDS: INSULIN ASPART (NovoLOG) 100 UNIT/ML VIAL SQ SCH ×4 (06:06→21:12)
[2023-02-28] MEDS: INSULIN DETEMIR (LEVEMIR) 100 UNIT/ML SYR SQ SCH ×2 (06:51→21:12)
[2023-02-28] MEDS: IPRATROPIUM-ALBUTEROL 3 ML NEB INHALATION SCH ×4 (08:18→21:37)
[2023-02-28] MEDS: APIXABAN 5 MG TAB PO SCH ×2 (08:50→21:10)
[2023-02-28] MEDS: METOPROLOL TARTRATE 25 MG TAB PO SCH ×2 (08:50→21:10)
[2023-02-28] MEDS: GABAPENTIN 100 MG CAP PO SCH ×2 (08:50→21:10)
[2023-02-28] MEDS: CITALOPRAM HYDROBROMIDE 20 MG TAB PO SCH (08:50)
[2023-02-28] MEDS: lisinopriL 20 MG TAB PO SCH ×2 (08:50→21:11)
[2023-02-28] MEDS: CLOPIDOGREL 75 MG TAB PO SCH (08:50)
[2023-02-28] MEDS: AMOXIC-POT CLAV 875-125MG 1 EACH TAB PO SCH ×2 (08:50→21:11)
[2023-02-28] MEDS: LINAGLIPTIN 5 MG TABLET PO SCH (08:50)
[2023-02-28] MEDS: guaiFENesin 600 MG TABLET.ER PO SCH ×2 (08:50→21:10)
[2023-02-28] MEDS: OXYBUTYNIN 10 MG TAB.ER.24 PO SCH (08:50)
[2023-02-28 09:20] LABS: Basophils % (A) 0 %; Eosinophils # (A) 0.1 k/uL (0-0.7); Eosinophils % (A) 1 %; HCT 38.4 % (39.0-53.0); HGB 11.9 gm/dL (13.0-17.5); Hypochromasia Slight; Lymphocytes # (A) 2.2 k/uL (1.0-4.8); Lymphocytes % (A) 23 %; MCH 27.1 pg (25.0-35.0); MCV 87.5 fL (80.0-100.0); Mean Platelet Volume 8.1; Monocytes # (A) 0.7 k/uL (0-1.0); Monocytes % (A) 7 %; Neutrophils # (A) 6.6 k/uL (1.3-7.7); Neutrophils % (A) 68 %; Platelet Count 207 k/uL (150-450); RBC 4.39 m/uL (4.30-5.90); RDW 15.3 % (11.5-15.5); WBC 9.8 k/uL (3.8-10.6)
[2023-02-28 09:35] LABS: ALT 24 U/L (4-49); AST 21 U/L (17-59); African American GFR (CKD) >90 (>60 ml/min/1.73 sqM); Albumin 3.1 g/dL (3.5-5.0); Alkaline Phosphatase 67 U/L (38-126); Anion Gap 5 mmol/L; Blood Urea Nitrogen 22 mg/dL (9-20); Calcium 7.8 mg/dL (8.4-10.2); Carbon Dioxide 27 mmol/L (22-30); Chloride 108 mmol/L (98-107); Glucose 96 mg/dL (74-99); Non-African American GFR(CKD) 82 (>60 ml/min/1.73 sqM); Sodium 140 mmol/L (137-145); Total Bilirubin 1.2 mg/dL (0.2-1.3); Total Protein 6.2 g/dL (6.3-8.2)
[2023-02-28] MEDS: KETOROLAC 0.5% OPHTH DROPS 5 ML BTL LEFT EYE SCH ×2 (10:14→21:12)
[2023-02-28 11:37] LABS: Glucose,Whole Blood 81 mg/dL (70-110)
--- NOTE | 2023-02-28 13:22 | P.PN ---
Subjective Progress Note Date: 02/28/23 patient is a 87-year-old gentleman with past medical history significant for dementia,Parkinson's disease, moderate to severe dementia, coronary artery disease with previous stent, hypertension, hyperlipidemia, diabetes mellitus, TIA who presented to the ER following an episode of choking on his food that resulted in him being short of breath. Patient apparently was eating popcorn when he choked on it and started coughing and became extreme short of breath. EMS was called and patient was brought to the ER. Patient recently been admitted to [facility] for pneumonia. Patient went to [facility] with RVR in the ER, patient was cardioverted but [facility]. Initial lab work done in the ER showed meniscal 0.5, hemoglobin 14.3, creatinine 193, sodium 143, potassium 3.9, BUN 28, creatinine 1.04, 02/26. Patient seen and examined. Patient has history of dementia, at the bedside. States he feels better. Has a lot of chest congestion. Currently on 4 L of oxygen 02/27. Patient seen and examined. Currently on 2 L of oxygen. Blood sugars are elevated. 02/28. Patient seen and examined. States he feels better. PT and OT cleared the patient for discharge home with homecare. Patient is also admitted to the hospital. Plan is for patient for discharge tomorrow home together with REVIEW OF SYSTEMS: CONSTITUTIONAL: No fever, no malaise,. CARDIOVASCULAR: No chest pain, no palpitations, no syncope. PULMONARY: No shortness of breath, no cough, GASTROINTESTINAL: No diarrhea, no nausea, no vomiting, no abdominal pain. NEUROLOGICAL: No headaches, no weakness, PHYSICAL EXAMINATION: GENERAL: The patient is alert self place and person, not in any acute distress. Well developed, well nourished. HEENT: Pupils are round and equally reacting to light. EOMI. No scleral icterus. No conjunctival pallor. Normocephalic, atraumatic. No pharyngeal erythema. No thyromegaly. CARDIOVASCULAR: S1 and S2 present. No murmurs, rubs, or gallops. PULMONARY: Coarse breath sounds bilaterally, expiratory rhonchi audible ABDOMEN: Soft, nontender, nondistended, normoactive bowel sounds. No palpable organomegaly. MUSCULOSKELETAL: No joint swelling or deformity. EXTREMITIES: No cyanosis, clubbing, or pedal edema. NEUROLOGICAL: Gross neurological examination did not reveal any focal deficits. SKIN: No rashes. Assessment and plan Acute hypoxic respiratory failure Aspiration pneumonitis A. fib with RVR Dysphagia, with multiple reported choking episodes Parkinson's disease Dementia Hypertension Hyperlipidemia Coronary artery disease, with prior cardiac stent Diabetes mellitus 2, insulin-dependent History of TIA Monitor vital signs Monitor CBC Monitor CMP Continue oxygen supplementation Aspiration precautions Encourage use of I-S Continue Mucinex Continue Eliquis Lopressor 2-D echo done showed LVEF of 35-40%, trace mitral regurg, moderate mitral calcification, [id number] aortic stenosis Monitor blood sugar levels, continue sliding scale insulin, increase Levemir to 18 units twice a day Continue diabetic diet [employer] Inspector signed off Follow-up on pulmonary recommendations, started Augmentin for 7 days PT and OT consult Objective - Vital Signs Vital signs: Vital Signs Temp 97.9 F 02/28/23 08:46 Pulse 65 02/28/23 08:46 Resp 18 02/28/23 08:46 BP 165/79 02/28/23 08:46 Pulse Ox 94 L 02/28/23 08:46 FiO2 40 02/26/23 11:40 Intake & Output 02/27/23 02/28/23 02/28/23 18:59 06:59 18:59 Intake Total 276 138 Output Total 400 Balance -124 138 Intake: IV 40 20 Invasive Line 1 20 10 Invasive Line 2 20 10 Oral 236 118 Output: Urine 400 Other: Voiding Method Urinal Urinal Urinal Diaper Diaper Diaper # Voids 1 1 1 # Bowel Movements 1 - Labs CBC & Chem 7: 02/28/23 08:57 02/28/23 08:57 Labs: Abnormal Lab Results - Last 24 Hours (Table) 02/27/23 02/27/23 02/27/23 Range/Units 11:36 16:15 20:18 Hgb (13.0-17.5) gm/dL Hct (39.0-53.0) % Chloride (98-107) mmol/L BUN (9-20) mg/dL POC Glucose (mg/dL) 440 H 131 H 128 H (70-110) mg/dL Calcium (8.4-10.2) mg/dL Total Protein (6.3-8.2) g/dL Albumin (3.5-5.0) g/dL 02/28/23 02/28/23 02/28/23 Range/Units 05:51 08:57 08:57 Hgb 11.9 L (13.0-17.5) gm/dL Hct 38.4 L (39.0-53.0) % Chloride 108 H (98-107) mmol/L BUN 22 H (9-20) mg/dL POC Glucose (mg/dL) 117 H (70-110) mg/dL Calcium 7.8 L (8.4-10.2) mg/dL Total Protein 6.2 L (6.3-8.2) g/dL Albumin 3.1 L (3.5-5.0) g/dL Microbiology - Last 24 Hours (Table) 02/25/23 03:05 Blood Culture - Preliminary Blood 02/25/23 03:20 Blood Culture - Preliminary Blood
--- NOTE | 2023-02-28 15:59 | P.PN ---
Subjective Progress Note Date: 02/28/23 I am seeing this patient in new consultation today 02/25/2023 in the emergency room for acute hypoxemic and hypercapnic respiratory failure. Patient is an 87-year-old male with past medical history significant for Parkinson's disease, moderate to severe dementia, coronary artery disease with previous stent, hypertension, hyperlipidemia, diabetes mellitus, TIA, remote history of alcoholism, and remote history of smoking. Patient himself is a poor historian, his is at bedside, and provides most of the information. She states that yesterday evening the patient was eating popcorn and had a choking episode. He then became severely short of breath, and she called EMS. She also reports that he was recently diagnosed with pneumonia last Saturday and was treated with antibiotics on an outpatient basis. Reportedly, the patient does follow with a [place] [facility] located by [facility], and uses an albuterol inhaler, on a when necessary basis. On arrival to the emergency room, the patient was in atrial fibrillation with rapid ventricular rate, and a cardioversion was attempted by the ER physician. The patient reportedly went right back into atrial fibrillation with RVR. He was then started on Cardizem which is currently infusing at 15 mg per hour and low-dose heparin infusion per protocol. denies any prior history of atrial fibrillation. While in the room, the patient actually did convert into normal sinus rhythm currently at 80 bpm. Patient is currently sitting up in bed, baseline confused, in no acute distress. He is on a BiPAP with settings 12/6 and FiO2 of 80%. He is oxygenating at 99% on these settings. Most recent ABG was done on an FiO2 of 100% and shows a PaO2 of 385, pCO2 65, and pH of 7.29. Repeat ABG was done, but is believed to be a venous sample. Chest x-ray on arrival shows no acute cardiopulmonary process. CBC on arrival shows some mild leukocytosis with a WBC count of 12.5, hemoglobin 14.3, hematocrit 46, platelets 193. BMP shows sodium 143, potassium 3.9, chloride 104, serum CO2 29, BUN 28, creatinine 1.04, glucose 160. Lactic acid level was mildly elevated at 2.6. Normal saline is ordered at 75 ML's per hour. Troponin was 0.016. NT proBNP was only slightly elevated when adjusted for age at 802. Vital signs are stable at this time. On today's evaluation of 02/26/2023, seeing the patient for a follow-up. The patient is feeling well. No new complaints. He is able to swallow. He remains on 5 L of oxygen by nasal cannula. No respiratory distress. He is communicating. He is known to have dementia with Parkinson's disease. Is also known to have coronary artery disease, previous history of coronary stent in [facility], hypertension hyperlipidemia and diabetes mellitus and previous history of TIA. He also has previous history of alcoholism and smoking. His current cardiac rhythm is sinus. He is off the Cardizem drip is on IV heparin still.Blood work shows a WBC count of 15.4, hemoglobin 11.5 and a platelet count of 218. Sodiums of 143, potassium levels at 3.8 with a chloride of 107 with a BUN of 38 and a creatinine of 1.1. Lactic acid level is down to 1.2. On today's evaluation of 02/27/2023. The patient is doing well. He is on 4 L of action by nasal cannula. No signs of any significant respiratory distress. Swallowing adequately. Remains in normal sinus rhythm. A repeat chest x-ray showed some limited infiltration of the lung bases and based on that I give the patient course of antibiotics with Augmentin. Aggressively case remains unchanged. On 02/28/2023, the patient remains on oral Augmentin. The patient has been weaned down to 2 L of oxygen by nasal cannula with a pulse ox of 95%. No signs of any respiratory distress. The 9.8 with a hemoglobin of 11.9 and platelet count of 207. Rest of the blood work and electrolytes are all within normal limits. BUN is at 22 with a creatinine of 0.7. Objective - Vital Signs Vital signs: Vital Signs Temp 97.9 F 02/28/23 12:33 Pulse 64 02/28/23 15:31 Resp 18 02/28/23 15:31 BP 140/85 02/28/23 12:33 Pulse Ox 95 02/28/23 12:33 FiO2 40 02/26/23 11:40 Intake & Output 02/27/23 02/28/23 02/28/23 18:59 06:59 18:59 Intake Total 276 276 Output Total 400 300 Balance -124 -24 Intake: IV 40 40 Invasive Line 1 20 20 Invasive Line 2 20 20 Oral 236 236 Output: Urine 400 300 Other: Voiding Method Urinal Urinal Urinal Diaper Diaper Diaper # Voids 1 1 1 # Bowel Movements 1 - Exam GENERAL EXAM: Alert but disoriented, 87-year-old white male, fairly comfortable in no apparent distress. Patient is currently on 2 L of oxygen by nasal cannula HEAD: Normocephalic and atraumatic EYES: Normal reaction of pupils, equal size. NOSE: Clear with pink turbinates. THROAT: No erythema or exudates. NECK: No masses, no JVD. CHEST: No chest wall deformity. LUNGS: Equal air entry with coarse rhonchi heard throughout. No conversational dyspnea or accessory muscle use.. CVS: S1 and S2 normal with no audible murmur, regular rhythm. No extra heart sounds ABDOMEN: No hepatosplenomegaly, active bowel sounds, no guarding or rigidity. SPINE: No scoliosis or deformity SKIN: No rashes CENTRAL NERVOUS SYSTEM: No focal deficits, tone is normal in all 4 extremities. EXTREMITIES: There is no peripheral edema, clubbing, or cyanosis. Peripheral p ulses are intact. - Labs CBC & Chem 7: 02/28/23 08:57 02/28/23 08:57 Labs: Abnormal Lab Results - Last 24 Hours (Table) 02/26/23 02/27/23 02/27/23 Range/Units 07:34 16:15 20:18 Hgb (13.0-17.5) gm/dL Hct (39.0-53.0) % Chloride (98-107) mmol/L BUN (9-20) mg/dL POC Glucose (mg/dL) 131 H 128 H (70-110) mg/dL Hemoglobin A1c 7.1 H (<=6.0) % Calcium (8.4-10.2) mg/dL Total Protein (6.3-8.2) g/dL Albumin (3.5-5.0) g/dL 02/28/23 02/28/23 02/28/23 Range/Units 05:51 08:57 08:57 Hgb 11.9 L (13.0-17.5) gm/dL Hct 38.4 L (39.0-53.0) % Chloride 108 H (98-107) mmol/L BUN 22 H (9-20) mg/dL POC Glucose (mg/dL) 117 H (70-110) mg/dL Hemoglobin A1c (<=6.0) % Calcium 7.8 L (8.4-10.2) mg/dL Total Protein 6.2 L (6.3-8.2) g/dL Albumin 3.1 L (3.5-5.0) g/dL Microbiology - Last 24 Hours (Table) 02/25/23 03:05 Blood Culture - Preliminary Blood 02/25/23 03:20 Blood Culture - Preliminary Blood Assessment and Plan Assessment: Acute hypoxic respiratory failure currently on 2 L of O2 nasal cannula, consider aspiration as the patient was having dysphagia and choking episodes, consider possibility of aspiration pneumonia and the patient is going to be started on Augmentin New-onset atrial fibrillation with rapid ventricular response, converted to normal sinus rhythm. Dysphagia, with multiple reported choking episodes Acute hypoxemic and hypercapnic respiratory failure, currently on BiPAP. Chest x-ray on arrival shows no acute cardiopulmonary process. Parkinson's disease Dementia Hypertension Hyperlipidemia Coronary artery disease, with prior cardiac stent Diabetes mellitus 2, insulin-dependent History of TIA Remote history of alcohol abuse Ex-smoker Plan: Clinically stable and the patient's FiO2 has been with down to 2 L Oral Augmentin a total of seven-day course As cardiac rhythm is sinus Anticoagulation per cardiology, the patient was supplemented coagulation with Eliquis Provide incentive spirometer Wean FiO2 as tolerated Swallow evaluation completed We'll continue to follow.
[2023-02-28 16:47] LABS: Glucose,Whole Blood 230 mg/dL (70-110)
[2023-02-28] MEDS: TAMSULOSIN 0.4 MG CAP.ER.24H PO SCH (16:59)
[2023-02-28 20:45] LABS: Glucose,Whole Blood 219 mg/dL (70-110)
[2023-02-28] MEDS: ATORVASTATIN 40 MG TAB PO SCH (21:10)
[2023-02-28] MEDS: DONEPEZIL 10 MG TAB PO SCH (21:10)
[2023-02-28] MEDS: traZODone HCL 50 MG TAB PO SCH (21:11)
[2023-02-28] MEDS: LATANOPROST 0.005% OPHTH DROPS 2.5 ML BTL RIGHT EYE SCH (21:12)
[2023-03-01 06:10] LABS: Glucose,Whole Blood 98 mg/dL (70-110)
[2023-03-01] MEDS: INSULIN ASPART (NovoLOG) 100 UNIT/ML VIAL SQ SCH ×2 (06:40→12:30)
[2023-03-01] MEDS: INSULIN DETEMIR (LEVEMIR) 100 UNIT/ML SYR SQ SCH (07:05)
[2023-03-01] MEDS: IPRATROPIUM-ALBUTEROL 3 ML NEB INHALATION SCH ×2 (09:22→12:25)
[2023-03-01] MEDS: AMOXIC-POT CLAV 875-125MG 1 EACH TAB PO SCH (09:27)
[2023-03-01] MEDS: APIXABAN 5 MG TAB PO SCH (09:27)
[2023-03-01] MEDS: lisinopriL 20 MG TAB PO SCH (09:27)
[2023-03-01] MEDS: OXYBUTYNIN 10 MG TAB.ER.24 PO SCH (09:27)
[2023-03-01] MEDS: METOPROLOL TARTRATE 25 MG TAB PO SCH (09:28)
[2023-03-01] MEDS: GABAPENTIN 100 MG CAP PO SCH (09:28)
[2023-03-01] MEDS: KETOROLAC 0.5% OPHTH DROPS 5 ML BTL LEFT EYE SCH (09:28)
[2023-03-01] MEDS: CITALOPRAM HYDROBROMIDE 20 MG TAB PO SCH (09:28)
[2023-03-01] MEDS: CLOPIDOGREL 75 MG TAB PO SCH (09:28)
[2023-03-01] MEDS: LINAGLIPTIN 5 MG TABLET PO SCH (09:28)
[2023-03-01] MEDS: guaiFENesin 600 MG TABLET.ER PO SCH (09:32)
--- NOTE | 2023-03-01 10:37 | P.DS ---
Providers Date of admission: 02/25/23 02:28 Expected date of discharge: 03/01/23 Attending physician: Paulo Cullen Consults: 02/25/23 01:32 Consult Physician Routine Consulting Provider: Alonzo Mullins Consult Reason/Comments: respiratory failure Do you want consulting provider notified?: Yes 02/25/23 02:37 Consult Physician Routine Consulting Provider: Trip Anderson Consult Reason/Comments: new onset afib Do you want consulting provider notified?: Yes Primary care physician: [facility] Course: Discharge diagnoses; Acute hypoxic respiratory failure Aspiration pneumonitis A. fib with RVR Dysphagia, with multiple reported choking episodes Parkinson's disease Dementia Hypertension Hyperlipidemia Coronary artery disease, with prior cardiac stent Diabetes mellitus 2, insulin-dependent History of TIA Hospital course; patient is a 87-year-old gentleman with past medical history significant for dementia,Parkinson's disease, moderate to severe dementia, coronary artery disease with previous stent, hypertension, hyperlipidemia, diabetes mellitus, TIA who presented to the ER following an episode of choking on his food that resulted in him being short of breath. Patient apparently was eating popcorn when he choked on it and started coughing and became extreme short of breath. EMS was called and patient was brought to the ER. Patient recently been admitted to [facility] for pneumonia. Patient went to [facility] fib with RVR in the ER, patient was cardioverted but patient went back into [facility] fib. Initial lab work done in the ER showed meniscal 0.5, hemoglobin 14.3, creatinine 193, sodium 143, potassium 3.9, BUN 28, creatinine 1.04, 02/26. Patient seen and examined. Patient has history of dementia, at the bedside. States he feels better. Has a lot of chest congestion. Currently on 4 L of oxygen 02/27. Patient seen and examined. Currently on 2 L of oxygen. Blood sugars are elevated. 02/28. Patient seen and examined. States he feels better. PT and OT cleared the patient for discharge home with homecare. Patient is also admitted to the hospital. Plan is for patient for discharge tomorrow home together with 03/01. Patient seen and examined. Currently on 2 L of oxygen. Being discharged on oral Augmentin Outpatient follow-up with cardiology and pulmonary PHYSICAL EXAMINATION: GENERAL: The patient is alert and oriented x2-3, not in any acute distress. Well developed, well nourished. HEENT: Pupils are round and equally reacting to light. EOMI. No scleral icterus. No conjunctival pallor. Normocephalic, atraumatic. No pharyngeal erythema. No thyromegaly. CARDIOVASCULAR: S1 and S2 present. No murmurs, rubs, or gallops. PULMONARY: coarse breath sounds bilaterally, no wheezing or crackles. ABDOMEN: Soft, nontender, nondistended, normoactive bowel sounds. No palpable organomegaly. MUSCULOSKELETAL: No joint swelling or deformity. EXTREMITIES: No cyanosis, clubbing, or pedal edema. NEUROLOGICAL: Gross neurological examination did not reveal any focal deficits. SKIN: No rashes. Patient Condition at Discharge: Fair Plan - Discharge Summary Discharge Rx Participant: No New Discharge Prescriptions: New Amoxic-Pot Clav 875-125Mg [Augmentin 875-125] 1 each PO Q12HR #10 tab Tamsulosin [Flomax] 0.4 mg PO PC-SUPPER #30 cap guaiFENesin 200 mg PO BID #14 tablet Apixaban [Eliquis] 5 mg PO BID #30 tab Metoprolol Tartrate [Lopressor] 25 mg PO BID #30 tab Continue Insulin Aspart [NovoLOG Flexpen] 6 units SQ AC-TID traZODone HCL [Desyrel] 50 mg PO HS Gabapentin [Neurontin] 100 mg PO BID Enalapril [Vasotec] 40 mg PO DAILY Clopidogrel [Plavix] 75 mg PO DAILY sitaGLIPtin [Januvia] 100 mg PO DAILY Atorvastatin [Lipitor] 40 mg PO HS Oxybutynin Chloride [oxyBUTYnin chloride ER] 10 mg PO DAILY Furosemide [Lasix] 40 mg PO DAILY Ketorolac 0.5% Ophth Soln [Acular 0.5%] 1 drop LEFT EYE BID Citalopram Hydrobromide [CeleXA] 20 mg PO DAILY Donepezil [Aricept] 10 mg PO HS Travoprost [Travatan Z 0.004%] 1 drop RIGHT EYE HS Triamcinolone 0.5% Cream [Kenalog 0.5% Cream] 1 applic TOPICAL DAILY Albuterol Inhaler [Ventolin Hfa Inhaler] 2 puff INHALATION RT-Q4H PRN PRN Reason: Shortness Of Breath Benzonatate [Tessalon Perle] 200 mg PO TID PRN PRN Reason: Cough Changed Insulin Glargine,Hum.rec.anlog [Basaglar Kwikpen U-100] 30 unit SQ DAILY #1 each Discontinued cloNIDine HCL [Catapres] 0.1 mg PO DAILY amLODIPine BESYLATE [Norvasc] 5 mg PO BID Ciprofloxacin HCl [Cipro] 250 mg PO Q12H Discharge Medication List Atorvastatin [Lipitor] 40 mg PO HS 12/07/15 [History] Clopidogrel [Plavix] 75 mg PO DAILY 12/07/15 [History] Enalapril [Vasotec] 40 mg PO DAILY 12/07/15 [History] Gabapentin [Neurontin] 100 mg PO BID 12/07/15 [History] Insulin Aspart [NovoLOG Flexpen] 6 units SQ AC-TID 12/07/15 [History] sitaGLIPtin [Januvia] 100 mg PO DAILY 12/07/15 [History] traZODone HCL [Desyrel] 50 mg PO HS 12/07/15 [History] Oxybutynin Chloride [oxyBUTYnin chloride ER] 10 mg PO DAILY 01/22/18 [History] Furosemide [Lasix] 40 mg PO DAILY 04/16/18 [History] Citalopram Hydrobromide [CeleXA] 20 mg PO DAILY 12/13/22 [History] Donepezil [Aricept] 10 mg PO HS 12/13/22 [History] Ketorolac 0.5% Ophth Soln [Acular 0.5%] 1 drop LEFT EYE BID 12/13/22 [History] Travoprost [Travatan Z 0.004%] 1 drop RIGHT EYE HS 12/13/22 [History] Triamcinolone 0.5% Cream [Kenalog 0.5% Cream] 1 applic TOPICAL DAILY 12/13/22 [History] Albuterol Inhaler [Ventolin Hfa Inhaler] 2 puff INHALATION RT-Q4H PRN 02/24/23 [History] Benzonatate [Tessalon Perle] 200 mg PO TID PRN 02/24/23 [History] Amoxic-Pot Clav 875-125Mg [Augmentin 875-125] 1 each PO Q12HR #10 tab 03/01/23 [Rx] Apixaban [Eliquis] 5 mg PO BID #30 tab 03/01/23 [Rx] Insulin Glargine,Hum.rec.anlog [Basaglar Kwikpen U-100] 30 unit SQ DAILY #1 each 03/01/23 [Rx] Metoprolol Tartrate [Lopressor] 25 mg PO BID #30 tab 03/01/23 [Rx] Tamsulosin [Flomax] 0.4 mg PO PC-SUPPER #30 cap 03/01/23 [Rx] guaiFENesin 200 mg PO BID #14 tablet 03/01/23 [Rx] Follow up Appointment(s)/Referral(s): Trip Anderson DO [STAFF PHYSICIAN] - 1 Week Pablo Multani MD [Primary Care Provider] - 1-2 days Carmencita Holcomb MD [STAFF PHYSICIAN] - 1 Week
[2023-03-01 10:46] VITALS: RESP 18
[2023-03-01 12:25] LABS: Glucose,Whole Blood 76 mg/dL (70-110)
[2023-03-01 13:55] VITALS: BP 142/62; PULSE 57; TEMP 99.5
--- NOTE | 2023-03-01 14:45 | P.PN ---
Subjective Progress Note Date: 03/01/23 I am seeing this patient in new consultation today 02/25/2023 in the emergency room for acute hypoxemic and hypercapnic respiratory failure. Patient is an 87-year-old male with past medical history significant for Parkinson's disease, moderate to severe dementia, coronary artery disease with previous stent, hypertension, hyperlipidemia, diabetes mellitus, TIA, remote history of alcoholism, and remote history of smoking. Patient himself is a poor historian, his is at bedside, and provides most of the information. She states that yesterday evening the patient was eating popcorn and had a choking episode. He then became severely short of breath, and she called EMS. She also reports that he was recently diagnosed with pneumonia last Saturday and was treated with antibiotics on an outpatient basis. Reportedly, the patient does follow with a certified adapted physical educator located by [facility], and uses an albuterol inhaler, on a when necessary basis. On arrival to the emergency room, the patient was in atrial fibrillation with rapid ventricular rate, and a cardioversion was attempted by the ER physician. The patient reportedly went right back into atrial fibrillation with RVR. He was then started on Cardizem which is currently infusing at 15 mg per hour and low-dose heparin infusion per protocol. denies any prior history of atrial fibrillation. While in the room, the patient actually did convert into normal sinus rhythm currently at 80 bpm. Patient is currently sitting up in bed, baseline confused, in no acute distress. He is on a BiPAP with settings 12/6 and FiO2 of 80%. He is oxygenating at 99% on these settings. Most recent ABG was done on an FiO2 of 100% and shows a PaO2 of 385, pCO2 65, and pH of 7.29. Repeat ABG was done, but is believed to be a venous sample. Chest x-ray on arrival shows no acute cardiopulmonary process. CBC on arrival shows some mild leukocytosis with a WBC count of 12.5, hemoglobin 14.3, hematocrit 46, platelets 193. BMP shows sodium 143, potassium 3.9, chloride 104, serum CO2 29, BUN 28, creatinine 1.04, glucose 160. Lactic acid level was mildly elevated at 2.6. Normal saline is ordered at 75 ML's per hour. Troponin was 0.016. NT proBNP was only slightly elevated when adjusted for age at 802. Vital signs are stable at this time. On today's evaluation of 02/26/2023, seeing the patient for a follow-up. The patient is feeling well. No new complaints. He is able to swallow. He remains on 5 L of oxygen by nasal cannula. No respiratory distress. He is communicating. He is known to have dementia with Parkinson's disease. Is also known to have coronary artery disease, previous history of coronary stent in [facility], hypertension hyperlipidemia and diabetes mellitus and previous history of TIA. He also has previous history of alcoholism and smoking. His current cardiac rhythm is sinus. He is off the Cardizem drip is on IV heparin still.Blood work shows a WBC count of 15.4, hemoglobin 11.5 and a platelet count of 218. Sodiums of 143, potassium levels at 3.8 with a chloride of 107 with a BUN of 38 and a creatinine of 1.1. Lactic acid level is down to 1.2. On today's evaluation of 02/27/2023. The patient is doing well. He is on 4 L of action by nasal cannula. No signs of any significant respiratory distress. Swallowing adequately. Remains in normal sinus rhythm. A repeat chest x-ray showed some limited infiltration of the lung bases and based on that I give the patient course of antibiotics with Augmentin. Aggressively case remains unchanged. On 02/28/2023, the patient remains on oral Augmentin. The patient has been weaned down to 2 L of oxygen by nasal cannula with a pulse ox of 95%. No signs of any respiratory distress. The 9.8 with a hemoglobin of 11.9 and platelet count of 207. Rest of the blood work and electrolytes are all within normal limits. BUN is at 22 with a creatinine of 0.7. On 02/26/2023, the patient has no new complaints. The patient will likely be d ischarged home today on course of Augmentin. He is also on into cognition without liquids 5 mg twice daily. He remains on Lasix 40 mg by mouth daily. No aspiration Objective - Vital Signs Vital signs: Vital Signs Temp 98.4 F 03/01/23 08:20 Pulse 66 03/01/23 09:33 Resp 18 03/01/23 08:20 BP 147/73 03/01/23 08:20 Pulse Ox 96 03/01/23 09:22 FiO2 40 02/26/23 11:40 Intake & Output 02/28/23 03/01/23 03/01/23 18:59 06:59 18:59 Intake Total 276 Output Total 300 400 Balance -24 -400 Intake: IV 40 Invasive Line 1 20 Invasive Line 2 20 Oral 236 Output: Urine 300 400 Other: Voiding Method Urinal Diaper Diaper Diaper External Catheter External Catheter # Voids 1 # Bowel Movements 1 - Exam GENERAL EXAM: Alert but disoriented, 87-year-old white male, fairly comfortable in no apparent distress. Patient is currently on 2 L of oxygen by nasal cannula HEAD: Normocephalic and atraumatic EYES: Normal reaction of pupils, equal size. NOSE: Clear with pink turbinates. THROAT: No erythema or exudates. NECK: No masses, no JVD. CHEST: No chest wall deformity. LUNGS: Equal air entry with coarse rhonchi heard throughout. No conversational dyspnea or accessory muscle use.. CVS: S1 and S2 normal with no audible murmur, regular rhythm. No extra heart sounds ABDOMEN: No hepatosplenomegaly, active bowel sounds, no guarding or rigidity. SPINE: No scoliosis or deformity SKIN: No rashes CENTRAL NERVOUS SYSTEM: No focal deficits, tone is normal in all 4 extremities. EXTREMITIES: There is no peripheral edema, clubbing, or cyanosis. Peripheral pulses are intact. - Labs CBC & Chem 7: 02/28/23 08:57 02/28/23 08:57 Labs: Abnormal Lab Results - Last 24 Hours (Table) 02/26/23 02/28/23 02/28/23 Range/Units 07:34 16:45 20:44 POC Glucose (mg/dL) 230 H 219 H (70-110) mg/dL Hemoglobin A1c 7.1 H (<=6.0) % Microbiology - Last 24 Hours (Table) 02/25/23 03:05 Blood Culture - Preliminary Blood 02/25/23 03:20 Blood Culture - Preliminary Blood Assessment and Plan Assessment: Acute hypoxic respiratory failure currently on 2 L of O2 nasal cannula, consider aspiration as the patient was having dysphagia and choking episodes, consider possibility of aspiration pneumonia and the patient is going to be started on Augmentin New-onset atrial fibrillation with rapid ventricular response, converted to normal sinus rhythm. Dysphagia, with multiple reported choking episodes Acute hypoxemic and hypercapnic respiratory failure, currently on BiPAP. Chest x-ray on arrival shows no acute cardiopulmonary process. Parkinson's disease Dementia Hypertension Hyperlipidemia Coronary artery disease, with prior cardiac stent Diabetes mellitus 2, insulin-dependent History of TIA Remote history of alcohol abuse Ex-smoker Plan: The patient may be discharged home today Clinically stable and the patient's FiO2 has been with down to 2 L Oral Augmentin a total of seven-day course As cardiac rhythm is sinus Anticoagulation per cardiology, the patient was supplemented coagulation with Eliquis Provide incentive spirometer Wean FiO2 as tolerated Swallow evaluation completed We'll continue to follow. Cleared for discharge from the pulmonary standpoint
== END 2023-03-01 14:41 | disposition home health service (06) | DRG 177 ==
LOC: EC 20:50 → 3SCARD 02-25 02:28
PROVIDERS: ADMIT Hospitalist; ATTEND Hospitalist
PROC: 5A09357 Assistance with Respiratory Ventilation, Less than 24 Consecutive Hours, Continuous Positive Airway Pressure (ICD-10-PCS; principal; 2023-02-24)
DX: J69.0 Pneumonitis due to inhalation of food and vomit (principal); J96.01 Acute respiratory failure with hypoxia; J96.02 Acute respiratory failure with hypercapnia; E78.5 Hyperlipidemia, unspecified; F02.B0 Dementia in other diseases classified elsewhere, moderate, without behavioral disturbance, psychotic disturbance, mood disturbance, and anxiety; F10.21 Alcohol dependence, in remission; G20 Parkinson's disease; M19.90 Unspecified osteoarthritis, unspecified site; I10 Essential (primary) hypertension; R15.9 Full incontinence of feces; I25.10 Atherosclerotic heart disease of native coronary artery without angina pectoris; R32 Unspecified urinary incontinence; I48.91 Unspecified atrial fibrillation; R13.10 Dysphagia, unspecified; F40.240 Claustrophobia; Z79.01 Long term (current) use of anticoagulants; Z79.02 Long term (current) use of antithrombotics/antiplatelets; Z79.4 Long term (current) use of insulin; Z79.84 Long term (current) use of oral hypoglycemic drugs; Z79.899 Other long term (current) drug therapy; Z82.49 Family history of ischemic heart disease and other diseases of the circulatory system; Z91.81 History of falling; Z86.73 Personal history of transient ischemic attack (TIA), and cerebral infarction without residual deficits; Z95.5 Presence of coronary angioplasty implant and graft; Z87.891 Personal history of nicotine dependence; Z87.01 Personal history of pneumonia (recurrent)
CPT/HCPCS: 36415; 36600; 71045; 80053; 82805; 83036; 83605; 83735; 83880; 84439; 84443; 84484; 85025; 85610; 85730; 87040; 93005; 93306; 94640; 94660; 94760; 96365; 96366; 96368; 96375; 99291

== ENCOUNTER → 2023-03-15 | Outpatient (CLI) | payer MEDICARE ==
--- NOTE | 2023-03-15 11:53 | FL ---
EXAMINATION TYPE: FL barium swallow w video DATE OF EXAM: 03/15/2023 COMPARISON: NONE HISTORY: Dysphagia TECHNIQUE: Fluoroscopy. FINDINGS: Fluoroscopic guidance was provided for the procedure performed in conjunction with the [facility] pathology department. Please see complete report forthcoming from the Speech Pathology departmen t. Various consistencies from thin liquid to solids were administered. Fluoroscopy time 1 minute 27 seconds. Number of images: 0. There was penetration with thin liquids. With pudding thick and solids no definite penetration was ev ident. No aspiration was identified during the exam. There is moderate pooling within the vallecula with delayed swallowing. This was cleared with additio nal swallows. IMPRESSION: 1. Penetration with thin liquids. 2. Vallecular pooling
== END | disposition home or self-care (01) ==
LOC: RADFLMAIN 10:59
PROVIDERS: ATTEND Internal Medicine Geriatric Medicine
DX: R13.10 Dysphagia, unspecified (principal)
CPT/HCPCS: 74230

== ENCOUNTER 2023-07-10 10:10 | Observation (INO) | payer MEDICARE ==
--- NOTE | 2023-07-10 10:32 | ED ---
Weakness HPI - General Chief complaint: Weakness Stated complaint: Weakness Time Seen by Provider: 07/10/23 10:19 Source: patient, EMS, RN notes reviewed Mode of arrival: EMS Limitations: altered mental status - History of Present Illness Initial comments: This is an 87-year-old male who presents to the emergency department for generalized weakness. Symptoms started 2 days ago. Patient is not a great historian secondary to dementia. Denies any chest pain or shortness of breath. He is wearing oxygen and states that he does wear oxygen at home. He does also note diarrhea for the last 2 days. Patient's states that he has been unable to ambulate since yesterday, and she is unable to get him up. He is usually ambulatory at baseline, and she states that she is unable to move him or care for him. MD Complaint: generalized weakness - Related Data Home Medications Medication Instructions Recorded Confirmed Atorvastatin [Lipitor] 40 mg PO HS 12/07/15 07/10/23 Clopidogrel [Plavix] 75 mg PO DAILY 12/07/15 07/10/23 Enalapril [Vasotec] 40 mg PO DAILY 12/07/15 07/10/23 Gabapentin [Neurontin] 100 mg PO BID 12/07/15 07/10/23 Insulin Aspart [NovoLOG Flexpen] 10 units SQ AC-BRKFST 12/07/15 07/10/23 sitaGLIPtin [Januvia] 100 mg PO DAILY 12/07/15 07/10/23 traZODone HCL [Desyrel] 50 mg PO HS 12/07/15 07/10/23 Oxybutynin Chloride [oxyBUTYnin 10 mg PO DAILY 01/22/18 07/10/23 chloride ER] Furosemide [Lasix] 40 mg PO DAILY 04/16/18 07/10/23 Citalopram Hydrobromide [CeleXA] 10 mg PO DAILY 12/13/22 07/10/23 Donepezil [Aricept] 10 mg PO HS 12/13/22 07/10/23 Albuterol Inhaler [Ventolin Hfa 2 puff INHALATION RT-Q4H PRN 02/24/23 07/10/23 Inhaler] Insulin Aspart [NovoLOG Flexpen] 6 units SQ AC-LUNCH 07/10/23 07/10/23 Insulin Aspart [NovoLOG Flexpen] 6 units SQ AC-SUPPER 07/10/23 07/10/23 Previous Rx's Medication Instructions Recorded Apixaban [Eliquis] 5 mg PO BID #30 tab 03/01/23 Insulin Glargine,Hum.rec.anlog 30 unit SQ DAILY #1 each 03/01/23 [Basaglar Ryanikpen U-100] Metoprolol Tartrate [Lopressor] 25 mg PO BID #30 tab 03/01/23 Tamsulosin [Flomax] 0.4 mg PO PC-SUPPER #30 cap 03/01/23 Allergies Allergy/AdvReac Type Severity Reaction Status Date / Time No Known Allergies Allergy Verified 07/10/23 13:42 Review of Systems ROS Statement: Those systems with pertinent positive or pertinent negative responses have been documented in the HPI. ROS Other: All systems not noted in ROS Statement are negative. Past Medical History Past Medical History: Coronary Artery Disease (CAD), CVA/TIA, Dementia, Diabetes Mellitus, Eye Disorder, Hyperlipidemia, Hypertension, Memory Impairment, Osteoarthritis (OA), Pneumonia, Syncope Additional Past Medical History / Comment(s): cataract left eye. Diverticulitis. lt fractured ankle 16,rt. foot wound-healed, tia, hiatal hernia occ hand tremors, hx of falls,uses walker when up. incont of urine/stool wears depends. . History of Any Multi-Drug Resistant Organisms: None Reported Past Surgical History: Heart Catheterization With Stent, Hernia Repair, Tonsillectomy Additional Past Surgical History / Comment(s): VASECTOMY, rt eye cataract removed Past Anesthesia/Blood Transfusion Reactions: No Reported Reaction Additional Past Anesthesia/Blood Transfusion Reaction / Comment(s): clausterphobic Date of Last Stent Placement:: February 01, 2011 Smoking Status: Former smoker - Past Family History Father History Unknown: Yes Mother Family Medical History: Myocardial Infarction ([place]) Additional Family Medical History / Comment(s): Mother of heart attack at 64. Mother had mental illness. Brother(s) Family Medical History: Cancer Additional Family Medical History / Comment(s): Patients half-brother had stomach cancer. General Exam Limitations: altered mental status General appearance: alert, in no apparent distress Head exam: Present: atraumatic, normocephalic, normal inspection Respiratory exam: Present: normal lung sounds bilaterally. Absent: respiratory distress, wheezes, rales, rhonchi, stridor Cardiovascular Exam: Present: regular rate, normal rhythm, normal heart sounds. Absent: systolic murmur, diastolic murmur, rubs, gallop, clicks Neurological exam: Present: alert Skin exam: Present: warm, dry, intact, normal color. Absent: rash Course Vital Signs 07/10/23 07/10/23 07/10/23 10:25 12:46 15:50 Temperature 98.4 F 97.6 F Pulse Rate 62 55 L 58 L Respiratory 18 18 20 Rate Blood Pressure 136/74 141/74 171/78 O2 Sat by Pulse 94 L 96 92 L Oximetry Medical Decision Making - Medical Decision Making This is an 87-year-old male who presents to the emergency department for weakness. Was pt. sent in by a medical professional or institution? @ -No Did you speak to anyone other than the patient for history? @ -No Did you review nursing and triage notes? @ -Yes, and I agree, it is accurate with regards to the patient's symptoms. Were old charts reviewed? @ -No Differential Diagnosis? @ -Differential Weakness: Hypoglycemia, shock, sepsis, hyponatremia, anemia, infection, MO, ETOH, adverse medicine reaction, overdose, stroke, this is not meant to be an all-inclusive list. EKG interpreted by me (3pts min.)? @ -EKG interpreted by me demonstrating the following: Sinus bradycardia. Ventricular rate 55 beats per minute, VT interval 150 ms, QRS duration 150 ms, QTC 485 ms. X-rays interpreted by me (1pt min.)? @ -Chest x-ray obtained, my interpretation identifies no localized consolidations or infiltrates. CT interpreted by me (1pt min.)? @ -Not obtained U/S interpreted by me (1pt. min.)? @ -Not obtained What testing was considered but not performed? (CT, X-rays, U/S, labs)? Why? @ -None What meds were considered but not given? Why? @ -None Did you discuss the management of the patient with other professionals? @ -Yes, Dr. [place], who accepts the patient for admission. Did you reconcile home meds? @ -Yes Was smoking cessation discussed for >3mins.? @ -No Was critical care preformed (if so, how long)? @ -No Were there social determinants of health that impacted care today? How? (Homelessness, low income, unemployed, alcoholism, drug addiction, transportation, low edu. Level, literacy, decrease access to med. care, usp, rehab)? @ -No Was there de-escalation of care discussed even if they declined? (Discuss DNR or withdrawal of care, Hospice)? @ -No What co-morbidities impacted this encounter? (DM, HTN, Smoking, COPD, CAD, Cancer, CVA, Hep., AIDS, mental health diagnosis, sleep apnea, morbid obesity)? @ -Dementia, DM, CAD, a-fib, HTN, HLD Was patient admitted / discharged? @ -Admitted. Lab work obtained revealing signs of mild dehydration. Troponin indeterminate at 0.030. Patient does have a hx of CAD with stent placement. Chest x-ray reveals no acute process. Urinalysis negative for signs of infection. It did identify blood, however this is likely related to traumatic catheterization, as it was very difficult and took several nurses. Urine was sent for culture. We tried to stand the patient up, however he was unable to walk whatsoever. His is also 89 years old and very small, and she is unable to care for him or move him at home. Patient is usually ambulatory at baseline. Given the patient's weakness and inability to ambulate, he was ad mitted to medicine for further management. Consult placed for physical and occupational therapy. Serial troponins ordered as well given the indeterminate level. Cepheid 4-plex ordered with results pending at the time of admission. Undiagnosed new problem with uncertain prognosis? @ -None Drug Therapy requiring intensive monitoring for toxicity (Heparin, Nitro, Insulin, Cardizem)? @ -None Were any procedures done? @ -None Diagnosis/symptom? @ -Generalized weakness, inability to ambulate Acute, or Chronic, or Acute on Chronic? @ -Acute Uncomplicated (without systemic symptoms) or Complicated (systemic symptoms)? @ -Complicated Side effects of treatment? @ -None Exacerbation, Progression, or Severe Exacerbation] @ -Not applicable Poses a threat to life or bodily function? @ -Yes This case was discussed in detail with the attending ED physician, Dr. Degroot Presentation, findings, and treatment plan discussed in detail as well. - Lab Data Result diagrams: 07/10/23 10:59 07/10/23 10:59 Lab Results 07/10/23 07/10/23 07/10/23 Range/Units 10:59 10:59 10:59 WBC 5.8 (3.8-10.6) k/uL RBC 4.27 L (4.30-5.90) m/uL Hgb 12.0 L (13.0-17.5) gm/dL Hct 36.9 L (39.0-53.0) % MCV 86.4 (80.0-100.0) fL MCH 28.1 (25.0-35.0) pg MCHC 32.5 (31.0-37.0) g/dL RDW 17.8 H (11.5-15.5) % Plt Count 126 L (150-450) k/uL MPV 8.5 Neutrophils % 64 % Lymphocytes % 25 % Monocytes % 8 % Eosinophils % 0 % Basophils % 1 % Neutrophils # 3.7 (1.3-7.7) k/uL Lymphocytes # 1.4 (1.0-4.8) k/uL Monocytes # 0.5 (0-1.0) k/uL Eosinophils # 0.0 (0-0.7) k/uL Basophils # 0.0 (0-0.2) k/uL Hypochromasia Slight Anisocytosis Slight PT 11.9 (10.0-12.5) sec INR 1.1 (<1.2) APTT 27.3 (22.0-30.0) sec Sodium (137-145) mmol/L Potassium (3.5-5.1) mmol/L Chloride (98-107) mmol/L Carbon Dioxide (22-30) mmol/L Anion Gap mmol/L BUN (9-20) mg/dL Creatinine (0.66-1.25) mg/dL Est GFR (CKD-EPI)AfAm (>60 ml/min/1.73 sqM) Est GFR (CKD-EPI)NonAf (>60 ml/min/1.73 sqM) Glucose (74-99) mg/dL Plasma Lactic Acid Gt (0.7-2.0) mmol/L Calcium (8.4-10.2) mg/dL Magnesium (1.6-2.3) mg/dL Total Bilirubin (0.2-1.3) mg/dL AST (17-59) U/L ALT (4-49) U/L Alkaline Phosphatase (38-126) U/L Troponin I (0.000-0.034) ng/mL Total Protein (6.3-8.2) g/dL Albumin (3.5-5.0) g/dL Urine Color Light Yellow Urine Appearance Cloudy (Clear) Urine pH 5.5 (5.0-8.0) Ur Specific [place] 1.016 (1.001-1.035) Urine Protein Trace H (Negative) Urine Glucose (UA) Negative (Negative) Urine Ketones Negative (Negative) Urine Blood Small H (Negative) Urine Nitrite Negative (Negative) Urine Bilirubin Negative (Negative) Urine Urobilinogen <2.0 (<2.0) mg/dL Ur Leukocyte Esterase Negative (Negative) Urine RBC 29 H (0-5) /hpf Urine WBC 3 (0-5) /hpf Ur Squamous Epith Cells 5 H (0-4) /hpf Amorphous Sediment Rare H (None) /hpf Hyaline Casts 7 H (0-2) /lpf Urine Mucus Rare H (None) /hpf 07/10/23 07/10/23 07/10/23 Range/Units 10:59 10:59 10:59 WBC (3.8-10.6) k/uL RBC (4.30-5.90) m/uL Hgb (13.0-17.5) gm/dL Hct (39.0-53.0) % MCV (80.0-100.0) fL MCH (25.0-35.0) pg MCHC (31.0-37.0) g/dL RDW (11.5-15.5) % Plt Count (150-450) k/uL MPV Neutrophils % % Lymphocytes % % Monocytes % % Eosinophils % % Basophils % % Neutrophils # (1.3-7.7) k/uL Lymphocytes # (1.0-4.8) k/uL Monocytes # (0-1.0) k/uL Eosinophils # (0-0.7) k/uL Basophils # (0-0.2) k/uL Hypochromasia Anisocytosis PT (10.0-12.5) sec INR (<1.2) APTT (22.0-30.0) sec Sodium 142 (137-145) mmol/L Potassium 4.3 (3.5-5.1) mmol/L Chloride 103 (98-107) mmol/L Carbon Dioxide 31 H (22-30) mmol/L Anion Gap 8 mmol/L BUN 29 H (9-20) mg/dL Creatinine 1.08 (0.66-1.25) mg/dL Est GFR (CKD-EPI)AfAm 71 (>60 ml/min/1.73 sqM) Est GFR (CKD-EPI)NonAf 61 (>60 ml/min/1.73 sqM) Glucose 207 H (74-99) mg/dL Plasma Lactic Acid Gt 1.8 (0.7-2.0) mmol/L Calcium 8.2 L (8.4-10.2) mg/dL Magnesium 2.0 (1.6-2.3) mg/dL Total Bilirubin 0.9 (0.2-1.3) mg/dL AST 35 (17-59) U/L ALT 38 (4-49) U/L Alkaline Phosphatase 60 (38-126) U/L Troponin I 0.030 (0.000-0.034) ng/mL Total Protein 6.7 (6.3-8.2) g/dL Albumin 3.4 L (3.5-5.0) g/dL Urine Color Urine Appearance (Clear) Urine pH (5.0-8.0) Ur Specific [place] (1.001-1.035) Urine Protein (Negative) Urine Glucose (UA) (Negative) Urine Ketones (Negative) Urine Blood (Negative) Urine Nitrite (Negative) Urine Bilirubin (Negative) Urine Urobilinogen (<2.0) mg/dL Ur Leukocyte Esterase (Negative) Urine RBC (0-5) /hpf Urine WBC (0-5) /hpf Ur Squamous Epith Cells (0-4) /hpf Amorphous Sediment (None) /hpf Hyaline Casts (0-2) /lpf Urine Mucus (None) /hpf - Radiology Data Radiology results: report reviewed, image reviewed Disposition Clinical Impression: Generalized weakness, Unable to ambulate Disposition: ADMITTED IP TO THIS HOSP
--- NOTE | 2023-07-10 11:17 | XR ---
EXAMINATION TYPE: XR chest 2V DATE OF EXAM: 07/10/2023 11:12 AM COMPARISON: Chest radiographs from 02/27/2023 TECHNIQUE: XR chest 2V Frontal and lateral views of the chest. CLINICAL INDICATION:Male, 87 years old with history of Weakness; FINDINGS: Lungs/Pleura: There is no evidence of pleural effusion, focal consolidation, or pneumothorax. Chroni c senescent parenchymal change. Pulmonary vascularity: Mild pulmonary vascular congestion. Heart/mediastinum: Cardiomediastinal silhouette is unremarkable. Atherosclerotic calcifications are seen in the aorta. Musculoskeletal: No acute osseous pathology. IMPRESSION: No acute processes.
[2023-07-10 11:18] LABS: Anisocytosis Slight; Basophils % (A) 1 %; Eosinophils % (A) 0 %; HCT 36.9 % (39.0-53.0); Hypochromasia Slight; Lymphocytes # (A) 1.4 k/uL (1.0-4.8); Lymphocytes % (A) 25 %; MCH 28.1 pg (25.0-35.0); MCHC 32.5 g/dL (31.0-37.0); MCV 86.4 fL (80.0-100.0); Mean Platelet Volume 8.5; Monocytes # (A) 0.5 k/uL (0-1.0); Monocytes % (A) 8 %; Neutrophils # (A) 3.7 k/uL (1.3-7.7); Neutrophils % (A) 64 %; Platelet Count 126 k/uL (150-450); RBC 4.27 m/uL (4.30-5.90); RDW 17.8 % (11.5-15.5); WBC 5.8 k/uL (3.8-10.6)
[2023-07-10 11:20] LABS: ALT 38 U/L (4-49); African American GFR (CKD) 71 (>60 ml/min/1.73 sqM); Albumin 3.4 g/dL (3.5-5.0); Anion Gap 8 mmol/L; Blood Urea Nitrogen 29 mg/dL (9-20); Calcium 8.2 mg/dL (8.4-10.2); Carbon Dioxide 31 mmol/L (22-30); Chloride 103 mmol/L (98-107); Glucose 207 mg/dL (74-99); INR 1.1 (<1.2); Non-African American GFR(CKD) 61 (>60 ml/min/1.73 sqM); Partial Thromboplastin Time 27.3 sec (22.0-30.0); Prothrombin Time 11.9 sec (10.0-12.5); Sodium 142 mmol/L (137-145); Total Bilirubin 0.9 mg/dL (0.2-1.3); Total Protein 6.7 g/dL (6.3-8.2)
[2023-07-10 11:25] LABS: AST 35 U/L (17-59); Alkaline Phosphatase 60 U/L (38-126); Potassium 4.3 mmol/L (3.5-5.1)
[2023-07-10] MEDS ORDERED: SODIUM CHLORIDE 0.9% 1,000 ML IV STA ×2 (11:29→16:40)
[2023-07-10 15:19] LABS: Amorphous Sediment,Urine Rare /hpf; Appearance,Urine Cloudy (Clear); Bilirubin,Urine Negative (Negative); Blood,Urine Small (Negative); Color,Urine Light Yellow; Glucose,Urine (UA) Negative (Negative); Hyaline Casts,Urine 7 /lpf (0-2); Ketones,Urine Negative (Negative); Leukocyte Esterase,Urine Negative (Negative); Mucus,Urine Rare /hpf; Nitrite,Urine Negative (Negative); PH, Urine 5.5 (5.0-8.0); Protein,Urine Trace (Negative); RBC,Urine 29 /hpf (0-5); Specific Gravity,Urine 1.016 (1.001-1.035); Squamous Epithelial Cell,Urine 5 /hpf (0-4); Urobilinogen,Urine <2.0 mg/dL (<2.0); WBC,Urine 3 /hpf (0-5)
[2023-07-10] MEDS ORDERED: ONDANSETRON 4 MG/2 ML VIAL IVP PRN (16:22)
[2023-07-10] MEDS ORDERED: NALOXONE 0.4 MG/ML 1 ML VIAL IV PRN (16:22)
[2023-07-10] MEDS ORDERED: ACETAMINOPHEN TAB 325 MG TAB PO PRN (16:22)
[2023-07-10] MEDS ORDERED: ALBUTEROL NEBULIZED 2.5 MG/3 ML INHALATION PRN (16:25)
[2023-07-10] MEDS ORDERED: INSULIN ASPART (NovoLOG) 100 UNIT/ML VIAL SQ SCH (17:30)
[2023-07-10] MEDS: DONEPEZIL 10 MG TAB PO SCH (20:29)
[2023-07-10] MEDS: GABAPENTIN 100 MG CAP PO SCH (20:29)
[2023-07-10] MEDS: APIXABAN 5 MG TAB PO SCH (20:29)
[2023-07-10] MEDS: traZODone HCL 50 MG TAB PO SCH (20:29)
[2023-07-10] MEDS: METOPROLOL TARTRATE 25 MG TAB PO SCH (20:29)
[2023-07-10] MEDS: TAMSULOSIN 0.4 MG CAP.ER.24H PO SCH (20:29)
[2023-07-10] MEDS: ATORVASTATIN 40 MG TAB PO SCH (20:29)
[2023-07-10 22:07] LABS: Glucose,Whole Blood 48 mg/dL (70-110)
[2023-07-10 22:27] LABS: Glucose,Whole Blood 50 mg/dL (70-110)
[2023-07-10 22:59] LABS: Glucose,Whole Blood 66 mg/dL (70-110)
[2023-07-10 23:31] LABS: Glucose,Whole Blood 119 mg/dL (70-110)
[2023-07-11 06:28] LABS: Glucose,Whole Blood 139 mg/dL (70-110)
[2023-07-11 07:00] LABS: Glucose,Whole Blood 131 mg/dL (70-110)
[2023-07-11] MEDS ORDERED: INSULIN ASPART (NovoLOG) 100 UNIT/ML VIAL SQ SCH ×2 (07:30→12:30)
[2023-07-11] MEDS ORDERED: INSULIN DETEMIR (LEVEMIR) 100 UNIT/ML SYR SQ SCH (09:00)
[2023-07-11] MEDS: CITALOPRAM HYDROBROMIDE 10 MG TAB PO SCH (09:24)
[2023-07-11] MEDS: APIXABAN 5 MG TAB PO SCH ×2 (09:24→20:59)
[2023-07-11] MEDS: FUROSEMIDE 40 MG TAB PO SCH (09:24)
[2023-07-11] MEDS: GABAPENTIN 100 MG CAP PO SCH ×2 (09:24→20:59)
[2023-07-11] MEDS: CLOPIDOGREL 75 MG TAB PO SCH (09:24)
[2023-07-11] MEDS: LINAGLIPTIN 5 MG TABLET PO SCH (09:24)
[2023-07-11] MEDS: METOPROLOL TARTRATE 25 MG TAB PO SCH ×2 (09:24→21:04)
[2023-07-11] MEDS ORDERED: ZINC OXIDE PASTE (Z-GUARD) 1 APPLIC APPLIC TOPICAL PRN (09:28)
[2023-07-11] MEDS ORDERED: DEXTROSE 50% SYRINGE 50 ML IVP PRN ×2 (09:32)
[2023-07-11] MEDS ORDERED: IPRATROPIUM-ALBUTEROL 3 ML NEB INHALATION PRN (09:39)
[2023-07-11] MEDS: DEXAMETHASONE SOD PHOSPHATE 10 MG/ML 1 ML VIAL IVP SCH (09:44)
--- NOTE | 2023-07-11 10:42 | P.CRDCN ---
History of Present Illness History of present illness: HISTORY OF PRESENT ILLNESS: This is a 87-year-old male with a past medical history significant for coronary artery disease, atrial fibrillation, pneumonia, ischemic cardiomyopathy, diabetes, hypertension, and hyperlipidemia. Patient follows in the office with Dr. Kidd. We have been asked to see the patient in consultation for abnormal troponin. The patient presented to the hospital for chief complaint of generalized weakness. The patient was found to be positive for Covid 19. No complaints of chest pain or pressure. Vital signs are stable. * EKG reveals sinus mechanism with no signs of acute ischemia. * Chest xray negative for acute process * Laboratory data: Troponin 0.030. 0.026. 0.050. * Current home cardiac medications include Eliquis 5 mg twice a day, metoprolol titrate 25 mg twice a day, Lipitor 40 mg at night, Plavix 75 mg daily, enalapril 40 mg daily, Lasix 40 mg daily * Most recent echocardiogram obtained in February 2023 revealing ejection fraction 35-40%, mild to moderate aortic stenosis, trace mitral regurgitation * Cardiac catheterization history: 2010 with stenting to the proximal RCA REVIEW OF SYSTEMS: Thorough review of systems not completed secondary to limited evaluation/examination due to Covid19 PHYSICAL EXAM: Thorough physical exam not completed secondary to limited evaluation/examination due to Covid19 ASSESSMENT: Generalized weakness Covid19 Abnormal troponin, not suggestive of acute coronary syndrome, likely secondary to above Coronary artery disease with previous stenting of the RCA, 2010 Paroxysmal atrial fibrillation Ischemic cardiomyopathy, ejection fraction 35-40% Hypertension Hyperlipidemia Diabetes Dementia PLAN: An acute coronary event has been ruled out No need to repeat echocardiogram as this was performed in February 2023 Continue home cardiac medications No further inpatient recommendations from a cardiac standpoint We will sign off. Please reconsult if needed. Nurse practitioner note has been reviewed by physician. Signing provider agrees with the documented findings, assessment, and plan of care. Past Medical History Past Medical History: Coronary Artery Disease (CAD), CVA/TIA, Dementia, Diabetes Mellitus, Eye Disorder, Hyperlipidemia, Hypertension, Memory Impairment, Osteoarthritis (OA), Pneumonia, Syncope Additional Past Medical History / Comment(s): cataract left eye. Diverticulitis. lt fractured ankle 7-3-16,rt. foot wound-healed, tia, hiatal hernia occ hand tremors, hx of falls,uses walker when up. incont of urine/stool wears depends. . History of Any Multi-Drug Resistant Organisms: None Reported Past Surgical History: Heart Catheterization With Stent, Hernia Repair, Tonsillectomy Additional Past Surgical History / Comment(s): VASECTOMY, rt eye cataract removed Past Anesthesia/Blood Transfusion Reactions: No Reported Reaction Additional Past Anesthesia/Blood Transfusion Reaction / Comment(s): clausterphobic Date of Last Stent Placement:: February 01, 2011 Past Psychological History: No Psychological Hx Reported Additional Psychological History / Comment(s): pt lives at home withh is , uses walker when up also has a hospital bed, w/c, shower chair Smoking Status: Former smoker Past Alcohol Use History: None Reported, Abuse Additional Past Alcohol Use History / Comment(s): started smoking at age 12(1947) and quit 1995 was smoking 1.5 ppd. 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 Past Drug Use History: None Reported - Past Family History Father History Unknown: Yes Mother Family Medical History: Myocardial Infarction ([place]) Additional Family Medical History / Comment(s): Mother of heart attack at 64. Mother had mental illness. Brother(s) Family Medical History: Cancer Additional Family Medical History / Comment(s): Patients half-brother had stomach cancer. Medications and Allergies Home Medications Medication Instructions Recorded Confirmed Type Atorvastatin [Lipitor] 40 mg PO HS 12/07/15 07/10/23 History Clopidogrel [Plavix] 75 mg PO DAILY 12/07/15 07/10/23 History Enalapril [Vasotec] 40 mg PO DAILY 12/07/15 07/10/23 History Gabapentin [Neurontin] 100 mg PO BID 12/07/15 07/10/23 History Insulin Aspart [NovoLOG Flexpen] 10 units SQ AC-BRKFST 12/07/15 07/10/23 History sitaGLIPtin [Januvia] 100 mg PO DAILY 12/07/15 07/10/23 History traZODone HCL [Desyrel] 50 mg PO HS 12/07/15 07/10/23 History Oxybutynin Chloride [oxyBUTYnin 10 mg PO DAILY 01/22/18 07/10/23 History chloride ER] Furosemide [Lasix] 40 mg PO DAILY 04/16/18 07/10/23 History Citalopram Hydrobromide [CeleXA] 10 mg PO DAILY 12/13/22 07/10/23 History Donepezil [Aricept] 10 mg PO HS 12/13/22 07/10/23 History Albuterol Inhaler [Ventolin Hfa 2 puff INHALATION RT-Q4H PRN 02/24/23 07/10/23 History Inhaler] Apixaban [Eliquis] 5 mg PO BID #30 tab 03/01/23 07/10/23 Rx Insulin Glargine,Hum.rec.anlog 30 unit SQ DAILY #1 each 03/01/23 07/10/23 Rx [Basaglar Kwikpen U-100] Metoprolol Tartrate [Lopressor] 25 mg PO BID #30 tab 03/01/23 07/10/23 Rx Tamsulosin [Flomax] 0.4 mg PO PC-SUPPER #30 cap 03/01/23 07/10/23 Rx Insulin Aspart [NovoLOG Flexpen] 6 units SQ AC-LUNCH 07/10/23 07/10/23 History Insulin Aspart [NovoLOG Flexpen] 6 units SQ AC-SUPPER 07/10/23 07/10/23 History Allergies Allergy/AdvReac Type Severity Reaction Status Date / Time No Known Allergies Allergy Verified 07/10/23 13:42 Physical Exam Vitals: Vital Signs Temp Pulse Pulse Pulse Resp BP BP 07/11/23 06:17 99.5 F 55 L 18 127/76 07/11/23 02:47 98.9 F 07/11/23 02:05 101.8 F H 64 16 126/71 07/10/23 19:45 87 16 07/10/23 19:08 98.4 F 87 16 188/77 07/10/23 18:33 100.8 F H 73 20 197/88 07/10/23 15:50 97.6 F 58 L 20 171/78 07/10/23 12:46 55 L 18 141/74 07/10/23 10:25 98.4 F 62 18 136/74 Pulse Ox 07/11/23 06:17 95 07/11/23 02:47 07/11/23 02:05 97 07/10/23 19:45 07/10/23 19:08 96 07/10/23 18:33 97 07/10/23 15:50 92 L 07/10/23 12:46 96 07/10/23 10:25 94 L Intake and Output 07/10/23 07/11/23 07/11/23 22:59 06:59 14:59 Intake Total 540 Output Total 900 500 Balance -900 40 Intake: Oral 540 Output: Urine 900 500 Other: Voiding Method Diaper Incontinent # Bowel Movements 1 1 Weight 90.718 kg Results 07/10/23 10:59 07/10/23 10:59 Cardiac Enzymes 07/10/23 07/10/23 07/10/23 Range/Units 10:59 10:59 19:26 AST 35 (17-59) U/L Troponin I 0.030 0.026 (0.000-0.034) ng/mL 07/10/23 Range/Units 23:26 AST (17-59) U/L Troponin I 0.050 H* (0.000-0.034) ng/mL Coagulation 07/10/23 Range/Units 10:59 PT 11.9 (10.0-12.5) sec APTT 27.3 (22.0-30.0) sec CBC 07/10/23 Range/Units 10:59 WBC 5.8 (3.8-10.6) k/uL RBC 4.27 L (4.30-5.90) m/uL Hgb 12.0 L (13.0-17.5) gm/dL Hct 36.9 L (39.0-53.0) % Plt Count 126 L (150-450) k/uL Comprehensive Metabolic Panel 07/10/23 Range/Units 10:59 Sodium 142 (137-145) mmol/L Potassium 4.3 (3.5-5.1) mmol/L Chloride 103 (98-107) mmol/L Carbon Dioxide 31 H (22-30) mmol/L BUN 29 H (9-20) mg/dL Creatinine 1.08 (0.66-1.25) mg/dL Glucose 207 H (74-99) mg/dL Calcium 8.2 L (8.4-10.2) mg/dL AST 35 (17-59) U/L ALT 38 (4-49) U/L Alkaline Phosphatase 60 (38-126) U/L Total Protein 6.7 (6.3-8.2) g/dL Albumin 3.4 L (3.5-5.0) g/dL Current Medications Generic Name Dose Route Start Last Admin Trade Name Freq PRN Reason Stop Dose Admin Acetaminophen 650 mg 07/10/23 16:22 Acetaminophen Tab 325 Mg Tab PO Q6HR PRN Mild Pain or Fever > 100.5 Albuterol Sulfate 2.5 mg 07/10/23 16:25 Albuterol Nebulized 2.5 Mg/3 Ml INHALATION RT-Q4H PRN Shortness Of Breath Apixaban 5 mg 07/10/23 21:00 07/10/23 20:29 Apixaban 5 Mg Tab PO 5 mg BID [facility] Administration Protocol Atorvastatin Calcium 40 mg 07/10/23 21:00 07/10/23 20:29 Atorvastatin 40 Mg Tab PO 40 mg HS [facility] Administration Citalopram Hydrobromide 10 mg 07/11/23 09:00 Citalopram Hydrobromide 10 Mg Tab PO DAILY [facility] Clopidogrel Bisulfate 75 mg 07/11/23 09:00 Clopidogrel 75 Mg Tab PO DAILY [facility] Donepezil HCl 10 mg 07/10/23 21:00 07/10/23 20:29 Donepezil 10 Mg Tab PO 10 mg HS [facility] Administration Furosemide 40 mg 07/11/23 09:00 Furosemide 40 Mg Tab PO DAILY [facility] Gabapentin 100 mg 07/10/23 21:00 07/10/23 20:29 Gabapentin 100 Mg Cap PO 100 mg BID [facility] Administration Insulin Aspart 6 unit 07/11/23 12:30 Insulin Aspart (Novolog) 100 Unit/Ml Vial SQ AC-LUNCH [facility] Insulin Aspart 6 unit 07/10/23 17:30 07/10/23 16:53 Insulin Aspart (Novolog) 100 Unit/Ml Vial SQ 6 unit AC-SUPPER [facility] Administration Insulin Aspart 10 unit 07/11/23 07:30 07/11/23 07:00 Insulin Aspart (Novolog) 100 Unit/Ml Vial SQ 10 unit AC-BRKFST [facility] Administration Insulin Detemir 30 unit 07/11/23 09:00 Insulin Detemir (Levemir) 100 Unit/Ml Syr SQ DAILY [facility] Linagliptin 5 mg 07/11/23 09:00 Linagliptin 5 Mg Tablet PO DAILY [facility] Lisinopril 40 mg 07/11/23 09:00 Lisinopril 20 Mg Tab PO BID [facility] Metoprolol Tartrate 25 mg 07/10/23 21:00 07/10/23 20:29 Metoprolol Tartrate 25 Mg Tab PO 25 mg BID [facility] Administration Naloxone HCl 0.2 mg 07/10/23 16:22 Naloxone 0.4 Mg/Ml 1 Ml Vial IV Q2M PRN Opioid Reversal Ondansetron HCl 4 mg 07/10/23 16:22 Ondansetron 4 Mg/2 Ml Vial IVP Q8HR PRN Nausea And Vomiting Oxybutynin Chloride 10 mg 07/11/23 09:00 Oxybutynin 10 Mg Tab.Er.24 PO DAILY [facility] Tamsulosin HCl 0.4 mg 07/10/23 18:30 07/10/23 20:29 Tamsulosin 0.4 Mg Cap.Er.24h PO 0.4 mg PC-SUPPER [facility] Administration Trazodone HCl 50 mg 07/10/23 21:00 07/10/23 20:29 Trazodone Hcl 50 Mg Tab PO 50 mg HS [facility] Administration Intake and Output 07/10/23 07/11/23 07/11/23 22:59 06:59 14:59 Intake Total 540 Output Total 900 500 Balance -900 40 Intake: Oral 540 Output: Urine 900 500 Other: Voiding Method Diaper Incontinent # Bowel Movements 1 1 Weight 90.718 kg 07/10/23 10:59 07/10/23 10:59
[2023-07-11] MEDS: lisinopriL 20 MG TAB PO SCH ×2 (12:28→20:59)
[2023-07-11] MEDS: INSULIN ASPART (NovoLOG) 100 UNIT/ML VIAL SQ SCH ×3 (12:29→20:58)
[2023-07-11 12:30] LABS: Glucose,Whole Blood 87 mg/dL (70-110)
[2023-07-11] MEDS: OXYBUTYNIN 10 MG TAB.ER.24 PO SCH (12:31)
--- NOTE | 2023-07-11 13:11 | P.HPIM ---
History of Present Illness H&P Date: 07/11/23 History of present illness; patient is a 87-year-old gentleman with past medical history significant for dementia,Parkinson's disease, coronary artery disease with previous stent, hypertension, hyperlipidemia, diabetes mellitus, TIA who was brought to the ER for generalized weakness. Patient was the best of historians because of history of dementia. Patient is complaining by his . According to , patient has been complaining of weakness for the last 2 days. Denies any fever or chills at home. Denies any nausea, vomiting abdominal pain. Patient has been having difficulty ambulating at home. Patient was unable to get out of the bed. Denies any chest pain. Denies any shortness of breath. Initial lab work done in the ER showed WBC 5.8, hemoglobin 12, platelet count 126, sodium 142, potassium 4.3, BUN 29, creatinine 1.08, glucose 207 UA negative for infection EKG done showed heart rate of 55, QRS [address] segment elevation, no T-wave inversion, Chest x-ray done in the ER showed no acute pulmonary process COVID-19 was detected Patient admitted to medicine service REVIEW OF SYSTEMS: CONSTITUTIONAL: No fever,. Complaining of generalized fatigue HEENT: No recent visual problems or hearing problems. Denied any sore throat. CARDIOVASCULAR: No chest pain, orthopnea, PND, no palpitations, no syncope. PULMONARY: No shortness of breath, no cough, no hemoptysis. GASTROINTESTINAL: no nausea, no vomiting, no abdominal pain. Had episode of diarrhea this morning NEUROLOGICAL: No headaches, no weakness, no numbness. HEMATOLOGICAL: Denies any bleeding or petechiae. GENITOURINARY: Denies any burning micturition, frequency, or urgency. MUSCULOSKELETAL/RHEUMATOLOGICAL: Denies any joint pain, swelling, or any muscle pain. ENDOCRINE: Denies any polyuria or polydipsia. The rest of the 14-point review of systems is negative. PHYSICAL EXAMINATION: GENERAL: The patient is alert, history of dementia, not in any acute distress. Well developed, well nourished. HEENT: Pupils are round and equally reacting to light. EOMI. No scleral icterus. No conjunctival pallor. Normocephalic, atraumatic. No pharyngeal erythema. No thyromegaly. CARDIOVASCULAR: S1 and S2 present. No murmurs, rubs, or gallops. PULMONARY: Chest is clear to auscultation, no wheezing or crackles. ABDOMEN: Soft, nontender, nondistended, normoactive bowel sounds. No palpable organomegaly. MUSCULOSKELETAL: No joint swelling or deformity. EXTREMITIES: No cyanosis, clubbing, or pedal edema. NEUROLOGICAL: Gross neurological examination did not reveal any focal deficits. SKIN: No rashes. Assessment and plan COVID-19 Generalized weakness Elevated troponin Parkinson's disease Paroxysmal atrial fibrillation on Eliquis Dementia Hypertension Hyperlipidemia Coronary artery disease, with prior cardiac stent Diabetes mellitus 2, insulin-dependent History of TIA Monitor vital signs Monitor CBC Monitor CMP Continue telemetry monitoring Trend Troponins. Continue COVID-19 isolation Continue breathing treatment Start Decadron 10 mg IV daily Monitor blood sugar, increase Lantus to 15 units daily, DC scheduled NovoLog with meals, continue sliding scale insulin ID consulted Cardiology consulted Resume home meds PT and OT Labs and medication were reviewed.. Continue same treatment. Continue with symptomatic treatment. Resume home medication. Monitor labs and vitals. DVT and GI prophylaxis. Further recommendations as per clinical course of the patient Dictation was produced using [employer] dictation software. please excuse any grammatical, word or spelling errors. Past Medical History Past Medical History: Coronary Artery Disease (CAD), CVA/TIA, Dementia, Diabetes Mellitus, Eye Disorder, Hyperlipidemia, Hypertension, Memory Impairment, O steoarthritis (OA), Pneumonia, Syncope Additional Past Medical History / Comment(s): cataract left eye. Diverticulitis. lt fractured ankle 7-3-16,rt. foot wound-healed, tia, hiatal hernia occ hand tremors, hx of falls,uses walker when up. incont of urine/stool wears depends. . History of Any Multi-Drug Resistant Organisms: None Reported Past Surgical History: Heart Catheterization With Stent, Hernia Repair, Tonsillectomy Additional Past Surgical History / Comment(s): VASECTOMY, rt eye cataract removed Past Anesthesia/Blood Transfusion Reactions: No Reported Reaction Additional Past Anesthesia/Blood Transfusion Reaction / Comment(s): [facility] Date of Last Stent Placement:: February 01, 2011 Past Psychological History: No Psychological Hx Reported Additional Psychological History / Comment(s): pt lives at home withh is , uses walker when up also has a hospital bed, w/c, shower chair Smoking Status: Former smoker Past Alcohol Use History: None Reported, Abuse Additional Past Alcohol Use History / Comment(s): started smoking at age 12(1947) and quit 1995 was smoking 1.5 ppd. 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 Past Drug Use History: None Reported - Past Family History Father History Unknown: Yes Mother Family Medical History: Myocardial Infarction ([place]) Additional Family Medical History / Comment(s): Mother of heart attack at 64. Mother had mental illness. Brother(s) Family Medical History: Cancer Additional Family Medical History / Comment(s): Patients half-brother had sto mach cancer. Medications and Allergies Home Medications Medication Instructions Recorded Confirmed Type Atorvastatin [Lipitor] 40 mg PO HS 12/07/15 07/10/23 History Clopidogrel [Plavix] 75 mg PO DAILY 12/07/15 07/10/23 History Enalapril [Vasotec] 40 mg PO DAILY 12/07/15 07/10/23 History Gabapentin [Neurontin] 100 mg PO BID 12/07/15 07/10/23 History Insulin Aspart [NovoLOG Flexpen] 10 units SQ AC-BRKFST 12/07/15 07/10/23 History sitaGLIPtin [Januvia] 100 mg PO DAILY 12/07/15 07/10/23 History traZODone HCL [Desyrel] 50 mg PO HS 12/07/15 07/10/23 History Oxybutynin Chloride [oxyBUTYnin 10 mg PO DAILY 01/22/18 07/10/23 History chloride ER] Furosemide [Lasix] 40 mg PO DAILY 04/16/18 07/10/23 History Citalopram Hydrobromide [CeleXA] 10 mg PO DAILY 12/13/22 07/10/23 History Donepezil [Aricept] 10 mg PO HS 12/13/22 07/10/23 History Albuterol Inhaler [Ventolin Hfa 2 puff INHALATION RT-Q4H PRN 02/24/23 07/10/23 History Inhaler] Apixaban [Eliquis] 5 mg PO BID #30 tab 03/01/23 07/10/23 Rx Insulin Glargine,Hum.rec.anlog 30 unit SQ DAILY #1 each 03/01/23 07/10/23 Rx [Basaglar Kwikpen U-100] Metoprolol Tartrate [Lopressor] 25 mg PO BID #30 tab 03/01/23 07/10/23 Rx Tamsulosin [Flomax] 0.4 mg PO PC-SUPPER #30 cap 03/01/23 07/10/23 Rx Insulin Aspart [NovoLOG Flexpen] 6 units SQ AC-LUNCH 07/10/23 07/10/23 History Insulin Aspart [NovoLOG Flexpen] 6 units SQ AC-SUPPER 07/10/23 07/10/23 History Allergies Allergy/AdvReac Type Severity Reaction Status Date / Time No Known Allergies Allergy Verified 07/10/23 13:42 Physical Exam Vitals: Vital Signs Temp Pulse Pulse Pulse Resp BP BP 07/11/23 06:17 99.5 F 55 L 18 127/76 07/11/23 02:47 98.9 F 07/11/23 02:05 101.8 F H 64 16 126/71 07/10/23 19:45 87 16 07/10/23 19:08 98.4 F 87 16 188/77 07/10/23 18:33 100.8 F H 73 20 197/88 07/10/23 15:50 97.6 F 58 L 20 171/78 07/10/23 12:46 55 L 18 141/74 07/10/23 10:25 98.4 F 62 18 136/74 Pulse Ox 07/11/23 06:17 95 07/11/23 02:47 07/11/23 02:05 97 07/10/23 19:45 07/10/23 19:08 96 07/10/23 18:33 97 07/10/23 15:50 92 L 07/10/23 12:46 96 07/10/23 10:25 94 L Intake and Output 07/10/23 07/11/23 07/11/23 22:59 06:59 14:59 Intake Total 540 Output Total 900 500 Balance -900 40 Intake: Oral 540 Output: Urine 900 500 Other: Voiding Method Diaper Incontinent # Bowel Movements 1 1 Weight 90.718 kg Results CBC & Chem 7: 07/10/23 10:59 07/10/23 10:59 Labs: Abnormal Lab Results - Last 24 Hours (Table) 07/10/23 07/10/23 07/10/23 Range/Units 10:59 10:59 10:59 RBC 4.27 L (4.30-5.90) m/uL Hgb 12.0 L (13.0-17.5) gm/dL Hct 36.9 L (39.0-53.0) % RDW 17.8 H (11.5-15.5) % Plt Count 126 L (150-450) k/uL Carbon Dioxide 31 H (22-30) mmol/L BUN 29 H (9-20) mg/dL Glucose 207 H (74-99) mg/dL POC Glucose (mg/dL) (70-110) mg/dL Calcium 8.2 L (8.4-10.2) mg/dL Troponin I (0.000-0.034) ng/mL Albumin 3.4 L (3.5-5.0) g/dL Urine Protein Trace H (Negative) Urine Blood Small H (Negative) Urine RBC 29 H (0-5) /hpf Ur Squamous Epith Cells 5 H (0-4) /hpf Amorphous Sediment Rare H (None) /hpf Hyaline Casts 7 H (0-2) /lpf Urine Mucus Rare H (None) /hpf SARS-CoV-2 (PCR) (Not Detectd) 07/10/23 07/10/23 07/10/23 Range/Units 17:20 21:57 22:24 RBC (4.30-5.90) m/uL Hgb (13.0-17.5) gm/dL Hct (39.0-53.0) % RDW (11.5-15.5) % Plt Count (150-450) k/uL Carbon Dioxide (22-30) mmol/L BUN (9-20) mg/dL Glucose (74-99) mg/dL POC Glucose (mg/dL) 48 L 50 L (70-110) mg/dL Calcium (8.4-10.2) mg/dL Troponin I (0.000-0.034) ng/mL Albumin (3.5-5.0) g/dL Urine Protein (Negative) Urine Blood (Negative) Urine RBC (0-5) /hpf Ur Squamous Epith Cells (0-4) /hpf Amorphous Sediment (None) /hpf Hyaline Casts (0-2) /lpf Urine Mucus (None) /hpf SARS-CoV-2 (PCR) Detected A (Not Detectd) 07/10/23 07/10/23 07/10/23 Range/Units 22:58 23:26 23:29 RBC (4.30-5.90) m/uL Hgb (13.0-17.5) gm/dL Hct (39.0-53.0) % RDW (11.5-15.5) % Plt Count (150-450) k/uL Carbon Dioxide (22-30) mmol/L BUN (9-20) mg/dL Glucose (74-99) mg/dL POC Glucose (mg/dL) 66 L 119 H (70-110) mg/dL Calcium (8.4-10.2) mg/dL Troponin I 0.050 H* (0.000-0.034) ng/mL Albumin (3.5-5.0) g/dL Urine Protein (Negative) Urine Blood (Negative) Urine RBC (0-5) /hpf Ur Squamous Epith Cells (0-4) /hpf Amorphous Sediment (None) /hpf Hyaline Casts (0-2) /lpf Urine Mucus (None) /hpf SARS-CoV-2 (PCR) (Not Detectd) 07/11/23 07/11/23 Range/Units 06:27 06:58 RBC (4.30-5.90) m/uL Hgb (13.0-17.5) gm/dL Hct (39.0-53.0) % RDW (11.5-15.5) % Plt Count (150-450) k/uL Carbon Dioxide (22-30) mmol/L BUN (9-20) mg/dL Glucose (74-99) mg/dL POC Glucose (mg/dL) 139 H 131 H (70-110) mg/dL Calcium (8.4-10.2) mg/dL Troponin I (0.000-0.034) ng/mL Albumin (3.5-5.0) g/dL Urine Protein (Negative) Urine Blood (Negative) Urine RBC (0-5) /hpf Ur Squamous Epith Cells (0-4) /hpf Amorphous Sediment (None) /hpf Hyaline Casts (0-2) /lpf Urine Mucus (None) /hpf SARS-CoV-2 (PCR) (Not Detectd) Thrombosis Risk Factor Assmnt - Choose All That Apply Any of the Below Risk Factors Present?: No Other Risk Factors: Yes Each Risk Factor Represents 3 Points: Age 75 years or older Other congenital or acquired thrombophilia - If yes, enter type in comment: No Thrombosis Risk Factor Assessment Total Risk Factor Score: 3 Thrombosis Risk Factor Assessment Level: Moderate Risk
[2023-07-11] MEDS: ALBUTEROL HFA INHALER INHALATION PRN (16:06)
[2023-07-11 16:24] LABS: Glucose,Whole Blood 292 mg/dL (70-110)
[2023-07-11] MEDS: TAMSULOSIN 0.4 MG CAP.ER.24H PO SCH (17:11)
[2023-07-11 20:02] LABS: Glucose,Whole Blood 357 mg/dL (70-110)
[2023-07-11] MEDS: traZODone HCL 50 MG TAB PO SCH (20:59)
[2023-07-11] MEDS: DONEPEZIL 10 MG TAB PO SCH (20:59)
[2023-07-11] MEDS: ATORVASTATIN 40 MG TAB PO SCH (20:59)
--- NOTE | 2023-07-11 22:42 | P.CONS ---
History of Present Illness - Reason for Consult Consult date: 07/11/23 covid 19 Requesting physician: Adrian Thurman - Chief Complaint weakness x 2 days - History of Present Illness Patient is a 87-year-old male with a past medical history significant for diabetes mellitus hypertension hyperlipidemia CVA TIA dementia patient was brought into the hospital yesterday morning for evaluation of generalized weakness patient said the pain has been going on for 2 days before the patient was brought in the hospital also was complaining of some diarrhea denied any chest pain or shortness of breath to the ER physician and apparently the patient is on 2 L nasal: Oxygen at home on presentation to the hospital the patient was afebrile he did have a low-grade fever last night and a fever of 101.8 F after midnight patient was not tachycardic patient remains to be on a 2 L nasal cannula oxygen and no significant hypoxemia was noticed patient did have normal white count creatinine 1.08 troponin is mildly elevated enzymes are normal urine is relatively negative patient did tested positive for COVID-19 patient did have a chest x-ray that was negative for acute process infectious disease was consulted for further management most information has been obtained from review of the chart as the patient himself was unable to provide reliable history no vomiting diarrhea or any other changes reported by nursing staff Review of Systems Positive points has been mentioned in HPI complete review could not be obtained because of his underlying mental status Past Medical History Past Medical History: Coronary Artery Disease (CAD), CVA/TIA, Dementia, Diabetes Mellitus, Eye Disorder, Hyperlipidemia, Hypertension, Memory Impairment, Osteoarthritis (OA), Pneumonia, Syncope Additional Past Medical History / Comment(s): cataract left eye. Diverticulitis. lt fractured ankle 16,rt. foot wound-healed, tia, hiatal hernia occ hand tremors, hx of falls,uses walker when up. incont of urine/stool wears depends. . History of Any Multi-Drug Resistant Organisms: None Reported Past Surgical History: Heart Catheterization With Stent, Hernia Repair, Tonsillectomy Additional Past Surgical History / Comment(s): VASECTOMY, rt eye cataract removed Past Anesthesia/Blood Transfusion Reactions: No Reported Reaction Additional Past Anesthesia/Blood Transfusion Reaction / Comm: clausterphobic Date of Last Stent Placement:: February 01, 2011 Past Psychological History: No Psychological Hx Reported Additional Psychological History / Comment(s): pt lives at home withh is , uses walker when up also has a hospital bed, w/c, shower chair Smoking Status: Former smoker Past Alcohol Use History: None Reported, Abuse Additional Past Alcohol Use History / Comment(s): started smoking at age 12(1947) and quit 1995 was smoking 1.5 ppd. 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 Past Drug Use History: None Reported - Past Family History Father History Unknown: Yes Mother Family Medical History: Myocardial Infarction ([place]) Additional Family Medical History / Comment(s): Mother of heart attack at 64. Mother had mental illness. Brother(s) Family Medical History: Cancer Additional Family Medical History / Comment(s): Patients half-brother had stomach cancer. Medications and Allergies Home Medications Medication Instructions Recorded Confirmed Type Atorvastatin [Lipitor] 40 mg PO HS 12/07/15 07/17/23 History Clopidogrel [Plavix] 75 mg PO DAILY 12/07/15 07/17/23 History Enalapril [Vasotec] 40 mg PO DAILY 12/07/15 07/17/23 History Gabapentin [Neurontin] 100 mg PO BID 12/07/15 07/17/23 History Insulin Aspart [NovoLOG Flexpen] 10 units SQ AC-BRKFST 12/07/15 07/17/23 History sitaGLIPtin [Januvia] 100 mg PO DAILY 12/07/15 07/17/23 History traZODone HCL [Desyrel] 50 mg PO HS 12/07/15 07/17/23 History Oxybutynin Chloride [oxyBUTYnin 10 mg PO DAILY 01/22/18 07/17/23 History chloride ER] Furosemide [Lasix] 40 mg PO DAILY 04/16/18 07/17/23 History Citalopram Hydrobromide [CeleXA] 10 mg PO DAILY 12/13/22 07/17/23 History Donepezil [Aricept] 10 mg PO HS 12/13/22 07/17/23 History Albuterol Inhaler [Ventolin Hfa 2 puff INHALATION RT-Q4H PRN 02/24/23 07/17/23 History Inhaler] Apixaban [Eliquis] 5 mg PO BID #30 tab 03/01/23 07/17/23 Rx Insulin Glargine,Hum.rec.anlog 30 unit SQ DAILY #1 each 03/01/23 07/17/23 Rx [Basaglar Kwikpen U-100] Metoprolol Tartrate [Lopressor] 25 mg PO BID #30 tab 03/01/23 07/17/23 Rx Tamsulosin [Flomax] 0.4 mg PO PC-SUPPER #30 cap 03/01/23 07/17/23 Rx Insulin Aspart [NovoLOG Flexpen] 6 units SQ AC-LUNCH 07/10/23 07/17/23 History Insulin Aspart [NovoLOG Flexpen] 6 units SQ AC-SUPPER 07/10/23 07/17/23 History hydrALAZINE HCL [Apresoline] 25 mg PO TID 30 Days #90 tab 07/13/23 07/17/23 Rx Allergies Allergy/AdvReac Type Severity Reaction Status Date / Time No Known Allergies Allergy Verified 07/17/23 12:26 Physical Exam Vitals: Vital Signs Temp Pulse Pulse Pulse Resp BP BP 07/11/23 06:17 99.5 F 55 L 18 127/76 07/11/23 02:47 98.9 F 07/11/23 02:05 101.8 F H 64 16 126/71 07/10/23 19:45 87 16 07/10/23 19:08 98.4 F 87 16 188/77 07/10/23 18:33 100.8 F H 73 20 197/88 07/10/23 15:50 97.6 F 58 L 20 171/78 07/10/23 12:46 55 L 18 141/74 Pulse Ox 07/11/23 06:17 95 07/11/23 02:47 07/11/23 02:05 97 07/10/23 19:45 07/10/23 19:08 96 07/10/23 18:33 97 07/10/23 15:50 92 L 07/10/23 12:46 96 Intake and Output 07/10/23 07/11/23 07/11/23 22:59 06:59 14:59 Intake Total 540 Output Total 900 500 Balance -900 40 Intake: Oral 540 Output: Urine 900 500 Other: Voiding Method Diaper Incontinent # Bowel Movements 1 1 Weight 90.718 kg GENERAL DESCRIPTION: Elderly male lying in bed, no distress. No tachypnea or accessory muscle of respiration use. HEENT: Shows Pallor , no scleral icterus. Oral mucous membrane is dry. NECK: Trachea central, no thyromegaly. LUNGS: Unlabored breathing. Decreased breath sounds at the base HEART: S1, S2, regular rate and rhythm. No loud murmur ABDOMEN: Soft, no tenderness , EXTREMITIES: No edema of feet. SKIN: No rash, no masses palpable. NEUROLOGICAL: The patient is sleepy lethargic orientation could not be determined. Results CBC & Chem 7: 07/10/23 10:59 07/10/23 10:59 Labs: Abnormal Lab Results - Last 24 Hours (Table) 07/10/23 07/10/23 07/10/23 Range/Units 10:59 10:59 10:59 RBC 4.27 L (4.30-5.90) m/uL Hgb 12.0 L (13.0-17.5) gm/dL Hct 36.9 L (39.0-53.0) % RDW 17.8 H (11.5-15.5) % Plt Count 126 L (150-450) k/uL Carbon Dioxide 31 H (22-30) mmol/L BUN 29 H (9-20) mg/dL Glucose 207 H (74-99) mg/dL POC Glucose (mg/dL) (70-110) mg/dL Calcium 8.2 L (8.4-10.2) mg/dL Troponin I (0.000-0.034) ng/mL Albumin 3.4 L (3.5-5.0) g/dL Urine Protein Trace H (Negative) Urine Blood Small H (Negative) Urine RBC 29 H (0-5) /hpf Ur Squamous Epith Cells 5 H (0-4) /hpf Amorphous Sediment Rare H (None) /hpf Hyaline Casts 7 H (0-2) /lpf Urine Mucus Rare H (None) /hpf SARS-CoV-2 (PCR) (Not Detectd) 07/10/23 07/10/23 07/10/23 Range/Units 17:20 21:57 22:24 RBC (4.30-5.90) m/uL Hgb (13.0-17.5) gm/dL Hct (39.0-53.0) % RDW (11.5-15.5) % Plt Count (150-450) k/uL Carbon Dioxide (22-30) mmol/L BUN (9-20) mg/dL Glucose (74-99) mg/dL POC Glucose (mg/dL) 48 L 50 L (70-110) mg/dL Calcium (8.4-10.2) mg/dL Troponin I (0.000-0.034) ng/mL Albumin (3.5-5.0) g/dL Urine Protein (Negative) Urine Blood (Negative) Urine RBC (0-5) /hpf Ur Squamous Epith Cells (0-4) /hpf Amorphous Sediment (None) /hpf Hyaline Casts (0-2) /lpf Urine Mucus (None) /hpf SARS-CoV-2 (PCR) Detected A (Not Detectd) 07/10/23 07/10/23 07/10/23 Range/Units 22:58 23:26 23:29 RBC (4.30-5.90) m/uL Hgb (13.0-17.5) gm/dL Hct (39.0-53.0) % RDW (11.5-15.5) % Plt Count (150-450) k/uL Carbon Dioxide (22-30) mmol/L BUN (9-20) mg/dL Glucose (74-99) mg/dL POC Glucose (mg/dL) 66 L 119 H (70-110) mg/dL Calcium (8.4-10.2) mg/dL Troponin I 0.050 H* (0.000-0.034) ng/mL Albumin (3.5-5.0) g/dL Urine Protein (Negative) Urine Blood (Negative) Urine RBC (0-5) /hpf Ur Squamous Epith Cells (0-4) /hpf Amorphous Sediment (None) /hpf Hyaline Casts (0-2) /lpf Urine Mucus (None) /hpf SARS-CoV-2 (PCR) (Not Detectd) 07/11/23 07/11/23 Range/Units 06:27 06:58 RBC (4.30-5.90) m/uL Hgb (13.0-17.5) gm/dL Hct (39.0-53.0) % RDW (11.5-15.5) % Plt Count (150-450) k/uL Carbon Dioxide (22-30) mmol/L BUN (9-20) mg/dL Glucose (74-99) mg/dL POC Glucose (mg/dL) 139 H 131 H (70-110) mg/dL Calcium (8.4-10.2) mg/dL Troponin I (0.000-0.034) ng/mL Albumin (3.5-5.0) g/dL Urine Protein (Negative) Urine Blood (Negative) Urine RBC (0-5) /hpf Ur Squamous Epith Cells (0-4) /hpf Amorphous Sediment (None) /hpf Hyaline Casts (0-2) /lpf Urine Mucus (None) /hpf SARS-CoV-2 (PCR) (Not Detectd) Assessment and Plan (1) COVID Status: Acute Code(s): U07.1 - COVID-19 SNOMED Code(s): 132074088 Plan: 1patient present to hospital with weakness and this patient did have a fever and tested positive for COVID-19 more likely to underlying COVID-19 infection patient however not significantly hypoxic and is not needing more oxygen than what he is at home and 2 L chest x-ray was negative for any acute infiltrate both these factors will disqualify him for remdesivir per [facility] policy 2-patient to continue with dexamethasone Eliquis we will add zinc and ascorbic acid 3-await inflammatory markers with low clinic suspicious for secondary bacterial infection we will hold on adding any antibiotics 4-droplet isolation We will follow on clinical condition and cultures to further adjust medication if needed Thank you for this consultation we will follow the patient along with you Dictation was produced using [employer] dictation software. please excuse any grammatical, word or spelling errors. Time with Patient: Greater than 30
[2023-07-12 06:40] LABS: Glucose,Whole Blood 238 mg/dL (70-110)
[2023-07-12] MEDS: INSULIN ASPART (NovoLOG) 100 UNIT/ML VIAL SQ SCH ×4 (06:43→21:30)
[2023-07-12] MEDS: INSULIN DETEMIR (LEVEMIR) 100 UNIT/ML SYR SQ SCH (06:43)
[2023-07-12] MEDS: CITALOPRAM HYDROBROMIDE 10 MG TAB PO SCH (09:03)
[2023-07-12] MEDS: CLOPIDOGREL 75 MG TAB PO SCH (09:03)
[2023-07-12] MEDS: METOPROLOL TARTRATE 25 MG TAB PO SCH ×2 (09:03→21:31)
[2023-07-12] MEDS: LINAGLIPTIN 5 MG TABLET PO SCH (09:03)
[2023-07-12] MEDS: GABAPENTIN 100 MG CAP PO SCH ×2 (09:03→21:31)
[2023-07-12] MEDS: ZINC SULFATE 220 MG CAP PO SCH (09:03)
[2023-07-12] MEDS: ASCORBIC ACID 500 MG TAB PO SCH (09:03)
[2023-07-12] MEDS: FUROSEMIDE 40 MG TAB PO SCH (09:03)
[2023-07-12] MEDS: lisinopriL 20 MG TAB PO SCH ×2 (09:03→21:31)
[2023-07-12] MEDS: APIXABAN 5 MG TAB PO SCH ×2 (09:03→21:32)
[2023-07-12] MEDS: OXYBUTYNIN 10 MG TAB.ER.24 PO SCH (09:04)
[2023-07-12] MEDS: DEXAMETHASONE SOD PHOSPHATE 10 MG/ML 1 ML VIAL IVP SCH (09:04)
[2023-07-12] MEDS: ALBUTEROL HFA INHALER INHALATION PRN ×2 (09:25→20:52)
[2023-07-12 11:33] LABS: Glucose,Whole Blood 299 mg/dL (70-110)
--- NOTE | 2023-07-12 13:24 | P.DS ---
Providers Date of admission: 07/10/23 16:30 Expected date of discharge: 07/12/23 Attending physician: Gen [place] Consults: 07/11/23 09:27 Consult Physician Routine Consulting Provider: Bessy Keys Consult Reason/Comments: COVID-19 Do you want consulting provider notified?: Yes Primary care physician: [facility] Course: Discharge diagnoses; COVID-19 Generalized weakness Elevated troponin Parkinson's disease Paroxysmal atrial fibrillation on Eliquis Dementia Hypertension Hyperlipidemia Coronary artery disease, with prior cardiac stent Diabetes mellitus 2, insulin-dependent History of TIA Hospital course; ; patient is a 87-year-old gentleman with past medical history significant for dementia,Parkinson's disease, coronary artery disease with previous stent, hypertension, hyperlipidemia, diabetes mellitus, TIA who was brought to the ER for generalized weakness. Patient was the best of historians because of history of dementia. Patient is complaining by his . According to , patient has been complaining of weakness for the last 2 days. Denies any fever or chills at home. Denies any nausea, vomiting abdominal pain. Patient has been having difficulty ambulating at home. Patient was unable to get out of the bed. Denies any chest pain. Denies any shortness of breath. Initial lab work done in the ER showed WBC 5.8, hemoglobin 12, platelet count 126, sodium 142, potassium 4.3, BUN 29, creatinine 1.08, glucose 207 UA negative for infection EKG done showed heart rate of 55, QRS [address] segment elevation, no T-wave inversion, Chest x-ray done in the ER showed no acute pulmonary process COVID-19 was detected Patient admitted to medicine service 07/12. Patient seen and examined. Patient was evaluated by cardiology, they recommended no ischemic workup. Patient was seen by ID, recommend discharge patient on oral Decadron for 3 more days for COVID-19 infection . PT and OT recommended rehab but patient's is refusing rehab, wants to be discharged home with homecare PHYSICAL EXAMINATION: GENERAL: The patient is alert, history of dementia, not in any acute distress. Well developed, well nourished. HEENT: Pupils are round and equally reacting to light. EOMI. No scleral icterus. No conjunctival pallor. Normocephalic, atraumatic. No pharyngeal erythema. No thyromegaly. CARDIOVASCULAR: S1 and S2 present. No murmurs, rubs, or gallops. PULMONARY: Chest is clear to auscultation, no wheezing or crackles. ABDOMEN: Soft, nontender, nondistended, normoactive bowel sounds. No palpable organomegaly. MUSCULOSKELETAL: No joint swelling or deformity. EXTREMITIES: No cyanosis, clubbing, or pedal edema. NEUROLOGICAL: Gross neurological examination did not reveal any focal deficits. SKIN: No rashes. Dictation was produced using [employer] dictation software. please excuse any grammatical, word or spelling errors. Plan - Discharge Summary Discharge Rx Participant: No New Discharge Prescriptions: New dexAMETHasone [Decadron] 6 mg PO DAILY 3 Days #3 tablet Continue Insulin Aspart [NovoLOG Flexpen] 10 units SQ AC-BRKFST traZODone HCL [Desyrel] 50 mg PO HS Gabapentin [Neurontin] 100 mg PO BID Enalapril [Vasotec] 40 mg PO DAILY Clopidogrel [Plavix] 75 mg PO DAILY sitaGLIPtin [Januvia] 100 mg PO DAILY Atorvastatin [Lipitor] 40 mg PO HS Oxybutynin Chloride [oxyBUTYnin chloride ER] 10 mg PO DAILY Furosemide [Lasix] 40 mg PO DAILY Citalopram Hydrobromide [CeleXA] 10 mg PO DAILY Donepezil [Aricept] 10 mg PO HS Tamsulosin [Flomax] 0.4 mg PO PC-SUPPER #30 cap Insulin Aspart [NovoLOG Flexpen] 6 units SQ AC-SUPPER Insulin Aspart [NovoLOG Flexpen] 6 units SQ AC-LUNCH Albuterol Inhaler [Ventolin Hfa Inhaler] 2 puff INHALATION RT-Q4H PRN PRN Reason: Shortness Of Breath Apixaban [Eliquis] 5 mg PO BID #30 tab Metoprolol Tartrate [Lopressor] 25 mg PO BID #30 tab Insulin Glargine,Hum.rec.anlog [Basaglar Kwikpen U-100] 30 unit SQ DAILY #1 each Discharge Medication List Atorvastatin [Lipitor] 40 mg PO HS 12/07/15 [History] Clopidogrel [Plavix] 75 mg PO DAILY 12/07/15 [History] Enalapril [Vasotec] 40 mg PO DAILY 12/07/15 [History] Gabapentin [Neurontin] 100 mg PO BID 12/07/15 [History] Insulin Aspart [NovoLOG Flexpen] 10 units SQ AC-BRKFST 12/07/15 [History] sitaGLIPtin [Januvia] 100 mg PO DAILY 12/07/15 [History] traZODone HCL [Desyrel] 50 mg PO HS 12/07/15 [History] Oxybutynin Chloride [oxyBUTYnin chloride ER] 10 mg PO DAILY 01/22/18 [History] Furosemide [Lasix] 40 mg PO DAILY 04/16/18 [History] Citalopram Hydrobromide [CeleXA] 10 mg PO DAILY 12/13/22 [History] Donepezil [Aricept] 10 mg PO HS 12/13/22 [History] Albuterol Inhaler [Ventolin Hfa Inhaler] 2 puff INHALATION RT-Q4H PRN 02/24/23 [History] Apixaban [Eliquis] 5 mg PO BID #30 tab 03/01/23 [Rx] Insulin Glargine,Hum.rec.anlog [Basaglar Kwikpen U-100] 30 unit SQ DAILY #1 each 03/01/23 [Rx] Metoprolol Tartrate [Lopressor] 25 mg PO BID #30 tab 03/01/23 [Rx] Tamsulosin [Flomax] 0.4 mg PO PC-SUPPER #30 cap 03/01/23 [Rx] Insulin Aspart [NovoLOG Flexpen] 6 units SQ AC-LUNCH 07/10/23 [History] Insulin Aspart [NovoLOG Flexpen] 6 units SQ AC-SUPPER 07/10/23 [History] dexAMETHasone [Decadron] 6 mg PO DAILY 3 Days #3 tablet 07/12/23 [Rx] Follow up Appointment(s)/Referral(s): Pablo Multani MD [Primary Care Provider] - 1-2 days Activity/Diet/Wound Care/Special Instructions: Ambulance form placed on chart Discharge Disposition: HOME WITH HOME HEALTH SERVICES
[2023-07-12 16:46] LABS: Glucose,Whole Blood 339 mg/dL (70-110)
[2023-07-12] MEDS: TAMSULOSIN 0.4 MG CAP.ER.24H PO SCH (17:04)
[2023-07-12] MEDS ORDERED: hydrALAZINE HCL 20 MG/ML 1 ML VIAL IVP STA (17:15)
[2023-07-12 20:25] LABS: Glucose,Whole Blood 369 mg/dL (70-110)
[2023-07-12] MEDS: traZODone HCL 50 MG TAB PO SCH (21:31)
[2023-07-12] MEDS: ATORVASTATIN 40 MG TAB PO SCH (21:31)
[2023-07-12] MEDS: DONEPEZIL 10 MG TAB PO SCH (21:31)
--- NOTE | 2023-07-12 22:02 | P.PN ---
Subjective Progress Note Date: 07/12/23 Principal diagnosis: Covid 19 Patient is a 87-year-old male with a past medical history significant for diabetes mellitus hypertension hyperlipidemia CVA TIA dementia patient was brought into the hospital for evaluation generalized weakness the patient also have fever patient did tested positive for COVID-19. On today's evaluation that is 07/12/2023 the patient fever pattern has improved and the patient is afebrile this morning patient is more awake and alert and is breathing comfortably on room air. Denies having any chest pain he did have mild cough no sputum production no abdominal pain no vomiting or diarrhea. No labs has been obtained today. Objective - Vital Signs Vital signs: Vital Signs Temp 97.6 F 07/12/23 09:00 Pulse 54 L 07/12/23 11:40 Resp 18 07/12/23 11:40 BP 156/71 07/12/23 11:40 Pulse Ox 92 L 07/12/23 11:40 FiO2 Intake & Output 07/11/23 07/12/23 07/12/23 18:59 06:59 18:59 Intake Total 940 Output Total 300 1000 Balance 640 -1000 Intake: IV 400 Sodium Chloride 0.9% 1, 400 000 ml @ 999 mls/hr IV . Q1H1M STA Rx#:[id number] Oral 540 Output: Urine 300 1000 Other: Voiding Method Indwelling Catheter Indwelling Catheter Indwelling Catheter # Bowel Movements 1 1 - Exam GENERAL DESCRIPTION: Elderly male lying in bed in no distress RESPIRATORY SYSTEM: Unlabored breathing , decreased breath sounds at bases HEART: S1 S2 regular rate and rhythm ,no loud murmurs ABDOMEN: Soft , no tenderness EXTREMITIES: No edema feet - Labs CBC & Chem 7: 07/10/23 10:59 07/10/23 10:59 Labs: Abnormal Lab Results - Last 24 Hours (Table) 07/10/23 07/11/23 07/11/23 Range/Units 10:59 16:23 19:56 POC Glucose (mg/dL) 292 H 357 H (70-110) mg/dL Hemoglobin A1c 7.0 H (<=6.0) % 07/12/23 07/12/23 Range/Units 06:38 11:31 POC Glucose (mg/dL) 238 H 299 H (70-110) mg/dL Hemoglobin A1c (<=6.0) % Assessment and Plan (1) COVID Current Visit: Yes Status: Acute Code(s): U07.1 - COVID-19 SNOMED Code(s): 680498563 Plan: 1patient present to hospital with weakness and this patient did have a fever and tested positive for COVID-19 more likely to underlying COVID-19 infection patient however not significantly hypoxic and is not needing more oxygen than what he is at home and 2 L chest x-ray was negative for any acute infiltrate both these factors will disqualify him for remdesivir per [facility] policy 2-patient has shown some clinical improvement and to continue with dexamethasone Eliquis zinc and ascorbic acid 3--droplet isolation Dictation was produced using [employer] dictation software. please excuse any grammatical, word or spelling errors.
[2023-07-13] MEDS: INSULIN ASPART (NovoLOG) 100 UNIT/ML VIAL SQ SCH ×5 (00:32→12:03)
[2023-07-13] MEDS: hydrALAZINE HCL 25 MG TAB PO SCH ×2 (00:33→09:24)
[2023-07-13 07:12] LABS: Glucose,Whole Blood 209 mg/dL (70-110)
[2023-07-13] MEDS: INSULIN DETEMIR (LEVEMIR) 100 UNIT/ML SYR SQ SCH (07:17)
[2023-07-13] MEDS: ZINC SULFATE 220 MG CAP PO SCH (09:24)
[2023-07-13] MEDS: CLOPIDOGREL 75 MG TAB PO SCH (09:24)
[2023-07-13] MEDS: DEXAMETHASONE SOD PHOSPHATE 10 MG/ML 1 ML VIAL IVP SCH (09:24)
[2023-07-13] MEDS: CITALOPRAM HYDROBROMIDE 10 MG TAB PO SCH (09:25)
[2023-07-13] MEDS: FUROSEMIDE 40 MG TAB PO SCH (09:25)
[2023-07-13] MEDS: GABAPENTIN 100 MG CAP PO SCH (09:25)
[2023-07-13] MEDS: LINAGLIPTIN 5 MG TABLET PO SCH (09:25)
[2023-07-13] MEDS: lisinopriL 20 MG TAB PO SCH (09:25)
[2023-07-13] MEDS: ASCORBIC ACID 500 MG TAB PO SCH (09:25)
[2023-07-13] MEDS: METOPROLOL TARTRATE 25 MG TAB PO SCH (09:25)
[2023-07-13] MEDS: APIXABAN 5 MG TAB PO SCH (09:27)
[2023-07-13] MEDS: OXYBUTYNIN 10 MG TAB.ER.24 PO SCH (09:28)
[2023-07-13 11:46] LABS: Glucose,Whole Blood 234 mg/dL (70-110)
[2023-07-13 12:41] VITALS: BP 155/66; PULSE 55; RESP 17; TEMP 97.9
--- NOTE | 2023-07-13 13:38 | P.PN ---
Subjective Progress Note Date: 07/13/23 patient is a 87-year-old gentleman with past medical history significant for dementia,Parkinson's disease, coronary artery disease with previous stent, hypertension, hyperlipidemia, diabetes mellitus, TIA who was brought to the ER for generalized weakness. Patient was the best of historians because of history of dementia. Patient is complaining by his . According to , patient has been complaining of weakness for the last 2 days. Denies any fever or chills at home. Denies any nausea, vomiting abdominal pain. Patient has been having difficulty ambulating at home. Patient was unable to get out of the bed. Denies any chest pain. Denies any shortness of breath. Initial lab work done in the ER showed WBC 5.8, hemoglobin 12, platelet count 126, sodium 142, potassium 4.3, BUN 29, creatinine 1.08, glucose 207 UA negative for infection EKG done showed heart rate of 55, QRS [address] segment elevation, no T-wave inversion, Chest x-ray done in the ER showed no acute pulmonary process COVID-19 was detected Patient admitted to medicine service 07/13. Patient seen and examined. Patient's Restrepo was discontinued yesterday. Blood pressure better controlled after being started on hydralazine. continues to refuse rehab placement REVIEW OF SYSTEMS: CONSTITUTIONAL: No fever, no malaise,. CARDIOVASCULAR: No chest pain, no palpitations, no syncope. PULMONARY: No shortness of breath, no cough, GASTROINTESTINAL: No diarrhea, no nausea, no vomiting, no abdominal pain. NEUROLOGICAL: No headaches, no weakness, PHYSICAL EXAMINATION: GENERAL: The patient is alert, history of dementia, not in any acute distress. Well developed, well nourished. HEENT: Pupils are round and equally reacting to light. EOMI. No scleral icterus. No conjunctival pallor. Normocephalic, atraumatic. No pharyngeal erythema. No thyromegaly. CARDIOVASCULAR: S1 and S2 present. No murmurs, rubs, or gallops. PULMONARY: Chest is clear to auscultation, no wheezing or crackles. ABDOMEN: Soft, nontender, nondistended, normoactive bowel sounds. No palpable organomegaly. MUSCULOSKELETAL: No joint swelling or deformity. EXTREMITIES: No cyanosis, clubbing, or pedal edema. NEUROLOGICAL: Gross neurological examination did not reveal any focal deficits. SKIN: No rashes. Assessment and plan COVID-19 Generalized weakness Elevated troponin Parkinson's disease Paroxysmal atrial fibrillation on Eliquis Dementia Hypertension Hyperlipidemia Coronary artery disease, with prior cardiac stent Diabetes mellitus 2, insulin-dependent History of TIA Monitor vital signs Monitor CBC Monitor CMP Encourage use of incentive spirometer Patient was supposed to be discharged yesterday but discharged delayed because of elevated blood pressure. Started on hydralazine Being discharged on Decadron Had discussed multiple times with patient regarding the need for the patient to go to rehab. PT and OT also recommended rehab. Patient at this time is refusing rehab, states he has enough help with neighbors helping them out. Continues to refuse rehab Continue rest of treatment Labs and medication were reviewed.. Continue same treatment. Continue with symptomatic treatment. Resume home medication. Monitor labs and vitals. DVT and GI prophylaxis. Further recommendations as per clinical course of the pat ient Dictation was produced using [email or web address] dictation software. please excuse any grammatical, word or spelling errors. Objective - Vital Signs Vital signs: Vital Signs Temp 98.3 F 07/13/23 03:54 Pulse 51 L 07/13/23 03:54 Resp 17 07/13/23 03:54 BP 159/73 07/13/23 03:54 Pulse Ox 92 L 07/13/23 03:54 FiO2 Intake & Output 07/12/23 07/13/23 07/13/23 18:59 06:59 18:59 Intake Total 180 118 Output Total 1000 Balance -820 118 Intake: Oral 180 118 Output: Urine 1000 Other: Voiding Method Indwelling Catheter Diaper # Voids 1 # Bowel Movements 1 - Labs CBC & Chem 7: 07/10/23 10:59 07/10/23 10:59 Labs: Abnormal Lab Results - Last 24 Hours (Table) 07/12/23 07/12/23 07/12/23 Range/Units 11:31 16:45 20:23 POC Glucose (mg/dL) 299 H 339 H 369 H (70-110) mg/dL 07/13/23 Range/Units 07:11 POC Glucose (mg/dL) 209 H (70-110) mg/dL
--- NOTE | 2023-07-19 12:58 | P.PN ---
Subjective Progress Note Date: 07/13/23 Principal diagnosis: Covid 19 Patient is a 87-year-old male with a past medical history significant for diabetes mellitus hypertension hyperlipidemia CVA TIA dementia patient was brought into the hospital for evaluation generalized weakness the patient also have fever patient did tested positive for COVID-19. On today's evaluation that is 07/13/2023 the patient remains to be afebrile, the patient is breathing comfortably on room air. The patient having any chest pain he did have mild cough no sputum production no abdominal pain no vomiting or diarrhea. No new labs has been obtained today. Objective - Vital Signs Vital signs: Vital Signs Temp 98.3 F 07/13/23 03:54 Pulse 51 L 07/13/23 03:54 Resp 17 07/13/23 03:54 BP 159/73 07/13/23 03:54 Pulse Ox 92 L 07/13/23 03:54 FiO2 Intake & Output 07/12/23 07/13/23 07/13/23 18:59 06:59 18:59 Intake Total 180 118 Output Total 1000 Balance -820 118 Intake: Oral 180 118 Output: Urine 1000 Other: Voiding Method Indwelling Catheter Diaper # Voids 1 # Bowel Movements 1 - Exam GENERAL DESCRIPTION: Elderly male lying in bed in no distress RESPIRATORY SYSTEM: Unlabored breathing , decreased breath sounds at bases HEART: S1 S2 regular rate and rhythm ,no loud murmurs ABDOMEN: Soft , no tenderness EXTREMITIES: No edema feet - Labs CBC & Chem 7: 07/10/23 10:59 07/10/23 10:59 Labs: Abnormal Lab Results - Last 24 Hours (Table) 07/12/23 07/12/23 07/12/23 Range/Units 11:31 16:45 20:23 POC Glucose (mg/dL) 299 H 339 H 369 H (70-110) mg/dL 07/13/23 Range/Units 07:11 POC Glucose (mg/dL) 209 H (70-110) mg/dL Assessment and Plan (1) COVID Status: Acute Code(s): U07.1 - COVID-19 SNOMED Code(s): 811327665 Plan: 1patient present to hospital with weakness and this patient did have a fever and tested positive for COVID-19 more likely to underlying COVID-19 infection patient however not significantly hypoxic and is not needing more oxygen than what he is at home and 2 L chest x-ray was negative for any acute infiltrate 2-patient has shown some clinical improvement consider a short course of dexamethasone zinc and ascorbic acid on discharge Dictation was produced using [employer] dictation software. please excuse any grammatical, word or spelling errors. Time with Patient: Less than 30
== END 2023-07-13 15:09 | disposition home health service (06) ==
LOC: EC 10:10 → INTOOBSV 16:30 → OBSVTOIN 16:30 → 5NMEDONC 16:30 → 3SCARD 07-11 05:54 → UNDODISOB 07-13 15:09
PROVIDERS: ADMIT Internal Medicine; ATTEND Internal Medicine
DX: U07.1 COVID-19 (principal); R53.1 Weakness; R77.8 Other specified abnormalities of plasma proteins; I25.10 Atherosclerotic heart disease of native coronary artery without angina pectoris; G20.A1 Parkinson's disease without dyskinesia, without mention of fluctuations; F02.80 Dementia in other diseases classified elsewhere, unspecified severity, without behavioral disturbance, psychotic disturbance, mood disturbance, and anxiety; E11.9 Type 2 diabetes mellitus without complications; E78.5 Hyperlipidemia, unspecified; I10 Essential (primary) hypertension; I48.0 Paroxysmal atrial fibrillation; I25.5 Ischemic cardiomyopathy; Z86.73 Personal history of transient ischemic attack (TIA), and cerebral infarction without residual deficits; Z87.891 Personal history of nicotine dependence; Z95.5 Presence of coronary angioplasty implant and graft; Z79.02 Long term (current) use of antithrombotics/antiplatelets; Z79.4 Long term (current) use of insulin; Z79.84 Long term (current) use of oral hypoglycemic drugs; Z79.899 Other long term (current) drug therapy
CPT/HCPCS: 96376 ×2; 96372 ×4; 96374; 96375; 99285; 36415; 94640 ×2; 94760 ×2; 93005; 97163; 97530; 97167; 83880; 80053; 83605; 83735; 84484; 85025; 85610; 85730; 81001; 87086; 83036; 84145; 87636; 71046; G0378 ×4; J0360; J1100 ×3; 96360; 96361

== ENCOUNTER 2023-07-17 08:56 | Inpatient (IN) | payer MEDICARE ==
[2023-07-17] MEDS: METOPROLOL TARTRATE 5 MG/5 ML VIAL IVP SCH ×7 (09:28→11:07)
[2023-07-17] MEDS ORDERED: SODIUM CHLORIDE 0.9% 500 ML 500 ML IV ONE (10:05)
--- NOTE | 2023-07-17 10:13 | XR ---
EXAMINATION TYPE: XR chest 1V portable DATE OF EXAM: 07/17/2023 Comparison: 07/10/2023 Clinical History: 87-year-old male sob Findings: Heart mildly enlarged. Hyperinflation. Bony vasculature within normal limits. Atherosclerotic arch ca lcifications. No consolidation or pleural effusion. Impression: Mild cardiomegaly and COPD. No acute process seen.
[2023-07-17 10:19] LABS: Anisocytosis Slight; Basophils % (A) 0 %; Eosinophils # (A) 0.1 k/uL (0-0.7); Eosinophils % (A) 1 %; HCT 39.8 % (39.0-53.0); HGB 12.7 gm/dL (13.0-17.5); Hypochromasia Slight; Lymphocytes # (A) 2.3 k/uL (1.0-4.8); Lymphocytes % (A) 17 %; MCH 27.4 pg (25.0-35.0); MCHC 31.9 g/dL (31.0-37.0); MCV 85.7 fL (80.0-100.0); Mean Platelet Volume 8.6; Monocytes # (A) 0.7 k/uL (0-1.0); Monocytes % (A) 5 %; Neutrophils % (A) 75 %; Platelet Count 146 k/uL (150-450); RBC 4.65 m/uL (4.30-5.90); RDW 17.6 % (11.5-15.5); WBC 13.3 k/uL (3.8-10.6)
[2023-07-17 10:28] LABS: INR 1.1 (<1.2); Partial Thromboplastin Time 27.5 sec (22.0-30.0); Prothrombin Time 12.1 sec (10.0-12.5)
[2023-07-17] MEDS ORDERED: SODIUM CHLORIDE 0.9% 1,000 ML IV ONE (10:35)
[2023-07-17 10:39] LABS: ALT 51 U/L (4-49); AST 26 U/L (17-59); African American GFR (CKD) 54 (>60 ml/min/1.73 sqM); Albumin 3.3 g/dL (3.5-5.0); Alkaline Phosphatase 76 U/L (38-126); Anion Gap 13 mmol/L; Blood Urea Nitrogen 34 mg/dL (9-20); Calcium 8.4 mg/dL (8.4-10.2); Carbon Dioxide 29 mmol/L (22-30); Chloride 103 mmol/L (98-107); Glucose 154 mg/dL (74-99); Non-African American GFR(CKD) 46 (>60 ml/min/1.73 sqM); Potassium 3.6 mmol/L (3.5-5.1); Sodium 145 mmol/L (137-145); Total Bilirubin 1.3 mg/dL (0.2-1.3); Total Protein 6.7 g/dL (6.3-8.2)
[2023-07-17 10:47] LABS: NT-Pro-B-Type Natriuretic Pept 3030 pg/mL
--- NOTE | 2023-07-17 11:29 | P.HPIM ---
History of Present Illness 87-year-old male was brought in by family members after a syncopal episode patient does have history is found to be in atrial fibrillation with rapid ventricular rate patient was recently hospitalized and was treated for COVID-19 infection and patient declined a subacute rehabilitation at that time. All the medications were not verified patient appeared to be on Decadron. Patient is also hypotensive does take Lasix at home patient baseline creatinine is around 1 present creatinine is 1.4 patient is on Apaxiban for atrial fibrillation. Patient is poor historian unable to provide much of the history although patient states he feels fine chest x-ray showed mild cardiomegaly and hyperinflated lungs consistent with us COPD and emphysema. Patient's serum BNP is elevated to around 3000 the patient does have elevated lactic acid of 4.5 does have history of coronary artery disease REVIEW OF SYSTEMS: Unable to obtain due to above-mentioned reasons PHYSICAL EXAMINATION: GENERAL: The patient is alert and unable to assess orientation, not in any acute distress. Well developed, well nourished. HEENT: Pupils are round and equally reacting to light. EOMI. No scleral icterus. No conjunctival pallor. Normocephalic, atraumatic. No pharyngeal erythema. No thyromegaly. Tachycardic irregularly irregular rhythm CARDIOVASCULAR: S1 and S2 present. No murmurs, rubs, or gallops. PULMONARY: Chest is clear to auscultation, no wheezing or crackles. ABDOMEN: Soft, nontender, nondistended, normoactive bowel sounds. No palpable organomegaly. MUSCULOSKELETAL: No joint swelling or deformity. EXTREMITIES: No cyanosis, clubbing, or pedal edema. NEUROLOGICAL: Limited significant generalized weakness SKIN: No rashes. Assessment and plan -Atrial fibrillation with rapid ventricular rate probably secondary to intravascular volume depletion, dehydration patient will be given IV fluids, there is no clear evidence of the post viral pneumonia at this time may not need any antibiotics patient will be monitored for any fever or any signs of infection patient does have leukocytosis and is definitely high risk for infection like pneumonia. -Acute renal failure: Hold off on Lasix patient was started on IV fluids patient does have elevated BNP factor no history of heart failure as per the previous documentation. -Lactic is doses secondary to severe intravascular depletion IV fluids as mentioned above so far there is no evidence of infection at this time -Hypotension secondary to atrial fibrillation and dehydration -Coronary artery disease with stents in the past -Mild elevated troponin most probably secondary to atrial fibrillation, cardiology will evaluate the patient -Type 2 diabetes mellitus for now sliding scale insulin patient is on Decadron -Dementia: He is either senile dementia or vascular dementia -Hyperlipidemia -Hypertension -CVA/TIA in the past DVT prophylaxis: On anticoagulation for atrial fibrillation Past Medical History Past Medical History: Coronary Artery Disease (CAD), CVA/TIA, Dementia, Diabetes Mellitus, Eye Disorder, Hyperlipidemia, Hypertension, Memory Impairment, Osteoarthritis (OA), Pneumonia, Syncope Additional Past Medical History / Comment(s): cataract left eye. Diverticulitis. lt fractured ankle 03-11-16,rt. foot wound-healed, tia, hiatal hernia occ hand tremors, hx of falls,uses walker when up. incont of urine/stool wears depends. . History of Any Multi-Drug Resistant Organisms: None Reported Past Surgical History: Heart Catheterization With Stent, Hernia Repair, Tonsillectomy Additional Past Surgical History / Comment(s): VASECTOMY, rt eye cataract removed Past Anesthesia/Blood Transfusion Reactions: No Reported Reaction Additional Past Anesthesia/Blood Transfusion Reaction / Comment(s): clausterphobic Date of Last Stent Placement:: February 01, 2011 Past Psychological History: No Psychological Hx Reported Smoking Status: Former smoker Past Alcohol Use History: None Reported, Abuse Past Drug Use History: None Reported - Past Family History Father History Unknown: Yes Mother Family Medical History: Myocardial Infarction ([place]) Additional Family Medical History / Comment(s): Mother of heart attack at 64. Mother had mental illness. Brother(s) Family Medical History: Cancer Additional Family Medical History / Comment(s): Patients half-brother had stomach cancer. Medications and Allergies Home Medications Medication Instructions Recorded Confirmed Type Atorvastatin [Lipitor] 40 mg PO HS 12/07/15 07/10/23 History Clopidogrel [Plavix] 75 mg PO DAILY 12/07/15 07/10/23 History Enalapril [Vasotec] 40 mg PO DAILY 12/07/15 07/10/23 History Gabapentin [Neurontin] 100 mg PO BID 12/07/15 07/10/23 History Insulin Aspart [NovoLOG Flexpen] 10 units SQ AC-BRKFST 12/07/15 07/10/23 History sitaGLIPtin [Januvia] 100 mg PO DAILY 12/07/15 07/10/23 History traZODone HCL [Desyrel] 50 mg PO HS 12/07/15 07/10/23 History Oxybutynin Chloride [oxyBUTYnin 10 mg PO DAILY 01/22/18 07/10/23 History chloride ER] Furosemide [Lasix] 40 mg PO DAILY 04/16/18 07/10/23 History Citalopram Hydrobromide [CeleXA] 10 mg PO DAILY 12/13/22 07/10/23 History Donepezil [Aricept] 10 mg PO HS 12/13/22 07/10/23 History Albuterol Inhaler [Ventolin Hfa 2 puff INHALATION RT-Q4H PRN 02/24/23 07/10/23 History Inhaler] Apixaban [Eliquis] 5 mg PO BID #30 tab 03/01/23 07/10/23 Rx Insulin Glargine,Hum.rec.anlog 30 unit SQ DAILY #1 each 03/01/23 07/10/23 Rx [Basaglar Kwikpen U-100] Metoprolol Tartrate [Lopressor] 25 mg PO BID #30 tab 03/01/23 07/10/23 Rx Tamsulosin [Flomax] 0.4 mg PO PC-SUPPER #30 cap 03/01/23 07/10/23 Rx Insulin Aspart [NovoLOG Flexpen] 6 units SQ AC-LUNCH 07/10/23 07/10/23 History Insulin Aspart [NovoLOG Flexpen] 6 units SQ AC-SUPPER 07/10/23 07/10/23 History dexAMETHasone [Decadron] 6 mg PO DAILY 3 Days #3 tablet 07/12/23 Rx hydrALAZINE HCL [Apresoline] 25 mg PO TID 30 Days #90 tab 07/13/23 Rx Allergies Allergy/AdvReac Type Severity Reaction Status Date / Time No Known Allergies Allergy Verified 07/17/23 09:28 Physical Exam Vitals: Vital Signs Temp Pulse Resp BP Pulse Ox 07/17/23 10:30 149 H 22 93/70 97 07/17/23 10:00 137 H 22 96/85 97 07/17/23 09:44 137 H 20 94/68 95 07/17/23 09:33 20 07/17/23 09:30 128 H 22 100/61 97 07/17/23 09:25 136 H 20 100/61 94 L 07/17/23 09:00 98.6 F 134 H 20 110/98 98 Intake and Output 07/16/23 07/17/23 07/17/23 22:59 06:59 14:59 Other: Weight 99.79 kg Results CBC & Chem 7: 07/17/23 09:45 07/17/23 09:45 Labs: Abnormal Lab Results - Last 24 Hours (Table) 07/17/23 07/17/23 07/17/23 Range/Units 09:45 09:45 09:45 WBC 13.3 H (3.8-10.6) k/uL Hgb 12.7 L (13.0-17.5) gm/dL RDW 17.6 H (11.5-15.5) % Plt Count 146 L (150-450) k/uL Neutrophils # 10.0 H (1.3-7.7) k/uL BUN 34 H (9-20) mg/dL Creatinine 1.36 H (0.66-1.25) mg/dL Glucose 154 H (74-99) mg/dL Plasma Lactic Acid Gt 4.1 H* (0.7-2.0) mmol/L ALT 51 H (4-49) U/L Troponin I (0.000-0.034) ng/mL Albumin 3.3 L (3.5-5.0) g/dL Coronavirus (PCR) (Not Detectd) 07/17/23 07/17/23 Range/Units 09:45 09:45 WBC (3.8-10.6) k/uL Hgb (13.0-17.5) gm/dL RDW (11.5-15.5) % Plt Count (150-450) k/uL Neutrophils # (1.3-7.7) k/uL BUN (9-20) mg/dL Creatinine (0.66-1.25) mg/dL Glucose (74-99) mg/dL Plasma Lactic Acid Gt (0.7-2.0) mmol/L ALT (4-49) U/L Troponin I 0.063 H* (0.000-0.034) ng/mL Albumin (3.5-5.0) g/dL Coronavirus (PCR) Detected A (Not Detectd)
[2023-07-17] MEDS ORDERED: NALOXONE 0.4 MG/ML 1 ML VIAL IV PRN (12:11)
--- NOTE | 2023-07-17 12:11 | ED ---
General Adult HPI - General Chief complaint: Shortness of Breath Stated complaint: Afib Time Seen by Provider: 07/17/23 09:05 Source: EMS Mode of arrival: EMS Limitations: altered mental status - History of Present Illness Initial comments: 87-year-old man presents emergency room and after syncopal episode at home. EMS and at bedside help provide the history. They state that the patient has had body aches and difficulty breathing for the past couple of weeks. He was hospitalized and diagnosed with covid on the first. Patient went home with home care. He has not been eating or drinking as much as he normally does. He has been wearing 4 L of oxygen since his diagnosis. Today the patient appeared to go unresponsive and therefore they called EMS. Patient has no complaints. Denies shortness of breath or chest pain. No abdominal pain. Patient arrives in A. fib with RVR. He does have a history of paroxysmal A. fib. No current fevers. No other alleviating, precipitating or modifying factors - Related Data Home Medications Medication Instructions Recorded Confirmed Atorvastatin [Lipitor] 40 mg PO HS 12/07/15 07/17/23 Clopidogrel [Plavix] 75 mg PO DAILY 12/07/15 07/17/23 Enalapril [Vasotec] 40 mg PO DAILY 12/07/15 07/17/23 Insulin Aspart [NovoLOG Flexpen] 10 units SQ AC-BRKFST 12/07/15 07/17/23 sitaGLIPtin [Januvia] 100 mg PO DAILY 12/07/15 07/17/23 traZODone HCL [Desyrel] 50 mg PO HS 12/07/15 07/17/23 Oxybutynin Chloride [oxyBUTYnin 10 mg PO DAILY 01/22/18 07/17/23 chloride ER] Furosemide [Lasix] 40 mg PO DAILY 04/16/18 07/17/23 Citalopram Hydrobromide [CeleXA] 10 mg PO DAILY 12/13/22 07/17/23 Donepezil [Aricept] 10 mg PO HS 12/13/22 07/17/23 Albuterol Inhaler [Ventolin Hfa 2 puff INHALATION RT-Q4H PRN 02/24/23 07/17/23 Inhaler] Insulin Aspart [NovoLOG Flexpen] 6 units SQ AC-LUNCH 07/10/23 07/17/23 Insulin Aspart [NovoLOG Flexpen] 6 units SQ AC-SUPPER 07/10/23 07/17/23 Previous Rx's Medication Instructions Recorded Apixaban [Eliquis] 5 mg PO BID #30 tab 03/01/23 Insulin Glargine,Hum.rec.anlog 30 unit SQ DAILY #1 each 03/01/23 [Basaglar Kwikpen U-100] Metoprolol Tartrate [Lopressor] 25 mg PO BID #30 tab 03/01/23 Tamsulosin [Flomax] 0.4 mg PO PC-SUPPER #30 cap 03/01/23 hydrALAZINE HCL [Apresoline] 25 mg PO TID 30 Days #90 tab 07/13/23 Gabapentin [Neurontin] 100 mg PO BID 5 Days #10 cap 07/20/23 Allergies Allergy/AdvReac Type Severity Reaction Status Date / Time No Known Allergies Allergy Verified 07/17/23 12:26 Review of Systems ROS Statement: Those systems with pertinent positive or pertinent negative responses have been documented in the HPI. ROS Other: All systems not noted in ROS Statement are negative. Past Medical History Past Medical History: Coronary Artery Disease (CAD), CVA/TIA, Dementia, Diabetes Mellitus, Eye Disorder, Hyperlipidemia, Hypertension, Memory Impairment, Osteoarthritis (OA), Pneumonia, Syncope Additional Past Medical History / Comment(s): cataract left eye. Diverticulitis. lt fractured ankle 16,rt. foot wound-healed, tia, hiatal hernia occ hand tremors, hx of falls,uses walker when up. incont of urine/stool wears depends. . History of Any Multi-Drug Resistant Organisms: None Reported Past Surgical History: Heart Catheterization With Stent, Hernia Repair, Tonsillectomy Additional Past Surgical History / Comment(s): VASECTOMY, rt eye cataract removed Past Anesthesia/Blood Transfusion Reactions: No Reported Reaction Additional Past Anesthesia/Blood Transfusion Reaction / Comment(s): clausterphobic Date of Last Stent Placement:: February 01, 2011 Past Psychological History: No Psychological Hx Reported Smoking Status: Former smoker Past Alcohol Use History: None Reported, Abuse Past Drug Use History: None Reported - Past Family History Father History Unknown: Yes Mother Family Medical History: Myocardial Infarction ([place]) Additional Family Medical History / Comment(s): Mother of heart attack at 64. Mother had mental illness. Brother(s) Family Medical History: Cancer Additional Family Medical History / Comment(s): Patients half-brother had sto mach cancer. General Exam Limitations: altered mental status General appearance: alert, in no apparent distress Head exam: Present: atraumatic, normocephalic, normal inspection Eye exam: Present: normal appearance, PERRL, EOMI. Absent: scleral icterus, conjunctival injection, periorbital swelling ENT exam: Present: normal exam, mucous membranes moist Neck exam: Present: normal inspection. Absent: tenderness, meningismus, lymphadenopathy Respiratory exam: Present: normal lung sounds bilaterally. Absent: respiratory distress, wheezes, rales, rhonchi, stridor Cardiovascular Exam: Present: tachycardia, irregular rhythm, normal heart sounds. Absent: systolic murmur, diastolic murmur, rubs, gallop, clicks GI/Abdominal exam: Present: soft, normal bowel sounds. Absent: distended, tenderness, guarding, rebound, rigid Extremities exam: Present: normal inspection, full ROM, normal capillary refill. Absent: tenderness, pedal edema, joint swelling, calf tenderness Back exam: Present: normal inspection Neurological exam: Present: alert, oriented X3, CN II-XII intact Psychiatric exam: Present: normal affect, normal mood Skin exam: Present: warm, dry, intact, normal color. Absent: rash Course Vital Signs 07/17/23 07/17/23 07/17/23 09:00 09:25 09:30 Temperature 98.6 F Pulse Rate 134 H 136 H 128 H Respiratory 20 20 22 Rate Blood Pressure 110/98 100/61 100/61 O2 Sat by Pulse 98 94 L 97 Oximetry 07/17/23 07/17/23 07/17/23 09:33 09:44 10:00 Temperature Pulse Rate 137 H 137 H Respiratory 20 20 22 Rate Blood Pressure 94/68 96/85 O2 Sat by Pulse 95 97 Oximetry 07/17/23 07/17/23 07/17/23 10:30 11:00 11:30 Temperature Pulse Rate 149 H 134 H 147 H Respiratory 22 20 20 Rate Blood Pressure 93/70 122/93 102/59 O2 Sat by Pulse 97 97 100 Oximetry 07/17/23 07/17/23 07/17/23 12:00 12:30 13:30 Temperature Pulse Rate 114 H 76 70 Respiratory 20 20 13 Rate Blood Pressure 107/80 111/58 120/52 O2 Sat by Pulse 99 99 99 Oximetry 07/17/23 07/17/23 07/17/23 14:00 14:30 15:00 Temperature Pulse Rate 49 L 62 48 L Respiratory 22 18 18 Rate Blood Pressure 110/51 117/93 98/50 O2 Sat by Pulse 100 100 99 Oximetry 07/17/23 07/17/23 07/17/23 15:30 16:00 17:00 Temperature Pulse Rate 60 58 L 52 L Respiratory 18 20 25 H Rate Blood Pressure 114/57 111/52 137/73 O2 Sat by Pulse 97 95 97 Oximetry 07/17/23 07/17/23 20:00 20:48 Temperature 98.9 F Pulse Rate 77 70 Respiratory 18 16 Rate Blood Pressure 160/77 166/84 O2 Sat by Pulse 98 98 Oximetry Medical Decision Making - Medical Decision Making Was pt. sent in by a medical professional or institution (, PA, HYPO DIPPER, urgent care, hospital, or long term...) When possible be specific @ -No Did you speak to anyone other than the patient for history (EMS, parent, family, police, friend...)? What history was obtained from this source @ -EMS and Did you review nursing and triage notes (agree or disagree)? Why? @ -I reviewed and agree with nursing and triage notes Were old charts reviewed (outside hosp., previous admission, EMS record, old EKG, old radiological studies, urgent care reports/EKG's, long term records)? Report findings @ -I reviewed the patient's discharge summary as he was recently discharged from our hospital Differential Diagnosis (chest pain, altered mental status, abdominal pain women, abdominal pain men, vaginal bleeding, weakness, fever, dyspnea, syncope, headache, dizziness, GI bleed, back pain, seizure, CVA, palpatations, mental health, musculoskeletal)? @ -Differential Syncope: Valvular disease, hypertrophic cardiomyopathy, pulmonary embolism, tamponade, tachycardia, bradycardia, AR, hypovolemia, hemorrhage, dissection, anemia, intracranial hemorrhage, seizure, hypoglycemia, carbon monoxide poisoning, this is not meant to be an all-inclusive list. EKG interpreted by me (3pts min.). @ -Yes and demonstrates A. fib with a rate of 150. QRS 140. QTC of 432. ST depression V3 through V6. No ST segment elevation Repeat EKG done at 1302 demonstrates sinus rhythm with a rate of 68. AL interval 158. QRS 156. QTC of 499. No acute ST segment elevations or depressions X-rays interpreted by me (1pt min.). @ -Yes and demonstrates cardiomegaly CT interpreted by me (1pt min.). @ -None done U/S interpreted by me (1pt. min.). @ -None done What testing was considered but not performed or refused? (CT, X-rays, U/S, labs)? Why? @ -None What meds were considered but not given or refused? Why? @ -None Did you discuss the management of the patient with other professionals (professionals i.e. , PA, HYPO DIPPER, lab, RT, psych nurse, social work therapist, independent trader, teacher, chief strategy officer, child welfare caseworker)? Give summary @ -Spoke with Dr. patino Was smoking cessation discussed for >3mins.? @ -No Was critical care preformed (if so, how long)? @ -No Were there social determinants of health that impacted care today? How? (Homelessness, low income, unemployed, alcoholism, drug addiction, transportation, low edu. Level, literacy, decrease access to med. care, skilled nursing, rehab)? @ -No Was there de-escalation of care discussed even if they declined (Discuss DNR or withdrawal of care, Hospice)? DNR status @ -No What co-morbidities impacted this encounter? (DM, HTN, Smoking, COPD, CAD, Cancer, CVA, ARF, Chemo, Hep., AIDS, mental health diagnosis, sleep apnea, morbid obesity)? @ -Atrial fibrillation Was patient admitted / discharged? Hospital course, mention meds given and route, prescriptions, significant lab abnormalities, going to OR and other pertinent info. @ -Upon arrival patient was placed into room 2. Thorough history and physical exam was performed. Patient was given a dose of Lopressor IV. He is given 1.5 L of normal saline. Laboratory studies were conducted. Chest x-ray was performed. Patient does end up converting. He is given his home dose of meto prolol. Spoke with Dr. Patino who is agreeable to admit the patient. Patient awaiting a bed on the floor in stable condition Undiagnosed new problem with uncertain prognosis? @ -No Drug Therapy requiring intensive monitoring for toxicity (Heparin, Nitro, Insulin, Cardizem)? @ -No Were any procedures done? @ -No Diagnosis/symptom? @ -Possible syncope, A. fib with RVR, subacute Covid infection Acute, or Chronic, or Acute on Chronic? @ -Acute Uncomplicated (without systemic symptoms) or Complicated (systemic symptoms)? @ -Complicated Side effects of treatment? @ -No Exacerbation, Progression, or Severe Exacerbation? @ -No Poses a threat to life or bodily function? How? (Chest pain, [place], AR, pneumonia, PE, COPD, DKA, ARF, appy, cholecystitis, CVA, Diverticulitis, Homicidal, Suicidal, threat to staff... and all critical care pts) @ -No - Lab Data Result diagrams: 07/19/23 07:46 07/19/23 07:41 Lab Results 07/17/23 07/17/23 07/17/23 Range/Units 09:45 09:45 09:45 WBC 13.3 H (3.8-10.6) k/uL RBC 4.65 (4.30-5.90) m/uL Hgb 12.7 L (13.0-17.5) gm/dL Hct 39.8 (39.0-53.0) % MCV 85.7 (80.0-100.0) fL MCH 27.4 (25.0-35.0) pg MCHC 31.9 (31.0-37.0) g/dL RDW 17.6 H (11.5-15.5) % Plt Count 146 L (150-450) k/uL MPV 8.6 Neutrophils % 75 % Lymphocytes % 17 % Monocytes % 5 % Eosinophils % 1 % Basophils % 0 % Neutrophils # 10.0 H (1.3-7.7) k/uL Lymphocytes # 2.3 (1.0-4.8) k/uL Monocytes # 0.7 (0-1.0) k/uL Eosinophils # 0.1 (0-0.7) k/uL Basophils # 0.0 (0-0.2) k/uL Hypochromasia Slight Anisocytosis Slight PT 12.1 (10.0-12.5) sec INR 1.1 (<1.2) APTT 27.5 (22.0-30.0) sec Sodium 145 (137-145) mmol/L Potassium 3.6 (3.5-5.1) mmol/L Chloride 103 (98-107) mmol/L Carbon Dioxide 29 (22-30) mmol/L Anion Gap 13 mmol/L BUN 34 H (9-20) mg/dL Creatinine 1.36 H (0.66-1.25) mg/dL Est GFR (CKD-EPI)AfAm 54 (>60 ml/min/1.73 sqM) Est GFR (CKD-EPI)NonAf 46 (>60 ml/min/1.73 sqM) Glucose 154 H (74-99) mg/dL Estimated Ave Glu mg/dL mg/dL Hemoglobin A1c (<=6.0) % Lactic Ac Sepsis Rflx Plasma Lactic Acid Gt (0.7-2.0) mmol/L Calcium 8.4 (8.4-10.2) mg/dL Total Bilirubin 1.3 (0.2-1.3) mg/dL AST 26 (17-59) U/L ALT 51 H (4-49) U/L Alkaline Phosphatase 76 (38-126) U/L Troponin I (0.000-0.034) ng/mL NT-Pro-B Natriuret Pep 3030 pg/mL Total Protein 6.7 (6.3-8.2) g/dL Albumin 3.3 L (3.5-5.0) g/dL Procalcitonin (0.02-0.09) ng/mL Coronavirus (PCR) (Not Detectd) 07/17/23 07/17/23 07/17/23 Range/Units 09:45 09:45 09:45 WBC (3.8-10.6) k/uL RBC (4.30-5.90) m/uL Hgb (13.0-17.5) gm/dL Hct (39.0-53.0) % MCV (80.0-100.0) fL MCH (25.0-35.0) pg MCHC (31.0-37.0) g/dL RDW (11.5-15.5) % Plt Count (150-450) k/uL MPV Neutrophils % % Lymphocytes % % Monocytes % % Eosinophils % % Basophils % % Neutrophils # (1.3-7.7) k/uL Lymphocytes # (1.0-4.8) k/uL Monocytes # (0-1.0) k/uL Eosinophils # (0-0.7) k/uL Basophils # (0-0.2) k/uL Hypochromasia Anisocytosis PT (10.0-12.5) sec INR (<1.2) APTT (22.0-30.0) sec Sodium (137-145) mmol/L Potassium (3.5-5.1) mmol/L Chloride (98-107) mmol/L Carbon Dioxide (22-30) mmol/L Anion Gap mmol/L BUN (9-20) mg/dL Creatinine (0.66-1.25) mg/dL Est GFR (CKD-EPI)AfAm (>60 ml/min/1.73 sqM) Est GFR (CKD-EPI)NonAf (>60 ml/min/1.73 sqM) Glucose (74-99) mg/dL Estimated Ave Glu mg/dL mg/dL Hemoglobin A1c (<=6.0) % Lactic Ac Sepsis Rflx Plasma Lactic Acid Gt 4.1 H* (0.7-2.0) mmol/L Calcium (8.4-10.2) mg/dL Total Bilirubin (0.2-1.3) mg/dL AST (17-59) U/L ALT (4-49) U/L Alkaline Phosphatase (38-126) U/L Troponin I 0.063 H* (0.000-0.034) ng/mL NT-Pro-B Natriuret Pep pg/mL Total Protein (6.3-8.2) g/dL Albumin (3.5-5.0) g/dL Procalcitonin (0.02-0.09) ng/mL Coronavirus (PCR) Detected A (Not Detectd) 07/17/23 07/17/23 07/17/23 Range/Units 09:45 09:45 10:42 WBC (3.8-10.6) k/uL RBC (4.30-5.90) m/uL Hgb (13.0-17.5) gm/dL Hct (39.0-53.0) % MCV (80.0-100.0) fL MCH (25.0-35.0) pg MCHC (31.0-37.0) g/dL RDW (11.5-15.5) % Plt Count (150-450) k/uL MPV Neutrophils % % Lymphocytes % % Monocytes % % Eosinophils % % Basophils % % Neutrophils # (1.3-7.7) k/uL Lymphocytes # (1.0-4.8) k/uL Monocytes # (0-1.0) k/uL Eosinophils # (0-0.7) k/uL Basophils # (0-0.2) k/uL Hypochromasia Anisocytosis PT (10.0-12.5) sec INR (<1.2) APTT (22.0-30.0) sec Sodium (137-145) mmol/L Potassium (3.5-5.1) mmol/L Chloride (98-107) mmol/L Carbon Dioxide (22-30) mmol/L Anion Gap mmol/L BUN (9-20) mg/dL Creatinine (0.66-1.25) mg/dL Est GFR (CKD-EPI)AfAm (>60 ml/min/1.73 sqM) Est GFR (CKD-EPI)NonAf (>60 ml/min/1.73 sqM) Glucose (74-99) mg/dL Estimated Ave Glu mg/dL 163 mg/dL Hemoglobin A1c 7.3 H (<=6.0) % Lactic Ac Sepsis Rflx Y Plasma Lactic Acid Gt (0.7-2.0) mmol/L Calcium (8.4-10.2) mg/dL Total Bilirubin (0.2-1.3) mg/dL AST (17-59) U/L ALT (4-49) U/L Alkaline Phosphatase (38-126) U/L Troponin I (0.000-0.034) ng/mL NT-Pro-B Natriuret Pep pg/mL Total Protein (6.3-8.2) g/dL Albumin (3.5-5.0) g/dL Procalcitonin 0.12 H (0.02-0.09) ng/mL Coronavirus (PCR) (Not Detectd) Disposition Clinical Impression: Atrial fibrillation with RVR, COVID-19, Syncope, MARYANN (acute kidney injury) Disposition: ADMITTED IP TO THIS HOSP Condition: Serious Is patient prescribed a controlled substance at d/c from ED?: No Time of Disposition: 12:10 Decision to Admit Reason: Admit from EC Decision Date: 07/17/23 Decision Time: 12:11
[2023-07-17] MEDS ORDERED: METOPROLOL TARTRATE 25 MG TAB PO STA (12:13)
[2023-07-17] MEDS: SODIUM CHLORIDE 0.9% 1,000 ML IV SCH (13:03)
[2023-07-17] MEDS ORDERED: DEXTROSE 50% SYRINGE 50 ML IVP PRN ×2 (15:07)
[2023-07-17] MEDS: CLOPIDOGREL 75 MG TAB PO SCH (16:39)
[2023-07-17] MEDS: OXYBUTYNIN 10 MG TAB.ER.24 PO SCH (16:40)
[2023-07-17 16:41] LABS: Glucose,Whole Blood 120 mg/dL (70-110)
[2023-07-17] MEDS: INSULIN ASPART (NovoLOG) 100 UNIT/ML VIAL SQ SCH ×2 (16:43→21:18)
[2023-07-17] MEDS: TAMSULOSIN 0.4 MG CAP.ER.24H PO SCH (19:51)
[2023-07-17] MEDS: METOPROLOL TARTRATE 25 MG TAB PO SCH (20:30)
[2023-07-17] MEDS: GABAPENTIN 100 MG CAP PO SCH (20:30)
[2023-07-17] MEDS: DONEPEZIL 10 MG TAB PO SCH (20:30)
[2023-07-17] MEDS: APIXABAN 5 MG TAB PO SCH (20:30)
[2023-07-17] MEDS: ATORVASTATIN 40 MG TAB PO SCH (20:30)
[2023-07-17] MEDS: traZODone HCL 50 MG TAB PO SCH (20:30)
[2023-07-17] MEDS: hydrALAZINE HCL 20 MG/ML 1 ML VIAL IVP PRN (21:57)
[2023-07-18] MEDS: SODIUM CHLORIDE 0.9% 1,000 ML IV SCH (04:09)
[2023-07-18 05:50] LABS: Glucose,Whole Blood 172 mg/dL (70-110)
[2023-07-18] MEDS: INSULIN ASPART (NovoLOG) 100 UNIT/ML VIAL SQ SCH ×4 (06:52→20:18)
[2023-07-18] MEDS: INSULIN DETEMIR (LEVEMIR) 100 UNIT/ML SYR SQ SCH (06:52)
[2023-07-18] MEDS ORDERED: ZINC OXIDE 20% OINT 28.4 GM TUBE TOPICAL PRN (08:53)
--- NOTE | 2023-07-18 09:30 | CONS ---
CONSULTATION CHIEF COMPLAINT: Syncope. HISTORY OF PRESENT ILLNESS: Mr. Smith is an 87-year-old gentleman with history of atrial fibrillation, coronary artery disease, cardiomyopathy, and insulin-requiring diabetes, who presented to hospital having had a syncopal event at home. The patient was in the hospital a week ago when he presented primarily with symptoms of generalized weakness and was found to be COVID positive. His EKG at that time revealed sinus rhythm. He did not have myocardial infarction and recent echocardiogram on him revealed an ejection fraction of 35% to 40%. He states that he was at home and fell down and had loss of consciousness. He is a poor historian with slow and delayed response to questions. The patient since being discharged home from his initial hospitalization was not drinking or eating well, was on 4 L of O2 and became unresponsive transiently and called EMS and brought into hospital. He was in atrial fibrillation with rapid ventricular rate and subsequently converted to sinus rhythm with right bundle branch block. At the time of my evaluation, he appears comfortable at rest and denies any chest pain or difficulty in breathing. His heart rate is well controlled. His coronavirus is positive. Troponin is mildly elevated at 0.06. It was 0.05 at his last admission. The patient does not have bladder or bowel incontinence, did not have seizures, did not have focal neurological deficits. The patient's syncope is probably vasovagal. Certainly, post- conversion pauses in a known atrial fibrillation is a possibility. The patient's BNP is elevated, but he is not in heart failure. The exact significance of the elevated BNP is unclear. His chest x-ray was unremarkable. The patient is currently on Eliquis 5 mg b.i.d., Lipitor, insulin, Lopressor 25 b.i.d., hydralazine. PAST MEDICAL HISTORY: Significant for paroxysmal atrial fibrillation; coronary artery disease, status post angioplasty; hypertension; diabetes; dyslipidemia. MEDICATIONS: Include, 1. Metoprolol 25 b.i.d. 2. Insulin. 3. Neurontin. 4. Lasix 40 daily. 5. Vasotec 40 daily. 6. Aricept. 7. Plavix. 8. Celexa. 9. Lipitor. 10.Albuterol. 11.Trazodone. ALLERGIES: No known drug allergies. FAMILY HISTORY: Negative for premature coronary artery disease. SOCIAL HISTORY: Negative for current smoking, EtOH abuse or drug abuse. REVIEW OF SYSTEMS: 14 out of 14 review of systems has been performed. Pertinents are as documented. PHYSICAL EXAMINATION: GENERAL: The patient is comfortable at rest. VITAL SIGNS: Stable. CHEST: Reveals good air entry bilaterally. HEART: Reveals first and second heart sounds and a systolic murmur at the apex. ABDOMEN: Soft. EXTREMITIES: Exam of extremities reveals mild edema. Peripheral pulses are palpable. He is saturating at 95% on 4 L. LABORATORY DATA: Labs on admission revealed an elevated white cell count, hemoglobin is normal at 12.7. Potassium is 3.6, creatinine is 1.3. ASSESSMENT: 1. Syncope probably vasovagal in origin. 2. Known coronary artery disease, status post prior angioplasty. 3. Paroxysmal atrial fibrillation. 4. Ischemic cardiomyopathy. PLAN: Continue him on his current medications. We will watch him on telemetry. Further recommendations based on how things evolve. MMODL / IJN: [id number] /
[2023-07-18 09:46] LABS: Anisocytosis Slight; Basophils % (A) 0 %; Eosinophils # (A) 0.1 k/uL (0-0.7); Eosinophils % (A) 2 %; HCT 32.6 % (39.0-53.0); HGB 10.7 gm/dL (13.0-17.5); Hypochromasia Slight; Lymphocytes # (A) 1.5 k/uL (1.0-4.8); Lymphocytes % (A) 19 %; MCH 27.7 pg (25.0-35.0); MCHC 32.8 g/dL (31.0-37.0); MCV 84.4 fL (80.0-100.0); Mean Platelet Volume 9.9; Monocytes # (A) 0.7 k/uL (0-1.0); Monocytes % (A) 8 %; Neutrophils # (A) 5.7 k/uL (1.3-7.7); Neutrophils % (A) 69 %; Platelet Count 131 k/uL (150-450); RBC 3.86 m/uL (4.30-5.90); RDW 17.6 % (11.5-15.5); WBC 8.2 k/uL (3.8-10.6)
[2023-07-18] MEDS: LINAGLIPTIN 5 MG TABLET PO SCH (09:54)
[2023-07-18] MEDS: APIXABAN 5 MG TAB PO SCH ×2 (09:54→20:18)
[2023-07-18] MEDS: CITALOPRAM HYDROBROMIDE 10 MG TAB PO SCH (09:54)
[2023-07-18] MEDS: OXYBUTYNIN 10 MG TAB.ER.24 PO SCH (09:54)
[2023-07-18] MEDS: GABAPENTIN 100 MG CAP PO SCH ×2 (09:54→20:19)
[2023-07-18] MEDS: CLOPIDOGREL 75 MG TAB PO SCH (09:54)
[2023-07-18] MEDS: METOPROLOL TARTRATE 25 MG TAB PO SCH ×2 (09:54→20:18)
[2023-07-18] MEDS: hydrALAZINE HCL 20 MG/ML 1 ML VIAL IVP PRN (09:57)
[2023-07-18 09:58] LABS: African American GFR (CKD) 87 (>60 ml/min/1.73 sqM); Anion Gap 9 mmol/L; Blood Urea Nitrogen 33 mg/dL (9-20); Calcium 7.9 mg/dL (8.4-10.2); Carbon Dioxide 25 mmol/L (22-30); Chloride 110 mmol/L (98-107); Glucose 154 mg/dL (74-99); Non-African American GFR(CKD) 76 (>60 ml/min/1.73 sqM); Potassium 3.2 mmol/L (3.5-5.1); Sodium 144 mmol/L (137-145)
[2023-07-18 11:24] LABS: Glucose,Whole Blood 136 mg/dL (70-110)
[2023-07-18] MEDS ORDERED: ZINC OXIDE PASTE (Z-GUARD) 1 APPLIC APPLIC TOPICAL PRN (12:23)
[2023-07-18] MEDS ORDERED: ALBUTEROL NEBULIZED 2.5 MG/3 ML INHALATION PRN (13:11)
--- NOTE | 2023-07-18 13:16 | P.PN ---
Subjective Progress Note Date: 07/18/23 87-year-old male was brought in by family members after a syncopal episode patient does have history is found to be in atrial fibrillation with rapid ventricular rate patient was recently hospitalized and was treated for COVID-19 infection and patient declined a subacute rehabilitation at that time. All the medications were not verified patient appeared to be on Decadron. Patient is also hypotensive does take Lasix at home patient baseline creatinine is around 1 present creatinine is 1.4 patient is on Apaxiban for atrial fibrillation. Patient is poor historian unable to provide much of the history although patient states he feels fine chest x-ray showed mild cardiomegaly and hyperinflated lungs consistent with us COPD and emphysema. Patient's serum BNP is elevated to around 3000 the patient does have elevated lactic acid of 4.5 does have history of coronary artery disease 07/18/2023 Patient was evaluated today resting in bed. Remains in contact for covid infection. on 4L of oxygen which he does wear at home. He has a congested cough and unable to take a deep breath without becoming bronchospastic. He has no acute complaints at this time. He is pending PT evaluation for rehab. Potassium 3.2, renal funtion stable. Review of Systems Constitutional: Denied any fatigue denied any fever. Cardio vascular: denied any chest pain, palpitations Gastrointestinal: denied any nausea, vomiting, diarrhea Pulmonary: Reports shortness of breath and congested cough Neurologic: Reports weakness. All inpatient medications were reviewed and appropriate changes in these medications as dictated in the interval history and assessment and plan. PHYSICAL EXAMINATION: GENERAL: The patient is alert orientation x1, not in any acute distress. Well developed, well nourished. On 4L. HEENT: Pupils are round and equally reacting to light. EOMI. No scleral icterus. No conjunctival pallor. Normocephalic, atraumatic. No pharyngeal erythema. No thyromegaly. Tachycardic irregularly irregular rhythm CARDIOVASCULAR: S1 and S2 present. No murmurs, rubs, or gallops. PULMONARY: coarse scattered ronchi throughout, bronchospastic ABDOMEN: Soft, nontender, nondistended, normoactive bowel sounds. No palpable organomegaly. MUSCULOSKELETAL: No joint swelling or deformity. EXTREMITIES: No cyanosis, clubbing, or pedal edema. NEUROLOGICAL: Limited significant generalized weakness SKIN: No rashes. Assessment and plan -Syncopal episode likely dehydration -Atrial fibrillation with rapid ventricular rate probably secondary to intravascular volume depletion, dehydration -Acute renal failure secondary to prerenal azotemia from dehydration -Lactic acidosis secondary to severe intravascular depletion IV fluids as mentioned above so far there is no evidence of infection at this time -Hypotension secondary to atrial fibrillation and dehydration -Coronary artery disease with stents in the past -Mild elevated troponin most probably secondary to atrial fibrillation -Type 2 diabetes mellitus for now sliding scale insulin -Dementia: He is either senile dementia or vascular dementia -Hyperlipidemia -Hypertension -Hx OAB -CVA/TIA in the past DVT prophylaxis: On anticoagulation for atrial fibrillation GI prophylaxis Full Code Plan IV fluids have been discontinued Lasix remains on hold Patient has been started on budesonide inhaled BID as well as doxycycline Cardiology was consulted for the atrial fibrillation and syncope Physical therapy for discharge planning The impression and plan of care has been dictated by Areli Delgado, Nurse Practitioner as directed. Dr. Carey MD I have performed a history and physical examination and medical decision making of this patient, discussed the same with the dictator, and agree with the dictators assessment and plan as written, documented as a scribe. Based on total visit time, I have performed more than 50% of this visit. Objective - Vital Signs Vital signs: Vital Signs Temp 97.0 F L 07/18/23 08:00 Pulse 71 07/18/23 08:00 Resp 16 07/18/23 08:00 BP 183/85 07/18/23 08:00 Pulse Ox 99 07/18/23 08:00 FiO2 Intake & Output 07/17/23 07/18/23 07/18/23 18:59 06:59 18:59 Weight 99.79 kg 99.79 kg Other: # Voids 1 # Bowel Movements 1 - Labs CBC & Chem 7: 07/18/23 07:34 07/18/23 07:34 Labs: Abnormal Lab Results - Last 24 Hours (Table) 07/17/23 07/17/23 07/18/23 Range/Units 09:45 16:39 05:49 RBC (4.30-5.90) m/uL Hgb (13.0-17.5) gm/dL Hct (39.0-53.0) % RDW (11.5-15.5) % Plt Count (150-450) k/uL Potassium (3.5-5.1) mmol/L Chloride (98-107) mmol/L BUN (9-20) mg/dL Glucose (74-99) mg/dL POC Glucose (mg/dL) 120 H 172 H (70-110) mg/dL Calcium (8.4-10.2) mg/dL Procalcitonin 0.12 H (0.02-0.09) ng/mL 07/18/23 07/18/23 07/18/23 Range/Units 07:34 07:34 11:22 RBC 3.86 L (4.30-5.90) m/uL Hgb 10.7 L (13.0-17.5) gm/dL Hct 32.6 L (39.0-53.0) % RDW 17.6 H (11.5-15.5) % Plt Count 131 L (150-450) k/uL Potassium 3.2 L (3.5-5.1) mmol/L Chloride 110 H (98-107) mmol/L BUN 33 H (9-20) mg/dL Glucose 154 H (74-99) mg/dL POC Glucose (mg/dL) 136 H (70-110) mg/dL Calcium 7.9 L (8.4-10.2) mg/dL Procalcitonin (0.02-0.09) ng/mL Assessment and Plan Time with Patient: Less than 30
[2023-07-18] MEDS: FAMOTIDINE 20 MG TAB PO SCH ×2 (13:20→20:18)
[2023-07-18] MEDS: DOXYCYCLINE 100 MG CAP PO SCH ×2 (13:21→20:18)
[2023-07-18] MEDS: POTASSIUM CHLORIDE ER 20 MEQ TAB.ER PO SCH ×2 (13:21→17:36)
[2023-07-18 13:36] VITALS: BMI 31.5
[2023-07-18 16:20] LABS: Glucose,Whole Blood 172 mg/dL (70-110)
[2023-07-18] MEDS: TAMSULOSIN 0.4 MG CAP.ER.24H PO SCH (17:36)
[2023-07-18 19:34] LABS: Glucose,Whole Blood 159 mg/dL (70-110)
[2023-07-18] MEDS ORDERED: BUDESONIDE 0.5 MG/2 ML NEBU INHALATION SCH (20:00)
[2023-07-18] MEDS: DONEPEZIL 10 MG TAB PO SCH (20:18)
[2023-07-18] MEDS: traZODone HCL 50 MG TAB PO SCH (20:18)
[2023-07-18] MEDS: ATORVASTATIN 40 MG TAB PO SCH (20:19)
[2023-07-19] MEDS: hydrALAZINE HCL 20 MG/ML 1 ML VIAL IVP PRN (05:07)
[2023-07-19 06:13] LABS: Glucose,Whole Blood 102 mg/dL (70-110)
[2023-07-19] MEDS: INSULIN DETEMIR (LEVEMIR) 100 UNIT/ML SYR SQ SCH (06:52)
[2023-07-19] MEDS: INSULIN ASPART (NovoLOG) 100 UNIT/ML VIAL SQ SCH ×4 (06:56→20:52)
--- NOTE | 2023-07-19 07:53 | XR ---
EXAMINATION TYPE: XR chest 1V portable DATE OF EXAM: 07/19/2023 6:43 AM COMPARISON: Chest radiographs from 07/17/2023 TECHNIQUE: XR chest 1V portable Portable AP radiograph of the chest. CLINICAL INDICATION:Male, 87 years old with history of congestion and cough; FINDINGS: Patient is rotated which limits evaluation. Lungs/Pleura: There is no evidence of pleural effusion, focal consolidation, or pneumothorax. Chroni c senescent parenchymal change. Hyperinflation compatible with COPD. Pulmonary vascularity: Unremarkable. Heart/mediastinum: Cardiomediastinal silhouette is enlarged and stable. Atherosclerotic calcificatio ns are seen in the aorta. Musculoskeletal: No acute osseous pathology. IMPRESSION: Mild cardiomegaly and COPD without evidence for acute process.
[2023-07-19 08:00] LABS: Anisocytosis Slight; Basophils % (A) 0 %; Eosinophils # (A) 0.2 k/uL (0-0.7); Eosinophils % (A) 3 %; HCT 35.9 % (39.0-53.0); HGB 11.2 gm/dL (13.0-17.5); Hypochromasia Moderate; Lymphocytes # (A) 1.5 k/uL (1.0-4.8); Lymphocytes % (A) 19 %; MCH 27.2 pg (25.0-35.0); MCHC 31.3 g/dL (31.0-37.0); MCV 86.9 fL (80.0-100.0); Mean Platelet Volume 8.4; Monocytes # (A) 0.6 k/uL (0-1.0); Monocytes % (A) 7 %; Neutrophils # (A) 5.5 k/uL (1.3-7.7); Neutrophils % (A) 70 %; Platelet Count 183 k/uL (150-450); RBC 4.13 m/uL (4.30-5.90); RDW 17.5 % (11.5-15.5); WBC 7.9 k/uL (3.8-10.6)
[2023-07-19 08:06] LABS: African American GFR (CKD) >90 (>60 ml/min/1.73 sqM); Anion Gap 10 mmol/L; Blood Urea Nitrogen 23 mg/dL (9-20); Calcium 8.1 mg/dL (8.4-10.2); Carbon Dioxide 26 mmol/L (22-30); Chloride 110 mmol/L (98-107); Glucose 111 mg/dL (74-99); Non-African American GFR(CKD) 85 (>60 ml/min/1.73 sqM); Potassium 3.9 mmol/L (3.5-5.1); Sodium 146 mmol/L (137-145)
[2023-07-19] MEDS: CITALOPRAM HYDROBROMIDE 10 MG TAB PO SCH (08:15)
[2023-07-19] MEDS: FAMOTIDINE 20 MG TAB PO SCH ×2 (08:16→20:51)
[2023-07-19] MEDS: LINAGLIPTIN 5 MG TABLET PO SCH (08:16)
[2023-07-19] MEDS: GABAPENTIN 100 MG CAP PO SCH ×2 (08:16→20:51)
[2023-07-19] MEDS: CLOPIDOGREL 75 MG TAB PO SCH (08:16)
[2023-07-19] MEDS: DOXYCYCLINE 100 MG CAP PO SCH ×2 (08:16→20:51)
[2023-07-19] MEDS: OXYBUTYNIN 10 MG TAB.ER.24 PO SCH (08:16)
[2023-07-19] MEDS: APIXABAN 5 MG TAB PO SCH ×2 (08:16→20:51)
[2023-07-19] MEDS: METOPROLOL TARTRATE 25 MG TAB PO SCH ×2 (08:16→20:51)
[2023-07-19] MEDS ORDERED: LOSARTAN 25 MG TAB PO SCH (09:00)
[2023-07-19] MEDS: FLUTICASONE 110 MCG INHALER INHALATION SCH ×2 (09:18→20:20)
[2023-07-19] MEDS: ALBUTEROL HFA INHALER INHALATION PRN ×2 (09:18→20:20)
--- NOTE | 2023-07-19 09:33 | P.PN ---
Subjective 87-year-old male was brought in by family members after a syncopal episode patient does have history is found to be in atrial fibrillation with rapid ventricular rate patient was recently hospitalized and was treated for COVID-19 infection and patient declined a subacute rehabilitation at that time. All the medications were not verified patient appeared to be on Decadron. Patient is also hypotensive does take Lasix at home patient baseline creatinine is around 1 present creatinine is 1.4 patient is on Apaxiban for atrial fibrillation. Jessenia ent is poor historian unable to provide much of the history although patient states he feels fine chest x-ray showed mild cardiomegaly and hyperinflated lungs consistent with us COPD and emphysema. Patient's serum BNP is elevated to around 3000 the patient does have elevated lactic acid of 4.5 does have history of coronary artery disease 07/18/2023 Patient was evaluated today resting in bed. Remains in contact for covid infection. on 4L of oxygen which he does wear at home. He has a congested cough and unable to take a deep breath without becoming bronchospastic. He has no acute complaints at this time. He is pending PT evaluation for rehab. Potassium 3.2, renal funtion stable. 07/19/2023 Patient this morning was feeling generally weak lying in bed, he denies dyspnea or coughing although he had occasional dry cough and slightly tachypneic but chest x-ray showing no acute process from today. He uses 2 L of oxygen at home and currently he is saturating 99% on 4 L via Nasal cannula. No abdominal pain, no issues with bowel movement. He has external catheter with concentrated urine. Patient also with bilateral buttock ulcers stage II Patient will benefit from subacute rehab upon discharge Possible discharge in 24-48 hours. He keeps improving discussed with staff and bedside nurse Active Medications Generic Name Dose Route Start Last Admin Trade Name Freq PRN Reason Stop Dose Admin Albuterol Sulfate 2 puff 07/18/23 22:28 07/19/23 09:18 Albuterol Hfa Inhaler INHALATION 2 puff RT-Q4H PRN Administration Shortness Of Breath Apixaban 5 mg 07/17/23 21:00 07/19/23 08:16 Apixaban 5 Mg Tab PO 5 mg BID ALMA ROSA Administration Protocol Atorvastatin Calcium 40 mg 07/17/23 21:00 07/18/23 20:19 Atorvastatin 40 Mg Tab PO 40 mg HS ALMA ROSA Administration Citalopram Hydrobromide 10 mg 07/18/23 09:00 07/19/23 08:15 Citalopram Hydrobromide 10 Mg Tab PO 10 mg DAILY ALMA ROSA Administration Clopidogrel Bisulfate 75 mg 07/17/23 15:15 07/19/23 08:16 Clopidogrel 75 Mg Tab PO 75 mg DAILY ALMA ROSA Administration Dextrose/Water 25 ml 07/17/23 15:07 Dextrose 50% Syringe 50 Ml IVP PER PROTOCOL PRN Hypoglycemia Protocol Dextrose/Water 50 ml 07/17/23 15:07 Dextrose 50% Syringe 50 Ml IVP PER PROTOCOL PRN Hypoglycemia Protocol Donepezil HCl 10 mg 07/17/23 21:00 07/18/23 20:18 Donepezil 10 Mg Tab PO 10 mg HS ALMA ROSA Administration Doxycycline Monohydrate 100 mg 07/18/23 10:30 07/19/23 08:16 Doxycycline 100 Mg Cap PO 07/23/23 10:31 100 mg BID ALMA ROSA Administration Protocol Famotidine 20 mg 07/18/23 10:30 07/19/23 08:16 Famotidine 20 Mg Tab PO 20 mg BID ALMA ROSA Administration Fluticasone Propionate 2 puff 07/18/23 22:31 07/19/23 09:18 Fluticasone 110 Mcg Inhaler INHALATION 2 puff RT-BID ALMA ROSA Administration Gabapentin 100 mg 07/17/23 21:00 07/19/23 08:16 Gabapentin 100 Mg Cap PO 100 mg BID ALMA ROSA Administration Hydralazine HCl 10 mg 07/17/23 21:50 07/19/23 05:07 Hydralazine Hcl 20 Mg/Ml 1 Ml Vial IVP 10 mg Q6HR PRN Administration Blood Pressure - High Insulin Aspart 0 unit 07/17/23 17:30 07/19/23 06:56 Insulin Aspart (Novolog) 100 Unit/Ml Vial SQ Not Given ACHS ALMA ROSA Protocol Insulin Detemir 30 unit 07/18/23 07:00 07/19/23 06:52 Insulin Detemir (Levemir) 100 Unit/Ml Syr SQ 30 unit DAILY@0700 ALMA ROSA Administration Linagliptin 5 mg 07/18/23 09:00 07/19/23 08:16 Linagliptin 5 Mg Tablet PO 5 mg DAILY ALMA ROSA Administration Losartan Potassium 25 mg 07/19/23 09:00 07/19/23 08:16 Losartan 25 Mg Tab PO 25 mg DAILY ALMA ROSA Administration Metoprolol Tartrate 25 mg 07/17/23 21:00 07/19/23 08:16 Metoprolol Tartrate 25 Mg Tab PO 25 mg BID ALMA ROSA Administration Naloxone HCl 0.2 mg 07/17/23 12:11 Naloxone 0.4 Mg/Ml 1 Ml Vial IV Q2M PRN Opioid Reversal Oxybutynin Chloride 10 mg 07/17/23 15:15 07/19/23 08:16 Oxybutynin 10 Mg Tab.Er.24 PO 10 mg DAILY ALMA ROSA Administration Petrolatum 1 applic 07/18/23 12:23 Zinc Oxide Paste (Z-Guard) 1 Applic Applic TOPICAL Q2HR PRN Wound Healing Tamsulosin HCl 0.4 mg 07/17/23 18:30 07/18/23 17:36 Tamsulosin 0.4 Mg Cap.Er.24h PO 0.4 mg PC-SUPPER ALMA ROSA Administration Trazodone HCl 50 mg 07/17/23 21:00 07/18/23 20:18 Trazodone Hcl 50 Mg Tab PO 50 mg HS ALMA ROSA Administration Objective - Vital Signs Vital signs: Vital Signs Temp 97.4 F L 07/19/23 08:10 Pulse 87 07/19/23 08:10 Resp 19 07/19/23 08:10 BP 176/88 07/19/23 08:10 Pulse Ox 98 07/19/23 09:24 FiO2 Intake & Output 07/18/23 07/19/23 07/19/23 18:59 06:59 18:59 Intake Total 570 110 Output Total 100 310 Balance 470 -310 110 Weight 99.79 kg 99.6 kg Intake: Oral 570 110 Output: Urine 100 310 - Exam -GENERAL: The patient is alert and oriented x3, not in any acute distress. Well developed, well nourished. Generally weak HEENT: Pupils are round and equally reacting to light. EOMI. No scleral icterus. No conjunctival pallor. Normocephalic, atraumatic. No pharyngeal erythema. No thyromegaly. CARDIOVASCULAR: S1 and S2 present. No murmurs, rubs, or gallops. PULMONARY: Chest is clear to auscultation, no wheezing , no crackles. ABDOMEN: Soft, nontender, nondistended, normoactive bowel sounds. No palpable organomegaly. -MUSCULOSKELETAL: No joint swelling or deformity. bilateral buttock ulcers stage II EXTREMITIES: No cyanosis, clubbing, or pedal edema. NEUROLOGICAL: Gross neurological examination did not reveal any focal deficits. SKIN: No rashes. no petechiae. - Labs CBC & Chem 7: 07/19/23 07:46 07/19/23 07:41 Labs: Abnormal Lab Results - Last 24 Hours (Table) 07/17/23 07/18/23 07/18/23 Range/Units 09:45 07:34 07:34 RBC 3.86 L (4.30-5.90) m/uL Hgb 10.7 L (13.0-17.5) gm/dL Hct 32.6 L (39.0-53.0) % RDW 17.6 H (11.5-15.5) % Plt Count 131 L (150-450) k/uL Sodium (137-145) mmol/L Potassium 3.2 L (3.5-5.1) mmol/L Chloride 110 H (98-107) mmol/L BUN 33 H (9-20) mg/dL Glucose 154 H (74-99) mg/dL POC Glucose (mg/dL) (70-110) mg/dL Hemoglobin A1c 7.3 H (<=6.0) % Calcium 7.9 L (8.4-10.2) mg/dL 07/18/23 07/18/23 07/18/23 Range/Units 11:22 16:17 19:33 RBC (4.30-5.90) m/uL Hgb (13.0-17.5) gm/dL Hct (39.0-53.0) % RDW (11.5-15.5) % Plt Count (150-450) k/uL Sodium (137-145) mmol/L Potassium (3.5-5.1) mmol/L Chloride (98-107) mmol/L BUN (9-20) mg/dL Glucose (74-99) mg/dL POC Glucose (mg/dL) 136 H 172 H 159 H (70-110) mg/dL Hemoglobin A1c (<=6.0) % Calcium (8.4-10.2) mg/dL 07/19/23 07/19/23 Range/Units 07:41 07:46 RBC 4.13 L (4.30-5.90) m/uL Hgb 11.2 L (13.0-17.5) gm/dL Hct 35.9 L (39.0-53.0) % RDW 17.5 H (11.5-15.5) % Plt Count (150-450) k/uL Sodium 146 H (137-145) mmol/L Potassium (3.5-5.1) mmol/L Chloride 110 H (98-107) mmol/L BUN 23 H (9-20) mg/dL Glucose 111 H (74-99) mg/dL POC Glucose (mg/dL) (70-110) mg/dL Hemoglobin A1c (<=6.0) % Calcium 8.1 L (8.4-10.2) mg/dL Assessment and Plan Assessment: -Syncopal episode likely dehydration - bilateral buttock ulcers stage II -Atrial fibrillation with rapid ventricular rate probably secondary to intravascular volume depletion, dehydration -Acute renal failure secondary to prerenal azotemia from dehydration -Lactic acidosis secondary to severe intravascular depletion IV fluids as mentioned above so far there is no evidence of infection at this time -Hypotension secondary to atrial fibrillation and dehydration -Coronary artery disease with stents in the past -Mild elevated troponin most probably secondary to atrial fibrillation -Type 2 diabetes mellitus for now sliding scale insulin -Dementia: He is either senile dementia or vascular dementia -Hyperlipidemia -Hypertension -Hx OAB -CVA/TIA in the past DVT prophylaxis: On anticoagulation for atrial fibrillation Plan: Keep Lasix on hold Check urine analysis Audio Engineer on the case and keep monitoring on telemetry Labs and medication were reviewed.. Continue same treatment. Continue with symptomatic treatment. Resume home medication. Monitor labs and vitals. DVT and GI prophylaxis. Further recommendations as per clinical course of the patient DVT prophylaxis: eliquis GI Prophylaxis: Pepcid PT/OT: aneta Prognosis is guarded
[2023-07-19 11:25] LABS: Glucose,Whole Blood 157 mg/dL (70-110)
--- NOTE | 2023-07-19 11:27 | P.PN ---
Subjective Progress Note Date: 07/19/23 History of present illness: This is an 87-year-old male with past medical history of paroxysmal atrial fib rillation, coronary artery disease status post angioplasty, hypertension, dyslipidemia, diabetes. Patient has syncopal episode at home which appears to be vasovagal. Patient was in the hospital a week ago found to be Covid positive. Ejection fraction at that time was 35-40%. Patient apparently was at home fell down and had loss of consciousness. Patient really has not been eating or drinking very much. He was initially in A. fib with RVR and converted to sinus rhythm with right bundle branch block. Telemetry is sinus rhythm with PVCs. Repeat blood work reveals hemoglobin 11.2, platelet count 183. Sodium 146, potassium 3.9, chloride 110, BUN 23 creatinine 0.7. Repeat chest x-ray reveals mild cardiomegaly and COPD without evidence of acute process Physical examination: Gen: This is a ill-appearing 87-year-old male. He is resting but no acute respiratory distress, occasional cough VS: reviewed HEENT: Head is atraumatic, normocephalic. Pupils equal, round. Sclerae is anicteric. NECK: Supple. No JVD. . LUNGS: Clear to auscultation. No wheezes or rhonchi. No intercostal retractions. HEART: Regular rate and rhythm. Systolic murmur. ABDOMEN: Soft No tenderness. EXTREMITIES: No pedal edema. No calf tenderness. NEUROLOGICAL: Patient is awake, alert and oriented x3. Assessment: Syncopal episode most likely vasovagal in origin Known coronary artery disease status post angioplasty Paroxysmal atrial fibrillation Ischemic cardiomyopathy Plan: continue patient's cardiac medications Monitor telemetry for arrhythmias No need to repeat echocardiogram At losartan 25 mg daily Further recommendations to follow based upon clinical course Nurse practitioner note has been reviewed, I agree with documented findings and plan of care. Patient was seen and examined. Objective - Vital Signs Vital signs: Vital Signs Temp 98.0 F 07/19/23 04:00 Pulse 58 L 07/19/23 04:00 Resp 22 07/19/23 04:00 BP 165/70 07/19/23 05:48 Pulse Ox 100 07/19/23 04:00 FiO2 Intake & Output 07/18/23 07/19/23 07/19/23 18:59 06:59 18:59 Intake Total 570 Output Total 100 310 Balance 470 -310 Weight 99.79 kg 99.6 kg Intake: Oral 570 Output: Urine 100 310 - Labs CBC & Chem 7: 07/19/23 07:46 07/19/23 07:41 Labs: Abnormal Lab Results - Last 24 Hours (Table) 07/17/23 07/18/23 07/18/23 Range/Units 09:45 07:34 07:34 RBC 3.86 L (4.30-5.90) m/uL Hgb 10.7 L (13.0-17.5) gm/dL Hct 32.6 L (39.0-53.0) % RDW 17.6 H (11.5-15.5) % Plt Count 131 L (150-450) k/uL Potassium 3.2 L (3.5-5.1) mmol/L Chloride 110 H (98-107) mmol/L BUN 33 H (9-20) mg/dL Glucose 154 H (74-99) mg/dL POC Glucose (mg/dL) (70-110) mg/dL Hemoglobin A1c 7.3 H (<=6.0) % Calcium 7.9 L (8.4-10.2) mg/dL 07/18/23 07/18/23 07/18/23 Range/Units 11:22 16:17 19:33 RBC (4.30-5.90) m/uL Hgb (13.0-17.5) gm/dL Hct (39.0-53.0) % RDW (11.5-15.5) % Plt Count (150-450) k/uL Potassium (3.5-5.1) mmol/L Chloride (98-107) mmol/L BUN (9-20) mg/dL Glucose (74-99) mg/dL POC Glucose (mg/dL) 136 H 172 H 159 H (70-110) mg/dL Hemoglobin A1c (<=6.0) % Calcium (8.4-10.2) mg/dL
--- NOTE | 2023-07-19 14:19 | CDI ---
Documentation Clarification Form Date: 07/20/2023 02:00:00 PM From: Palak Merino RN, CCDS Admit Date: 07/17/2023 12:11:00 PM Patient Name: Tarik Smith Visit Number: [id number] Discharge Date: ATTENTION: The Clinical Documentation Specialists (CDI) and [facility] Coding Staff appreciate your assistance in clarifying documentation. Please respond to the clarification below the line at the bottom and electronically sign. The CDI & [facility] Coding staff will review the response and follow-up if needed. Please note: Queries are made part of the Legal Health Record. If you have any questions, please contact the author of this message via ITS. Dr. Tabares E Sheet Your patient has [insert documentation of symptoms or findings, with date, location]. Based on this information and the findings below, is there an additional diagnosis that is clinically appropriate for this patient? History/Risk Factors: Coronary Artery Disease, Hyperlipidemia, Hypertension, CVA/TIA, Dementia, Diabetes Mellitus, Tobacco use: Former smoker Home oxygen: He has been wearing 4 L of oxygen since his diagnosis COVID Clinical Indicators: 87-year-old male recently hospitalized and was treated for COVID-19 infection. Per progress notes he uses 2 L of oxygen at home and currently he is saturating 99% on 4 L via Nasal cannula. 07/19 Vital signs: 176/88 87 19 98.4 95% 4/L NC Lung/Breathing assessment: Congested cough, unable to take a deep breath without becoming bronchospastic. Chest is clear to auscultation, no wheezing, and no crackles. Chest x-ray showed mild cardiomegaly and hyperinflated lungs consistent with us COPD and emphysema. 07/19 Labs: WBC 11.9 NA 146, CL 110 CO2 26 CR.0.70 Treatment: Cardiac/Telemetry monitoring Monitor O2 Sat's (Titrate) Ventolin Inhaler 2 pull Q4 prn [id number] PO BID 07/18-07/19 Flovent 110 Mcg Inhaler 2 puff inhalation BID Is there an additional diagnosis that is clinically appropriate for this patient? [ ] Acute Hypoxic Respiratory Failure (pO2 <60 mm Hg or SpO2 <91% on room air) [ ] Acute Hypercapnic Respiratory Failure (pCO2 >50 and pH <7.35) [ ] Acute on Chronic Hypoxic Respiratory Failure [ ] Chronic Hypoxic Respiratory Failure [ ] Other Diagnosis, please specify [ ] Unable to determine (Template Last Revised: November 2020) Acute Hypoxic Respiratory Failure (pO2 <60 mm Hg or SpO2 <91% on room air) MTDD
[2023-07-19 16:22] LABS: Appearance,Urine Cloudy (Clear); Bilirubin,Urine Negative (Negative); Blood,Urine Negative (Negative); Color,Urine Yellow; Glucose,Urine (UA) Negative (Negative); Ketones,Urine Trace (Negative); Leukocyte Esterase,Urine Moderate (Negative); Mucus,Urine Rare /hpf; Nitrite,Urine Negative (Negative); Protein,Urine 1+ (Negative); RBC,Urine 1 /hpf (0-5); Specific Gravity,Urine 1.025 (1.001-1.035); Squamous Epithelial Cell,Urine 3 /hpf (0-4); WBC,Urine 9 /hpf (0-5)
[2023-07-19 16:33] LABS: Glucose,Whole Blood 66 mg/dL (70-110)
[2023-07-19 17:12] LABS: Glucose,Whole Blood 68 mg/dL (70-110)
[2023-07-19 17:22] LABS: Glucose,Whole Blood 75 mg/dL (70-110)
[2023-07-19] MEDS: TAMSULOSIN 0.4 MG CAP.ER.24H PO SCH (18:45)
[2023-07-19 19:57] LABS: Glucose,Whole Blood 139 mg/dL (70-110)
[2023-07-19] MEDS: ATORVASTATIN 40 MG TAB PO SCH (20:51)
[2023-07-19] MEDS: traZODone HCL 50 MG TAB PO SCH (20:51)
[2023-07-19] MEDS: DONEPEZIL 10 MG TAB PO SCH (20:51)
[2023-07-20] MEDS: INSULIN ASPART (NovoLOG) 100 UNIT/ML VIAL SQ SCH ×4 (06:16→20:24)
[2023-07-20 06:17] LABS: Glucose,Whole Blood 83 mg/dL (70-110)
[2023-07-20] MEDS: INSULIN DETEMIR (LEVEMIR) 100 UNIT/ML SYR SQ SCH (06:37)
[2023-07-20] MEDS: LINAGLIPTIN 5 MG TABLET PO SCH (09:38)
[2023-07-20] MEDS: CITALOPRAM HYDROBROMIDE 10 MG TAB PO SCH (09:38)
[2023-07-20] MEDS: METOPROLOL TARTRATE 25 MG TAB PO SCH ×2 (09:38→20:23)
[2023-07-20] MEDS: LOSARTAN 50 MG TAB PO SCH (09:38)
[2023-07-20] MEDS: CLOPIDOGREL 75 MG TAB PO SCH (09:38)
[2023-07-20] MEDS: APIXABAN 5 MG TAB PO SCH ×2 (09:38→20:24)
[2023-07-20] MEDS: DOXYCYCLINE 100 MG CAP PO SCH ×2 (09:39→20:23)
[2023-07-20] MEDS: OXYBUTYNIN 10 MG TAB.ER.24 PO SCH (09:39)
[2023-07-20] MEDS: GABAPENTIN 100 MG CAP PO SCH ×2 (09:39→20:23)
--- NOTE | 2023-07-20 09:39 | P.PN ---
Subjective 87-year-old male was brought in by family members after a syncopal episode patient does have history is found to be in atrial fibrillation with rapid ventricular rate patient was recently hospitalized and was treated for COVID-19 infection and patient declined a subacute rehabilitation at that time. All the medications were not verified patient appeared to be on Decadron. Patient is also hypotensive does take Lasix at home patient baseline creatinine is around 1 present creatinine is 1.4 patient is on Apaxiban for atrial fibrillation. Jessenia ent is poor historian unable to provide much of the history although patient states he feels fine chest x-ray showed mild cardiomegaly and hyperinflated lungs consistent with us COPD and emphysema. Patient's serum BNP is elevated to around 3000 the patient does have elevated lactic acid of 4.5 does have history of coronary artery disease 07/18/2023 Patient was evaluated today resting in bed. Remains in contact for covid infection. on 4L of oxygen which he does wear at home. He has a congested cough and unable to take a deep breath without becoming bronchospastic. He has no acute complaints at this time. He is pending PT evaluation for rehab. Potassium 3.2, renal funtion stable. 07/19/2023 Patient this morning was feeling generally weak lying in bed, he denies dyspnea or coughing although he had occasional dry cough and slightly tachypneic but chest x-ray showing no acute process from today. He uses 2 L of oxygen at home and currently he is saturating 99% on 4 L via Nasal cannula. No abdominal pain, no issues with bowel movement. He has external catheter with concentrated urine. Patient also with bilateral buttock ulcers stage II Patient will benefit from subacute rehab upon discharge Possible discharge in 24-48 hours. He keeps improving discussed with staff and bedside nurse 07/20/23 Patient generally looks well, looks like he is back to baseline, he denies any specific symptoms, he denies dyspnea or coughing. He states the breathing at baseline No chest pain no other new complaint No pressure on the high side 174/74 and losartan dose was increased to 50 mg daily. Sugar was slightly low about 60-70 and his Levemir dose lower thoracic aorta is down to 25 units daily. Present that patient is medically stable for discharge pending insurance authorization and placement Objective - Vital Signs Vital signs: Vital Signs Temp 97.0 F L 07/20/23 04:00 Pulse 61 07/20/23 04:00 Resp 20 07/20/23 04:00 BP 174/74 07/20/23 04:00 Pulse Ox 96 07/20/23 04:00 FiO2 Intake & Output 07/19/23 07/20/23 07/20/23 18:59 06:59 18:59 Intake Total 590 118 480 Output Total 400 Balance 190 118 480 Intake: Oral 590 118 480 Output: Urine 400 - Exam -GENERAL: The patient is alert and oriented x3, not in any acute distress. Well developed, well nourished. Generally weak HEENT: Pupils are round and equally reacting to light. EOMI. No scleral icterus. No conjunctival pallor. Normocephalic, atraumatic. No pharyngeal erythema. No thyromegaly. CARDIOVASCULAR: S1 and S2 present. No murmurs, rubs, or gallops. PULMONARY: Chest is clear to auscultation, no wheezing , no crackles. ABDOMEN: Soft, nontender, nondistended, normoactive bowel sounds. No palpable organomegaly. -MUSCULOSKELETAL: No joint swelling or deformity. bilateral buttock ulcers stage II EXTREMITIES: No cyanosis, clubbing, or pedal edema. NEUROLOGICAL: Gross neurological examination did not reveal any focal deficits. SKIN: No rashes. no petechiae. - Labs CBC & Chem 7: 07/19/23 07:46 07/19/23 07:41 Labs: Abnormal Lab Results - Last 24 Hours (Table) 07/19/23 07/19/23 07/19/23 Range/Units : 15:34 16:25 POC Glucose (mg/dL) 157 H 66 L (70-110) mg/dL Urine Protein 1+ H (Negative) Urine Ketones Trace H (Negative) Ur Leukocyte Esterase Moderate H (Negative) Urine WBC 9 H (0-5) /hpf Urine Mucus Rare H (None) /hpf 07/19/23 07/19/23 Range/Units 16:52 19:56 POC Glucose (mg/dL) 68 L 139 H (70-110) mg/dL Urine Protein (Negative) Urine Ketones (Negative) Ur Leukocyte Esterase (Negative) Urine WBC (0-5) /hpf Urine Mucus (None) /hpf Assessment and Plan Assessment: -Syncopal episode likely dehydration - bilateral buttock ulcers stage II -Atrial fibrillation with rapid ventricular rate probably secondary to intravascular volume depletion, dehydration -Acute renal failure secondary to prerenal azotemia from dehydration -Lactic acidosis secondary to severe intravascular depletion IV fluids as mentioned above so far there is no evidence of infection at this time -Hypotension secondary to atrial fibrillation and dehydration -Coronary artery disease with stents in the past -Mild elevated troponin most probably secondary to atrial fibrillation -Type 2 diabetes mellitus for now sliding scale insulin -Dementia: He is either senile dementia or vascular dementia -Hyperlipidemia -Hypertension -Hx OAB -CVA/TIA in the past DVT prophylaxis: On anticoagulation for atrial fibrillation Plan: Keep Lasix on hold Check urine analysis Fixture Builder on the case and keep monitoring on telemetry Labs and medication were reviewed.. Continue same treatment. Continue with symptomatic treatment. Resume home medication. Monitor labs and vitals. DVT and GI prophylaxis. Further recommendations as per clinical course of the patient DVT prophylaxis: eliquis GI Prophylaxis: Pepcid PT/OT: aneta Prognosis is guarded
[2023-07-20] MEDS: FAMOTIDINE 20 MG TAB PO SCH ×2 (09:40→20:23)
--- NOTE | 2023-07-20 10:10 | P.PN ---
Subjective Progress Note Date: 07/20/23 History of present illness: This is an 87-year-old male with past medical history of paroxysmal atrial fib rillation, coronary artery disease status post angioplasty, hypertension, dyslipidemia, diabetes. Patient has syncopal episode at home which appears to be vasovagal. Patient was in the hospital a week ago found to be Covid positive. Ejection fraction at that time was 35-40%. Patient apparently was at home fell down and had loss of consciousness. Patient really has not been eating or drinking very much. He was initially in A. fib with RVR and converted to sinus rhythm with right bundle branch block. Telemetry is sinus rhythm with PVCs. Repeat blood work reveals hemoglobin 11.2, platelet count 183. Sodium 146, potassium 3.9, chloride 110, BUN 23 creatinine 0.7. Repeat chest x-ray reveals mild cardiomegaly and COPD without evidence of acute process 07/20 Patient's breathing seems to be improving and appears more comfortable. His pulse ox is 96% and he is now down to 2 L nasal cannula from 4 L yesterday. He's been afebrile heart rate is in the 50s and to 70s. Blood pressure 174/74. Yesterday, losartan 25 mg was added for BP control. Physical examination: Gen: This is a ill-appearing 87-year-old male. He is resting but no acute respiratory distress. VS: reviewed HEENT: Head is atraumatic, normocephalic. Pupils equal, round. Sclerae is anicteric. LUNGS: Few scattered rhonchi. No intercostal retractions. HEART: Regular rate and rhythm. Systolic murmur. ABDOMEN: Soft No tenderness. EXTREMITIES: No pedal edema. No calf tenderness. NEUROLOGICAL: Patient is awake, alert and oriented x3. Assessment: Syncopal episode most likely vasovagal in origin Known coronary artery disease status post angioplasty Paroxysmal atrial fibrillation Ischemic cardiomyopathy + COVID Plan: continue patient's cardiac medications Monitor telemetry for arrhythmias No need to repeat echocardiogram Increase losartan to 50 mg daily Add amlodipine 5 mg daily Further recommendations to follow based upon clinical course Nurse practitioner note has been reviewed, I agree with documented findings and plan of care. Patient was seen and examined. Objective - Vital Signs Vital signs: Vital Signs Temp 97.0 F L 07/20/23 04:00 Pulse 61 07/20/23 04:00 Resp 20 07/20/23 04:00 BP 174/74 07/20/23 04:00 Pulse Ox 96 07/20/23 04:00 FiO2 Intake & Output 07/19/23 07/20/23 07/20/23 18:59 06:59 18:59 Intake Total 590 118 Output Total 400 Balance 190 118 Intake: Oral 590 118 Output: Urine 400 - Labs CBC & Chem 7: 07/19/23 07:46 07/19/23 07:41 Labs: Abnormal Lab Results - Last 24 Hours (Table) 07/19/23 07/19/23 07/19/23 Range/Units 07:41 11: 15:34 Sodium 146 H (137-145) mmol/L Chloride 110 H (98-107) mmol/L BUN 23 H (9-20) mg/dL Glucose 111 H (74-99) mg/dL POC Glucose (mg/dL) 157 H (70-110) mg/dL Calcium 8.1 L (8.4-10.2) mg/dL Urine Protein 1+ H (Negative) Urine Ketones Trace H (Negative) Ur Leukocyte Esterase Moderate H (Negative) Urine WBC 9 H (0-5) /hpf Urine Mucus Rare H (None) /hpf 07/19/23 07/19/23 07/19/23 Range/Units 16:25 16:52 19:56 Sodium (137-145) mmol/L Chloride (98-107) mmol/L BUN (9-20) mg/dL Glucose (74-99) mg/dL POC Glucose (mg/dL) 66 L 68 L 139 H (70-110) mg/dL Calcium (8.4-10.2) mg/dL Urine Protein (Negative) Urine Ketones (Negative) Ur Leukocyte Esterase (Negative) Urine WBC (0-5) /hpf Urine Mucus (None) /hpf
[2023-07-20 11:33] LABS: Glucose,Whole Blood 276 mg/dL (70-110)
[2023-07-20] MEDS: amLODIPine 5 MG TAB PO SCH (11:44)
[2023-07-20] MEDS: FLUTICASONE 110 MCG INHALER INHALATION SCH ×2 (11:54→19:58)
[2023-07-20 16:16] LABS: Glucose,Whole Blood 101 mg/dL (70-110)
[2023-07-20] MEDS: TAMSULOSIN 0.4 MG CAP.ER.24H PO SCH (17:32)
[2023-07-20 19:49] LABS: Glucose,Whole Blood 150 mg/dL (70-110)
[2023-07-20] MEDS: DONEPEZIL 10 MG TAB PO SCH (20:24)
[2023-07-20] MEDS: traZODone HCL 50 MG TAB PO SCH (20:24)
[2023-07-20] MEDS: ATORVASTATIN 40 MG TAB PO SCH (20:24)
[2023-07-21 06:33] LABS: Glucose,Whole Blood 161 mg/dL (70-110)
[2023-07-21] MEDS: INSULIN ASPART (NovoLOG) 100 UNIT/ML VIAL SQ SCH ×4 (06:47→20:55)
[2023-07-21] MEDS: INSULIN DETEMIR (LEVEMIR) 100 UNIT/ML SYR SQ SCH (06:47)
[2023-07-21] MEDS: FLUTICASONE 110 MCG INHALER INHALATION SCH ×2 (08:51→20:42)
[2023-07-21] MEDS: METOPROLOL TARTRATE 25 MG TAB PO SCH ×2 (09:00→20:54)
[2023-07-21] MEDS: LINAGLIPTIN 5 MG TABLET PO SCH (09:00)
[2023-07-21] MEDS: FAMOTIDINE 20 MG TAB PO SCH ×2 (09:00→20:54)
[2023-07-21] MEDS: APIXABAN 5 MG TAB PO SCH ×2 (09:00→20:55)
[2023-07-21] MEDS: CITALOPRAM HYDROBROMIDE 10 MG TAB PO SCH (09:00)
[2023-07-21] MEDS: LOSARTAN 50 MG TAB PO SCH (09:01)
[2023-07-21] MEDS: DOXYCYCLINE 100 MG CAP PO SCH ×2 (09:01→20:55)
[2023-07-21] MEDS: CLOPIDOGREL 75 MG TAB PO SCH (09:01)
[2023-07-21] MEDS: amLODIPine 5 MG TAB PO SCH (09:01)
[2023-07-21] MEDS: OXYBUTYNIN 10 MG TAB.ER.24 PO SCH (09:01)
[2023-07-21] MEDS: GABAPENTIN 100 MG CAP PO SCH ×2 (09:01→20:55)
--- NOTE | 2023-07-21 09:14 | P.PN ---
Subjective 87-year-old male was brought in by family members after a syncopal episode patient does have history is found to be in atrial fibrillation with rapid ventricular rate patient was recently hospitalized and was treated for COVID-19 infection and patient declined a subacute rehabilitation at that time. All the medications were not verified patient appeared to be on Decadron. Patient is also hypotensive does take Lasix at home patient baseline creatinine is around 1 present creatinine is 1.4 patient is on Apaxiban for atrial fibrillation. Jessenia ent is poor historian unable to provide much of the history although patient states he feels fine chest x-ray showed mild cardiomegaly and hyperinflated lungs consistent with us COPD and emphysema. Patient's serum BNP is elevated to around 3000 the patient does have elevated lactic acid of 4.5 does have history of coronary artery disease 07/18/2023 Patient was evaluated today resting in bed. Remains in contact for covid infection. on 4L of oxygen which he does wear at home. He has a congested cough and unable to take a deep breath without becoming bronchospastic. He has no acute complaints at this time. He is pending PT evaluation for rehab. Potassium 3.2, renal funtion stable. 07/19/2023 Patient this morning was feeling generally weak lying in bed, he denies dyspnea or coughing although he had occasional dry cough and slightly tachypneic but chest x-ray showing no acute process from today. He uses 2 L of oxygen at home and currently he is saturating 99% on 4 L via Nasal cannula. No abdominal pain, no issues with bowel movement. He has external catheter with concentrated urine. Patient also with bilateral buttock ulcers stage II Patient will benefit from subacute rehab upon discharge Possible discharge in 24-48 hours. He keeps improving discussed with staff and bedside nurse 07/20/23 Patient generally looks well, looks like he is back to baseline, he denies any specific symptoms, he denies dyspnea or coughing. He states the breathing at baseline No chest pain no other new complaint No pressure on the high side 174/74 and losartan dose was increased to 50 mg daily. Sugar was slightly low about 60-70 and his Levemir dose lower thoracic aorta is down to 25 units daily. Present that patient is medically stable for discharge pending insurance authorization and placement 07/21/2023 Patient has frequent coughing today mostly dry, stent in bed most of the time with no significant dyspnea or chest pain. He is hemodynamically stable. He remains on doxycycline and liquids and Plavix. Lasix is on hold We'll check chest x-ray today Possible discharge in 24-48 hr if he remains stable Objective - Vital Signs Vital signs: Vital Signs Temp 97.1 F L 07/21/23 08:59 Pulse 68 07/21/23 08:59 Resp 21 07/21/23 08:59 BP 141/70 07/21/23 08:59 Pulse Ox 94 L 07/21/23 08:59 FiO2 Intake & Output 07/20/23 07/21/23 07/21/23 18:59 06:59 18:59 Intake Total 838 Output Total 300 Balance 538 Weight 99.6 kg Intake: Oral 838 Output: Urine 300 Other: # Bowel Movements 1 - Exam -GENERAL: The patient is alert and oriented x3, not in any acute distress. Well developed, well nourished. Generally weak HEENT: Pupils are round and equally reacting to light. EOMI. No scleral icterus. No conjunctival pallor. Normocephalic, atraumatic. No pharyngeal erythema. No thyromegaly. CARDIOVASCULAR: S1 and S2 present. No murmurs, rubs, or gallops. PULMONARY: Chest is clear to auscultation, no wheezing , no crackles. ABDOMEN: Soft, nontender, nondistended, normoactive bowel sounds. No palpable organomegaly. -MUSCULOSKELETAL: No joint swelling or deformity. bilateral buttock ulcers stage II EXTREMITIES: No cyanosis, clubbing, or pedal edema. NEUROLOGICAL: Gross neurological examination did not reveal any focal deficits. SKIN: No rashes. no petechiae. - Labs CBC & Chem 7: 07/19/23 07:46 07/19/23 07:41 Labs: Abnormal Lab Results - Last 24 Hours (Table) 07/20/23 07/20/23 07/21/23 Range/Units 11:31 19:48 06:32 POC Glucose (mg/dL) 276 H 150 H 161 H (70-110) mg/dL Assessment and Plan Assessment: -Syncopal episode likely dehydration - bilateral buttock ulcers stage II -Atrial fibrillation with rapid ventricular rate probably secondary to intravascular volume depletion, dehydration -Acute renal failure secondary to prerenal azotemia from dehydration -Lactic acidosis secondary to severe intravascular depletion IV fluids as mentioned above so far there is no evidence of infection at this time -Hypotension secondary to atrial fibrillation and dehydration -Coronary artery disease with stents in the past -Mild elevated troponin most probably secondary to atrial fibrillation -Type 2 diabetes mellitus for now sliding scale insulin -Dementia: He is either senile dementia or vascular dementia -Hyperlipidemia -Hypertension -Hx OAB -CVA/TIA in the past DVT prophylaxis: On anticoagulation for atrial fibrillation Plan: Keep Lasix on hold Check urine analysis Edi Specialist on the case and keep monitoring on telemetry Labs and medication were reviewed.. Continue same treatment. Continue with symptomatic treatment. Resume home medication. Monitor labs and vitals. DVT and GI prophylaxis. Further recommendations as per clinical course of the patient DVT prophylaxis: eliquis GI Prophylaxis: Pepcid PT/OT: aneta Prognosis is guarded
--- NOTE | 2023-07-21 09:42 | XR ---
EXAMINATION TYPE: XR chest 1V DATE OF EXAM: 07/21/2023 9:27 AM CLINICAL INDICATION:Male, 88 years old with history of sob; COMPARISON: Chest radiographs from 07/19/2023 TECHNIQUE: XR chest 1V Frontal view of the chest. FINDINGS: Lungs/Pleura: There is no evidence of pleural effusion, focal consolidation, or pneumothorax. Pulmonary vascularity: Unremarkable. Heart/mediastinum: Cardiomediastinal silhouette is unremarkable. Musculoskeletal: No acute osseous pathology. IMPRESSION: No acute cardiopulmonary disease/process.
--- NOTE | 2023-07-21 09:49 | P.PN ---
Subjective Progress Note Date: 07/21/23 History of present illness: This is an 87-year-old male with past medical history of paroxysmal atrial fib rillation, coronary artery disease status post angioplasty, hypertension, dyslipidemia, diabetes. Patient has syncopal episode at home which appears to be vasovagal. Patient was in the hospital a week ago found to be Covid positive. Ejection fraction at that time was 35-40%. Patient apparently was at home fell down and had loss of consciousness. Patient really has not been eating or drinking very much. He was initially in A. fib with RVR and converted to sinus rhythm with right bundle branch block. Telemetry is sinus rhythm with PVCs. Repeat blood work reveals hemoglobin 11.2, platelet count 183. Sodium 146, potassium 3.9, chloride 110, BUN 23 creatinine 0.7. Repeat chest x-ray reveals mild cardiomegaly and COPD without evidence of acute process 07/20 Patient's breathing seems to be improving and appears more comfortable. His pulse ox is 96% and he is now down to 2 L nasal cannula from 4 L yesterday. He's been afebrile heart rate is in the 50s and to 70s. Blood pressure 174/74. Yesterday, losartan 25 mg was added for BP control. 07/21 Patient denies having any concerns today. He has not had any documented fevers. Heart rate is in the 60s and 70s, blood pressure 136/65, pulse ox 92% on 2 L. Telemetry is a sinus arrhythmia with PVCs. Patient remains in isolation for Covid. Physical examination: Gen: This is a ill-appearing 87-year-old male. He is resting but no acute respiratory distress. VS: reviewed HEENT: Head is atraumatic, normocephalic. Pupils equal, round. Sclerae is anicteric. LUNGS: Few scattered rhonchi. No intercostal retractions. HEART: Regular rate and rhythm. Systolic murmur. ABDOMEN: Soft No tenderness. EXTREMITIES: No pedal edema. No calf tenderness. NEUROLOGICAL: Patient is awake, alert. Assessment: Syncopal episode most likely vasovagal in origin Known coronary artery disease status post angioplasty Paroxysmal atrial fibrillation Ischemic cardiomyopathy + COVID Plan: continue patient's cardiac medications No need to repeat echocardiogram Continue increased dose of losartan 50 mg daily Continue the addition of amlodipine 5 mg daily Cardiology we'll sign off and follow on an as-needed basis. Please reconsult for any new concerns. Nurse practitioner note has been reviewed, I agree with documented findings and plan of care. Patient was seen and examined. Objective - Vital Signs Vital signs: Vital Signs Temp 97.5 F L 07/21/23 04:00 Pulse 65 07/21/23 04:00 Resp 20 07/21/23 04:00 BP 136/65 07/21/23 04:00 Pulse Ox 92 L 07/21/23 04:00 FiO2 Intake & Output 07/20/23 07/21/23 07/21/23 18:59 06:59 18:59 Intake Total 838 Output Total 300 Balance 538 Weight 99.6 kg Intake: Oral 838 Output: Urine 300 Other: # Bowel Movements 1 - Labs CBC & Chem 7: 07/19/23 07:46 07/19/23 07:41 Labs: Abnormal Lab Results - Last 24 Hours (Table) 07/20/23 07/20/23 07/21/23 Range/Units 11:31 19:48 06:32 POC Glucose (mg/dL) 276 H 150 H 161 H (70-110) mg/dL
[2023-07-21] MEDS ORDERED: FUROSEMIDE 10 MG/ML 2 ML VIAL IV ONE (10:30)
[2023-07-21 11:45] LABS: Glucose,Whole Blood 133 mg/dL (70-110)
[2023-07-21] MEDS: guaiFENesin-DM 100-10MG/5ML 10 ML CUP PO SCH ×2 (12:10→17:16)
[2023-07-21 16:31] LABS: Glucose,Whole Blood 147 mg/dL (70-110)
[2023-07-21] MEDS: TAMSULOSIN 0.4 MG CAP.ER.24H PO SCH (17:16)
[2023-07-21 20:07] LABS: Glucose,Whole Blood 212 mg/dL (70-110)
[2023-07-21] MEDS: DONEPEZIL 10 MG TAB PO SCH (20:55)
[2023-07-21] MEDS: traZODone HCL 50 MG TAB PO SCH (20:55)
[2023-07-21] MEDS: ATORVASTATIN 40 MG TAB PO SCH (20:55)
[2023-07-22] MEDS: guaiFENesin-DM 100-10MG/5ML 10 ML CUP PO SCH ×4 (00:14→16:33)
[2023-07-22 06:27] LABS: Glucose,Whole Blood 157 mg/dL (70-110)
[2023-07-22] MEDS: INSULIN ASPART (NovoLOG) 100 UNIT/ML VIAL SQ SCH ×4 (06:33→21:11)
[2023-07-22] MEDS: INSULIN DETEMIR (LEVEMIR) 100 UNIT/ML SYR SQ SCH (06:33)
[2023-07-22] MEDS: FLUTICASONE 110 MCG INHALER INHALATION SCH ×2 (07:46→20:23)
[2023-07-22] MEDS: ALBUTEROL HFA INHALER INHALATION PRN (07:50)
[2023-07-22] MEDS: CITALOPRAM HYDROBROMIDE 10 MG TAB PO SCH (09:09)
[2023-07-22] MEDS: CLOPIDOGREL 75 MG TAB PO SCH (09:09)
[2023-07-22] MEDS: amLODIPine 5 MG TAB PO SCH (09:09)
[2023-07-22] MEDS: FAMOTIDINE 20 MG TAB PO SCH ×2 (09:09→21:16)
[2023-07-22] MEDS: LOSARTAN 50 MG TAB PO SCH (09:09)
[2023-07-22] MEDS: OXYBUTYNIN 10 MG TAB.ER.24 PO SCH (09:09)
[2023-07-22] MEDS: LINAGLIPTIN 5 MG TABLET PO SCH (09:09)
[2023-07-22] MEDS: METOPROLOL TARTRATE 25 MG TAB PO SCH ×2 (09:09→21:16)
[2023-07-22] MEDS: DOXYCYCLINE 100 MG CAP PO SCH ×2 (09:09→21:17)
[2023-07-22] MEDS: APIXABAN 5 MG TAB PO SCH ×2 (09:09→21:16)
[2023-07-22] MEDS: GABAPENTIN 100 MG CAP PO SCH ×2 (09:09→21:16)
[2023-07-22 11:35] LABS: Glucose,Whole Blood 233 mg/dL (70-110)
[2023-07-22 16:20] LABS: Glucose,Whole Blood 220 mg/dL (70-110)
[2023-07-22] MEDS: TAMSULOSIN 0.4 MG CAP.ER.24H PO SCH (16:33)
--- NOTE | 2023-07-22 19:57 | P.PN ---
Subjective 87-year-old male was brought in by family members after a syncopal episode patient does have history is found to be in atrial fibrillation with rapid ventricular rate patient was recently hospitalized and was treated for COVID-19 infection and patient declined a subacute rehabilitation at that time. All the medications were not verified patient appeared to be on Decadron. Patient is also hypotensive does take Lasix at home patient baseline creatinine is around 1 present creatinine is 1.4 patient is on Apaxiban for atrial fibrillation. Jessenia ent is poor historian unable to provide much of the history although patient states he feels fine chest x-ray showed mild cardiomegaly and hyperinflated lungs consistent with us COPD and emphysema. Patient's serum BNP is elevated to around 3000 the patient does have elevated lactic acid of 4.5 does have history of coronary artery disease 07/18/2023 Patient was evaluated today resting in bed. Remains in contact for covid infection. on 4L of oxygen which he does wear at home. He has a congested cough and unable to take a deep breath without becoming bronchospastic. He has no acute complaints at this time. He is pending PT evaluation for rehab. Potassium 3.2, renal funtion stable. 07/19/2023 Patient this morning was feeling generally weak lying in bed, he denies dyspnea or coughing although he had occasional dry cough and slightly tachypneic but chest x-ray showing no acute process from today. He uses 2 L of oxygen at home and currently he is saturating 99% on 4 L via Nasal cannula. No abdominal pain, no issues with bowel movement. He has external catheter with concentrated urine. Patient also with bilateral buttock ulcers stage II Patient will benefit from subacute rehab upon discharge Possible discharge in 24-48 hours. He keeps improving discussed with staff and bedside nurse 07/20/23 Patient generally looks well, looks like he is back to baseline, he denies any specific symptoms, he denies dyspnea or coughing. He states the breathing at baseline No chest pain no other new complaint No pressure on the high side 174/74 and losartan dose was increased to 50 mg daily. Sugar was slightly low about 60-70 and his Levemir dose lower thoracic aorta is down to 25 units daily. Present that patient is medically stable for discharge pending insurance authorization and placement 07/21/2023 Patient has frequent coughing today mostly dry, stent in bed most of the time with no significant dyspnea or chest pain. He is hemodynamically stable. He remains on doxycycline and liquids and Plavix. Lasix is on hold We'll check chest x-ray today Possible discharge in 24-48 hr if he remains stable 07/22/2023 Patient is hemodynamically stable Patient is at baseline, however is very weak and lethargic. He is awake oriented. He denies any symptom His cough is also improved.. Patient feels he can be discharged. Patient with a discharge pending placement Today i did peer to peer review with Dr. Pino from [facility] and he kindly agreed for the patient to go to subacute rehab Discuss also with forensic social worker and staff Objective - Vital Signs Vital signs: Vital Signs Temp 97.2 F L 07/22/23 19:48 Pulse 62 07/22/23 19:48 Resp 18 07/22/23 19:48 BP 115/66 07/22/23 19:48 Pulse Ox 91 L 07/22/23 19:48 FiO2 Intake & Output 07/22/23 07/22/23 07/23/23 06:59 18:59 06:59 Intake Total 656 Output Total 250 150 Balance -250 506 Intake: Oral 656 Output: Urine 250 150 Other: Voiding Method External Catheter External Catheter # Voids 1 - Exam -GENERAL: The patient is alert and oriented x3, not in any acute distress. Well developed, well nourished. Generally weak HEENT: Pupils are round and equally reacting to light. EOMI. No scleral icterus. No conjunctival pallor. Normocephalic, atraumatic. No pharyngeal erythema. No thyromegaly. CARDIOVASCULAR: S1 and S2 present. No murmurs, rubs, or gallops. PULMONARY: Chest is clear to auscultation, no wheezing , no crackles. ABDOMEN: Soft, nontender, nondistended, normoactive bowel sounds. No palpable organomegaly. -MUSCULOSKELETAL: No joint swelling or deformity. bilateral buttock ulcers stage II EXTREMITIES: No cyanosis, clubbing, or pedal edema. NEUROLOGICAL: Gross neurological examination did not reveal any focal deficits. SKIN: No rashes. no petechiae. - Labs CBC & Chem 7: 07/19/23 07:46 07/19/23 07:41 Labs: Abnormal Lab Results - Last 24 Hours (Table) 07/21/23 07/22/23 07/22/23 Range/Units 20:06 06:25 11:34 POC Glucose (mg/dL) 212 H 157 H 233 H (70-110) mg/dL 07/22/23 Range/Units 16:18 POC Glucose (mg/dL) 220 H (70-110) mg/dL Assessment and Plan Assessment: -Syncopal episode likely dehydration - bilateral buttock ulcers stage II -Atrial fibrillation with rapid ventricular rate probably secondary to intravascular volume depletion, dehydration -Acute renal failure secondary to prerenal azotemia from dehydration -Lactic acidosis secondary to severe intravascular depletion IV fluids as mentioned above so far there is no evidence of infection at this time -Hypotension secondary to atrial fibrillation and dehydration -Coronary artery disease with stents in the past -Mild elevated troponin most probably secondary to atrial fibrillation -Type 2 diabetes mellitus for now sliding scale insulin -Dementia: He is either senile dementia or vascular dementia -Hyperlipidemia -Hypertension -Hx OAB -CVA/TIA in the past DVT prophylaxis: On anticoagulation for atrial fibrillation Plan: Keep Lasix on hold Check urine analysis Radiology Rn on the case and keep monitoring on telemetry Labs and medication were reviewed.. Continue same treatment. Continue with symptomatic treatment. Resume home medication. Monitor labs and vitals. DVT and GI prophylaxis. Further recommendations as per clinical course of the patient DVT prophylaxis: eliquis GI Prophylaxis: Pepcid PT/OT: aneta Prognosis is guarded
[2023-07-22 20:17] LABS: Glucose,Whole Blood 140 mg/dL (70-110)
[2023-07-22] MEDS: traZODone HCL 50 MG TAB PO SCH (21:16)
[2023-07-22] MEDS: DONEPEZIL 10 MG TAB PO SCH (21:16)
[2023-07-22] MEDS: ATORVASTATIN 40 MG TAB PO SCH (21:16)
[2023-07-23] MEDS: guaiFENesin-DM 100-10MG/5ML 10 ML CUP PO SCH ×3 (00:56→11:51)
[2023-07-23 05:05] LABS: Glucose,Whole Blood 109 mg/dL (70-110)
[2023-07-23] MEDS: INSULIN ASPART (NovoLOG) 100 UNIT/ML VIAL SQ SCH ×2 (05:48→11:51)
[2023-07-23] MEDS: INSULIN DETEMIR (LEVEMIR) 100 UNIT/ML SYR SQ SCH (06:18)
[2023-07-23] MEDS: FLUTICASONE 110 MCG INHALER INHALATION SCH (08:24)
[2023-07-23] MEDS: ALBUTEROL HFA INHALER INHALATION PRN ×2 (08:24→15:54)
[2023-07-23] MEDS: amLODIPine 5 MG TAB PO SCH (08:50)
[2023-07-23] MEDS: GABAPENTIN 100 MG CAP PO SCH (08:50)
[2023-07-23] MEDS: CLOPIDOGREL 75 MG TAB PO SCH (08:50)
[2023-07-23] MEDS: LOSARTAN 50 MG TAB PO SCH (08:50)
[2023-07-23] MEDS: METOPROLOL TARTRATE 25 MG TAB PO SCH (08:50)
[2023-07-23] MEDS: APIXABAN 5 MG TAB PO SCH (08:51)
[2023-07-23] MEDS: DOXYCYCLINE 100 MG CAP PO SCH (08:51)
[2023-07-23] MEDS: LINAGLIPTIN 5 MG TABLET PO SCH (08:51)
[2023-07-23] MEDS: OXYBUTYNIN 10 MG TAB.ER.24 PO SCH (08:51)
[2023-07-23] MEDS: FAMOTIDINE 20 MG TAB PO SCH (08:51)
[2023-07-23] MEDS: CITALOPRAM HYDROBROMIDE 10 MG TAB PO SCH (08:51)
[2023-07-23 09:44] VITALS: TEMP 98
[2023-07-23 11:44] LABS: Glucose,Whole Blood 419 mg/dL (70-110)
--- NOTE | 2023-07-23 12:57 | P.PN ---
Subjective 87-year-old male was brought in by family members after a syncopal episode patient does have history is found to be in atrial fibrillation with rapid ventricular rate patient was recently hospitalized and was treated for COVID-19 infection and patient declined a subacute rehabilitation at that time. All the medications were not verified patient appeared to be on Decadron. Patient is also hypotensive does take Lasix at home patient baseline creatinine is around 1 present creatinine is 1.4 patient is on Apaxiban for atrial fibrillation. Jessenia ent is poor historian unable to provide much of the history although patient states he feels fine chest x-ray showed mild cardiomegaly and hyperinflated lungs consistent with us COPD and emphysema. Patient's serum BNP is elevated to around 3000 the patient does have elevated lactic acid of 4.5 does have history of coronary artery disease 07/18/2023 Patient was evaluated today resting in bed. Remains in contact for covid infection. on 4L of oxygen which he does wear at home. He has a congested cough and unable to take a deep breath without becoming bronchospastic. He has no acute complaints at this time. He is pending PT evaluation for rehab. Potassium 3.2, renal funtion stable. 07/19/2023 Patient this morning was feeling generally weak lying in bed, he denies dyspnea or coughing although he had occasional dry cough and slightly tachypneic but chest x-ray showing no acute process from today. He uses 2 L of oxygen at home and currently he is saturating 99% on 4 L via Nasal cannula. No abdominal pain, no issues with bowel movement. He has external catheter with concentrated urine. Patient also with bilateral buttock ulcers stage II Patient will benefit from subacute rehab upon discharge Possible discharge in 24-48 hours. He keeps improving discussed with staff and bedside nurse 07/20/23 Patient generally looks well, looks like he is back to baseline, he denies any specific symptoms, he denies dyspnea or coughing. He states the breathing at baseline No chest pain no other new complaint No pressure on the high side 174/74 and losartan dose was increased to 50 mg daily. Sugar was slightly low about 60-70 and his Levemir dose lower thoracic aorta is down to 25 units daily. Present that patient is medically stable for discharge pending insurance authorization and placement 07/21/2023 Patient has frequent coughing today mostly dry, stent in bed most of the time with no significant dyspnea or chest pain. He is hemodynamically stable. He remains on doxycycline and liquids and Plavix. Lasix is on hold We'll check chest x-ray today Possible discharge in 24-48 hr if he remains stable 07/22/2023 Patient is hemodynamically stable Patient is at baseline, however is very weak and lethargic. He is awake oriented. He denies any symptom His cough is also improved.. Patient feels he can be discharged. Patient with a discharge pending placement Today i did peer to peer review with Dr. Pino from [facility] and he kindly agreed for the patient to go to subacute rehab Discuss also with social media campaign manager and staff 07/23/2023 Patient doing well, no new complaints at bedside Patient and agreeable to go to rehab Patient medically stable pending prior authorization Objective - Vital Signs Vital signs: Vital Signs Temp 98 F 07/23/23 08:30 Pulse 77 07/23/23 08:30 Resp 17 07/23/23 08:30 BP 133/59 07/23/23 08:30 Pulse Ox 97 07/23/23 08:43 FiO2 Intake & Output 07/22/23 07/23/23 07/23/23 18:59 06:59 18:59 Intake Total 656 120 Output Total 150 150 Balance 506 -150 120 Intake: Oral 656 120 Output: Urine 150 150 Other: Voiding Method External Catheter External Catheter External Catheter # Voids 1 - Exam -GENERAL: The patient is alert and oriented x3, not in any acute distress. Well developed, well nourished. Generally weak HEENT: Pupils are round and equally reacting to light. EOMI. No scleral icterus. No conjunctival pallor. Normocephalic, atraumatic. No pharyngeal erythema. No thyromegaly. CARDIOVASCULAR: S1 and S2 present. No murmurs, rubs, or gallops. PULMONARY: Chest is clear to auscultation, no wheezing , no crackles. ABDOMEN: Soft, nontender, nondistended, normoactive bowel sounds. No palpable organomegaly. -MUSCULOSKELETAL: No joint swelling or deformity. bilateral buttock ulcers stage II EXTREMITIES: No cyanosis, clubbing, or pedal edema. NEUROLOGICAL: Gross neurological examination did not reveal any focal deficits. SKIN: No rashes. no petechiae. - Labs CBC & Chem 7: 07/19/23 07:46 07/19/23 07:41 Labs: Abnormal Lab Results - Last 24 Hours (Table) 07/22/23 07/22/23 07/23/23 Range/Units 16:18 20:15 11:43 POC Glucose (mg/dL) 220 H 140 H 419 H (70-110) mg/dL Assessment and Plan Assessment: -Syncopal episode likely dehydration - bilateral buttock ulcers stage II -Atrial fibrillation with rapid ventricular rate probably secondary to intravascular volume depletion, dehydration -Acute renal failure secondary to prerenal azotemia from dehydration -Lactic acidosis secondary to severe intravascular depletion IV fluids as mentioned above so far there is no evidence of infection at this time -Hypotension secondary to atrial fibrillation and dehydration -Coronary artery disease with stents in the past -Mild elevated troponin most probably secondary to atrial fibrillation -Type 2 diabetes mellitus for now sliding scale insulin -Dementia: He is either senile dementia or vascular dementia -Hyperlipidemia -Hypertension -Hx OAB -CVA/TIA in the past DVT prophylaxis: On anticoagulation for atrial fibrillation Plan: Keep Lasix on hold Check urine analysis Associate Business Analyst on the case and keep monitoring on telemetry Labs and medication were reviewed.. Continue same treatment. Continue with symptomatic treatment. Resume home medication. Monitor labs and vitals. DVT and GI prophylaxis. Further recommendations as per clinical course of the patient DVT prophylaxis: eliquis GI Prophylaxis: Pepcid PT/OT: aneta Prognosis is guarded
--- NOTE | 2023-07-23 13:05 | P.DS ---
Providers Date of admission: 07/17/23 12:11 Attending physician: Kami Patino Consults: 07/17/23 12:11 Consult Physician Urgent Consulting Provider: [facility] Consult Reason/Comments: afib with rvr Do you want consulting provider notified?: Yes Primary care physician: Fabiola Hospital Course: Diagnoses: -Syncopal episode likely dehydration - bilateral buttock ulcers stage II -Atrial fibrillation with rapid ventricular rate probably secondary to intravascular volume depletion, dehydration -Acute renal failure secondary to prerenal azotemia from dehydration -Lactic acidosis secondary to severe intravascular depletion IV fluids as mentioned above so far there is no evidence of infection at this time -Hypotension secondary to atrial fibrillation and dehydration -Coronary artery disease with stents in the past -Mild elevated troponin most probably secondary to atrial fibrillation -Type 2 diabetes mellitus for now sliding scale insulin -Dementia: He is either senile dementia or vascular dementia -Hyperlipidemia -Hypertension -Hx OAB -CVA/TIA in the past dementia - Hospital course: 87-year-old male was brought in by family members after a syncopal episode patient does have history is found to be in atrial fibrillation with rapid ventricular rate patient was recently hospitalized and was treated for COVID-19 infection and patient declined a subacute rehabilitation at that time. All the medications were not verified patient appeared to be on Decadron. Patient presents because of syncope secondary to dehydration, he had periods of unresponsiveness, thought to be related to multiple medical problems including Covid infection without obvious pneumonia, patient is also not hypoxic. He had evidence of acute kidney injury and dehydration which are both resolved now. Troponin were mildly elevated because of kidney disease and his A. fib. Patient already evaluated by family mediator and cleared for discharge. Patient currently back to baseline and he is asymptomatic except for generalized weakness. Patient required rehab for strengthening. Lasix and hydralazine and unilateral discontinue it and patient was started on Norvasc and losartan Patient was cleared for discharge by family mediator. Problems and management plan were discussed with the patient and he verbalized understanding and acceptance Patient was found stable and can be discharged home in guarded prognosis however he needs follow-up as an outpatient. Patient was instructed to follow up with PCP within one week and patient agrees Physical exam Gen: patient is a AAOx3, no distress CVS: S1-S2, RRR, no murmur Lungs: B/L CTA, no wheezing Abdomen: soft, no distention, no tenderness, positive bowel sounds Extremity: no leg edema or induration Time spent more than 35 minutes Patient Condition at Discharge: Serious Plan - Discharge Summary Discharge Rx Participant: No New Discharge Prescriptions: Continue Gabapentin [Neurontin] 100 mg PO BID 5 Days #10 cap No Action Insulin Aspart [NovoLOG Flexpen] 10 units SQ AC-BRKFST traZODone HCL [Desyrel] 50 mg PO HS Enalapril [Vasotec] 40 mg PO DAILY Clopidogrel [Plavix] 75 mg PO DAILY sitaGLIPtin [Januvia] 100 mg PO DAILY Atorvastatin [Lipitor] 40 mg PO HS Oxybutynin Chloride [oxyBUTYnin chloride ER] 10 mg PO DAILY Furosemide [Lasix] 40 mg PO DAILY Citalopram Hydrobromide [CeleXA] 10 mg PO DAILY Donepezil [Aricept] 10 mg PO HS Tamsulosin [Flomax] 0.4 mg PO PC-SUPPER #30 cap Insulin Aspart [NovoLOG Flexpen] 6 units SQ AC-SUPPER Insulin Aspart [NovoLOG Flexpen] 6 units SQ AC-LUNCH Albuterol Inhaler [Ventolin Hfa Inhaler] 2 puff INHALATION RT-Q4H PRN PRN Reason: Shortness Of Breath Apixaban [Eliquis] 5 mg PO BID #30 tab Metoprolol Tartrate [Lopressor] 25 mg PO BID #30 tab Insulin Glargine,Hum.rec.anlog [Basaglar Kwikpen U-100] 30 unit SQ DAILY #1 each hydrALAZINE HCL [Apresoline] 25 mg PO TID 30 Days #90 tab Discharge Medication List Atorvastatin [Lipitor] 40 mg PO HS 12/07/15 [History] Clopidogrel [Plavix] 75 mg PO DAILY 12/07/15 [History] Enalapril [Vasotec] 40 mg PO DAILY 12/07/15 [History] Insulin Aspart [NovoLOG Flexpen] 10 units SQ AC-BRKFST 12/07/15 [History] sitaGLIPtin [Januvia] 100 mg PO DAILY 12/07/15 [History] traZODone HCL [Desyrel] 50 mg PO HS 12/07/15 [History] Oxybutynin Chloride [oxyBUTYnin chloride ER] 10 mg PO DAILY 01/22/18 [History] Furosemide [Lasix] 40 mg PO DAILY 04/16/18 [History] Citalopram Hydrobromide [CeleXA] 10 mg PO DAILY 12/13/22 [History] Donepezil [Aricept] 10 mg PO HS 12/13/22 [History] Albuterol Inhaler [Ventolin Hfa Inhaler] 2 puff INHALATION RT-Q4H PRN 02/24/23 [History] Apixaban [Eliquis] 5 mg PO BID #30 tab 03/01/23 [Rx] Insulin Glargine,Hum.rec.anlog [Basaglar Kwikpen U-100] 30 unit SQ DAILY #1 each 03/01/23 [Rx] Metoprolol Tartrate [Lopressor] 25 mg PO BID #30 tab 03/01/23 [Rx] Tamsulosin [Flomax] 0.4 mg PO PC-SUPPER #30 cap 03/01/23 [Rx] Insulin Aspart [NovoLOG Flexpen] 6 units SQ AC-LUNCH 07/10/23 [History] Insulin Aspart [NovoLOG Flexpen] 6 units SQ AC-SUPPER 07/10/23 [History] hydrALAZINE HCL [Apresoline] 25 mg PO TID 30 Days #90 tab 07/13/23 [Rx] Gabapentin [Neurontin] 100 mg PO BID 5 Days #10 cap 07/20/23 [Rx] Follow up Appointment(s)/Referral(s): Pablo Multani MD [Primary Care Provider] - 1-2 days
[2023-07-23 14:03] VITALS: BP 134/60; PULSE 57; RESP 18
== END 2023-07-23 16:54 | DRG 640 ==
LOC: EC 08:56 → 3SCARD 12:11
PROVIDERS: ADMIT Internal Medicine; ATTEND Internal Medicine
PROC: 8E0ZXY6 Isolation (ICD-10-PCS; principal; 2023-07-17)
DX: E86.0 Dehydration (principal); J96.01 Acute respiratory failure with hypoxia; U07.1 COVID-19; N17.9 Acute kidney failure, unspecified; L89.312 Pressure ulcer of right buttock, stage 2; L89.322 Pressure ulcer of left buttock, stage 2; F03.90 Unspecified dementia, unspecified severity, without behavioral disturbance, psychotic disturbance, mood disturbance, and anxiety; J43.9 Emphysema, unspecified; E11.9 Type 2 diabetes mellitus without complications; I48.0 Paroxysmal atrial fibrillation; E87.20 Acidosis, unspecified; I95.89 Other hypotension; I11.9 Hypertensive heart disease without heart failure; I25.5 Ischemic cardiomyopathy; I45.10 Unspecified right bundle-branch block; I49.3 Ventricular premature depolarization; E78.5 Hyperlipidemia, unspecified; I25.10 Atherosclerotic heart disease of native coronary artery without angina pectoris; W19.XXXA Unspecified fall, initial encounter; Y92.009 Unspecified place in unspecified non-institutional (private) residence as the place of occurrence of the external cause; Z79.4 Long term (current) use of insulin; Z95.5 Presence of coronary angioplasty implant and graft; Z86.73 Personal history of transient ischemic attack (TIA), and cerebral infarction without residual deficits; Z87.891 Personal history of nicotine dependence; Z82.49 Family history of ischemic heart disease and other diseases of the circulatory system; Z91.81 History of falling; Z79.02 Long term (current) use of antithrombotics/antiplatelets; Z79.84 Long term (current) use of oral hypoglycemic drugs; Z79.899 Other long term (current) drug therapy; Z79.891 Long term (current) use of opiate analgesic; Z79.01 Long term (current) use of anticoagulants
CPT/HCPCS: 36415; 71045; 80048; 80053; 81001; 83036; 83605; 83880; 84145; 84484; 85025; 85610; 85730; 87635; 93005; 94640; 94760; 96361; 96374; 99285

== ENCOUNTER 2023-08-20 08:36 | Inpatient (IN) | payer MEDICARE ==
--- NOTE | 2023-08-20 09:02 | ED ---
General Adult HPI - General Chief complaint: Shortness of Breath Stated complaint: SOB Time Seen by Provider: 08/20/23 08:45 Source: patient Mode of arrival: EMS Limitations: no limitations - History of Present Illness Initial comments: Dictation was produced using [employer] dictation software. please excuse any grammatical, word or spelling errors. Chief Complaint: 88-year-old male brought in from home by EMS for shortness of breath History of Present Illness: Patient is an 80-year-old male presents emergency department for acute onset shortness of breath. Patient is a limited historian. Patient has multiple comorbidities. He is a poor story. History of present illness obtained from EMS. EMS reports the patient was at home in [place] when EMS was called. States that patient was dyspneic with 50% O2 sats on arrival. His placed on CPAP given breathing treatment. Patient complains of chest pain. Denies any leg swelling. Denies any fevers. ROS limited secondary to respiratory distress - Related Data Home Medications Medication Instructions Recorded Confirmed Atorvastatin [Lipitor] 40 mg PO DAILY 12/07/15 08/20/23 Clopidogrel [Plavix] 75 mg PO DAILY 12/07/15 08/20/23 sitaGLIPtin [Januvia] 100 mg PO DAILY 12/07/15 08/20/23 traZODone HCL [Desyrel] 50 mg PO HS 12/07/15 08/20/23 Oxybutynin Chloride [oxyBUTYnin 10 mg PO DAILY 01/22/18 08/20/23 chloride ER] Citalopram Hydrobromide [CeleXA] 10 mg PO DAILY 12/13/22 08/20/23 Donepezil [Aricept] 10 mg PO HS 12/13/22 08/20/23 Albuterol Inhaler [Ventolin Hfa 2 puff INHALATION RT-Q4H PRN 02/24/23 08/20/23 Inhaler] Cholecalciferol [Vitamin D3 (25 25 mcg PO DAILY 08/20/23 08/20/23 Mcg = 1000 Iu)] Enalapril [Vasotec] 40 mg PO DAILY 08/20/23 08/20/23 Furosemide [Lasix] 40 mg PO DAILY 08/20/23 08/20/23 INSULIN ASPART (NovoLOG) [NovoLOG See Protocol SQ AC-TID 08/20/23 08/20/23 (formulary)] Insulin Glargine,Hum.rec.anlog 25 unit SQ DAILY 08/20/23 08/20/23 [Basaglar Kwikpen U-100] Tamsulosin [Flomax] 0.4 mg PO HS 08/20/23 08/20/23 hydrALAZINE HCL [Apresoline] 25 mg PO TID 08/20/23 08/20/23 Previous Rx's Medication Instructions Recorded Apixaban [Eliquis] 5 mg PO BID #30 tab 03/01/23 Metoprolol Tartrate [Lopressor] 25 mg PO BID #30 tab 03/01/23 Gabapentin [Neurontin] 100 mg PO BID 3 Days #6 cap 07/23/23 Losartan [Cozaar] 50 mg PO DAILY tab 07/23/23 amLODIPine [Norvasc] 5 mg PO DAILY tab 07/23/23 Allergies Allergy/AdvReac Type Severity Reaction Status Date / Time No Known Allergies Allergy Verified 08/20/23 11:22 Review of Systems ROS Statement: Those systems with pertinent positive or pertinent negative responses have been documented in the HPI. ROS Other: All systems not noted in ROS Statement are negative. Past Medical History Past Medical History: Coronary Artery Disease (CAD), CVA/TIA, Dementia, Diabetes Mellitus, Eye Disorder, Hyperlipidemia, Hypertension, Memory Impairment, Osteoarthritis (OA), Pneumonia, Syncope Additional Past Medical History / Comment(s): cataract left eye. Diverticulitis. lt fractured ankle 7-3-16,rt. foot wound-healed, tia, hiatal hernia occ hand tremors, hx of falls,uses walker when up. incont of urine/stool wears depends. . History of Any Multi-Drug Resistant Organisms: None Reported Past Surgical History: Heart Catheterization With Stent, Hernia Repair, Tonsillectomy Additional Past Surgical History / Comment(s): VASECTOMY, rt eye cataract removed Past Anesthesia/Blood Transfusion Reactions: No Reported Reaction Additional Past Anesthesia/Blood Transfusion Reaction / Comment(s): clausterphobic Date of Last Stent Placement:: February 01, 2011 Past Psychological History: No Psychological Hx Reported Smoking Status: Former smoker Past Alcohol Use History: None Reported, Abuse Past Drug Use History: None Reported - Past Family History Father History Unknown: Yes Mother Family Medical History: Myocardial Infarction ([place]) Additional Family Medical History / Comment(s): Mother of heart attack at 64. Mother had mental illness. Brother(s) Family Medical History: Cancer Additional Family Medical History / Comment(s): Patients half-brother had stomach cancer. General Exam - General Exam Comments Initial Comments: PHYSICAL EXAM: General Impression: Alert and oriented x3, dyspneic HEENT: Normocephalic atraumatic, extra-ocular movements intact, pupils equal and reactive to light bilaterally, mucous membranes moist. Cardiovascular: Heart regular rate and rhythm Chest: Positive retractions, bilateral breath sounds with some mild rhonchi to the anterior lung robles Abdomen: abdomen soft, non-tender, non-distended, no organomegaly Musculoskeletal: Pulses present and equal in all extremities, no peripheral edema Motor: no focal deficits noted Neurological: CN II-XII grossly intact, no focal motor or sensory deficits noted Skin: Intact with no visualized rashes Limitations: no limitations Course Vital Signs 08/20/23 08/20/23 08/20/23 08:38 08:42 09:00 Temperature 97.5 F L Pulse Rate 120 H 54 L Respiratory 36 H 25 H 25 H Rate Blood Pressure 110/63 128/94 O2 Sat by Pulse 87 L 92 L Oximetry Fraction of 100 Inspired Oxygen (FIO2) 08/20/23 08/20/23 08/20/23 09:40 10:00 11:00 Temperature Pulse Rate 70 53 L 58 L Respiratory 18 16 16 Rate Blood Pressure 118/85 119/49 135/68 O2 Sat by Pulse 94 L 92 L 94 L Oximetry Fraction of Inspired Oxygen (FIO2) 08/20/23 11:58 Temperature Pulse Rate Respiratory Rate Blood Pressure O2 Sat by Pulse Oximetry Fraction of 50 Inspired Oxygen (FIO2) EKG Findings - EKG Comments: EKG Findings:: My EKG interpretation: Ventricular rate 57, sinus bradycardia,. 154, QRS 150, QTc 477. Interpretation limited secondary to significant artifact.. No NC prolongation, no QTC prolongation, no ST or T-wave changes noted. EKG compared to 07/17/2023 similar waveforms. Overall, this EKG is nonspecific Procedures - Sepsis Sepsis Focused Exam #1 Time Sepsis Criteria Met: 09:50 Sepsis Focused Exam Date: 08/20/23 Sepsis Focused Exam Time: 09:50 Sepsis Focused Exam Complete: Yes Vital Signs & RN Notes Reviewed: Yes Capillary Refill: < 2 Seconds: Fingers, Toes Peripheral Pulses: Normal: Radial (R), Radial (L), Posterior Tibialis (R), Posterior Tibialis (L), Dorsalis Pedis (R), Dorsalis Pedis (L) Skin Color: Ashen Respiratory Exam: respiratory distress Cardiovascular Exam: tachycardia Medical Decision Making - Medical Decision Making Was pt. sent in by a medical professional or institution (, PA, REHANGER, urgent care, hospital, or alf...) When possible be specific @ -No Did you speak to anyone other than the patient for history (EMS, parent, family, police, friend...)? What history was obtained from this source @ -Discussed with EMS as described above Did you review nursing and triage notes (agree or disagree)? Why? @ -I reviewed and agree with nursing and triage notes Were old charts reviewed (outside hosp., previous admission, EMS record, old EKG, old radiological studies, urgent care reports/EKG's, alf records)? Report findings @ -No old charts were reviewed Differential Diagnosis (chest pain, altered mental status, abdominal pain women, abdominal pain men, vaginal bleeding, musculoskeletal, weakness, fever, dyspnea, syncope, headache, dizziness, GI bleed, back pain, seizure, CVA, palpatations, mental health)? @ -Differential Dyspnea: Coronary syndrome, arrhythmia, tamponade, asthma, COPD, pulmonary embolism, pneumonia, pneumothorax, pulmonary effusion, anaphylaxis, diabetic ketoacidosis, flailed chest, pulmonary contusion, diaphragmatic rupture, anemia, neuromuscular, this is not meant to be an all-inclusive list. EKG interpreted by me (3pts min.). @ -As above X-rays interpreted by me (1pt min.). @ -Chest X-ray shows multilobar infiltrates CT interpreted by me (1pt min.). @ -None done U/S interpreted by me (1pt. min.). @ -None done What testing was considered but not performed or refused? (CT, X-rays, U/S, labs)? Why? @ -None What meds were considered but not given or refused? Why? @ -None Did you discuss the management of the patient with other professionals (professionals i.e. , YAHIR, REHANGER, lab, RT, psych nurse, social media strategist, talent advisor, teacher, air defence officer, catalytic case operator)? Give summary @ -Discussed with hospitalist for admission, Dr. coon Was smoking cessation discussed for >3mins.? @ -No Was critical care preformed (if so, how long)? @ -Yes, 33 minutes Were there social determinants of health that impacted care today? How? (Homelessness, low income, unemployed, alcoholism, drug addiction, transportation, low edu. Level, literacy, decrease access to med. care, nursing home, rehab)? @ -No Was there de-escalation of care discussed even if they declined (Discuss DNR or withdrawal of care, Hospice)? DNR status @ -No What co-morbidities impacted this encounter? (DM, HTN, Smoking, COPD, CAD, Cancer, CVA, ARF, Chemo, Hep., AIDS, mental health diagnosis, sleep apnea, morbid obesity)? @ -None Was patient admitted / discharged? Hospital course, mention meds given and route, prescriptions, significant lab abnormalities, going to OR and other pertinent info. @ -Year-old male presents emergency Department with respiratory failure. Cardiac EMS patient was hypoxic 50% at home. He is paced on noninvasive positive pressure ventilation with improvement of the sats. Vital signs upon arrival showed 87% on BiPAP, heart rate of 120, respiratory rate 36. Patient transitioned to BiPAP with improvement of his respiratory status. Laboratory evaluation obtained. Chemo 9.6. Rectal exam did not show any gross blood. Metabolic panel shows hypernatremia of 150, troponin 0.460 with a BNP of 12,500. Urinalysis negative. Viral testing is positive for COVID-19. X-ray shows multilobar infiltrates suspicious for pneumonia. Patient started on antibiotics will be admitted with consultation to cardiology and pulmonology. Undiagnosed new problem with uncertain prognosis? @ -No Drug Therapy requiring intensive monitoring for toxicity (Heparin, Nitro, Insulin, Cardizem)? @ -No Were any procedures done? @ -No Diagnosis/symptom? Acute, or Chronic, or Acute on Chronic? Uncomplicated (without systemic symptoms) or Complicated (systemic symptoms)? @ -Respiratory failure Side effects of treatment? @ -No Exacerbation, Progression, or Severe Exacerbation? @ -No Poses a threat to life or bodily function? How? (Chest pain, [place], [place], pneumonia, PE, COPD, DKA, ARF, appy, cholecystitis, CVA, Diverticulitis, Homicidal, Suicidal, threat to staff... and all critical care pts) @ -yes - Lab Data Result diagrams: 08/20/23 08:46 08/20/23 08:46 Lab Results 08/20/23 08/20/23 08/20/23 Range/Units 08:46 08:46 08:46 WBC 9.8 (3.8-10.6) k/uL RBC 3.44 L (4.30-5.90) m/uL Hgb 9.6 L D (13.0-17.5) gm/dL Hct 31.6 L (39.0-53.0) % MCV 91.6 (80.0-100.0) fL MCH 27.9 (25.0-35.0) pg MCHC 30.5 L (31.0-37.0) g/dL RDW 17.8 H (11.5-15.5) % Plt Count 192 (150-450) k/uL MPV 8.1 Neutrophils % 80 % Lymphocytes % 14 % Monocytes % 5 % Eosinophils % 0 % Basophils % 0 % Neutrophils # 7.8 H (1.3-7.7) k/uL Lymphocytes # 1.4 (1.0-4.8) k/uL Monocytes # 0.5 (0-1.0) k/uL Eosinophils # 0.0 (0-0.7) k/uL Basophils # 0.0 (0-0.2) k/uL Hypochromasia Marked Anisocytosis Slight PT 11.4 (10.0-12.5) sec INR 1.0 (<1.2) APTT 25.8 (22.0-30.0) sec Sodium 150 H (137-145) mmol/L Potassium 5.1 (3.5-5.1) mmol/L Chloride 111 H (98-107) mmol/L Carbon Dioxide 29 (22-30) mmol/L Anion Gap 10 mmol/L BUN 45 H (9-20) mg/dL Creatinine 1.59 H (0.66-1.25) mg/dL Est GFR (CKD-EPI)AfAm 44 (>60 ml/min/1.73 sqM) Est GFR (CKD-EPI)NonAf 38 (>60 ml/min/1.73 sqM) Glucose 212 H (74-99) mg/dL Plasma Lactic Acid Gt (0.7-2.0) mmol/L Calcium 8.6 (8.4-10.2) mg/dL Magnesium 2.4 H (1.6-2.3) mg/dL Total Bilirubin 0.7 (0.2-1.3) mg/dL AST 18 (17-59) U/L ALT 16 (4-49) U/L Alkaline Phosphatase 74 (38-126) U/L Troponin I (0.000-0.034) ng/mL NT-Pro-B Natriuret Pep 14832 pg/mL Total Protein 6.8 (6.3-8.2) g/dL Albumin 3.6 (3.5-5.0) g/dL Urine Color Urine Appearance (Clear) Urine pH (5.0-8.0) Ur Specific [place] (1.001-1.035) Urine Protein (Negative) Urine Glucose (UA) (Negative) Urine Ketones (Negative) Urine Blood (Negative) Urine Nitrite (Negative) Urine Bilirubin (Negative) Urine Urobilinogen (<2.0) mg/dL Ur Leukocyte Esterase (Negative) Urine RBC (0-5) /hpf Urine WBC (0-5) /hpf Ur Squamous Epith Cells (0-4) /hpf Hyaline Casts (0-2) /lpf Urine Mucus (None) /hpf Influenza Type A (PCR) (Not Detectd) Influenza Type B (PCR) (Not Detectd) RSV (PCR) (Not Detectd) SARS-CoV-2 (PCR) (Not Detectd) 08/20/23 08/20/23 08/20/23 Range/Units 08:46 08:46 08:46 WBC (3.8-10.6) k/uL RBC (4.30-5.90) m/uL Hgb (13.0-17.5) gm/dL Hct (39.0-53.0) % MCV (80.0-100.0) fL MCH (25.0-35.0) pg MCHC (31.0-37.0) g/dL RDW (11.5-15.5) % Plt Count (150-450) k/uL MPV Neutrophils % % Lymphocytes % % Monocytes % % Eosinophils % % Basophils % % Neutrophils # (1.3-7.7) k/uL Lymphocytes # (1.0-4.8) k/uL Monocytes # (0-1.0) k/uL Eosinophils # (0-0.7) k/uL Basophils # (0-0.2) k/uL Hypochromasia Anisocytosis PT (10.0-12.5) sec INR (<1.2) APTT (22.0-30.0) sec Sodium (137-145) mmol/L Potassium (3.5-5.1) mmol/L Chloride (98-107) mmol/L Carbon Dioxide (22-30) mmol/L Anion Gap mmol/L BUN (9-20) mg/dL Creatinine (0.66-1.25) mg/dL Est GFR (CKD-EPI)AfAm (>60 ml/min/1.73 sqM) Est GFR (CKD-EPI)NonAf (>60 ml/min/1.73 sqM) Glucose (74-99) mg/dL Plasma Lactic Acid Gt 1.2 (0.7-2.0) mmol/L Calcium (8.4-10.2) mg/dL Magnesium (1.6-2.3) mg/dL Total Bilirubin (0.2-1.3) mg/dL AST (17-59) U/L ALT (4-49) U/L Alkaline Phosphatase (38-126) U/L Troponin I 0.460 H* (0.000-0.034) ng/mL NT-Pro-B Natriuret Pep pg/mL Total Protein (6.3-8.2) g/dL Albumin (3.5-5.0) g/dL Urine Color Urine Appearance (Clear) Urine pH (5.0-8.0) Ur Specific [place] (1.001-1.035) Urine Protein (Negative) Urine Glucose (UA) (Negative) Urine Ketones (Negative) Urine Blood (Negative) Urine Nitrite (Negative) Urine Bilirubin (Negative) Urine Urobilinogen (<2.0) mg/dL Ur Leukocyte Esterase (Negative) Urine RBC (0-5) /hpf Urine WBC (0-5) /hpf Ur Squamous Epith Cells (0-4) /hpf Hyaline Casts (0-2) /lpf Urine Mucus (None) /hpf Influenza Type A (PCR) Not Detected (Not Detectd) Influenza Type B (PCR) Not Detected (Not Detectd) RSV (PCR) Not Detected (Not Detectd) SARS-CoV-2 (PCR) Detected A (Not Detectd) 08/20/23 Range/Units 10:57 WBC (3.8-10.6) k/uL RBC (4.30-5.90) m/uL Hgb (13.0-17.5) gm/dL Hct (39.0-53.0) % MCV (80.0-100.0) fL MCH (25.0-35.0) pg MCHC (31.0-37.0) g/dL RDW (11.5-15.5) % Plt Count (150-450) k/uL MPV Neutrophils % % Lymphocytes % % Monocytes % % Eosinophils % % Basophils % % Neutrophils # (1.3-7.7) k/uL Lymphocytes # (1.0-4.8) k/uL Monocytes # (0-1.0) k/uL Eosinophils # (0-0.7) k/uL Basophils # (0-0.2) k/uL Hypochromasia Anisocytosis PT (10.0-12.5) sec INR (<1.2) APTT (22.0-30.0) sec Sodium (137-145) mmol/L Potassium (3.5-5.1) mmol/L Chloride (98-107) mmol/L Carbon Dioxide (22-30) mmol/L Anion Gap mmol/L BUN (9-20) mg/dL Creatinine (0.66-1.25) mg/dL Est GFR (CKD-EPI)AfAm (>60 ml/min/1.73 sqM) Est GFR (CKD-EPI)NonAf (>60 ml/min/1.73 sqM) Glucose (74-99) mg/dL Plasma Lactic Acid Gt (0.7-2.0) mmol/L Calcium (8.4-10.2) mg/dL Magnesium (1.6-2.3) mg/dL Total Bilirubin (0.2-1.3) mg/dL AST (17-59) U/L ALT (4-49) U/L Alkaline Phosphatase (38-126) U/L Troponin I (0.000-0.034) ng/mL NT-Pro-B Natriuret Pep pg/mL Total Protein (6.3-8.2) g/dL Albumin (3.5-5.0) g/dL Urine Color Yellow Urine Appearance Clear (Clear) Urine pH 5.0 (5.0-8.0) Ur Specific [place] 1.030 (1.001-1.035) Urine Protein 1+ H (Negative) Urine Glucose (UA) Negative (Negative) Urine Ketones Negative (Negative) Urine Blood Negative (Negative) Urine Nitrite Negative (Negative) Urine Bilirubin Negative (Negative) Urine Urobilinogen <2.0 (<2.0) mg/dL Ur Leukocyte Esterase Negative (Negative) Urine RBC 2 (0-5) /hpf Urine WBC 5 (0-5) /hpf Ur Squamous Epith Cells <1 (0-4) /hpf Hyaline Casts 54 H (0-2) /lpf Urine Mucus Rare H (None) /hpf Influenza Type A (PCR) (Not Detectd) Influenza Type B (PCR) (Not Detectd) RSV (PCR) (Not Detectd) SARS-CoV-2 (PCR) (Not Detectd) Disposition Clinical Impression: Respiratory failure Disposition: ADMITTED IP TO THIS [facility] Condition: Critical Referrals: Pablo Multani MD [Primary Care Provider] - 1-2 days Decision Time: 12:12
[2023-08-20 09:16] LABS: Partial Thromboplastin Time 25.8 sec (22.0-30.0); Prothrombin Time 11.4 sec (10.0-12.5)
[2023-08-20 09:18] LABS: Anisocytosis Slight; Basophils % (A) 0 %; Eosinophils % (A) 0 %; HCT 31.6 % (39.0-53.0); Hypochromasia Marked; Lymphocytes # (A) 1.4 k/uL (1.0-4.8); Lymphocytes % (A) 14 %; MCH 27.9 pg (25.0-35.0); MCHC 30.5 g/dL (31.0-37.0); MCV 91.6 fL (80.0-100.0); Mean Platelet Volume 8.1; Monocytes # (A) 0.5 k/uL (0-1.0); Monocytes % (A) 5 %; Neutrophils # (A) 7.8 k/uL (1.3-7.7); Neutrophils % (A) 80 %; Platelet Count 192 k/uL (150-450); RBC 3.44 m/uL (4.30-5.90); RDW 17.8 % (11.5-15.5); WBC 9.8 k/uL (3.8-10.6)
[2023-08-20 09:19] LABS: ALT 16 U/L (4-49); AST 18 U/L (17-59); African American GFR (CKD) 44 (>60 ml/min/1.73 sqM); Albumin 3.6 g/dL (3.5-5.0); Alkaline Phosphatase 74 U/L (38-126); Anion Gap 10 mmol/L; Blood Urea Nitrogen 45 mg/dL (9-20); Calcium 8.6 mg/dL (8.4-10.2); Carbon Dioxide 29 mmol/L (22-30); Chloride 111 mmol/L (98-107); Glucose 212 mg/dL (74-99); HGB 9.6 gm/dL (13.0-17.5); Magnesium 2.4 mg/dL (1.6-2.3); Non-African American GFR(CKD) 38 (>60 ml/min/1.73 sqM); Potassium 5.1 mmol/L (3.5-5.1); Sodium 150 mmol/L (137-145); Total Bilirubin 0.7 mg/dL (0.2-1.3); Total Protein 6.8 g/dL (6.3-8.2)
[2023-08-20 09:27] LABS: NT-Pro-B-Type Natriuretic Pept 12500 pg/mL
--- NOTE | 2023-08-20 09:30 | XR ---
EXAMINATION TYPE: XR chest 1V portable DATE OF EXAM: 08/20/2023 COMPARISON: 07/21/2023 INDICATION: Dyspnea TECHNIQUE: Single frontal view of the chest is obtained. FINDINGS: The heart size is normal. The pulmonary vasculature is normal. There is an infiltrate to the right mid lung. Some mild infiltrates at the left base. Correlate for a telectasis or pneumonia and follow-up is recommended. IMPRESSION: 1. Mild right mid and left lower lung field infiltrates. Correlate for atelectasis or pneumonia.
[2023-08-20] MEDS ORDERED: DEXAMETHASONE SOD PHOSPHATE 10 MG/ML 1 ML VIAL IV STA (09:48)
[2023-08-20] MEDS ORDERED: FUROSEMIDE 10 MG/ML 4 ML VIAL IV STA (09:48)
[2023-08-20] MEDS ORDERED: AMPICILLIN-SULBACTAM 3 GM in SODIUM CHLORIDE 0.9% 100 ML IVPB STA (09:49)
[2023-08-20 11:26] LABS: Appearance,Urine Clear (Clear); Color,Urine Yellow
[2023-08-20 11:27] LABS: Bilirubin,Urine Negative (Negative); Blood,Urine Negative (Negative); Glucose,Urine (UA) Negative (Negative); Ketones,Urine Negative (Negative); Leukocyte Esterase,Urine Negative (Negative); Nitrite,Urine Negative (Negative); Protein,Urine 1+ (Negative); Urobilinogen,Urine <2.0 mg/dL (<2.0)
[2023-08-20] MEDS ORDERED: ASPIRIN 81 MG PO STA (11:37)
[2023-08-20 11:44] LABS: Hyaline Casts,Urine 54 /lpf (0-2); Mucus,Urine Rare /hpf; RBC,Urine 2 /hpf (0-5); Squamous Epithelial Cell,Urine <1 /hpf (0-4); WBC,Urine 5 /hpf (0-5)
[2023-08-20] MEDS ORDERED: NALOXONE 0.4 MG/ML 1 ML VIAL IV PRN (11:57)
[2023-08-20] MEDS ORDERED: SODIUM CHLORIDE 0.9% 1,000 ML IV SCH (12:00)
[2023-08-20] MEDS ORDERED: ASPIRIN 300 MG SUPP RECTAL STA (12:39)
[2023-08-20] MEDS ORDERED: DEXTROSE 5% IN WATER 1,000 ML IV ONE (16:23)
--- NOTE | 2023-08-20 16:26 | P.HPIM ---
History of Present Illness This is a pleasant 88 race old male with multiple medical problems as below. Patient is brought because of shortness of breath Patient is poor historian and information were obtained from stop her records. Staff and the at bedside. Patient was here in the hospital in July twice, he was discharged to rehab. He left rehab last Saturday, back home because his resources from his medical insurance provider has lapsed and finished 3 at as per he was placed on nectar thick diet therefore he was not drinking any clear liquids including water. 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 Em in the usual N every 6 month follow-up but he could not do anything. Then the noticed that he started drooling from his left side of the mons so she called EMS. Patient really and tended and could not provide information and his currently on BiPAP. On admission patient was on BiPAP saturating 87% and currently 92%, he was slightly tachycardic and tachypneic but now his heart rate about 50-60 and regular rate is around 16. Blood pressure 145/60. reviewed showing abnormality with a drop of hemoglobin down to 9.2 with severe hypernatremia at 150 also has evanescent with elevated creatinine 1.59 compared to baseline of 0.7. Occult blood in the stool was positive civit test came back positive as well. Otherwise her cysts are negative Chest x-ray showing no significant infiltrate but mild right and left side infiltrate with mild cardiomegaly EKG shows sinus bradycardia at 57 with bundle-branch block ProBNP is elevated to 12 500 On admission patient given 1 dose of antibiotics Unasyn 3 at At home he was on liquids and Plavix which are put on hold. Review of Systems ROS unobtainable: due to mental status Past Medical History Past Medical History: Coronary Artery Disease (CAD), CVA/TIA, Dementia, Diabetes Mellitus, Eye Disorder, Hyperlipidemia, Hypertension, Memory Impairment, Osteoarthritis (OA), Pneumonia, Syncope Additional Past Medical History / Comment(s): cataract left eye. Diverticulitis. lt fractured ankle 7-3-16,rt. foot wound-healed, tia, hiatal hernia occ hand tremors, hx of falls,uses walker when up. incont of urine/stool wears depends. . History of Any Multi-Drug Resistant Organisms: None Reported Past Surgical History: Heart Catheterization With Stent, Hernia Repair, Tonsillectomy Additional Past Surgical History / Comment(s): VASECTOMY, rt eye cataract removed Past Anesthesia/Blood Transfusion Reactions: No Reported Reaction Additional Past Anesthesia/Blood Transfusion Reaction / Comment(s): clausterphobic Date of Last Stent Placement:: February 01, 2011 Past Psychological History: No Psychological Hx Reported Smoking Status: Former smoker Past Alcohol Use History: None Reported, Abuse Past Drug Use History: None Reported - Past Family History Father History Unknown: Yes Mother Family Medical History: Myocardial Infarction ([place]) Additional Family Medical History / Comment(s): Mother of heart attack at 64. Mother had mental illness. Brother(s) Family Medical History: Cancer Additional Family Medical History / Comment(s): Patients half-brother had stomach cancer. Medications and Allergies Home Medications Medication Instructions Recorded Confirmed Type Atorvastatin [Lipitor] 40 mg PO DAILY 12/07/15 08/20/23 History Clopidogrel [Plavix] 75 mg PO DAILY 12/07/15 08/20/23 History sitaGLIPtin [Januvia] 100 mg PO DAILY 12/07/15 08/20/23 History traZODone HCL [Desyrel] 50 mg PO HS 12/07/15 08/20/23 History Oxybutynin Chloride [oxyBUTYnin 10 mg PO DAILY 01/22/18 08/20/23 History chloride ER] Citalopram Hydrobromide [CeleXA] 10 mg PO DAILY 12/13/22 08/20/23 History Donepezil [Aricept] 10 mg PO HS 12/13/22 08/20/23 History Albuterol Inhaler [Ventolin Hfa 2 puff INHALATION RT-Q4H PRN 02/24/23 08/20/23 History Inhaler] Apixaban [Eliquis] 5 mg PO BID #30 tab 03/01/23 08/20/23 Rx Metoprolol Tartrate [Lopressor] 25 mg PO BID #30 tab 03/01/23 08/20/23 Rx Gabapentin [Neurontin] 100 mg PO BID 3 Days #6 cap 07/23/23 08/20/23 Rx Losartan [Cozaar] 50 mg PO DAILY tab 07/23/23 08/20/23 Rx amLODIPine [Norvasc] 5 mg PO DAILY tab 07/23/23 08/20/23 Rx Cholecalciferol [Vitamin D3 (25 25 mcg PO DAILY 08/20/23 08/20/23 History Mcg = 1000 Iu)] Enalapril [Vasotec] 40 mg PO DAILY 08/20/23 08/20/23 History Furosemide [Lasix] 40 mg PO DAILY 08/20/23 08/20/23 History INSULIN ASPART (NovoLOG) [NovoLOG See Protocol SQ AC-TID 08/20/23 08/20/23 History (formulary)] Insulin Glargine,Hum.rec.anlog 25 unit SQ DAILY 08/20/23 08/20/23 History [Basaglar Kwikpen U-100] Tamsulosin [Flomax] 0.4 mg PO HS 08/20/23 08/20/23 History hydrALAZINE HCL [Apresoline] 25 mg PO TID 08/20/23 08/20/23 History Allergies Allergy/AdvReac Type Severity Reaction Status Date / Time No Known Allergies Allergy Verified 08/20/23 11:22 Physical Exam Vitals: Vital Signs Temp Pulse Resp BP Pulse Ox FiO2 08/20/23 13:00 60 18 145/60 92 L 08/20/23 12:00 63 18 105/48 95 08/20/23 11:58 50 08/20/23 11:00 58 L 16 135/68 94 L 08/20/23 10:00 53 L 16 119/49 92 L 08/20/23 09:40 70 18 118/85 94 L 08/20/23 09:00 25 H 08/20/23 08:42 54 L 25 H 128/94 92 L 100 08/20/23 08:38 97.5 F L 120 H 36 H 110/63 87 L Intake and Output 08/19/23 08/20/23 08/20/23 22:59 06:59 14:59 Output Total 200 Balance -200 Output: Urine 200 Uretheral (Restrepo) 200 Other: Weight 90.718 kg -GENERAL: The patient is confused, on BiPAP, could not provide information, very poor historian, in [id number] respiratory distress, HEENT: Pupils are round and equally reacting to light. EOMI. No scleral icterus. No conjunctival pallor. Normocephalic, atraumatic. No pharyngeal erythema. No thyromegaly. CARDIOVASCULAR: S1 and S2 present. No murmurs, rubs, or gallops. PULMONARY: Chest is clear to auscultation, no wheezing , no crackles. ABDOMEN: Soft, nontender, nondistended, normoactive bowel sounds. No palpable organomegaly. MUSCULOSKELETAL: No joint swelling or deformity. EXTREMITIES: No cyanosis, clubbing, or pedal edema. NEUROLOGICAL: Gross neurological examination did not reveal any focal deficits. SKIN: No rashes. no petechiae. Results CBC & Chem 7: 08/20/23 08:46 08/20/23 08:46 Labs: Abnormal Lab Results - Last 24 Hours (Table) 08/20/23 08/20/23 08/20/23 Range/Units 08:46 08:46 08:46 RBC 3.44 L (4.30-5.90) m/uL Hgb 9.6 L D (13.0-17.5) gm/dL Hct 31.6 L (39.0-53.0) % MCHC 30.5 L (31.0-37.0) g/dL RDW 17.8 H (11.5-15.5) % Neutrophils # 7.8 H (1.3-7.7) k/uL Sodium 150 H (137-145) mmol/L Chloride 111 H (98-107) mmol/L BUN 45 H (9-20) mg/dL Creatinine 1.59 H (0.66-1.25) mg/dL Glucose 212 H (74-99) mg/dL Magnesium 2.4 H (1.6-2.3) mg/dL Troponin I 0.460 H* (0.000-0.034) ng/mL Urine Protein (Negative) Hyaline Casts (0-2) /lpf Urine Mucus (None) /hpf SARS-CoV-2 (PCR) (Not Detectd) 08/20/23 08/20/23 Range/Units 08:46 10:57 RBC (4.30-5.90) m/uL Hgb (13.0-17.5) gm/dL Hct (39.0-53.0) % MCHC (31.0-37.0) g/dL RDW (11.5-15.5) % Neutrophils # (1.3-7.7) k/uL Sodium (137-145) mmol/L Chloride (98-107) mmol/L BUN (9-20) mg/dL Creatinine (0.66-1.25) mg/dL Glucose (74-99) mg/dL Magnesium (1.6-2.3) mg/dL Troponin I (0.000-0.034) ng/mL Urine Protein 1+ H (Negative) Hyaline Casts 54 H (0-2) /lpf Urine Mucus Rare H (None) /hpf SARS-CoV-2 (PCR) Detected A (Not Detectd) Assessment and Plan Assessment: Severe metabolic/toxic encephalopathy Comment infection with no strong evidence of pneumonia Acute hypoxic respiratory failure. Be secondary to above Acute kidney injury Acute GI bleed is suspected The Cook blood loss anemia and suspected Severe hypernatremia Mildly elevated troponin which is thought secondary to supply/demand mismatch Dementia. Plan: Patient continued on BiPAP We'll start D5 W for hypernatremia and acute kidney injury, start Protonix IV twice daily, hold eliquis and Plavix. Also we will do anemia workup Cardiology and pulmonary team were consulted Possible surgery team consult for GI bleed Labs and medication were reviewed.. Continue same treatment. Continue with symptomatic treatment. Resume home medication. Monitor labs and vitals. DVT and GI prophylaxis. Further recommendations as per clinical course of the patient DVT prophylaxis: 4 possible GI bleed GI prophylaxis: Ppi PT/OT: Deferred Prognosis is guarded We recommend more palliative approach for the treatment of this patient given his advanced age and multiple and severe apical problems and complicated medical problems Especially if patient does not improve or deteriorates with recommend hospice care I already talked to the at bedside and she agrees he would be DO NOT RESUSCITATE. Also the agrees with recommendation that if treatment failure to pursue with hospice care. His prognosis is very poor
--- NOTE | 2023-08-20 16:56 | P.CNPUL ---
History of Present Illness Consult date: 08/20/23 Requesting physician: Rayshawn E Sheet Reason for consult: pneumonia Chief complaint: Shortness of breath and weakness History of present illness: This is an 88-year-old white male with history of multiple medical problems including coronary artery disease, type 2 diabetes, dementia, dyslipidemia, patient was recently admitted to the hospital back in July, and he was eventually discharged to assisted. Patient was sent home last Saturday, and today the patient's was concerned about him developing shortness of breath, weakness, unable to do anything on his own, hence she brought him into the ER. Apparently when EMS arrived, patient was hypoxic, and brought into the ER, O2 saturation on BiPAP was 87% went up to 92% after adjusting his BiPAP which is presently 08/14/50% patient is an extremely poor historian, according to the the patient has been having difficulty swallowing, cannot even drink water, he chokes on whenever he eats or swallows. Chest x-ray clearly showed evidence of bilateral infiltrates involving left lower lobe and right midlung. Hence I believe the patient has clearly aspiration pneumonia based on his chest x-ray findings and based on his clinical history. In addition to this the patient was noted to be hypernatremic with elevated BUN of 45 creatinine 1.59 implying that the patient is quite dehydrated and he has hypovolemic hypernatremia as well as prerenal azotemia, his troponin was elevated and his BNP level was elevated however the chest x-ray is mostly pointing to more pneumonia than congestive heart failure. Patient also tested positive for COVID-19, but according to the this was noted even on his last admission, last month he had positive COVID-19 test, and this was few weeks ago and looking at his last discharge summary, patient had syncopal episode secondary to dehydration he also had bilateral buttock ulcers, atrial fibrillation with RVR, acute renal failure secondary to dehydration, lactic acidosis, hypotension, he does have underlying coronary artery disease and he also had elevated troponins. Review of Systems Patient is a poor historian cannot get much information from the patient himself is quite lethargic, arousable, but does not volunteer any information, but according to the he had mostly symptoms of weakness, shortness of breath, and difficulty swallowing Past Medical History Past Medical History: Coronary Artery Disease (CAD), CVA/TIA, Dementia, Diabetes Mellitus, Eye Disorder, Hyperlipidemia, Hypertension, Memory Impairment, Osteoarthritis (OA), Pneumonia, Syncope Additional Past Medical History / Comment(s): cataract left eye. Diverticulitis. lt fractured ankle 716,rt. foot wound-healed, tia, hiatal hernia occ hand tremors, hx of falls,uses walker when up. incont of urine/stool wears depends. . History of Any Multi-Drug Resistant Organisms: None Reported Past Surgical History: Heart Catheterization With Stent, Hernia Repair, Tonsill ectomy Additional Past Surgical History / Comment(s): VASECTOMY, rt eye cataract removed Past Anesthesia/Blood Transfusion Reactions: No Reported Reaction Additional Past Anesthesia/Blood Transfusion Reaction / Comment(s): cl austerphobic Date of Last Stent Placement:: February 01, 2011 Past Psychological History: No Psychological Hx Reported Smoking Status: Former smoker Past Alcohol Use History: None Reported, Abuse Past Drug Use History: None Reported - Past Family History Father History Unknown: Yes Mother Family Medical History: Myocardial Infarction ([place]) Additional Family Medical History / Comment(s): Mother of heart attack at 64. Mother had mental illness. Brother(s) Family Medical History: Cancer Additional Family Medical History / Comment(s): Patients half-brother had stomach cancer. Medications and Allergies Home Medications Medication Instructions Recorded Confirmed Type Atorvastatin [Lipitor] 40 mg PO DAILY 12/07/15 08/20/23 History Clopidogrel [Plavix] 75 mg PO DAILY 12/07/15 08/20/23 History sitaGLIPtin [Januvia] 100 mg PO DAILY 12/07/15 08/20/23 History traZODone HCL [Desyrel] 50 mg PO HS 12/07/15 08/20/23 History Oxybutynin Chloride [oxyBUTYnin 10 mg PO DAILY 01/22/18 08/20/23 History chloride ER] Citalopram Hydrobromide [CeleXA] 10 mg PO DAILY 12/13/22 08/20/23 History Donepezil [Aricept] 10 mg PO HS 12/13/22 08/20/23 History Albuterol Inhaler [Ventolin Hfa 2 puff INHALATION RT-Q4H PRN 02/24/23 08/20/23 History Inhaler] Apixaban [Eliquis] 5 mg PO BID #30 tab 03/01/23 08/20/23 Rx Metoprolol Tartrate [Lopressor] 25 mg PO BID #30 tab 03/01/23 08/20/23 Rx Gabapentin [Neurontin] 100 mg PO BID 3 Days #6 cap 07/23/23 08/20/23 Rx Losartan [Cozaar] 50 mg PO DAILY tab 07/23/23 08/20/23 Rx amLODIPine [Norvasc] 5 mg PO DAILY tab 07/23/23 08/20/23 Rx Cholecalciferol [Vitamin D3 (25 25 mcg PO DAILY 08/20/23 08/20/23 History Mcg = 1000 Iu)] Enalapril [Vasotec] 40 mg PO DAILY 08/20/23 08/20/23 History Furosemide [Lasix] 40 mg PO DAILY 08/20/23 08/20/23 History INSULIN ASPART (NovoLOG) [NovoLOG See Protocol SQ AC-TID 08/20/23 08/20/23 History (formulary)] Insulin Glargine,Hum.rec.anlog 25 unit SQ DAILY 08/20/23 08/20/23 History [Basaglar Kwikpen U-100] Tamsulosin [Flomax] 0.4 mg PO HS 08/20/23 08/20/23 History hydrALAZINE HCL [Apresoline] 25 mg PO TID 08/20/23 08/20/23 History Allergies Allergy/AdvReac Type Severity Reaction Status Date / Time No Known Allergies Allergy Verified 08/20/23 11:22 Physical Exam Vitals: Vital Signs Temp Pulse Pulse Resp BP BP Pulse Ox 08/20/23 15:28 46 L 16 99/48 97 08/20/23 15:19 08/20/23 14:00 45 L 18 145/66 92 L 08/20/23 13:00 60 18 145/60 92 L 08/20/23 12:00 63 18 105/48 95 08/20/23 11:58 08/20/23 11:00 58 L 16 135/68 94 L 08/20/23 10:00 53 L 16 119/49 92 L 08/20/23 09:40 70 18 118/85 94 L 08/20/23 09:00 25 H 08/20/23 08:42 54 L 25 H 128/94 92 L 08/20/23 08:38 97.5 F L 120 H 36 H 110/63 87 L FiO2 08/20/23 15:28 50 08/20/23 15:19 50 08/20/23 14:00 08/20/23 13:00 08/20/23 12:00 08/20/23 11:58 50 08/20/23 11:00 08/20/23 10:00 08/20/23 09:40 08/20/23 09:00 08/20/23 08:42 100 08/20/23 08:38 Intake and Output 08/20/23 08/20/23 08/20/23 06:59 14:59 22:59 Output Total 200 Balance -200 Output: Urine 200 Uretheral (Restrepo) 200 Other: Weight 90.718 kg Physical Exam: Revealed an 88-year-old white male lethargic, on BiPAP, arousable, but does not verbalize. Head: Atraumatic, normocephalic. HEENT:[Neck is supple.] [No neck masses.] [No thyromegaly.] [No JVD.] Chest: [Crackles bilaterally at the bases noted. Cardiac Exam: [Irregular irregular rhythm Normal S1 and S2, no S3 gallop, 2/6 systolic murmur over the aortic area. Abdomen: [Obese, Soft, nontender, no megaly, no rebound, no guarding, normal bowel sounds.] Extremities: [No clubbing, no edema, no cyanosis.] Neurological Exam: Patient is lethargic, arousable, does not communicate, follows simple instructions only. Skin: No rashes, however I was unable to examine his buttock area supposedly he has chronic decubitus ulcers. This was noted on his last admission Results - Laboratory Findings CBC and BMP: 08/20/23 08:46 08/20/23 08:46 PT/INR, D-dimer PT 11.4 sec (10.0-12.5) 08/20/23 08:46 INR 1.0 (<1.2) 08/20/23 08:46 Abnormal lab findings: Abnormal Labs 08/20/23 08/20/23 08/20/23 08:46 08:46 08:46 RBC 3.44 L Hgb 9.6 L D Hct 31.6 L MCHC 30.5 L RDW 17.8 H Neutrophils # 7.8 H Sodium 150 H Chloride 111 H BUN 45 H Creatinine 1.59 H Glucose 212 H Magnesium 2.4 H Troponin I 0.460 H* Urine Protein Hyaline Casts Urine Mucus SARS-CoV-2 (PCR) 08/20/23 08/20/23 08:46 10:57 RBC Hgb Hct MCHC RDW Neutrophils # Sodium Chloride BUN Creatinine Glucose Magnesium Troponin I Urine Protein 1+ H Hyaline Casts 54 H Urine Mucus Rare H SARS-CoV-2 (PCR) Detected A - Diagnostic Findings Chest x-ray: image reviewed (As noted in HPI) Assessment and Plan Assessment: Impression: Acute hypoxic respiratory failure secondary to aspiration pneumonia Strongly suspect aspiration pneumonia Acute metabolic encephalopathy Acute kidney injury, most likely dehydration related prerenal azotemia Acute hypovolemic hypernatremia Elevated troponin/troponin leak, most likely secondary to supply/demand mismatch Underlying dementia History of Parkinson's disease Chronic dysphagia with difficulty swallowing and choking episode Benign essential hypertension Coronary artery disease and previous cardiac stent Type 2 diabetes, insulin-dependent Remote history of alcohol use Ex-smoker History of TIA Recommendation: Admit patient to a cardiac floor Hydrate cautiously Antibiotics in the form of Zosyn for aspiration pneumonia Resume all meds Titrate FiO2 and BiPAP accordingly Swallow evaluation to be done on this admission again may have to consider PEG tube placement in this patient Incentive spirometry Would not give any diuretics at this point GI prophylaxis IV fluid in the form of D5W at 75 mL per hour We'll continue to follow Prognosis is extremely poor and guarded. Time with Patient: Greater than 30
[2023-08-20] MEDS ORDERED: SODIUM FERRIC GLUCONAT-SUCROSE 125 MG in SODIUM CHLORIDE 0.9% 100 ML IVPB ONE (17:00)
[2023-08-20] MEDS: PANTOPRAZOLE 40 MG/10 ML VIAL IVP SCH (18:08)
[2023-08-20] MEDS: DEXTROSE 5%-0.45% NACL 1,000 ML IV SCH (22:25)
[2023-08-20] MEDS: PIPERACILLIN-TAZOBACTAM 3.375 GM in SODIUM CHLORIDE 0.9% 100 ML IVPB SCH (22:27)
[2023-08-21 05:55] LABS: Glucose,Whole Blood 294 mg/dL (70-110)
[2023-08-21] MEDS ORDERED: DILTIAZEM DRIP BOLUS FROM BAG 1 MG SOLN IV ONE (06:22)
[2023-08-21] MEDS: DILTIAZEM 125 MG in SODIUM CHLORIDE 0.9% 100 ML IV SCH ×3 (06:43→23:09)
[2023-08-21] MEDS: ATORVASTATIN 40 MG TAB PO SCH (08:29)
[2023-08-21] MEDS: CLOPIDOGREL 75 MG TAB PO SCH (08:29)
[2023-08-21] MEDS: PANTOPRAZOLE 40 MG/10 ML VIAL IVP SCH ×2 (08:29→20:23)
[2023-08-21] MEDS: PIPERACILLIN-TAZOBACTAM 3.375 GM in SODIUM CHLORIDE 0.9% 100 ML IVPB SCH ×3 (08:30→23:39)
[2023-08-21] MEDS: METOPROLOL TARTRATE 50 MG TAB PO SCH ×2 (08:30→20:23)
[2023-08-21] MEDS ORDERED: METOPROLOL TARTRATE 25 MG TAB PO SCH (09:00)
[2023-08-21] MEDS ORDERED: LOSARTAN 50 MG TAB PO SCH ×2 (09:00)
[2023-08-21] MEDS ORDERED: NON FORMULARY DRUG (Enalapril 20 MG Tab) PO SCH (09:00)
[2023-08-21] MEDS ORDERED: FUROSEMIDE 40 MG TAB PO SCH (09:00)
--- NOTE | 2023-08-21 10:20 | P.CRDCN ---
History of Present Illness History of present illness: HISTORY OF PRESENT ILLNESS: This is a 88-year-old male with a past medical history significant for coronary artery disease, ischemic cardiomyopathy, aspiration pneumonia, and atrial fibrillation. Patient follows in the office with Dr. Kidd. We have been asked to see the patient in consultation for congestive heart failure. Patient examined at the bedside. Patient states he initially presented to the hospital after sustaining a fall in his left side. He denies losing consciousness. He reports tenderness with palpation of left chest wall. The patient is currently on BiPAP. The patient went into A. fib with RVR. He is currently on a Cardizem drip at 15 mg an hour. Telemetry revealed atrial fibrillation with a heart rate between 7090. * EKG reveals sinus mechanism. Repeat reveals atrial fibrillation with RVR. * Chest xray mild right mid and left lower lung field infiltrates. Correlate for atelectasis or pneumonia. * Laboratory data: Hemoglobin 9.6. Sodium 150. BUN 45. Creatinine 1.59. Troponin 0.460. ProBNP 12,500. * Current home cardiac medications include amlodipine 5 mg daily, Plavix 75 mg daily, Lipitor 40 mg daily, Eliquis 5 mg twice a day, hydralazine 25 mg 3 times a day, enalapril 40 mg daily, metoprolol tartrate 25 mg twice a day, losartan 50 mg daily, Lasix 40 mg daily * Most recent echocardiogram obtained in February 2023 revealed ejection fraction 35-40%, moderate concentric LVH, trace MR, mild TR, [id number] pulmonary hypertension with RVSP of 45 mmHg, and mild to moderate aortic stenosis * Cardiac catheterization history: 2010 with stenting to the proximal RCA REVIEW OF SYSTEMS: At the time of my exam: CONSTITUTIONAL: Denies fever or chills. HEENT: Denies blurred vision, vision changes, or eye pain. Denies hemoptysis CARDIOVASCULAR: Denies chest pain. Denies orthopnea. Denies PND. Denies palpitations RESPIRATORY: Positive shortness of breath. GASTROINTESTINAL: Denies abdominal pain. Denies nausea or vomiting. HEMATOLOGIC: Denies bleeding disorders. GENITOURINARY: Denies any blood in urine. SKIN: Denies pruitis. Denies rash. PHYSICAL EXAM: VITAL SIGNS: Reviewed. GENERAL: Well-developed in no acute distress. HEENT: Head is normocephalic. Pupils are equal, round. Sclerae anicteric. Mucous membranes of the mouth are moist. Neck supple. No JVD or thyromegaly LUNGS: Respirations even and unlabored. Lungs diminished with crackles. HEART: Irregular rate and rhythm. S1 and S2 heard. Systolic murmur noted ABDOMEN: Soft. Nondistended. Nontender. EXTREMITIES: Normal range of motion. No clubbing or cyanosis. Peripheral pulses intact. No lower extremity edema NEUROLOGIC: Awake and alert. Oriented x 3. ASSESSMENT: Shortness of breath Acute hypoxic respiratory failure Possible aspiration pneumonia Acute Covid 19 Status post fall at home without loss of consciousness Paroxysmal atrial fibrillation with RVR Acute kidney injury Chronic heart failure with reduced EF Hypernatremia Abnormal troponins, no signs of an acute coronary event Coronary artery disease with previous stenting of the RCA Ischemic cardiomyopathy, EF 35-40% Valvular heart disease including mild to moderate aortic stenosis and mild to moderate pulmonary hypertension History of aspiration pneumonia PLAN: Trend troponins Obtain 2-D echo to assess cardiac structure and function Patient prescribed both enalapril and losartan on an outpatient basis which is contraindicated. Hold at this time due to MARYANN Hold Lasix secondary to acute kidney injury Resume metoprolol. Increase dosage to 50 mg twice a day for optimal heart rate control Continue IV Cardizem. Wean as tolerated. Further recommendations pending patient's course Nurse practitioner note has been reviewed by physician. Signing provider agrees with the documented findings, assessment, and plan of care. Past Medical History Past Medical History: Coronary Artery Disease (CAD), CVA/TIA, Dementia, Diabetes Mellitus, Eye Disorder, Hyperlipidemia, Hypertension, Memory Impairment, Osteoarthritis (OA), Pneumonia, Syncope Additional Past Medical History / Comment(s): cataract left eye. Diverticulitis. lt fractured ankle 7--16,rt. foot wound-healed, tia, hiatal hernia occ hand tremors, hx of falls,uses walker when up. incont of urine/stool wears depends. . History of Any Multi-Drug Resistant Organisms: None Reported Past Surgical History: Heart Catheterization With Stent, Hernia Repair, Tonsillectomy Additional Past Surgical History / Comment(s): VASECTOMY, rt eye cataract removed Past Anesthesia/Blood Transfusion Reactions: No Reported Reaction Additional Past Anesthesia/Blood Transfusion Reaction / Comment(s): clausterphobic Date of Last Stent Placement:: February 01, 2011 Past Psychological History: No Psychological Hx Reported Smoking Status: Former smoker Past Alcohol Use History: None Reported, Abuse Past Drug Use History: None Reported - Past Family History Father History Unknown: Yes Mother Family Medical History: Myocardial Infarction ([place]) Additional Family Medical History / Comment(s): Mother of heart attack at 64. Mother had mental illness. Brother(s) Family Medical History: Cancer Additional Family Medical History / Comment(s): Patients half-brother had stomach cancer. Medications and Allergies Home Medications Medication Instructions Recorded Confirmed Type Atorvastatin [Lipitor] 40 mg PO DAILY 12/07/15 08/20/23 History Clopidogrel [Plavix] 75 mg PO DAILY 12/07/15 08/20/23 History sitaGLIPtin [Januvia] 100 mg PO DAILY 12/07/15 08/20/23 History traZODone HCL [Desyrel] 50 mg PO HS 12/07/15 08/20/23 History Oxybutynin Chloride [oxyBUTYnin 10 mg PO DAILY 01/22/18 08/20/23 History chloride ER] Citalopram Hydrobromide [CeleXA] 10 mg PO DAILY 12/13/22 08/20/23 History Donepezil [Aricept] 10 mg PO HS 12/13/22 08/20/23 History Albuterol Inhaler [Ventolin Hfa 2 puff INHALATION RT-Q4H PRN 02/24/23 08/20/23 History Inhaler] Apixaban [Eliquis] 5 mg PO BID #30 tab 03/01/23 08/20/23 Rx Metoprolol Tartrate [Lopressor] 25 mg PO BID #30 tab 03/01/23 08/20/23 Rx Gabapentin [Neurontin] 100 mg PO BID 3 Days #6 cap 07/23/23 08/20/23 Rx Losartan [Cozaar] 50 mg PO DAILY tab 07/23/23 08/20/23 Rx amLODIPine [Norvasc] 5 mg PO DAILY tab 07/23/23 08/20/23 Rx Cholecalciferol [Vitamin D3 (25 25 mcg PO DAILY 08/20/23 08/20/23 History Mcg = 1000 Iu)] Enalapril [Vasotec] 40 mg PO DAILY 08/20/23 08/20/23 History Furosemide [Lasix] 40 mg PO DAILY 08/20/23 08/20/23 History INSULIN ASPART (NovoLOG) [NovoLOG See Protocol SQ AC-TID 08/20/23 08/20/23 History (formulary)] Insulin Glargine,Hum.rec.anlog 25 unit SQ DAILY 08/20/23 08/20/23 History [Basaglar Kwikpen U-100] Tamsulosin [Flomax] 0.4 mg PO HS 08/20/23 08/20/23 History hydrALAZINE HCL [Apresoline] 25 mg PO TID 08/20/23 08/20/23 History Allergies Allergy/AdvReac Type Severity Reaction Status Date / Time No Known Allergies Allergy Verified 08/20/23 11:22 Physical Exam Vitals: Vital Signs Temp Pulse Resp BP Pulse Ox FiO2 08/20/23 14:00 45 L 18 145/66 92 L 08/20/23 13:00 60 18 145/60 92 L 08/20/23 12:00 63 18 105/48 95 08/20/23 11:58 50 08/20/23 11:00 58 L 16 135/68 94 L 08/20/23 10:00 53 L 16 119/49 92 L 08/20/23 09:40 70 18 118/85 94 L 08/20/23 09:00 25 H 08/20/23 08:42 54 L 25 H 128/94 92 L 100 08/20/23 08:38 97.5 F L 120 H 36 H 110/63 87 L Intake and Output 08/19/23 08/20/23 08/20/23 22:59 06:59 14:59 Output Total 200 Balance -200 Output: Urine 200 Uretheral (Restrepo) 200 Other: Weight 90.718 kg Results 08/20/23 08:46 08/20/23 08:46 Cardiac Enzymes 08/20/23 08/20/23 Range/Units 08:46 08:46 AST 18 (17-59) U/L Troponin I 0.460 H* (0.000-0.034) ng/mL Coagulation 08/20/23 Range/Units 08:46 PT 11.4 (10.0-12.5) sec APTT 25.8 (22.0-30.0) sec CBC 08/20/23 Range/Units 08:46 WBC 9.8 (3.8-10.6) k/uL RBC 3.44 L (4.30-5.90) m/uL Hgb 9.6 L D (13.0-17.5) gm/dL Hct 31.6 L (39.0-53.0) % Plt Count 192 (150-450) k/uL Comprehensive Metabolic Panel 08/20/23 Range/Units 08:46 Sodium 150 H (137-145) mmol/L Potassium 5.1 (3.5-5.1) mmol/L Chloride 111 H (98-107) mmol/L Carbon Dioxide 29 (22-30) mmol/L BUN 45 H (9-20) mg/dL Creatinine 1.59 H (0.66-1.25) mg/dL Glucose 212 H (74-99) mg/dL Calcium 8.6 (8.4-10.2) mg/dL AST 18 (17-59) U/L ALT 16 (4-49) U/L Alkaline Phosphatase 74 (38-126) U/L Total Protein 6.8 (6.3-8.2) g/dL Albumin 3.6 (3.5-5.0) g/dL Current Medications Generic Name Dose Route Start Last Admin Trade Name Freq PRN Reason Stop Dose Admin Acetaminophen 650 mg 08/20/23 11:57 Acetaminophen Tab 325 Mg Tab PO Q6HR PRN Mild Pain or Fever > 100.5 Sodium Chloride 1,000 mls @ 20 mls/hr 08/20/23 12:00 08/20/23 12:41 Saline 0.9% IV 20 mls/hr .Q24H ALMA ROSA Administration Naloxone HCl 0.2 mg 08/20/23 11:57 Naloxone 0.4 Mg/Ml 1 Ml Vial IV Q2M PRN Opioid Reversal Intake and Output 08/19/23 08/20/23 08/20/23 22:59 06:59 14:59 Output Total 200 Balance -200 Output: Urine 200 Uretheral (Restrepo) 200 Other: Weight 90.718 kg Patient Weight 08/21/23 06:59 Weight 90.718 kg 08/20/23 08:46 08/20/23 08:46
[2023-08-21 11:36] LABS: Anisocytosis Slight; Basophils % (A) 0 %; Eosinophils # (A) 0.2 k/uL (0-0.7); Eosinophils % (A) 1 %; HCT 30.5 % (39.0-53.0); HGB 9.2 gm/dL (13.0-17.5); Hypochromasia Marked; Lymphocytes # (A) 1.1 k/uL (1.0-4.8); Lymphocytes % (A) 9 %; MCH 28.3 pg (25.0-35.0); MCHC 30.2 g/dL (31.0-37.0); MCV 93.8 fL (80.0-100.0); Mean Platelet Volume 9.3; Monocytes # (A) 0.5 k/uL (0-1.0); Monocytes % (A) 4 %; Neutrophils # (A) 10.2 k/uL (1.3-7.7); Neutrophils % (A) 84 %; Platelet Count 191 k/uL (150-450); RBC 3.26 m/uL (4.30-5.90); RDW 17.6 % (11.5-15.5); WBC 12.1 k/uL (3.8-10.6)
[2023-08-21 11:47] LABS: Albumin 3.1 g/dL (3.5-5.0); Bilirubin, Delta 0.3 mg/dL (0.0-0.2); Bilirubin,Unconjugated 0.4 mg/dL (0.0-1.1); Magnesium 2.6 mg/dL (1.6-2.3); Total Bilirubin 0.7 mg/dL (0.2-1.3); Total Protein 6.3 g/dL (6.3-8.2)
[2023-08-21 12:02] LABS: Glucose,Whole Blood 308 mg/dL (70-110)
[2023-08-21] MEDS ORDERED: DEXTROSE 50% SYRINGE 50 ML IVP PRN ×2 (12:45)
[2023-08-21] MEDS: INSULIN ASPART (NovoLOG) 100 UNIT/ML VIAL SQ SCH ×3 (12:56→20:31)
--- NOTE | 2023-08-21 12:59 | CA ---
Transthoracic Echo Report Name: Tarik Smith Age: 88 Gender: M : 1935 Exam Date: 08/21/2023 12:43 Exam Location: [place] [facility] Ht (in): 72 Wt (lb): 194 Ordering Physician: Toña Ruvalcaba Attending/Referring Phys: [id number], Peg Route Supervisor Usman Lai Procedure CPT: Indications: LV function Cardiac Hx: Technical Quality: Technically difficult study Contrast 1: Definity Total Dose (mL): 2 Contrast 2: Total Dose (mL): MEASUREMENTS (Male / Female) Normal Values 2D ECHO LV Diastolic Diameter PLAX 5.5 cm 4.2 - 5.9 / 3.9 - 5.3 cm LV Systolic Diameter PLAX 4.5 cm IVS Diastolic Thickness 1.2 cm 0.6 - 1.0 / 0.6 - 0.9 cm LVPW Diastolic Thickness 1.0 cm 0.6 - 1.0 / 0.6 - 0.9 cm LV Relative Wall Thickness 0.4 RV Internal Dim ED PLAX 3.1 cm LVOT Diameter 2.3 cm Aortic Root Diameter 3.4 cm LA Systolic Diameter LX 2.7 cm 3.0 - 4.0 / 2.7 - 3.8 cm LV Diastolic Volume MOD BP 108.2 cm??? 67 - 155 / 56 - 104 cm??? LV Systolic Volume MOD BP 62.2 cm??? 22 - 58 / 19 - 49 cm??? LV Ejection Fraction MOD BP 42.5 % >= 55 % LV Cardiac Index MOD BP 1145.9 cm???/min???m??? LV Diastolic Volume MOD 4C 87.1 cm??? LV Systolic Volume MOD 4C 50.8 cm??? LV Ejection Fraction MOD 4C 41.6 % LV Cardiac Index MOD 4C 904.9 cm???/min???m??? LV Diastolic Length 4C 7.4 cm LV Systolic Length 4C 6.5 cm LV Diastolic Volume MOD 2C 125.5 cm??? LV Systolic Volume MOD 2C 65.7 cm??? LV Ejection Fraction MOD 2C 47.6 % LV Cardiac Index MOD 2C 1490.6 cm???/min???m??? LV Diastolic Length 2C 8.0 cm LV Systolic Length 2C 7.6 cm LA Volume 80.9 cm??? 18 - 58 / 22 - 52 cm??? LA Volume Index 38.1 cm???/m??? 16 - 28 cm???/m??? DOPPLER AV Peak Velocity 241.5 cm/s AV Peak Gradient 23.3 mmHg LVOT Peak Velocity 75.8 cm/s LVOT Peak Gradient 2.3 mmHg LVOT Velocity Time Integral 24.3 cm LVOT Stroke Volume 101.4 cm??? LVOT Stroke Volume Index 48.2 ml/m??? LVOT Cardiac Index 2528.5 cm???/min???m??? AV Area Cont Eq pk 1.3 cm??? MV Peak Velocity 147.1 cm/s MV Peak Gradient 8.7 mmHg MV Mean Velocity 62.3 cm/s MV Mean Gradient 2.1 mmHg MV Velocity Time Integral 66.6 cm MR Peak Velocity 340.5 cm/s MR Peak Gradient 46.4 mmHg Mitral E Point Velocity 117.7 cm/s Mitral A Point Velocity 126.8 cm/s Mitral E to A Ratio 0.9 MV Deceleration Time 264.7 ms TR Peak Velocity 299.9 cm/s TR Peak Gradient 36.0 mmHg Right Ventricular Systolic Press 41.0 mmHg PV Peak Velocity 85.3 cm/s PV Peak Gradient 2.9 mmHg FINDINGS Left Ventricle Mildly increased septal wall thickness. Mildly increased left ventricular systolic volume. Moderately decreased left ventricular ejection fraction. Left ventricular ejection fraction is estimated at 35-40 %. Basal to mid inferolateral wall hypokinesia. No evidence of LV thrombus Right Ventricle Mild right ventricular dilatation. RVSP= 41mmHg. Right Atrium Normal right atrial size. Left Atrium Moderately increased left atrial volume. Mildly increased left atrial area. Mitral Valve Mild mitral thickening. Mild posterior annulus calcification. Mild MR. Aortic Valve Moderate AV calcification. Aortic valve not well visualized. AV peak gradient= 23.3mmHg. Tricuspid Valve Structurally normal tricuspid valve. Moderate TR. Pulmonic Valve Pulmonic valve not well visualized. No pulmonic regurgitation. Pericardium No pleural effusion. Aorta not well visualized CONCLUSIONS Left ventricular ejection fraction is estimated at 35-40 %. Basal to mid inferolateral wall hypokinesia. RVSP= 41mmHg. Calcific aortic valve with mild aortic stenosis Dilated IVC with less than 50% respiratory collapse Previewed by: Dr Aramis Lee (Electronically Signed) Final Date: 21 August 2023 12:58
--- NOTE | 2023-08-21 14:42 | P.PN ---
Subjective Progress Note Date: 08/21/23 Principal diagnosis: Acute hypoxic respiratory failure and aspiration pneumonia This is an 88-year-old white male with history of multiple medical problems including coronary artery disease, type 2 diabetes, dementia, dyslipidemia, patient was recently admitted to the hospital back in July, and he was eventually discharged to [facility]. Patient was sent home last Saturday, and today the patient's was concerned about him developing shortness of breath, weakness, unable to do anything on his own, hence she brought him into the ER. Apparently when EMS arrived, patient was hypoxic, and brought into the ER, O2 saturation on BiPAP was 87% went up to 92% after adjusting his BiPAP which is presently 08/14/50% patient is an extremely poor historian, according to the the patient has been having difficulty swallowing, cannot even drink water, he chokes on whenever he eats or swallows. Chest x-ray clearly showed evidence of bilateral infiltrates involving left lower lobe and right midlung. Hence I believe the patient has clearly aspiration pneumonia based on his chest x-ray findings and based on his clinical history. In addition to this the patient was noted to be hypernatremic with elevated BUN of 45 creatinine 1.59 implying that the patient is quite dehydrated and he has hypovolemic hypernatremia as well as prerenal azotemia, his troponin was elevated and his BNP level was elevated however the chest x-ray is mostly pointing to more pneumonia than congestive heart failure. Patient also tested positive for COVID-19, but according to the this was noted even on his last admission, last month he had positive COVID-19 test, and this was few weeks ago and looking at his last discharge summary, patient had syncopal episode secondary to dehydration he also had bilateral buttock ulcers, atrial fibrillation with RVR, acute renal failure secondary to dehydration, lactic acidosis, hypotension, he does have underlying coronary artery disease and he also had elevated troponins. Reevaluated today on 08/21/23, patient remains on BiPAP, and I went ahead and transition the patient from BiPAP to 5 L nasal cannula. Patient tells me that his feeling much better today, he is arousable, and seems to be appropriate, less shortness of breath, hardly any cough, no wheezing, W scans 12.1 hemoglobin 9.2 but chest x-ray on admission showed multifocal infiltrates involving the right midlung and the left lower lobe. Hence I suspected aspiration pneumonia and the patient is being treated as such. Speech therapy evaluation is pending for evaluation for possible aspiration and echocardiogram showed LV dysfunction with ejection fraction of 35-40% . His echocardiogram showed also mild to moderate aortic stenosis and moderate pulmonary hypertension. Looking back the patient had positive COVID-19 screening on his last admission and on this admi ssion, hence I doubt the need for isolation Objective - Vital Signs Vital signs: Vital Signs Temp 98.6 F 08/21/23 08:00 Pulse 64 08/21/23 12:00 Resp 16 08/21/23 12:00 BP 133/60 08/21/23 12:00 Pulse Ox 96 08/21/23 12:00 FiO2 50 08/21/23 08:20 Intake & Output 08/20/23 08/21/23 08/21/23 18:59 06:59 18:59 Intake Total 500 Output Total 200 700 Balance -200 -200 Weight 90.718 kg 88 kg Intake: Intake, IV Titration 500 Amount Dextrose 5% in Water 1, 400 000 ml @ 50 mls/hr IV . Q20H ONE Rx#:[id number] Piperacillin-Tazobactam 3 100 .375 gm In Sodium Chloride 0.9% 100 ml @ 25 mls/hr IVPB Q8HR [facility] Rx# :[id number] Oral 0 Output: Urine 200 700 Uretheral (Restrepo) 200 Other: Voiding Method Indwelling Catheter Indwelling Catheter - Exam Physical Exam: Revealed an 88-year-old white male lethargic, on BiPAP, arousable, follows instructions and verbalizes this time. Head: Atraumatic, normocephalic. HEENT:[Neck is supple.] [No neck masses.] [No thyromegaly.] [No JVD.] Chest: [Crackles bilaterally at the bases noted. Cardiac Exam: [Irregular irregular rhythm Normal S1 and S2, no S3 gallop, 2/6 systolic murmur over the aortic area. Abdomen: [Obese, Soft, nontender, no megaly, no rebound, no guarding, normal bowel sounds.] Extremities: [No clubbing, no edema, no cyanosis.] Neurological Exam: Patient is lethargic, arousable, does not communicate, follows simple instructions only. Skin: No rashes - Labs CBC & Chem 7: 08/21/23 11:17 08/20/23 08:46 Labs: Abnormal Lab Results - Last 24 Hours (Table) 08/21/23 08/21/23 08/21/23 Range/Units 05:54 11:17 11:17 WBC 12.1 H (3.8-10.6) k/uL RBC 3.26 L (4.30-5.90) m/uL Hgb 9.2 L (13.0-17.5) gm/dL Hct 30.5 L (39.0-53.0) % MCHC 30.2 L (31.0-37.0) g/dL RDW 17.6 H (11.5-15.5) % Neutrophils # 10.2 H (1.3-7.7) k/uL POC Glucose (mg/dL) 294 H (70-110) mg/dL Magnesium 2.6 H (1.6-2.3) mg/dL Delta Bilirubin 0.3 H (0.0-0.2) mg/dL AST 16 L (17-59) U/L Troponin I (0.000-0.034) ng/mL Albumin 3.1 L (3.5-5.0) g/dL 08/21/23 08/21/23 Range/Units 11:17 12:00 WBC (3.8-10.6) k/uL RBC (4.30-5.90) m/uL Hgb (13.0-17.5) gm/dL Hct (39.0-53.0) % MCHC (31.0-37.0) g/dL RDW (11.5-15.5) % Neutrophils # (1.3-7.7) k/uL POC Glucose (mg/dL) 308 H (70-110) mg/dL Magnesium (1.6-2.3) mg/dL Delta Bilirubin (0.0-0.2) mg/dL AST (17-59) U/L Troponin I 0.410 H* (0.000-0.034) ng/mL Albumin (3.5-5.0) g/dL Assessment and Plan Assessment: Impression: Acute hypoxic respiratory failure secondary to aspiration pneumonia Acute metabolic encephalopathy Acute kidney injury, most likely dehydration related prerenal azotemia, should improve with cautious hydration Acute hypovolemic hypernatremia Elevated troponin/troponin leak, most likely secondary to supply/demand mismatch Left ventricular dysfunction as noted on the echocardiogram Mild to moderate aortic stenosis Moderate pulmonary hypertension Underlying dementia History of Parkinson's disease Chronic dysphagia with difficulty swallowing and choking episode Benign essential hypertension Coronary artery disease and previous cardiac stent Type 2 diabetes, insulin-dependent Remote history of alcohol use Ex-smoker History of TIA Recommendation: Continue to cautiously hydrate the patient Continue antibiotics/Zosyn Change BiPAP to 5 L nasal cannula Consulted speech therapy for swallow evaluation, and if he fails, strongly recommend PEG tube placement Continue to hold on diuretics Repeat electrolytes and address hypernatremia if still present GI prophylaxis IV fluid in the form of D5W at 75 mL per hour We'll continue to follow Prognosis is guarded Time with Patient: Less than 30
[2023-08-21 16:54] LABS: Glucose,Whole Blood 258 mg/dL (70-110)
[2023-08-21] MEDS: DEXTROSE 5%-0.45% NACL 1,000 ML IV SCH ×2 (20:16→23:09)
[2023-08-21 20:26] LABS: Glucose,Whole Blood 228 mg/dL (70-110)
--- NOTE | 2023-08-22 05:37 | P.PN ---
Subjective This is a pleasant 88 race old male with multiple medical problems as below. Patient is brought because of shortness of breath Patient is poor historian and information were obtained from stop her records. Staff and the at bedside. Patient was here in the hospital in July twice, he was discharged to rehab. He left rehab last Saturday, back home because his resources from his medical insurance provider has lapsed and finished 3 at as per he was placed on nectar thick diet therefore he was not drinking any clear liquids including water. This morning at 4:00 AM he may occur COMPLAIN of from shortness of breath, he is supposed to see his bone tender Dr. Em in the usual N every 6 month follow-up but he could not do anything. Then the noticed that he started drooling from his left side of the mons so she called EMS. Patient really and tended and could not provide information and his currently on BiPAP. On admission patient was on BiPAP saturating 87% and currently 92%, he was slightly tachycardic and tachypneic but now his heart rate about 50-60 and regular rate is around 16. Blood pressure 145/60. reviewed showing abnormality with a drop of hemoglobin down to 9.2 with severe hypernatremia at 150 also has evanescent with elevated creatinine 1.59 compared to baseline of 0.7. Occult blood in the stool was positive civit test came back positive as well. Otherwise her cysts are negative Chest x-ray showing no significant infiltrate but mild right and left side infiltrate with mild cardiomegaly EKG shows sinus bradycardia at 57 with bundle-branch block ProBNP is elevated to 12 500 On admission patient given 1 dose of antibiotics Unasyn 3 at At home he was on liquids and Plavix which are put on hold. 08/31/2023 Patient is more awake and answering questions appropriately, he denies chest pain he denies specific complaint His vitals are stable and his oxygen saturation is improving 96% on 4 L oxygen His WBCs slightly up 12.1, hemoglobin 9.2. He remains on Zosyn D5 half normal saline at 75 mL/h and IV Protonix twice daily and Plavix is admitted today with a close monitoring. Ejection fraction is 35-40% Although patient responded well to therapy his prognosis remains guarded. With his improving clinical status we will consult general surgery in case he might benefit from any procedure Review of systems CONSTITUTIONAL: No fever, no malaise, no fatigue. HEENT: No recent visual problems or hearing problems. Denied any sore throat. CARDIOVASCULAR: No orthopnea, PND, no palpitations, no syncope. PULMONARY: No shortness of breath, no cough, no hemoptysis. GASTROINTESTINAL: No diarrhea, no nausea, no vomiting, no abdominal pain. Normoactive bowel sounds. Active Medications Generic Name Dose Route Start Last Admin Trade Name Freq PRN Reason Stop Dose Admin Acetaminophen 650 mg 08/20/23 11:57 Acetaminophen Tab 325 Mg Tab PO Q6HR PRN Mild Pain or Fever > 100.5 Atorvastatin Calcium 40 mg 08/21/23 09:00 08/21/23 08:29 Atorvastatin 40 Mg Tab PO 40 mg DAILY ALMA ROSA Administration Clopidogrel Bisulfate 75 mg 08/21/23 09:00 08/21/23 08:29 Clopidogrel 75 Mg Tab PO 75 mg DAILY ALMA ROSA Administration Dextrose/Water 25 ml 08/21/23 12:45 Dextrose 50% Syringe 50 Ml IVP PER PROTOCOL PRN Hypoglycemia Protocol Dextrose/Water 50 ml 08/21/23 12:45 Dextrose 50% Syringe 50 Ml IVP PER PROTOCOL PRN Hypoglycemia Protocol Ferrous Sulfate 325 mg 08/22/23 07:30 Ferrous Sulfate 325 Mg Tab PO BID-W/MEALS ALMA ROSA Piperacillin Sod/Tazobactam 100 mls @ 25 mls/hr 08/21/23 00:00 08/21/23 23:39 Sod 3.375 gm/ Sodium Chloride IVPB 25 mls/hr Q8HR ALMA ROSA Administration Protocol Dextrose/Sodium Chloride 1,000 mls @ 75 mls/hr 08/20/23 17:00 08/21/23 23:09 Dextrose 5%-1/2ns Iv Soln IV Not Given .[id number] ALMA ROSA Diltiazem HCl 125 mg/ Sodium 125 mls @ 15 mls/hr 08/21/23 06:23 08/21/23 23:09 Chloride IV Not Given .Q8H20M ALMA ROSA 15 MG/HR Insulin Aspart 0 unit 08/21/23 17:30 08/21/23 20:31 Insulin Aspart (Novolog) 100 Unit/Ml Vial SQ 4 unit ACHS ALMA ROSA Administration Protocol Metoprolol Tartrate 50 mg 08/21/23 09:00 08/21/23 20:23 Metoprolol Tartrate 50 Mg Tab PO 50 mg BID ALMA ROSA Administration Naloxone HCl 0.2 mg 08/20/23 11:57 Naloxone 0.4 Mg/Ml 1 Ml Vial IV Q2M PRN Opioid Reversal Pantoprazole Sodium 40 mg 08/20/23 17:00 08/21/23 20:23 Pantoprazole 40 Mg/10 Ml Vial IVP 40 mg BID ALMA ROSA Administration Objective - Vital Signs Vital signs: Vital Signs Temp 98.6 F 08/21/23 08:00 Pulse 64 08/21/23 12:00 Resp 16 08/21/23 12:00 BP 133/60 08/21/23 12:00 Pulse Ox 96 08/21/23 12:00 FiO2 50 08/21/23 08:20 Intake & Output 08/20/23 08/21/23 08/21/23 18:59 06:59 18:59 Intake Total 500 Output Total 200 700 Balance -200 -200 Weight 90.718 kg 88 kg Intake: Intake, IV Titration 500 Amount Dextrose 5% in Water 1, 400 000 ml @ 50 mls/hr IV . Q20H ONE Rx#:[id number] Piperacillin-Tazobactam 3 100 .375 gm In Sodium Chloride 0.9% 100 ml @ 25 mls/hr IVPB Q8HR ALMA ROSA Rx# :[id number] Oral 0 Output: Urine 200 700 Uretheral (Restrepo) 200 Other: Voiding Method Indwelling Catheter Indwelling Catheter - Exam -GENERAL: The patient is more awake and answers questions appropriately, he follows commands, but still confused. No respiratory distress. Generally weak HEENT: Pupils are round and equally reacting to light. EOMI. No scleral icterus. No conjunctival pallor. Normocephalic, atraumatic. No pharyngeal erythema. No thyromegaly. CARDIOVASCULAR: S1 and S2 present. No murmurs, rubs, or gallops. PULMONARY: Chest is clear to auscultation, no wheezing , no crackles. ABDOMEN: Soft, nontender, nondistended, normoactive bowel sounds. No palpable organomegaly. MUSCULOSKELETAL: No joint swelling or deformity. EXTREMITIES: No cyanosis, clubbing, or pedal edema. NEUROLOGICAL: Gross neurological examination did not reveal any focal deficits. SKIN: No rashes. no petechiae. - Labs CBC & Chem 7: 08/21/23 11:17 08/20/23 08:46 Labs: Abnormal Lab Results - Last 24 Hours (Table) 08/21/23 08/21/23 08/21/23 Range/Units 05:54 11:17 11:17 WBC 12.1 H (3.8-10.6) k/uL RBC 3.26 L (4.30-5.90) m/uL Hgb 9.2 L (13.0-17.5) gm/dL Hct 30.5 L (39.0-53.0) % MCHC 30.2 L (31.0-37.0) g/dL RDW 17.6 H (11.5-15.5) % Neutrophils # 10.2 H (1.3-7.7) k/uL POC Glucose (mg/dL) 294 H (70-110) mg/dL Magnesium 2.6 H (1.6-2.3) mg/dL Delta Bilirubin 0.3 H (0.0-0.2) mg/dL AST 16 L (17-59) U/L Troponin I (0.000-0.034) ng/mL Albumin 3.1 L (3.5-5.0) g/dL 08/21/23 08/21/23 08/21/23 Range/Units 11:17 12:00 13:58 WBC (3.8-10.6) k/uL RBC (4.30-5.90) m/uL Hgb (13.0-17.5) gm/dL Hct (39.0-53.0) % MCHC (31.0-37.0) g/dL RDW (11.5-15.5) % Neutrophils # (1.3-7.7) k/uL POC Glucose (mg/dL) 308 H (70-110) mg/dL Magnesium (1.6-2.3) mg/dL Delta Bilirubin (0.0-0.2) mg/dL AST (17-59) U/L Troponin I 0.410 H* 0.406 H* (0.000-0.034) ng/mL Albumin (3.5-5.0) g/dL Assessment and Plan Assessment: Severe metabolic/toxic encephalopathy Comment infection with no strong evidence of pneumonia Acute hypoxic respiratory failure. Be secondary to above Cardiomyopathy with ejection fraction 35-40% Acute kidney injury Acute GI bleed is suspected The [place] blood loss anemia and suspected Severe hypernatremia Mildly elevated troponin which is thought secondary to supply/demand mismatch Dementia. Plan: Patient continued on BiPAP as necessary, currently on nasal cannula Continue with D5 half-normal saline start Protonix IV twice daily, hold eliquis and bone tender team added back to his Plavix. Follow-up B12 and folate level Cardiology and pulmonary team were consulted Possible surgery team consult for GI bleed Labs and medication were reviewed.. Continue same treatment. Continue with symptomatic treatment. Resume home medication. Monitor labs and vitals. DVT and GI prophylaxis. Further recommendations as per clinical course of the patient DVT prophylaxis: 4 possible GI bleed GI prophylaxis: Ppi PT/OT: Deferred Prognosis is guarded We recommend more palliative approach for the treatment of this patient given his advanced age and multiple and severe apical problems and complicated medical problems Especially if patient does not improve or deteriorates with recommend hospice care I already talked to the at bedside and she agrees he would be DO NOT RESUSCITATE. Also the agrees with recommendation that if treatment failure to pursue with hospice care. His prognosis is very poor
[2023-08-22 06:10] LABS: Glucose,Whole Blood 246 mg/dL (70-110)
[2023-08-22] MEDS: DILTIAZEM 125 MG in SODIUM CHLORIDE 0.9% 100 ML IV SCH (06:47)
[2023-08-22] MEDS: INSULIN ASPART (NovoLOG) 100 UNIT/ML VIAL SQ SCH ×4 (06:49→20:11)
[2023-08-22] MEDS: FERROUS SULFATE 325 MG TAB PO SCH ×2 (06:50→17:03)
[2023-08-22 08:47] LABS: Anisocytosis Slight; Basophils % (A) 0 %; Eosinophils % (A) 0 %; HCT 31.2 % (39.0-53.0); HGB 9.6 gm/dL (13.0-17.5); Hypochromasia Marked; Lymphocytes # (A) 1.6 k/uL (1.0-4.8); Lymphocytes % (A) 14 %; MCHC 30.6 g/dL (31.0-37.0); MCV 91.7 fL (80.0-100.0); Mean Platelet Volume 8.6; Monocytes # (A) 0.6 k/uL (0-1.0); Monocytes % (A) 5 %; Neutrophils % (A) 79 %; Platelet Count 219 k/uL (150-450); RBC 3.41 m/uL (4.30-5.90); RDW 17.6 % (11.5-15.5); WBC 11.4 k/uL (3.8-10.6)
[2023-08-22 09:08] LABS: African American GFR (CKD) 53 (>60 ml/min/1.73 sqM); Anion Gap 9 mmol/L; Blood Urea Nitrogen 53 mg/dL (9-20); Calcium 8.3 mg/dL (8.4-10.2); Carbon Dioxide 26 mmol/L (22-30); Chloride 112 mmol/L (98-107); Glucose 239 mg/dL (74-99); Non-African American GFR(CKD) 45 (>60 ml/min/1.73 sqM); Potassium 4.5 mmol/L (3.5-5.1); Sodium 147 mmol/L (137-145)
[2023-08-22] MEDS: METOPROLOL TARTRATE 50 MG TAB PO SCH ×2 (09:34→20:02)
[2023-08-22] MEDS: PANTOPRAZOLE 40 MG/10 ML VIAL IVP SCH ×2 (09:34→20:02)
[2023-08-22] MEDS: PIPERACILLIN-TAZOBACTAM 3.375 GM in SODIUM CHLORIDE 0.9% 100 ML IVPB SCH ×2 (09:34→17:02)
[2023-08-22] MEDS: CLOPIDOGREL 75 MG TAB PO SCH (09:34)
[2023-08-22] MEDS: ATORVASTATIN 40 MG TAB PO SCH (09:35)
[2023-08-22] MEDS: DEXTROSE 5%-0.45% NACL 1,000 ML IV SCH (09:35)
[2023-08-22 11:18] LABS: Glucose,Whole Blood 243 mg/dL (70-110)
--- NOTE | 2023-08-22 11:21 | CDI ---
Documentation Clarification Form Date: 08/22/2023 10:57:47 AM From: Palak Merino RN, CCDS Admit Date: 08/20/2023 12:02:00 PM Patient Name: Tarik Smith Visit Number: [id number] Discharge Date: ATTENTION: The Clinical Documentation Specialists (CDI) and [facility] Coding Staff appreciate your assistance in clarifying documentation. Please respond to the clarification below the line at the bottom and electronically sign. The CDI & [facility] Coding staff will review the response and follow-up if needed. Please note: Queries are made part of the Legal Health Record. If you have any questions, please contact the author of this message via ITS. Dr. Tabares E Sheet Your patient has history of having difficulty swallowing. According to the the patient has been having difficulty swallowing, cannot even drink water, he chokes on whenever he eats or swallows. Based on this information and the findings below, is there an additional diagnosis that is clinically appropriate for this patient? Patient history/risk factors: Coronary Artery Disease (CAD), CVA/TIA, Dementia, Diabetes Mellitus, Eye Disorder, Hyperlipidemia, Hypertension, Memory Impairment, Former smoker, Clinical Indicators: 88-year-old white male present with shortness of breath, weakness, unable to do anything on his own. He has chronic dysphagia with difficulty swallowing and choking episode. 08/20 VS 110/63 120 36 975 87% BiPAP 08/20 Labs: WBC 9.8 HGB 9.6, NA+ 150, CL 111, BUN 45 CR 1.59 Troponin 0.460, 0.410, 0.406 BNP 13757, COVID -Positive EKG shows sinus bradycardia at 57 with bundle-branch block. 08/20 CXR: Mild right mid and left lower lung field infiltrates. Correlate for atelectasis or pneumonia. 08/21 Pulmonary progress note: Acute hypoxic respiratory failure secondary to aspiration pneumonia. Treatment: Erp Consultant/Casino Banker O2 Sat's (Titrate) Consult speech therapy for swallow evaluation Hold diuretics Monitor electrolytes and address Hypernatremia. D5% 1/2ns iv @75 MLS/HR 08/20-08/22 Zosyn 3.375 GM IVPB Q 8HRS 08/21-08/22 Is there an additional diagnosis that is clinically appropriate for this patient? [x ] Aspiration Pneumonia [ ] Unable to determine [ ] Other, please specify (Template Last Reviewed: October 2022) MTDD
--- NOTE | 2023-08-22 11:31 | XR ---
EXAMINATION TYPE: XR chest 1V portable DATE OF EXAM: 08/22/2023 HISTORY: Shortness of breath. COMPARISON: 08/20/2023 TECHNIQUE: Single view of the chest is submitted. FINDINGS: Demonstrated are scattered senescent parenchymal change. Increasing patchy infiltrate right mid and right lower lung zones with small right-sided effusion. Co rrelate for pneumonia or changes of asymmetric congestive failure. The heart is stable. Hilar and mediastinal structures are within normal limits. Degenerative changes are seen of the dorsal spine. IMPRESSION: 1. Increasing patchy infiltrate right mid and right lower lung zones with small right-sided effusion . Correlate for pneumonia or changes of asymmetric congestive failure.
--- NOTE | 2023-08-22 11:53 | CDI ---
Documentation Clarification Form Date: 08/22/2023 11:22:39 AM From: Palak Merino RN, CCDS Admit Date: 08/20/2023 12:02:00 PM Patient Name: Tarik Smith Visit Number: [id number] Discharge Date: ATTENTION: The Clinical Documentation Specialists (CDI) and [facility] Coding Staff appreciate your assistance in clarifying documentation. Please respond to the clarification below the line at the bottom and electronically sign. The CDI & [facility] Coding staff will review the response and follow-up if needed. Please note: Queries are made part of the Legal Health Record. If you have any questions, please contact the author of this message via ITS. Dr. Tabares E Sheet There is documentation of mildly elevated troponin which is thought secondary to supply/demand mismatch. Additional clarification is requested. History/Risk Factors: Coronary Artery Disease (CAD), CVA/TIA, Dementia, Diabetes Mellitus, Eye Disorder, Hyperlipidemia, Hypertension, Memory Impairment, Former smoker, Clinical Indicators: 88-year-old white male present with shortness of breath, weakness, unable to do anything on his own. On admission patient was on BiPAP saturating 87% and currently 92%, BiPAP, he was slightly tachycardic and tachypneic but now his heart rate about 50-60 and regular rate is around 16. Blood pressure 145/60. 08/20 Labs: WBC 9.8 HGB 9.6, NA+ 150, CL 111, BUN 45 CR 1.59 Troponin 0.460, 0.410, 0.406 BNP 78167, COVID -Positive EKG shows sinus bradycardia at 57 with bundle-branch block. 08/20 CXR: Mild right mid and left lower lung field infiltrates. Correlate for atelectasis or pneumonia. Treatment: Airplane And Engine Inspector/Patient Sitter O2 Sat's (Titrate) Consult speech therapy for swallow evaluation Hold diuretics Monitor electrolytes and address Hypernatremia. D5% 1/2ns IV @75 MLS/HR 08/20-08/22 Zosyn 3.375 GM IVPB Q 8HRS 08/21-08/22 Lipitor 40 MG PO Daily 08/21-08/22 Lopressor 50 MG PO DIB08/21-08/22 Can you please further clarify troponin which is thought secondary to supply/demand mismatch? [ ] NV Type II due to acute hypoxic respiratory failure [x ] Demand ischemia without NV secondary to acute hypoxic respiratory failure [ ] Other, please specify [ ] Unable to determine (Template Last Revised: November 2020) MTDD
--- NOTE | 2023-08-22 14:05 | P.PN ---
Subjective Progress Note Date: 08/22/23 This is an 88-year-old white male with history of multiple medical problems including coronary artery disease, type 2 diabetes, dementia, dyslipidemia, patient was recently admitted to the hospital back in July, and he was eventually discharged to correction. Patient was sent home last Saturday, and today the patient's was concerned about him developing shortness of breath, weakness, unable to do anything on his own, hence she brought him into the ER. Apparently when EMS arrived, patient was hypoxic, and brought into the ER, O2 saturation on BiPAP was 87% went up to 92% after adjusting his BiPAP which is presently 12/50% patient is an extremely poor historian, according to the the patient has been having difficulty swallowing, cannot even drink water, he chokes on whenever he eats or swallows. Chest x-ray clearly showed evidence of bilateral infiltrates involving left lower lobe and right midlung. Hence I believe the patient has clearly aspiration pneumonia based on his chest x-ray findings and based on his clinical history. In addition to this the patient was noted to be hypernatremic with elevated BUN of 45 creatinine 1.59 implying that the patient is quite dehydrated and he has hypovolemic hypernatremia as well as prerenal azotemia, his troponin was elevated and his BNP level was elevated however the chest x-ray is mostly pointing to more pneumonia than congestive heart failure. Patient also tested positive for COVID-19, but according to the this was noted even on his last admission, last month he had positive COVID-19 test, and this was few weeks ago and looking at his last discharge summary, patient had syncopal episode secondary to dehydration he also had bilateral buttock ulcers, atrial fibrillation with RVR, acute renal failure secondary to dehydration, lactic acidosis, hypotension, he does have underlying coronary artery disease and he also had elevated troponins. Reevaluated today on 08/21/23, patient remains on BiPAP, and I went ahead and transition the patient from BiPAP to 5 L nasal cannula. Patient tells me that his feeling much better today, he is arousable, and seems to be appropriate, less shortness of breath, hardly any cough, no wheezing, W scans 12.1 hemoglobin 9.2 but chest x-ray on admission showed multifocal infiltrates involving the right midlung and the left lower lobe. Hence I suspected aspiration pneumonia a nd the patient is being treated as such. Speech therapy evaluation is pending for evaluation for possible aspiration and echocardiogram showed LV dysfunction with ejection fraction of 35-40% . His echocardiogram showed also mild to moderate aortic stenosis and moderate pulmonary hypertension. Looking back the patient had positive COVID-19 screening on his last admission and on this admission, hence I doubt the need for isolation. The patient is seen today 08/22/2023 in follow-up on the selective care unit. Currently resting comfortably in bed. Awake and alert. Maintaining good O2 saturations in the 90s on 4 L/m per nasal cannula. Chest x-ray is showing some increased opacities in the right lung today. White count 11.4. Hemoglobin 9.6. Platelets 219. Sodium 147. Potassium 4.5. Bicarb 26. BUN 53. Creatinine 1.3. Glucose 239. He had undergone another swallow evaluation by speech therapy. They were recommending downgrading diet dysphagia level III chopped with nectar thick liquids with upright positioning and direct one-to-one supervision. Small bites/sepsis and no stress. He is continued on D5 and half- normal saline at 75 ML's per hour. Antibiotics in the form of Zosyn. Objective - Vital Signs Vital signs: Vital Signs Temp 98.4 F 08/22/23 08:00 Pulse 66 08/22/23 12:00 Resp 16 08/22/23 12:00 BP 153/70 08/22/23 12:00 Pulse Ox 92 L 08/22/23 12:00 FiO2 50 08/21/23 08:20 Intake & Output 08/21/23 08/22/23 08/22/23 18:59 06:59 18:59 Intake Total 730 50 Output Total 550 600 Balance 180 -550 Intake: Intake, IV Titration 730 Amount Dextrose 5%-0.45% NaCl 1, 600 000 ml @ 75 mls/hr IV . [id number] ALMA ROSA Rx#:[id number] Diltiazem 125 mg In 30 Sodium Chloride 0.9% 100 ml @ 15 MG/HR 15 mls/hr IV .Q8H20M ALMA ROSA Rx#: [id number] Piperacillin-Tazobactam 3 100 .375 gm In Sodium Chloride 0.9% 100 ml @ 25 mls/hr IVPB Q8HR ALMA ROSA Rx# :[id number] Oral 50 Output: Urine 550 600 Other: Voiding Method Indwelling Catheter Indwelling Catheter Indwelling Catheter - Exam GENERAL EXAM: Alert, pleasant frail 88-year-old male, on 4 L nasal cannula, fairly comfortable in no apparent distress. HEAD: Normocephalic. EYES: Normal reaction of pupils, equal size. NOSE: Clear with pink turbinates. THROAT: No erythema or exudates. NECK: No masses, no JVD. CHEST: No chest wall deformity. LUNGS: Equal air entry with scattered rhonchi more so on the right. CVS: S1 and S2 normal with no audible murmur, regular rhythm. ABDOMEN: No hepatosplenomegaly, normal bowel sounds, no guarding or rigidity. SPINE: No scoliosis or deformity SKIN: No rashes CENTRAL NERVOUS SYSTEM: Right-sided weakness, tone is normal in all 4 extremities. EXTREMITIES: There is no peripheral edema. No clubbing, no cyanosis. Periphera l pulses are intact. - Labs CBC & Chem 7: 08/22/23 08:14 08/22/23 08:14 Labs: Abnormal Lab Results - Last 24 Hours (Table) 08/21/23 08/21/23 08/21/23 Range/Units 13:58 16:49 20:22 WBC (3.8-10.6) k/uL RBC (4.30-5.90) m/uL Hgb (13.0-17.5) gm/dL Hct (39.0-53.0) % MCHC (31.0-37.0) g/dL RDW (11.5-15.5) % Neutrophils # (1.3-7.7) k/uL Sodium (137-145) mmol/L Chloride (98-107) mmol/L BUN (9-20) mg/dL Creatinine (0.66-1.25) mg/dL Glucose (74-99) mg/dL POC Glucose (mg/dL) 258 H 228 H (70-110) mg/dL Calcium (8.4-10.2) mg/dL Troponin I 0.406 H* (0.000-0.034) ng/mL 08/22/23 08/22/23 08/22/23 Range/Units 06:09 08:14 08:14 WBC 11.4 H (3.8-10.6) k/uL RBC 3.41 L (4.30-5.90) m/uL Hgb 9.6 L (13.0-17.5) gm/dL Hct 31.2 L (39.0-53.0) % MCHC 30.6 L (31.0-37.0) g/dL RDW 17.6 H (11.5-15.5) % Neutrophils # 9.0 H (1.3-7.7) k/uL Sodium 147 H (137-145) mmol/L Chloride 112 H (98-107) mmol/L BUN 53 H (9-20) mg/dL Creatinine 1.38 H (0.66-1.25) mg/dL Glucose 239 H (74-99) mg/dL POC Glucose (mg/dL) 246 H (70-110) mg/dL Calcium 8.3 L (8.4-10.2) mg/dL Troponin I (0.000-0.034) ng/mL 08/22/23 Range/Units 11:17 WBC (3.8-10.6) k/uL RBC (4.30-5.90) m/uL Hgb (13.0-17.5) gm/dL Hct (39.0-53.0) % MCHC (31.0-37.0) g/dL RDW (11.5-15.5) % Neutrophils # (1.3-7.7) k/uL Sodium (137-145) mmol/L Chloride (98-107) mmol/L BUN (9-20) mg/dL Creatinine (0.66-1.25) mg/dL Glucose (74-99) mg/dL POC Glucose (mg/dL) 243 H (70-110) mg/dL Calcium (8.4-10.2) mg/dL Troponin I (0.000-0.034) ng/mL Microbiology - Last 24 Hours (Table) 08/20/23 10:30 Blood Culture - Preliminary Blood 08/20/23 10:36 Blood Culture - Preliminary Blood Assessment and Plan Assessment: Acute hypoxic respiratory failure secondary to aspiration pneumonia Strongly suspect aspiration pneumonia Acute metabolic encephalopathy Acute kidney injury, most likely dehydration related prerenal azotemia Acute hypovolemic hypernatremia Elevated troponin/troponin leak, most likely secondary to supply/demand mismatch Ischemic cardiomyopathy with impaired left ventricular systolic function ejection fraction 35-40% Coronary artery disease and previous cardiac stent Underlying dementia History of Parkinson's disease Chronic dysphagia with difficulty swallowing and choking episode Benign essential hypertension Type 2 diabetes, insulin-dependent Remote history of alcohol use Ex-smoker History of TIA CVA with residual right-sided weakness Plan: The patient was seen and evaluated Chest x-ray, labs and medications reviewed Speech evaluation reviewed Decrease IV fluids to KVO Antibiotics in the form of Zosyn Remain an aspiration precaution Titrate down the FiO2 as tolerated Will continue to follow I have personally seen and examined the patient, performed the documentation and the assessment and plan as written. Number of minutes spent on the visit: 10.
--- NOTE | 2023-08-22 14:31 | P.PN ---
Subjective HISTORY OF PRESENT ILLNESS: This is a 88-year-old male with a past medical history significant for coronary artery disease, ischemic cardiomyopathy, aspiration pneumonia, and atrial fibrillation. Patient follows in the office with Dr. Kidd. We have been asked to see the patient in consultation for congestive heart failure. Patient examined at the bedside. Patient states he initially presented to the hospital after sustaining a fall in his left side. He denies losing consciousness. He reports tenderness with palpation of left chest wall. The patient is currently on BiPAP. The patient went into A. fib with RVR. He is currently on a Cardizem drip at 15 mg an hour. Telemetry revealed atrial fibrillation with a heart rate between 7090. * EKG reveals sinus mechanism. Repeat reveals atrial fibrillation with RVR. * Chest xray mild right mid and left lower lung field infiltrates. Correlate for atelectasis or pneumonia. * Laboratory data: Hemoglobin 9.6. Sodium 150. BUN 45. Creatinine 1.59. Troponin 0.460. ProBNP 12,500. * Current home cardiac medications include amlodipine 5 mg daily, Plavix 75 mg daily, Lipitor 40 mg daily, Eliquis 5 mg twice a day, hydralazine 25 mg 3 times a day, enalapril 40 mg daily, metoprolol tartrate 25 mg twice a day, losartan 50 mg daily, Lasix 40 mg daily * Most recent echocardiogram obtained in February 2023 revealed ejection fraction 35-40%, moderate concentric LVH, trace MR, mild TR, [id number] pulmonary hypertension with RVSP of 45 mmHg, and mild to moderate aortic stenosis * Cardiac catheterization history: 2010 with stenting to the proximal RCA August 22 2023 Patient examined this morning at the bedside. Patient currently denies chest pain or pressure. He denies shortness of breath. He is converted to sinus mechanism and maintaining sinus mechanism at the time of examination. His IV Cardizem has been discontinued. Echocardiogram completed revealing ejection fraction 35-40%, basal to mid inferior lateral wall hypokinesia, moderate TR, mild MR, mild aortic stenosis PHYSICAL EXAM: VITAL SIGNS: Reviewed. GENERAL: Well-developed in no acute distress. HEENT: Head is normocephalic. Pupils are equal, round. Sclerae anicteric. Mucous membranes of the mouth are moist. Neck supple. No JVD or thyromegaly LUNGS: Respirations even and unlabored. Lungs diminished with crackles. HEART: Irregular rate and rhythm. S1 and S2 heard. Systolic murmur noted ABDOMEN: Soft. Nondistended. Nontender. EXTREMITIES: Normal range of motion. No clubbing or cyanosis. Peripheral pulses intact. No lower extremity edema NEUROLOGIC: Awake and alert. Oriented x 3. ASSESSMENT: Shortness of breath Acute hypoxic respiratory failure Possible aspiration pneumonia Acute Covid 19, apparently tested positive multiple weeks ago Status post fall at home without loss of consciousness Paroxysmal atrial fibrillation with RVR Acute kidney injury Chronic heart failure with reduced EF Hypernatremia Abnormal troponins, no signs of an acute coronary event Coronary artery disease with previous stenting of the RCA Ischemic cardiomyopathy, EF 35-40% Valvular heart disease including mild to moderate aortic stenosis and mild to moderate pulmonary hypertension History of aspiration pneumonia PLAN: Continue current cardiac medications Resume Lasix and losartan when kidney function normalizes Patient is currently stable from a cardiac standpoint with no further inpatient recommendations We will sign off. Please reconsult if needed. Nurse practitioner note has been reviewed by physician. Signing provider agrees with the documented findings, assessment, and plan of care. Objective - Vital Signs Vital signs: Vital Signs Temp 98.4 F 08/22/23 08:00 Pulse 66 08/22/23 12:00 Resp 16 08/22/23 12:00 BP 153/70 08/22/23 12:00 Pulse Ox 92 L 08/22/23 12:00 FiO2 50 08/21/23 08:20 Intake & Output 08/21/23 08/22/23 08/22/23 18:59 06:59 18:59 Intake Total 730 50 Output Total 550 600 Balance 180 -550 Intake: Intake, IV Titration 730 Amount Dextrose 5%-0.45% NaCl 1, 600 000 ml @ 75 mls/hr IV . [id number] [facility] Rx#:[id number] Diltiazem 125 mg In 30 Sodium Chloride 0.9% 100 ml @ 15 MG/HR 15 mls/hr IV .[id number] [facility] Rx#: [id number] Piperacillin-Tazobactam 3 100 .375 gm In Sodium Chloride 0.9% 100 ml @ 25 mls/hr IVPB Q8HR [facility] Rx# :[id number] Oral 50 Output: Urine 550 600 Other: Voiding Method Indwelling Catheter Indwelling Catheter Indwelling Catheter - Labs CBC & Chem 7: 08/22/23 08:14 08/22/23 08:14 Labs: Abnormal Lab Results - Last 24 Hours (Table) 08/21/23 08/21/23 08/21/23 Range/Units 13:58 16:49 20:22 WBC (3.8-10.6) k/uL RBC (4.30-5.90) m/uL Hgb (13.0-17.5) gm/dL Hct (39.0-53.0) % MCHC (31.0-37.0) g/dL RDW (11.5-15.5) % Neutrophils # (1.3-7.7) k/uL Sodium (137-145) mmol/L Chloride (98-107) mmol/L BUN (9-20) mg/dL Creatinine (0.66-1.25) mg/dL Glucose (74-99) mg/dL POC Glucose (mg/dL) 258 H 228 H (70-110) mg/dL Calcium (8.4-10.2) mg/dL Troponin I 0.406 H* (0.000-0.034) ng/mL 08/22/23 08/22/23 08/22/23 Range/Units 06:09 08:14 08:14 WBC 11.4 H (3.8-10.6) k/uL RBC 3.41 L (4.30-5.90) m/uL Hgb 9.6 L (13.0-17.5) gm/dL Hct 31.2 L (39.0-53.0) % MCHC 30.6 L (31.0-37.0) g/dL RDW 17.6 H (11.5-15.5) % Neutrophils # 9.0 H (1.3-7.7) k/uL Sodium 147 H (137-145) mmol/L Chloride 112 H (98-107) mmol/L BUN 53 H (9-20) mg/dL Creatinine 1.38 H (0.66-1.25) mg/dL Glucose 239 H (74-99) mg/dL POC Glucose (mg/dL) 246 H (70-110) mg/dL Calcium 8.3 L (8.4-10.2) mg/dL Troponin I (0.000-0.034) ng/mL 08/22/23 Range/Units 11:17 WBC (3.8-10.6) k/uL RBC (4.30-5.90) m/uL Hgb (13.0-17.5) gm/dL Hct (39.0-53.0) % MCHC (31.0-37.0) g/dL RDW (11.5-15.5) % Neutrophils # (1.3-7.7) k/uL Sodium (137-145) mmol/L Chloride (98-107) mmol/L BUN (9-20) mg/dL Creatinine (0.66-1.25) mg/dL Glucose (74-99) mg/dL POC Glucose (mg/dL) 243 H (70-110) mg/dL Calcium (8.4-10.2) mg/dL Troponin I (0.000-0.034) ng/mL Microbiology - Last 24 Hours (Table) 08/20/23 10:30 Blood Culture - Preliminary Blood 08/20/23 10:36 Blood Culture - Preliminary Blood
--- NOTE | 2023-08-22 15:00 | P.GSCN ---
History of Present Illness Consult date: 08/22/23 History of present illness: CHIEF COMPLAINT: Shortness of breath Reason for consult possible GI bleed HISTORY OF PRESENT ILLNESS: This is a 88-year-old male who presented with shortness of breath and respiratory failure with evidence of aspiration pneumonia. He is currently on antibiotics. Patient is a poor historian. History is mostly obtained from patient's chart. Per nursing staff patient has not had any blood in his stools. He has not had a bowel movement. No black stools reported. Denies any nausea or vomiting. Denies any abdominal pain. Patient reports that he had EGD and colonoscopy several years ago. He reports normal findings. Patient is on blood thinners including Plavix and Eliquis. Hemoglobin has been stable at 9.6 since admission. Patient is requiring 4 L of oxygen. He is on a regular diet. Patient does have history of diverticulosis. PAST MEDICAL HISTORY: Coronary Artery Disease (CAD), CVA/TIA, Dementia, Diabetes Mellitus, Eye Disorder, Hyperlipidemia, Hypertension, Memory Impairment, Osteoarthritis (OA), Pneumonia, Syncope, prior history of alcohol abuse, diverticulosis, atrial fibrillation PAST SURGICAL HISTORY: Heart Catheterization With Stent, Hernia Repair, Tonsillectomy, vasectomy MEDICATIONS: See below ALLERGIES: See below SOCIAL HISTORY: No illicit drug use. REVIEW OF SYSTEMS: CONSTITUTIONAL: Denies fever or chills. HEENT: Denies blurred vision, vision changes, or eye pain. Denies hemoptysis CARDIOVASCULAR: Denies chest pain or pressure. RESPIRATORY: No shortness of breath. GASTROINTESTINAL: See HPI for pertinent findings HEMATOLOGIC: Denies bleeding disorders. GENITOURINARY: Denies any blood in urine or increased urinary frequency. SKIN: Denies pruitis. Denies rash. PHYSICAL EXAM: VITAL SIGNS: Reviewed GENERAL: Well-developed in no acute distress. ABDOMEN: Soft. Nondistended. Nontender NEUROLOGIC: Pleasantly confused LABORATORY DATA: WBC 11.4 HgB 9.6 platelets 219 Hgb in July was 11 Sodium 147 potassium 4.5 creatinine 1.38 Elevated troponins IMAGING: Echo EF of 35-40% ASSESSMENT: 1. Anemia with no active bleeding 2. Aspiration pneumonia with respiratory failure 3. Elevated troponins evaluated by cardiology PLAN: -Continue to monitor -No plans for endoscopy at this time -Continue to monitor hemoglobin -Continue to monitor for any signs or symptoms of bleeding -Medicine service at start patient on iron Physician Security Flex Officer note has been reviewed by physician. Signing provider agrees with the documented findings, assessment, and plan of care. Past Medical History Past Medical History: Coronary Artery Disease (CAD), CVA/TIA, Dementia, Diabetes Mellitus, Eye Disorder, Hyperlipidemia, Hypertension, Memory Impairment, Osteoarthritis (OA), Pneumonia, Syncope Additional Past Medical History / Comment(s): cataract left eye. Diverticulitis. lt fractured ankle 16,rt. foot wound-healed, tia, hiatal hernia occ hand tremors, hx of falls,uses walker when up. incont of urine/stool wears depends. . History of Any Multi-Drug Resistant Organisms: None Reported Past Surgical History: Heart Catheterization With Stent, Hernia Repair, Ton sillectomy Additional Past Surgical History / Comment(s): VASECTOMY, rt eye cataract removed Past Anesthesia/Blood Transfusion Reactions: No Reported Reaction Additional Past Anesthesia/Blood Transfusion Reaction / Comm: clausterphobic Date of Last Stent Placement:: February 01, 2011 Past Psychological History: No Psychological Hx Reported Smoking Status: Former smoker Past Alcohol Use History: None Reported, Abuse Past Drug Use History: None Reported - Past Family History Father History Unknown: Yes Mother Family Medical History: Myocardial Infarction ([place]) Additional Family Medical History / Comment(s): Mother of heart attack at 64. Mother had mental illness. Brother(s) Family Medical History: Cancer Additional Family Medical History / Comment(s): Patients half-brother had stomach cancer. Medications and Allergies Home Medications Medication Instructions Recorded Confirmed Type Atorvastatin [Lipitor] 40 mg PO DAILY 12/07/15 08/20/23 History Clopidogrel [Plavix] 75 mg PO DAILY 12/07/15 08/20/23 History sitaGLIPtin [Januvia] 100 mg PO DAILY 12/07/15 08/20/23 History traZODone HCL [Desyrel] 50 mg PO HS 12/07/15 08/20/23 History Oxybutynin Chloride [oxyBUTYnin 10 mg PO DAILY 01/22/18 08/20/23 History chloride ER] Citalopram Hydrobromide [CeleXA] 10 mg PO DAILY 12/13/22 08/20/23 History Donepezil [Aricept] 10 mg PO HS 12/13/22 08/20/23 History Albuterol Inhaler [Ventolin Hfa 2 puff INHALATION RT-Q4H PRN 02/24/23 08/20/23 History Inhaler] Apixaban [Eliquis] 5 mg PO BID #30 tab 03/01/23 08/20/23 Rx Metoprolol Tartrate [Lopressor] 25 mg PO BID #30 tab 03/01/23 08/20/23 Rx Gabapentin [Neurontin] 100 mg PO BID 3 Days #6 cap 07/23/23 08/20/23 Rx Losartan [Cozaar] 50 mg PO DAILY tab 07/23/23 08/20/23 Rx amLODIPine [Norvasc] 5 mg PO DAILY tab 07/23/23 08/20/23 Rx Cholecalciferol [Vitamin D3 (25 25 mcg PO DAILY 08/20/23 08/20/23 History Mcg = 1000 Iu)] Furosemide [Lasix] 40 mg PO DAILY 08/20/23 08/20/23 History INSULIN ASPART (NovoLOG) [NovoLOG See Protocol SQ AC-TID 08/20/23 08/20/23 History (formulary)] Insulin Glargine,Hum.rec.anlog 25 unit SQ DAILY 08/20/23 08/20/23 History [Basaglar Kwikpen U-100] Tamsulosin [Flomax] 0.4 mg PO HS 08/20/23 08/20/23 History hydrALAZINE HCL [Apresoline] 25 mg PO TID 08/20/23 08/20/23 History Allergies Allergy/AdvReac Type Severity Reaction Status Date / Time No Known Allergies Allergy Verified 08/20/23 11:22 Surgical - Exam Vital Signs Temp Pulse Resp BP Pulse Ox 97.5 F L 120 H 36 H 110/63 87 L 08/20/23 08:38 08/20/23 08:38 08/20/23 08:38 08/20/23 08:38 08/20/23 08:38 Results - Labs 08/22/23 08:14 08/22/23 08:14 Abnormal Lab Results - Last 24 Hours (Table) 08/21/23 08/21/23 08/21/23 Range/Units 13:58 16:49 20:22 WBC (3.8-10.6) k/uL RBC (4.30-5.90) m/uL Hgb (13.0-17.5) gm/dL Hct (39.0-53.0) % MCHC (31.0-37.0) g/dL RDW (11.5-15.5) % Neutrophils # (1.3-7.7) k/uL Sodium (137-145) mmol/L Chloride (98-107) mmol/L BUN (9-20) mg/dL Creatinine (0.66-1.25) mg/dL Glucose (74-99) mg/dL POC Glucose (mg/dL) 258 H 228 H (70-110) mg/dL Calcium (8.4-10.2) mg/dL Troponin I 0.406 H* (0.000-0.034) ng/mL 08/22/23 08/22/23 08/22/23 Range/Units 06:09 08:14 08:14 WBC 11.4 H (3.8-10.6) k/uL RBC 3.41 L (4.30-5.90) m/uL Hgb 9.6 L (13.0-17.5) gm/dL Hct 31.2 L (39.0-53.0) % MCHC 30.6 L (31.0-37.0) g/dL RDW 17.6 H (11.5-15.5) % Neutrophils # 9.0 H (1.3-7.7) k/uL Sodium 147 H (137-145) mmol/L Chloride 112 H (98-107) mmol/L BUN 53 H (9-20) mg/dL Creatinine 1.38 H (0.66-1.25) mg/dL Glucose 239 H (74-99) mg/dL POC Glucose (mg/dL) 246 H (70-110) mg/dL Calcium 8.3 L (8.4-10.2) mg/dL Troponin I (0.000-0.034) ng/mL 08/22/23 Range/Units 11:17 WBC (3.8-10.6) k/uL RBC (4.30-5.90) m/uL Hgb (13.0-17.5) gm/dL Hct (39.0-53.0) % MCHC (31.0-37.0) g/dL RDW (11.5-15.5) % Neutrophils # (1.3-7.7) k/uL Sodium (137-145) mmol/L Chloride (98-107) mmol/L BUN (9-20) mg/dL Creatinine (0.66-1.25) mg/dL Glucose (74-99) mg/dL POC Glucose (mg/dL) 243 H (70-110) mg/dL Calcium (8.4-10.2) mg/dL Troponin I (0.000-0.034) ng/mL Microbiology - Last 24 Hours (Table) 08/20/23 10:30 Blood Culture - Preliminary Blood 08/20/23 10:36 Blood Culture - Preliminary Blood Diabetes panel 08/22/23 Range/Units 08:14 Sodium 147 H (137-145) mmol/L Potassium 4.5 (3.5-5.1) mmol/L Chloride 112 H (98-107) mmol/L Carbon Dioxide 26 (22-30) mmol/L BUN 53 H (9-20) mg/dL Creatinine 1.38 H (0.66-1.25) mg/dL Glucose 239 H (74-99) mg/dL Calcium 8.3 L (8.4-10.2) mg/dL Calcium panel 08/22/23 Range/Units 08:14 Calcium 8.3 L (8.4-10.2) mg/dL Pituitary panel 08/22/23 Range/Units 08:14 Sodium 147 H (137-145) mmol/L Potassium 4.5 (3.5-5.1) mmol/L Chloride 112 H (98-107) mmol/L Carbon Dioxide 26 (22-30) mmol/L BUN 53 H (9-20) mg/dL Creatinine 1.38 H (0.66-1.25) mg/dL Glucose 239 H (74-99) mg/dL Calcium 8.3 L (8.4-10.2) mg/dL Adrenal panel 08/22/23 Range/Units 08:14 Sodium 147 H (137-145) mmol/L Potassium 4.5 (3.5-5.1) mmol/L Chloride 112 H (98-107) mmol/L Carbon Dioxide 26 (22-30) mmol/L BUN 53 H (9-20) mg/dL Creatinine 1.38 H (0.66-1.25) mg/dL Glucose 239 H (74-99) mg/dL Calcium 8.3 L (8.4-10.2) mg/dL
[2023-08-22 15:11] VITALS: BMI 26.3
[2023-08-22] MEDS ORDERED: FUROSEMIDE 10 MG/ML 4 ML VIAL IV STA (15:21)
[2023-08-22 16:33] LABS: Glucose,Whole Blood 228 mg/dL (70-110)
[2023-08-22] MEDS: ACETAMINOPHEN TAB 325 MG TAB PO PRN (20:02)
[2023-08-22 20:08] LABS: Glucose,Whole Blood 337 mg/dL (70-110)
[2023-08-23] MEDS: PIPERACILLIN-TAZOBACTAM 3.375 GM in SODIUM CHLORIDE 0.9% 100 ML IVPB SCH ×3 (00:30→16:15)
[2023-08-23] MEDS: METOPROLOL TARTRATE 50 MG TAB PO SCH ×2 (05:10→20:48)
[2023-08-23] MEDS: FERROUS SULFATE 325 MG TAB PO SCH ×2 (05:10→16:15)
[2023-08-23 05:39] LABS: Glucose,Whole Blood 215 mg/dL (70-110)
[2023-08-23] MEDS: INSULIN ASPART (NovoLOG) 100 UNIT/ML VIAL SQ SCH ×4 (06:05→20:48)
--- NOTE | 2023-08-23 06:26 | P.PN ---
Subjective Progress Note Date: 08/22/23 This is a pleasant 88 race old male with multiple medical problems as below. Patient is brought because of shortness of breath Patient is poor historian and information were obtained from stop her records. Staff and the at bedside. Patient was here in the hospital in July twice, he was discharged to rehab. He left rehab last Saturday, back home because his resources from his medical insurance provider has lapsed and finished 3 at as per he was placed on nectar thick diet therefore he was not drinking any clear liquids including water. This morning at 4:00 AM he may occur COMPLAIN of from shortness of breath, he is supposed to see his mh teacher Dr. Em in the usual N every 6 month follow-up but he could not do anything. Then the noticed that he started drooling from his left side of the mons so she called EMS. Patient really and tended and could not provide information and his currently on BiPAP. On admission patient was on BiPAP saturating 87% and currently 92%, he was slightly tachycardic and tachypneic but now his heart rate about 50-60 and regular rate is around 16. Blood pressure 145/60. reviewed showing abnormality with a drop of hemoglobin down to 9.2 with severe hypernatremia at 150 also has evanescent with elevated creatinine 1.59 compared to baseline of 0.7. Occult blood in the stool was positive civit test came back positive as well. Otherwise her cysts are negative Chest x-ray showing no significant infiltrate but mild right and left side infiltrate with mild cardiomegaly EKG shows sinus bradycardia at 57 with bundle-branch block ProBNP is elevated to 12 500 On admission patient given 1 dose of antibiotics Unasyn 3 at At home he was on liquids and Plavix which are put on hold. 08/21/2023 Patient is more awake and answering questions appropriately, he denies chest pain he denies specific complaint His vitals are stable and his oxygen saturation is improving 96% on 4 L oxygen His WBCs slightly up 12.1, hemoglobin 9.2. He remains on Zosyn D5 half normal saline at 75 mL/h and IV Protonix twice daily and Plavix is admitted today with a close monitoring. Ejection fraction is 35-40% Although patient responded well to therapy his prognosis remains guarded. With his improving clinical status we will consult general surgery in case he might benefit from any procedure 08/22/2023 Patient is seen and evaluated in follow-up with cardiology and pulmonary following. Patient being treated for aspiration pneumonia as well as Covid and continues to have elevated sodium levels was maintained on D5 half-normal saline although we will discontinue his patient is also hypoxic requiring increased oxygen demands currently maintained on 4 L. Will give a dose of Lasix and discontinue fluids. Patient be evaluated by speech and diet with dysphagia and aspiration precautions hadn't been elevated 30-45 at all times and superficial with meals. Patient is also maintained on antibiotics in the form of Zosyn for the aspiration pneumonia. Currently patient has no fevers and denies chest pain or palpitations. Patient is significantly weak and recommend physical therapy evaluation. Patient reportedly was at rehab prior to this hospitalization. Given patient's age and significant comorbidities, over all prognosis is poor and guarded. Patient is no code. Review of systems CONSTITUTIONAL: No fever, no malaise, no fatigue. HEENT: No recent visual problems or hearing problems. Denied any sore throat. CARDIOVASCULAR: No orthopnea, PND, no palpitations, no syncope. PULMONARY: No shortness of breath, no cough, no hemoptysis. GASTROINTESTINAL: No diarrhea, no nausea, no vomiting, no abdominal pain. Normoactive bowel sounds. Physical exam: GENERAL: The patient is more awake and answers questions appropriately on occasion, he follows commands, but still confused. No respiratory distress. Generally weak HEENT: Pupils are round and equally reacting to light. EOMI. No scleral icterus. No conjunctival pallor. Normocephalic, atraumatic. No pharyngeal erythema. No thyromegaly. CARDIOVASCULAR: S1 and S2 present. No murmurs, rubs, or gallops. PULMONARY: Diminished breath sounds bilaterally with some coarse scattered rhonchi and faint crackles noted ABDOMEN: Soft, nontender, nondistended, normoactive bowel sounds. No palpable organomegaly. MUSCULOSKELETAL: No joint swelling or deformity. EXTREMITIES: No cyanosis, clubbing, or pedal edema. Generalized edema noted of upper and lower extremities more so on the upper extremities NEUROLOGICAL: Gross neurological examination did not reveal any focal deficits. Extremely weak SKIN: No rashes. no petechiae. Assessment: Severe metabolic/toxic encephalopathy Covid infection with no strong evidence of pneumonia Aspiration pneumonia Acute hypoxic respiratory failure, multifactorial secondary to Covid as well as aspiration pneumonia Cardiomyopathy with ejection fraction 35-40% Acute kidney injury Acute GI bleed is suspected Acute blood loss anemia secondary to possible GI bleed Severe hypernatremia Mildly elevated troponin likely demand ischemia without myocardial infarction secondary to hypoxic respiratory failure Dementia GI prophylaxis DVT prophylaxis No code Plan: Patient has been transitioned off BiPAP, currently on nasal cannula 4 L Patient was receiving D5 half-normal saline although sodium is 147 and will discontinue and give a dose of Lasix Continue Protonix IV twice daily, hold eliquis and mh teacher team added back to his Plavix. Cardiology and pulmonary following making adjustments to medications Patient is continued on Zosyn for aspiration pneumonia and recommend aspiration precautions with head of the bed elevated 45 at all times Speech evaluating the patient recommending dysphagia diet and strongly recommend supervision with meals. Patient is significantly weak and requiring assistance to eat recommend more palliative approach for the treatment of this patient given his advanced age and significant multiple comorbidities. Patient is no code and would even consider possible hospice. We'll need to discuss further with family about her overall treatment plan Will follow up on repeat labs along with chest x-ray and monitor closely Again given significant comorbidities and advanced age, overall prognosis is significantly poor The impression and plan of care has been dictated by Dulce Ibrahim Nurse Practitioner as directed. Dr. Carey MD I have performed a history and examination and MDM of this patient, discussed the same with the dictator, and agree with the dictator's assessment and plan as written ,documented as a scribe. Based on total visit time, I have performed more than 50% of the visit. Objective - Vital Signs Vital signs: Vital Signs Temp 98.4 F 08/22/23 08:00 Pulse 68 08/22/23 08:00 Resp 24 08/22/23 08:00 BP 164/67 08/22/23 08:00 Pulse Ox 95 08/22/23 09:21 FiO2 50 08/21/23 08:20 Intake & Output 08/21/23 08/22/23 08/22/23 18:59 06:59 18:59 Intake Total 730 50 Output Total 550 600 Balance 180 -550 Intake: Intake, IV Titration 730 Amount Dextrose 5%-0.45% NaCl 1, 600 000 ml @ 75 mls/hr IV . [id number] [facility] Rx#:[id number] Diltiazem 125 mg In 30 Sodium Chloride 0.9% 100 ml @ 15 MG/HR 15 mls/hr IV .[id number] [facility] Rx#: [id number] Piperacillin-Tazobactam 3 100 .375 gm In Sodium Chloride 0.9% 100 ml @ 25 mls/hr IVPB Q8HR [facility] Rx# :[id number] Oral 50 Output: Urine 550 600 Other: Voiding Method Indwelling Catheter Indwelling Catheter - Labs CBC & Chem 7: 08/22/23 08:14 08/22/23 08:14 Labs: Abnormal Lab Results - Last 24 Hours (Table) 08/21/23 08/21/23 08/21/23 Range/Units 11:17 11:17 11:17 WBC 12.1 H (3.8-10.6) k/uL RBC 3.26 L (4.30-5.90) m/uL Hgb 9.2 L (13.0-17.5) gm/dL Hct 30.5 L (39.0-53.0) % MCHC 30.2 L (31.0-37.0) g/dL RDW 17.6 H (11.5-15.5) % Neutrophils # 10.2 H (1.3-7.7) k/uL Sodium (137-145) mmol/L Chloride (98-107) mmol/L BUN (9-20) mg/dL Creatinine (0.66-1.25) mg/dL Glucose (74-99) mg/dL POC Glucose (mg/dL) (70-110) mg/dL Calcium (8.4-10.2) mg/dL Magnesium 2.6 H (1.6-2.3) mg/dL Delta Bilirubin 0.3 H (0.0-0.2) mg/dL AST 16 L (17-59) U/L Troponin I 0.410 H* (0.000-0.034) ng/mL Albumin 3.1 L (3.5-5.0) g/dL 08/21/23 08/21/23 08/21/23 Range/Units 12:00 13:58 16:49 WBC (3.8-10.6) k/uL RBC (4.30-5.90) m/uL Hgb (13.0-17.5) gm/dL Hct (39.0-53.0) % MCHC (31.0-37.0) g/dL RDW (11.5-15.5) % Neutrophils # (1.3-7.7) k/uL Sodium (137-145) mmol/L Chloride (98-107) mmol/L BUN (9-20) mg/dL Creatinine (0.66-1.25) mg/dL Glucose (74-99) mg/dL POC Glucose (mg/dL) 308 H 258 H (70-110) mg/dL Calcium (8.4-10.2) mg/dL Magnesium (1.6-2.3) mg/dL Delta Bilirubin (0.0-0.2) mg/dL AST (17-59) U/L Troponin I 0.406 H* (0.000-0.034) ng/mL Albumin (3.5-5.0) g/dL 08/21/23 08/22/23 08/22/23 Range/Units 20:22 06:09 08:14 WBC 11.4 H (3.8-10.6) k/uL RBC 3.41 L (4.30-5.90) m/uL Hgb 9.6 L (13.0-17.5) gm/dL Hct 31.2 L (39.0-53.0) % MCHC 30.6 L (31.0-37.0) g/dL RDW 17.6 H (11.5-15.5) % Neutrophils # 9.0 H (1.3-7.7) k/uL Sodium (137-145) mmol/L Chloride (98-107) mmol/L BUN (9-20) mg/dL Creatinine (0.66-1.25) mg/dL Glucose (74-99) mg/dL POC Glucose (mg/dL) 228 H 246 H (70-110) mg/dL Calcium (8.4-10.2) mg/dL Magnesium (1.6-2.3) mg/dL Delta Bilirubin (0.0-0.2) mg/dL AST (17-59) U/L Troponin I (0.000-0.034) ng/mL Albumin (3.5-5.0) g/dL 12/14/23 Range/Units 08:14 WBC (3.8-10.6) k/uL RBC (4.30-5.90) m/uL Hgb (13.0-17.5) gm/dL Hct (39.0-53.0) % MCHC (31.0-37.0) g/dL RDW (11.5-15.5) % Neutrophils # (1.3-7.7) k/uL Sodium 147 H (137-145) mmol/L Chloride 112 H (98-107) mmol/L BUN 53 H (9-20) mg/dL Creatinine 1.38 H (0.66-1.25) mg/dL Glucose 239 H (74-99) mg/dL POC Glucose (mg/dL) (70-110) mg/dL Calcium 8.3 L (8.4-10.2) mg/dL Magnesium (1.6-2.3) mg/dL Delta Bilirubin (0.0-0.2) mg/dL AST (17-59) U/L Troponin I (0.000-0.034) ng/mL Albumin (3.5-5.0) g/dL Microbiology - Last 24 Hours (Table) 08/20/23 10:30 Blood Culture - Preliminary Blood 08/20/23 10:36 Blood Culture - Preliminary Blood
[2023-08-23 07:32] LABS: Anisocytosis Slight; Basophils % (A) 0 %; Eosinophils # (A) 0.1 k/uL (0-0.7); Eosinophils % (A) 1 %; HCT 30.9 % (39.0-53.0); HGB 9.3 gm/dL (13.0-17.5); Hypochromasia Marked; Lymphocytes # (A) 1.9 k/uL (1.0-4.8); Lymphocytes % (A) 18 %; MCH 27.8 pg (25.0-35.0); MCHC 30.1 g/dL (31.0-37.0); MCV 92.3 fL (80.0-100.0); Mean Platelet Volume 8.9; Monocytes # (A) 0.6 k/uL (0-1.0); Monocytes % (A) 6 %; Neutrophils # (A) 7.7 k/uL (1.3-7.7); Neutrophils % (A) 74 %; Platelet Count 195 k/uL (150-450); RBC 3.35 m/uL (4.30-5.90); RDW 17.8 % (11.5-15.5); WBC 10.5 k/uL (3.8-10.6)
[2023-08-23 07:58] LABS: African American GFR (CKD) 63 (>60 ml/min/1.73 sqM); Anion Gap 7 mmol/L; Blood Urea Nitrogen 42 mg/dL (9-20); Carbon Dioxide 31 mmol/L (22-30); Chloride 109 mmol/L (98-107); Glucose 194 mg/dL (74-99); Magnesium 2.3 mg/dL (1.6-2.3); Non-African American GFR(CKD) 54 (>60 ml/min/1.73 sqM); Potassium 3.9 mmol/L (3.5-5.1); Sodium 147 mmol/L (137-145)
[2023-08-23] MEDS: ATORVASTATIN 40 MG TAB PO SCH (09:03)
[2023-08-23] MEDS: INSULIN DETEMIR (LEVEMIR) 100 UNIT/ML SYR SQ SCH ×2 (09:03→20:48)
[2023-08-23] MEDS: PANTOPRAZOLE 40 MG/10 ML VIAL IVP SCH ×2 (09:03→20:48)
[2023-08-23] MEDS: CLOPIDOGREL 75 MG TAB PO SCH (09:03)
[2023-08-23 11:28] LABS: Glucose,Whole Blood 242 mg/dL (70-110)
--- NOTE | 2023-08-23 13:03 | P.PN ---
Subjective Progress Note Date: 08/23/23 CHIEF COMPLAINT: Shortness of breath HISTORY OF PRESENT ILLNESS: Surgical service following for possible GI bleed. Per nursing staff patient has had no blood or black stools. Hemoglobin staying stable at 9.3. He is being treated for an aspiration pneumonia. He is still on 4 L of oxygen standing and 93%. Patient denies any abdominal pain. Denies any nausea vomiting PHYSICAL EXAM: VITAL SIGNS: Reviewed. GENERAL: Well-developed in no acute distress. ABDOMEN: Soft. Nondistended. Nontender. NEUROLOGIC: Awake. Confused. ASSESSMENT: 1. Anemia with no active bleeding 2. Aspiration pneumonia with respiratory failure PLAN: -No plans for endoscopies at this time. Hemoglobin staying stable -Continue to monitor for any signs or symptoms of bleeding -Surgical service will sign off. Please call with any questions or concerns Physician Professor Of English note has been reviewed by physician. Signing provider agrees with the documented findings, assessment, and plan of care. Objective - Vital Signs Vital signs: Vital Signs Temp 97.7 F 08/23/23 09:00 Pulse 62 08/23/23 11:45 Resp 18 08/23/23 11:45 BP 180/79 08/23/23 11:45 Pulse Ox 93 L 08/23/23 11:45 FiO2 50 08/21/23 08:20 Intake & Output 08/22/23 08/23/23 08/23/23 18:59 06:59 18:59 Output Total 1000 1850 Balance -1000 -1850 Weight 88 kg Output: Urine 1000 1850 Other: Voiding Method Indwelling Catheter Indwelling Catheter Indwelling Catheter - Labs CBC & Chem 7: 08/23/23 07:13 08/23/23 07:13 Labs: Abnormal Lab Results - Last 24 Hours (Table) 08/22/23 08/22/23 08/22/23 Range/Units 08:14 16:31 20:06 RBC (4.30-5.90) m/uL Hgb (13.0-17.5) gm/dL Hct (39.0-53.0) % MCHC (31.0-37.0) g/dL RDW (11.5-15.5) % Sodium (137-145) mmol/L Chloride (98-107) mmol/L Carbon Dioxide (22-30) mmol/L BUN (9-20) mg/dL Glucose (74-99) mg/dL POC Glucose (mg/dL) 228 H 337 H (70-110) mg/dL Hemoglobin A1c 6.9 H (<=6.0) % Calcium (8.4-10.2) mg/dL 08/23/23 08/23/23 08/23/23 Range/Units 05:38 07:13 07:13 RBC 3.35 L (4.30-5.90) m/uL Hgb 9.3 L (13.0-17.5) gm/dL Hct 30.9 L (39.0-53.0) % MCHC 30.1 L (31.0-37.0) g/dL RDW 17.8 H (11.5-15.5) % Sodium 147 H (137-145) mmol/L Chloride 109 H (98-107) mmol/L Carbon Dioxide 31 H (22-30) mmol/L BUN 42 H (9-20) mg/dL Glucose 194 H (74-99) mg/dL POC Glucose (mg/dL) 215 H (70-110) mg/dL Hemoglobin A1c (<=6.0) % Calcium 8.0 L (8.4-10.2) mg/dL 08/23/23 Range/Units 11:26 RBC (4.30-5.90) m/uL Hgb (13.0-17.5) gm/dL Hct (39.0-53.0) % MCHC (31.0-37.0) g/dL RDW (11.5-15.5) % Sodium (137-145) mmol/L Chloride (98-107) mmol/L Carbon Dioxide (22-30) mmol/L BUN (9-20) mg/dL Glucose (74-99) mg/dL POC Glucose (mg/dL) 242 H (70-110) mg/dL Hemoglobin A1c (<=6.0) % Calcium (8.4-10.2) mg/dL Microbiology - Last 24 Hours (Table) 08/20/23 10:30 Blood Culture - Preliminary Blood 08/20/23 10:36 Blood Culture - Preliminary Blood
--- NOTE | 2023-08-23 14:28 | P.PN ---
Subjective Progress Note Date: 08/23/23 This is an 88-year-old white male with history of multiple medical problems including coronary artery disease, type 2 diabetes, dementia, dyslipidemia, patient was recently admitted to the hospital back in July, and he was eventually discharged to skilled nursing. Patient was sent home last Saturday, and today the patient's was concerned about him developing shortness of breath, weakness, unable to do anything on his own, hence she brought him into the ER. Apparently when EMS arrived, patient was hypoxic, and brought into the ER, O2 saturation on BiPAP was 87% went up to 92% after adjusting his BiPAP which is presently 12/50% patient is an extremely poor historian, according to the the patient has been having difficulty swallowing, cannot even drink water, he chokes on whenever he eats or swallows. Chest x-ray clearly showed evidence of bilateral infiltrates involving left lower lobe and right midlung. Hence I believe the patient has clearly aspiration pneumonia based on his chest x-ray findings and based on his clinical history. In addition to this the patient was noted to be hypernatremic with elevated BUN of 45 creatinine 1.59 implying that the patient is quite dehydrated and he has hypovolemic hypernatremia as well as prerenal azotemia, his troponin was elevated and his BNP level was elevated however the chest x-ray is mostly pointing to more pneumonia than congestive heart failure. Patient also tested positive for COVID-19, but according to the this was noted even on his last admission, last month he had positive COVID-19 test, and this was few weeks ago and looking at his last discharge summary, patient had syncopal episode secondary to dehydration he also had bilateral buttock ulcers, atrial fibrillation with RVR, acute renal failure secondary to dehydration, lactic acidosis, hypotension, he does have underlying coronary artery disease and he also had elevated troponins. Reevaluated today on 08/21/23, patient remains on BiPAP, and I went ahead and transition the patient from BiPAP to 5 L nasal cannula. Patient tells me that his feeling much better today, he is arousable, and seems to be appropriate, less shortness of breath, hardly any cough, no wheezing, W scans 12.1 hemoglobin 9.2 but chest x-ray on admission showed multifocal infiltrates involving the right midlung and the left lower lobe. Hence I suspected aspiration pneumonia a nd the patient is being treated as such. Speech therapy evaluation is pending for evaluation for possible aspiration and echocardiogram showed LV dysfunction with ejection fraction of 35-40% . His echocardiogram showed also mild to moderate aortic stenosis and moderate pulmonary hypertension. Looking back the patient had positive COVID-19 screening on his last admission and on this admission, hence I doubt the need for isolation. The patient is seen today 08/22/2023 in follow-up on the selective care unit. Currently resting comfortably in bed. Awake and alert. Maintaining good O2 saturations in the 90s on 4 L/m per nasal cannula. Chest x-ray is showing some increased opacities in the right lung today. White count 11.4. Hemoglobin 9.6. Platelets 219. Sodium 147. Potassium 4.5. Bicarb 26. BUN 53. Creatinine 1.3. Glucose 239. He had undergone another swallow evaluation by speech therapy. They were recommending downgrading diet dysphagia level III chopped with nectar thick liquids with upright positioning and direct one-to-one supervision. Small bites/sepsis and no stress. He is continued on D5 and half- normal saline at 75 ML's per hour. Antibiotics in the form of Zosyn. The patient is seen today 08/23/2023 in follow-up on the selective care unit. He is currently sitting up in bed. More awake and alert. Denies any worsening shortness of breath, cough or congestion. Denies any chest discomfort. He is maintaining O2 saturations in the 90s on 4 L/m per nasal cannula. He's afebrile. Hemodynamically stable. The cultures reveal no growth to date. White count 10.5. Hemoglobin 9.3. Platelets 195. Sodium 147. Potassium 3.9. Bicarb 31. BUN 42. Creatinine 1.19. Glucose 194. He is continued on antibiotics in the form of Zosyn. Objective - Vital Signs Vital signs: Vital Signs Temp 97.7 F 08/23/23 09:00 Pulse 62 08/23/23 11:45 Resp 18 08/23/23 11:45 BP 180/79 08/23/23 11:45 Pulse Ox 93 L 08/23/23 11:45 FiO2 50 08/21/23 08:20 Intake & Output 08/22/23 08/23/23 08/23/23 18:59 06:59 18:59 Output Total 1000 1850 525 Balance -1000 -1850 -525 Weight 88 kg Output: Urine 1000 1850 525 Other: Voiding Method Indwelling Catheter Indwelling Catheter Indwelling Catheter - Exam GENERAL EXAM: Alert, frail 88-year-old male, on 4 L nasal cannula, comfortable in no apparent distress. HEAD: Normocephalic. Right sided facial droop. EYES: Normal reaction of pupils, equal size. NOSE: Clear with pink turbinates. THROAT: No erythema or exudates. NECK: No masses, no JVD. CHEST: No chest wall deformity. LUNGS: Equal air entry with scattered rhonchi more so on the right. CVS: S1 and S2 normal with no audible murmur, regular rhythm. ABDOMEN: No hepatosplenomegaly, normal bowel sounds, no guarding or rigidity. SPINE: No scoliosis or deformity SKIN: No rashes CENTRAL NERVOUS SYSTEM: Right-sided weakness, tone is normal in all 4 extremities. EXTREMITIES: There is no peripheral edema. No clubbing, no cyanosis. Peripheral pulses are intact. - Labs CBC & Chem 7: 08/23/23 07:13 08/23/23 07:13 Labs: Abnormal Lab Results - Last 24 Hours (Table) 08/22/23 08/22/23 08/22/23 Range/Units 08:14 16:31 20:06 RBC (4.30-5.90) m/uL Hgb (13.0-17.5) gm/dL Hct (39.0-53.0) % MCHC (31.0-37.0) g/dL RDW (11.5-15.5) % Sodium (137-145) mmol/L Chloride (98-107) mmol/L Carbon Dioxide (22-30) mmol/L BUN (9-20) mg/dL Glucose (74-99) mg/dL POC Glucose (mg/dL) 228 H 337 H (70-110) mg/dL Hemoglobin A1c 6.9 H (<=6.0) % Calcium (8.4-10.2) mg/dL 08/23/23 08/23/23 08/23/23 Range/Units 05:38 07:13 07:13 RBC 3.35 L (4.30-5.90) m/uL Hgb 9.3 L (13.0-17.5) gm/dL Hct 30.9 L (39.0-53.0) % MCHC 30.1 L (31.0-37.0) g/dL RDW 17.8 H (11.5-15.5) % Sodium 147 H (137-145) mmol/L Chloride 109 H (98-107) mmol/L Carbon Dioxide 31 H (22-30) mmol/L BUN 42 H (9-20) mg/dL Glucose 194 H (74-99) mg/dL POC Glucose (mg/dL) 215 H (70-110) mg/dL Hemoglobin A1c (<=6.0) % Calcium 8.0 L (8.4-10.2) mg/dL 08/23/23 Range/Units 11:26 RBC (4.30-5.90) m/uL Hgb (13.0-17.5) gm/dL Hct (39.0-53.0) % MCHC (31.0-37.0) g/dL RDW (11.5-15.5) % Sodium (137-145) mmol/L Chloride (98-107) mmol/L Carbon Dioxide (22-30) mmol/L BUN (9-20) mg/dL Glucose (74-99) mg/dL POC Glucose (mg/dL) 242 H (70-110) mg/dL Hemoglobin A1c (<=6.0) % Calcium (8.4-10.2) mg/dL Microbiology - Last 24 Hours (Table) 08/20/23 10:30 Blood Culture - Preliminary Blood 08/20/23 10:36 Blood Culture - Preliminary Blood Assessment and Plan Assessment: Acute hypoxic respiratory failure secondary to aspiration pneumonia Strongly suspect aspiration pneumonia Acute metabolic encephalopathy, improved Acute kidney injury, most likely dehydration related prerenal azotemia Acute hypovolemic hypernatremia Elevated troponin/troponin leak, most likely secondary to supply/demand mismatch Ischemic cardiomyopathy with impaired left ventricular systolic function ejection fraction 35-40% Coronary artery disease and previous cardiac stent Underlying dementia History of Parkinson's disease Chronic dysphagia with difficulty swallowing and choking episode Benign essential hypertension Type 2 diabetes, insulin-dependent Remote history of alcohol use Ex-smoker History of TIA CVA with residual right-sided weakness Poor overall functional performance based on the above-mentioned multiple comorbidities Plan: The patient was seen and evaluated Labs and medications reviewed Antibiotics in the form of Zosyn Remain an aspiration precaution Titrate down the FiO2 as tolerated Overall prognosis remains poor Patient's plans to meet with hospice today I have personally seen and examined the patient, performed the documentation and the assessment and plan as written. Number of minutes spent on the visit: 10.
[2023-08-23 16:47] LABS: Glucose,Whole Blood 239 mg/dL (70-110)
[2023-08-23 20:12] LABS: Glucose,Whole Blood 249 mg/dL (70-110)
[2023-08-24] MEDS: PIPERACILLIN-TAZOBACTAM 3.375 GM in SODIUM CHLORIDE 0.9% 100 ML IVPB SCH ×4 (00:11→23:43)
--- NOTE | 2023-08-24 04:15 | P.PN ---
Subjective Progress Note Date: 08/23/23 This is a pleasant 88 race old male with multiple medical problems as below. Patient is brought because of shortness of breath Patient is poor historian and information were obtained from stop her records. Staff and the at bedside. Patient was here in the hospital in July twice, he was discharged to rehab. He left rehab last Saturday, back home because his resources from his medical insurance provider has lapsed and finished 3 at as per he was placed on nectar thick diet therefore he was not drinking any clear liquids including water. This morning at 4:00 AM he may occur COMPLAIN of from shortness of breath, he is supposed to see his banking specialist Dr. Em in the usual N every 6 month follow-up but he could not do anything. Then the noticed that he started drooling from his left side of the mons so she called EMS. Patient really and tended and could not provide information and his currently on BiPAP. On admission patient was on BiPAP saturating 87% and currently 92%, he was slightly tachycardic and tachypneic but now his heart rate about 50-60 and regular rate is around 16. Blood pressure 145/60. reviewed showing abnormality with a drop of hemoglobin down to 9.2 with severe hypernatremia at 150 also has evanescent with elevated creatinine 1.59 compared to baseline of 0.7. Occult blood in the stool was positive civit test came back positive as well. Otherwise her cysts are negative Chest x-ray showing no significant infiltrate but mild right and left side infiltrate with mild cardiomegaly EKG shows sinus bradycardia at 57 with bundle-branch block ProBNP is elevated to 12 500 On admission patient given 1 dose of antibiotics Unasyn 3 at At home he was on liquids and Plavix which are put on hold. 08/21/2023 Patient is more awake and answering questions appropriately, he denies chest pain he denies specific complaint His vitals are stable and his oxygen saturation is improving 96% on 4 L oxygen His WBCs slightly up 12.1, hemoglobin 9.2. He remains on Zosyn D5 half normal saline at 75 mL/h and IV Protonix twice daily and Plavix is admitted today with a close monitoring. Ejection fraction is 35-40% Although patient responded well to therapy his prognosis remains guarded. With his improving clinical status we will consult general surgery in case he might benefit from any procedure 08/22/2023 Patient is seen and evaluated in follow-up with cardiology and pulmonary following. Patient being treated for aspiration pneumonia as well as Covid and continues to have elevated sodium levels was maintained on D5 half-normal saline although we will discontinue his patient is also hypoxic requiring increased oxygen demands currently maintained on 4 L. Will give a dose of Lasix and discontinue fluids. Patient be evaluated by speech and diet with dysphagia and aspiration precautions hadn't been elevated 30-45 at all times and superficial with meals. Patient is also maintained on antibiotics in the form of Zosyn for the aspiration pneumonia. Currently patient has no fevers and denies chest pain or palpitations. Patient is significantly weak and recommend physical therapy evaluation. Patient reportedly was at rehab prior to this hospitalization. Given patient's age and significant comorbidities, over all prognosis is poor and guarded. Patient is no code. 08/23/2023 Patient is seen and evaluated in follow-up this morning with and daughter at the bedside. Patient mentation is slightly improved today currently sitting up and more awake. Patient maintained on Zosyn for concerns of aspiration pneumonia with pulmonary following. Cardiology following recommending resuming blood pressure medications once kidney functions have improved. Sodium remains elevated at 147 and was given a dose of Lasix yesterday and fluids have been discontinued. Overall prognosis remains extremely poor and guarded and patient has had recurrent hospitalizations and clinical decline over the last few months. Family was agreeable with no code and further discussed with the family about possible hospice and is agreeable to meet with them. Referral was placed. Patient is currently afebrile with no reported chest pain or shortness of breath. Patient remains on 2-3 L via nasal cannula and has not been on the BiPAP. Review of systems CONSTITUTIONAL: No fever, no malaise, no fatigue. HEENT: No recent visual problems or hearing problems. Denied any sore throat. CARDIOVASCULAR: No orthopnea, PND, no palpitations, no syncope. PULMONARY: Reports shortness of breath although feels is improved, no cough, no hemoptysis. GASTROINTESTINAL: No diarrhea, no nausea, no vomiting, no abdominal pain. Normoactive bowel sounds. Physical exam: GENERAL: The patient is more awake and answers questions appropriately on occasion, he follows commands, but still confused. No respiratory distress. Continued on 2-3 L via nasal cannula. Generally weak HEENT: Pupils are round and equally reacting to light. EOMI. No scleral icterus. No conjunctival pallor. Normocephalic, atraumatic. No pharyngeal erythema. No thyromegaly. CARDIOVASCULAR: S1 and S2 present. No murmurs, rubs, or gallops. PULMONARY: Diminished breath sounds bilaterally with some coarse scattered rhonchi and faint crackles noted ABDOMEN: Soft, nontender, nondistended, normoactive bowel sounds. No palpable organomegaly. MUSCULOSKELETAL: No joint swelling or deformity. EXTREMITIES: No cyanosis, clubbing, or pedal edema. Generalized edema noted of upper and lower extremities more so on the upper extremities NEUROLOGICAL: Gross neurological examination did not reveal any focal deficits. Extremely weak SKIN: No rashes. no petechiae. Assessment: Severe metabolic/toxic encephalopathy, multifactorial possibly secondary to aspiration pneumonia as well as hypoxia Covid infection with no strong evidence of pneumonia Aspiration pneumonia Acute hypoxic respiratory failure, multifactorial secondary to Covid as well as aspiration pneumonia Cardiomyopathy with ejection fraction 35-40% Acute kidney injury Acute GI bleed is suspected Acute blood loss anemia secondary to possible GI bleed Severe hypernatremia Mildly elevated troponin likely demand ischemia without myocardial infarction secondary to hypoxic respiratory failure Dementia GI prophylaxis DVT prophylaxis No code Plan: Patient has been transitioned off BiPAP, currently on nasal cannula 3 L Patient was given a dose of Lasix yesterday showing some improvements in output although sodium remains 147. Fluids have been discontinued Continue Protonix IV twice daily, there was concern for possible GI bleed and surgery evaluated no plans of intervention at this time. Hemoglobin is stable Cardiology and pulmonary following an recommend continue current regimen. Bobo myrick signed off the case recommending to resume losartan once kidney functions have improved Patient is continued on Zosyn for aspiration pneumonia and recommend aspiration precautions with head of the bed elevated 45 at all times. Per speech patient is pocketing almost all food and would recommend aspiration precautions and pured diet. Patient is extremely high risk for continued aspiration Patient is no code and discussed further with family about her overall treatment plan and possible hospice patient's is agreeable to meet with hospice. Referral was placed from [facility]. Patient and family members with hospice and will be requiring some equipment and arrangements at the home and will likely be going home with hospice services on Saturday. Will follow up on repeat labs Again given significant comorbidities and advanced age, overall prognosis is significantly poor The impression and plan of care has been dictated by Dulce Ibrahim, Nurse Practitioner as directed. Dr. Carey MD I have performed a history and examination and MDM of this patient, discussed the same with the dictator, and agree with the dictator's assessment and plan as written ,documented as a scribe. Based on total visit time, I have performed more than 50% of the visit. Objective - Vital Signs Vital signs: Vital Signs Temp 97.7 F 08/23/23 09:00 Pulse 62 08/23/23 11:45 Resp 18 08/23/23 11:45 BP 180/79 08/23/23 11:45 Pulse Ox 93 L 08/23/23 11:45 FiO2 50 08/21/23 08:20 Intake & Output 08/22/23 08/23/23 08/23/23 18:59 06:59 18:59 Output Total 1000 1850 Balance -1000 -1850 Weight 88 kg Output: Urine 1000 1850 Other: Voiding Method Indwelling Catheter Indwelling Catheter Indwelling Catheter - Labs CBC & Chem 7: 08/23/23 07:13 08/23/23 07:13 Labs: Abnormal Lab Results - Last 24 Hours (Table) 08/22/23 08/22/23 08/22/23 Range/Units 08:14 16:31 20:06 RBC (4.30-5.90) m/uL Hgb (13.0-17.5) gm/dL Hct (39.0-53.0) % MCHC (31.0-37.0) g/dL RDW (11.5-15.5) % Sodium (137-145) mmol/L Chloride (98-107) mmol/L Carbon Dioxide (22-30) mmol/L BUN (9-20) mg/dL Glucose (74-99) mg/dL POC Glucose (mg/dL) 228 H 337 H (70-110) mg/dL Hemoglobin A1c 6.9 H (<=6.0) % Calcium (8.4-10.2) mg/dL 08/23/23 08/23/23 08/23/23 Range/Units 05:38 07:13 07:13 RBC 3.35 L (4.30-5.90) m/uL Hgb 9.3 L (13.0-17.5) gm/dL Hct 30.9 L (39.0-53.0) % MCHC 30.1 L (31.0-37.0) g/dL RDW 17.8 H (11.5-15.5) % Sodium 147 H (137-145) mmol/L Chloride 109 H (98-107) mmol/L Carbon Dioxide 31 H (22-30) mmol/L BUN 42 H (9-20) mg/dL Glucose 194 H (74-99) mg/dL POC Glucose (mg/dL) 215 H (70-110) mg/dL Hemoglobin A1c (<=6.0) % Calcium 8.0 L (8.4-10.2) mg/dL 08/23/23 Range/Units 11:26 RBC (4.30-5.90) m/uL Hgb (13.0-17.5) gm/dL Hct (39.0-53.0) % MCHC (31.0-37.0) g/dL RDW (11.5-15.5) % Sodium (137-145) mmol/L Chloride (98-107) mmol/L Carbon Dioxide (22-30) mmol/L BUN (9-20) mg/dL Glucose (74-99) mg/dL POC Glucose (mg/dL) 242 H (70-110) mg/dL Hemoglobin A1c (<=6.0) % Calcium (8.4-10.2) mg/dL Microbiology - Last 24 Hours (Table) 08/20/23 10:30 Blood Culture - Preliminary Blood 08/20/23 10:36 Blood Culture - Preliminary Blood
[2023-08-24 06:11] LABS: Glucose,Whole Blood 180 mg/dL (70-110)
[2023-08-24] MEDS: METOPROLOL TARTRATE 50 MG TAB PO SCH (06:40)
[2023-08-24] MEDS: FERROUS SULFATE 325 MG TAB PO SCH ×2 (06:40→16:40)
[2023-08-24] MEDS: INSULIN ASPART (NovoLOG) 100 UNIT/ML VIAL SQ SCH ×4 (06:41→20:21)
[2023-08-24 08:33] LABS: African American GFR (CKD) 86 (>60 ml/min/1.73 sqM); Anion Gap 5 mmol/L; Blood Urea Nitrogen 29 mg/dL (9-20); Calcium 8.1 mg/dL (8.4-10.2); Carbon Dioxide 33 mmol/L (22-30); Chloride 109 mmol/L (98-107); Glucose 182 mg/dL (74-99); Non-African American GFR(CKD) 74 (>60 ml/min/1.73 sqM); Potassium 3.9 mmol/L (3.5-5.1); Sodium 147 mmol/L (137-145)
[2023-08-24] MEDS: ATORVASTATIN 40 MG TAB PO SCH (08:53)
[2023-08-24] MEDS: PANTOPRAZOLE 40 MG/10 ML VIAL IVP SCH ×2 (08:53→20:21)
[2023-08-24] MEDS: CLOPIDOGREL 75 MG TAB PO SCH (08:53)
[2023-08-24] MEDS: INSULIN DETEMIR (LEVEMIR) 100 UNIT/ML SYR SQ SCH ×2 (08:56→20:21)
--- NOTE | 2023-08-24 09:20 | P.PN ---
Subjective This is a pleasant 88 race old male with multiple medical problems as below. Patient is brought because of shortness of breath Patient is poor historian and information were obtained from stop her records. Staff and the at bedside. Patient was here in the hospital in July twice, he was discharged to rehab. He left rehab last Saturday, back home because his resources from his medical insurance provider has lapsed and finished 3 at as per he was placed on nectar thick diet therefore he was not drinking any clear liquids including water. This morning at 4:00 AM he may occur COMPLAIN of from shortness of breath, he is supposed to see his extruder operator vertical Dr. Em in the usual N every 6 month follow-up but he could not do anything. Then the noticed that he started drooling from his left side of the mons so she called EMS. Patient really and tended and could not provide information and his currently on BiPAP. On admission patient was on BiPAP saturating 87% and currently 92%, he was slightly tachycardic and tachypneic but now his heart rate about 50-60 and regular rate is around 16. Blood pressure 145/60. reviewed showing abnormality with a drop of hemoglobin down to 9.2 with severe hypernatremia at 150 also has evanescent with elevated creatinine 1.59 compared to baseline of 0.7. Occult blood in the stool was positive civit test came back positive as well. Otherwise her cysts are negative Chest x-ray showing no significant infiltrate but mild right and left side infiltrate with mild cardiomegaly EKG shows sinus bradycardia at 57 with bundle-branch block ProBNP is elevated to 12 500 On admission patient given 1 dose of antibiotics Unasyn 3 at At home he was on liquids and Plavix which are put on hold. 08/21/2023 Patient is more awake and answering questions appropriately, he denies chest pain he denies specific complaint His vitals are stable and his oxygen saturation is improving 96% on 4 L oxygen His WBCs slightly up 12.1, hemoglobin 9.2. He remains on Zosyn D5 half normal saline at 75 mL/h and IV Protonix twice daily and Plavix is admitted today with a close monitoring. Ejection fraction is 35-40% Although patient responded well to therapy his prognosis remains guarded. With his improving clinical status we will consult general surgery in case he might benefit from any procedure 08/22/2023 Patient is seen and evaluated in follow-up with cardiology and pulmonary following. Patient being treated for aspiration pneumonia as well as Covid and continues to have elevated sodium levels was maintained on D5 half-normal saline although we will discontinue his patient is also hypoxic requiring increased oxygen demands currently maintained on 4 L. Will give a dose of Lasix and discontinue fluids. Patient be evaluated by speech and diet with dysphagia and aspiration precautions hadn't been elevated 30-45 at all times and superficial with meals. Patient is also maintained on antibiotics in the form of Zosyn for the aspiration pneumonia. Currently patient has no fevers and denies chest pain or palpitations. Patient is significantly weak and recommend physical therapy evaluation. Patient reportedly was at rehab prior to this hospitalization. Given patient's age and significant comorbidities, over all prognosis is poor and guarded. Patient is no code. 08/23/2023 Patient is seen and evaluated in follow-up this morning with and daughter at the bedside. Patient mentation is slightly improved today currently sitting up and more awake. Patient maintained on Zosyn for concerns of aspiration pneumonia with pulmonary following. Cardiology following recommending resuming blood pressure medications once kidney functions have improved. Sodium remains elevated at 147 and was given a dose of Lasix yesterday and fluids have been discontinued. Overall prognosis remains extremely poor and guarded and patient has had recurrent hospitalizations and clinical decline over the last few months. Family was agreeable with no code and further discussed with the family about possible hospice and is agreeable to meet with them. Referral was placed. Patient is currently afebrile with no reported chest pain or shortness of breath. Patient remains on 2-3 L via nasal cannula and has not been on the BiPAP. 08/24/2023 Patient is awake and And he answers questions and follows commands but he is very weak He gets fatigued and hypneic easily It was hard for him to swallow with pill, bedside nurse to try several times so he can swallow at He is complaining of from low back pain, no other discomfort. Lidocaine patches added most likely related to his pressure ulcer. Blood pressure 180/81 Hemoglobin 9.3, WBCs 10.5 Sodium is 147 today and creatinine 0.9. He remains on Zosyn. Protonix and Plavix. Plan for him this did go home with hospice tomorrow as per yesterday patient discussed the case with hospice team Objective - Vital Signs Vital signs: Vital Signs Temp 97.6 F 08/24/23 04:27 Pulse 67 08/24/23 04:27 Resp 20 08/24/23 04:27 BP 180/81 08/24/23 04:27 Pulse Ox 97 08/24/23 04:27 FiO2 50 08/21/23 08:20 Intake & Output 08/23/23 08/24/23 08/24/23 18:59 06:59 18:59 Output Total 850 880 Balance -850 -880 Output: Urine 850 880 Other: Voiding Method Indwelling Catheter Indwelling Catheter - Exam -GENERAL: The patient is more awake and answers questions appropriately, he follows commands, but still confused. He got tachypneic easily , Generally very weak HEENT: Pupils are round and equally reacting to light. EOMI. No scleral icterus. No conjunctival pallor. Normocephalic, atraumatic. No pharyngeal erythema. No thyromegaly. CARDIOVASCULAR: S1 and S2 present. No murmurs, rubs, or gallops. PULMONARY: Chest is clear to auscultation, no wheezing , no crackles. ABDOMEN: Soft, nontender, nondistended, normoactive bowel sounds. No palpable organomegaly. MUSCULOSKELETAL: No joint swelling or deformity. EXTREMITIES: No cyanosis, clubbing, or pedal edema. NEUROLOGICAL: Gross neurological examination did not reveal any focal deficits. SKIN: No rashes. no petechiae. - Labs CBC & Chem 7: 08/23/23 07:13 08/24/23 07:07 Labs: Abnormal Lab Results - Last 24 Hours (Table) 08/23/23 08/23/23 08/23/23 Range/Units 11:26 16:45 20:11 Sodium (137-145) mmol/L Chloride (98-107) mmol/L Carbon Dioxide (22-30) mmol/L BUN (9-20) mg/dL Glucose (74-99) mg/dL POC Glucose (mg/dL) 242 H 239 H 249 H (70-110) mg/dL Calcium (8.4-10.2) mg/dL 08/24/23 08/24/23 Range/Units 06:09 07:07 Sodium 147 H (137-145) mmol/L Chloride 109 H (98-107) mmol/L Carbon Dioxide 33 H (22-30) mmol/L BUN 29 H (9-20) mg/dL Glucose 182 H (74-99) mg/dL POC Glucose (mg/dL) 180 H (70-110) mg/dL Calcium 8.1 L (8.4-10.2) mg/dL Microbiology - Last 24 Hours (Table) 08/20/23 10:30 Blood Culture - Preliminary Blood 08/20/23 10:36 Blood Culture - Preliminary Blood Assessment and Plan Assessment: Recurrent aspiration pneumonia Severe metabolic/toxic encephalopathy Deconditioning Covid infection with no strong evidence of pneumonia Acute hypoxic respiratory failure. Be secondary to above Cardiomyopathy with ejection fraction 35-40% Acute kidney injury Acute GI bleed is suspected The [place] blood loss anemia and suspected Severe hypernatremia Mildly elevated troponin which is thought secondary to supply/demand mismatch Dementia. Plan: Patient continued on BiPAP as necessary, currently on nasal cannula Continue with Protonix IV twice daily, hold eliquis and extruder operator vertical team added back to his Plavix. And lidocaine patch Cardiology and pulmonary team were consulted Labs and medication were reviewed.. Continue same treatment. Continue with symptomatic treatment. Resume home medication. Monitor labs and vitals. DVT and GI prophylaxis. Further recommendations as per clinical course of the erica kaplan DVT prophylaxis: 4 possible GI bleed GI prophylaxis: Ppi PT/OT: Deferred Prognosis is very poor, life expectancy is less than 6 month basis upon my evaluation Family and want the patient to be home with hospice with the plan for him to go home tomorrow under hospice care
[2023-08-24] MEDS: LIDOCAINE 4% PATCH TOPICAL SCH (09:45)
[2023-08-24 11:46] LABS: Glucose,Whole Blood 245 mg/dL (70-110)
[2023-08-24] MEDS ORDERED: METOPROLOL TARTRATE 25 MG TAB PO STA (12:17)
--- NOTE | 2023-08-24 12:18 | P.PN ---
Subjective Progress Note Date: 08/24/23 Principal diagnosis: Acute hypoxic respiratory failure and aspiration pneumonia This is an 88-year-old white male with history of multiple medical problems including coronary artery disease, type 2 diabetes, dementia, dyslipidemia, patient was recently admitted to the hospital back in July, and he was eventually discharged to long-term. Patient was sent home last Saturday, and today the patient's was concerned about him developing shortness of breath, weakness, unable to do anything on his own, hence she brought him into the ER. Apparently when EMS arrived, patient was hypoxic, and brought into the ER, O2 saturation on BiPAP was 87% went up to 92% after adjusting his BiPAP which is presently 08/14/% patient is an extremely poor historian, according to the the patient has been having difficulty swallowing, cannot even drink water, he chokes on whenever he eats or swallows. Chest x-ray clearly showed evidence of bilateral infiltrates involving left lower lobe and right midlung. Hence I believe the patient has clearly aspiration pneumonia based on his chest x-ray findings and based on his clinical history. In addition to this the patient was noted to be hypernatremic with elevated BUN of 45 creatinine 1.59 implying that the patient is quite dehydrated and he has hypovolemic hypernatremia as well as prerenal azotemia, his troponin was elevated and his BNP level was elevated however the chest x-ray is mostly pointing to more pneumonia than congestive heart failure. Patient also tested positive for COVID-19, but according to the this was noted even on his last admission, last month he had positive COVID-19 test, and this was few weeks ago and looking at his last discharge summary, patient had syncopal episode secondary to dehydration he also had bilateral buttock ulcers, atrial fibrillation with RVR, acute renal failure secondary to dehydration, lactic acidosis, hypotension, he does have underlying coronary artery disease and he also had elevated troponins. Reevaluated today on 08/21/23, patient remains on BiPAP, and I went ahead and transition the patient from BiPAP to 5 L nasal cannula. Patient tells me that his feeling much better today, he is arousable, and seems to be appropriate, less shortness of breath, hardly any cough, no wheezing, W scans 12.1 hemoglobin 9.2 but chest x-ray on admission showed multifocal infiltrates involving the right midlung and the left lower lobe. Hence I suspected aspiration pneumonia and the patient is being treated as such. Speech therapy evaluation is pending for evaluation for possible aspiration and echocardiogram showed LV dysfunction with ejection fraction of 35-40% . His echocardiogram showed also mild to moderate aortic stenosis and moderate pulmonary hypertension. Looking back the patient had positive COVID-19 screening on his last admission and on this admi ssion, hence I doubt the need for isolation Patient was reevaluated today on 08/24/2023, patient is now on 2 L nasal cannula, does not seem to be in any distress. O2 sats is 96%. His basic metabolic profile is normal, renal profile is normal. Chest x-ray from 08/22 showed increasing patchy infiltrates, and I believe the patient continues to have recurrent episodes of aspiration. Today I was informed that the family is considering hospice on this patient and would like to take him home with home hospice I believe this is likely scheduled to be done tomorrow. Objective - Vital Signs Vital signs: Vital Signs Temp 98 F 08/24/23 08:55 Pulse 67 08/24/23 08:55 Resp 19 08/24/23 08:55 BP 147/73 08/24/23 08:55 Pulse Ox 96 08/24/23 08:55 FiO2 50 08/21/23 08:20 Intake & Output 08/23/23 08/24/23 08/24/23 18:59 06:59 18:59 Intake Total 240 Output Total 850 880 Balance -850 -880 240 Intake: Oral 240 Output: Urine 850 880 Other: Voiding Method Indwelling Catheter Indwelling Catheter Indwelling Catheter - Exam Physical Exam: Revealed an 88-year-old white male awake, on 2 L nasal cannula Head: Atraumatic, normocephalic. HEENT:[Neck is supple.] [No neck masses.] [No thyromegaly.] [No JVD.] Chest: [Crackles bilaterally at the bases noted. Cardiac Exam: [Irregular irregular rhythm Normal S1 and S2, no S3 gallop, 2/6 systolic murmur over the aortic area. Abdomen: [Obese, Soft, nontender, no megaly, no rebound, no guarding, normal bowel sounds.] Extremities: [No clubbing, no edema, no cyanosis.] Neurological Exam: Alert and oriented 3, no gross focal neurologic deficit except for a right-sided weakness Skin: No rashes - Labs CBC & Chem 7: 08/23/23 07:13 08/24/23 07:07 Labs: Abnormal Lab Results - Last 24 Hours (Table) 08/23/23 08/23/23 08/24/23 Range/Units 16:45 20:11 06:09 Sodium (137-145) mmol/L Chloride (98-107) mmol/L Carbon Dioxide (22-30) mmol/L BUN (9-20) mg/dL Glucose (74-99) mg/dL POC Glucose (mg/dL) 239 H 249 H 180 H (70-110) mg/dL Calcium (8.4-10.2) mg/dL 08/24/23 08/24/23 Range/Units 07:07 11:44 Sodium 147 H (137-145) mmol/L Chloride 109 H (98-107) mmol/L Carbon Dioxide 33 H (22-30) mmol/L BUN 29 H (9-20) mg/dL Glucose 182 H (74-99) mg/dL POC Glucose (mg/dL) 245 H (70-110) mg/dL Calcium 8.1 L (8.4-10.2) mg/dL Microbiology - Last 24 Hours (Table) 08/20/23 10:30 Blood Culture - Preliminary Blood 08/20/23 10:36 Blood Culture - Preliminary Blood Assessment and Plan Assessment: Impression: Acute hypoxic respiratory failure secondary to aspiration pneumonia Acute metabolic encephalopathy Acute kidney injury, most likely dehydration related prerenal azotemia, should improve with cautious hydration Acute hypovolemic hypernatremia Elevated troponin/troponin leak, most likely secondary to supply/demand mismatch Left ventricular dysfunction as noted on the echocardiogram Mild to moderate aortic stenosis Moderate pulmonary hypertension Underlying dementia History of Parkinson's disease Chronic dysphagia with difficulty swallowing and choking episode Benign essential hypertension Coronary artery disease and previous cardiac stent Type 2 diabetes, insulin-dependent Remote history of alcohol use Ex-smoker History of TIA Recommendation: Continue present supportive care measures Continue oxygen and titrate accordingly Continue antibiotics Considering the overall picture and his comorbidities, Agree with home hospice, which is being considered to be done in the next 24 hours. We'll continue to follow while inpatient Prognosis is guarded Time with Patient: Less than 30
[2023-08-24 16:04] LABS: Glucose,Whole Blood 285 mg/dL (70-110)
[2023-08-24] MEDS ORDERED: hydrALAZINE HCL 25 MG TAB PO SCH (18:00)
[2023-08-24 20:04] LABS: Glucose,Whole Blood 294 mg/dL (70-110)
[2023-08-24] MEDS ORDERED: METOPROLOL TARTRATE 50 MG TAB PO STA (20:40)
[2023-08-24] MEDS: METOPROLOL TARTRATE 25 MG TAB PO SCH (20:41)
[2023-08-25] MEDS: ACETAMINOPHEN TAB 325 MG TAB PO PRN ×2 (01:52→12:00)
[2023-08-25 06:19] LABS: Glucose,Whole Blood 169 mg/dL (70-110)
[2023-08-25] MEDS: FERROUS SULFATE 325 MG TAB PO SCH (06:35)
[2023-08-25] MEDS: INSULIN DETEMIR (LEVEMIR) 100 UNIT/ML SYR SQ SCH (06:35)
[2023-08-25] MEDS: INSULIN ASPART (NovoLOG) 100 UNIT/ML VIAL SQ SCH ×2 (06:35→12:00)
[2023-08-25] MEDS: PIPERACILLIN-TAZOBACTAM 3.375 GM in SODIUM CHLORIDE 0.9% 100 ML IVPB SCH (08:02)
[2023-08-25] MEDS: PANTOPRAZOLE 40 MG/10 ML VIAL IVP SCH (08:05)
[2023-08-25] MEDS: ATORVASTATIN 40 MG TAB PO SCH (08:05)
[2023-08-25] MEDS: CLOPIDOGREL 75 MG TAB PO SCH (08:05)
[2023-08-25] MEDS: LIDOCAINE 4% PATCH TOPICAL SCH (08:05)
[2023-08-25] MEDS: METOPROLOL TARTRATE 25 MG TAB PO SCH (08:05)
[2023-08-25] MEDS ORDERED: hydrALAZINE HCL 25 MG TAB PO SCH (09:00)
[2023-08-25] MEDS ORDERED: hydrALAZINE HCL 50 MG TAB PO SCH (09:00)
[2023-08-25 09:47] VITALS: TEMP 98.7
[2023-08-25 11:48] LABS: Glucose,Whole Blood 158 mg/dL (70-110)
--- NOTE | 2023-08-25 12:11 | P.PN ---
Subjective Progress Note Date: 08/25/23 Principal diagnosis: Acute hypoxic respiratory failure and aspiration pneumonia This is an 88-year-old white male with history of multiple medical problems including coronary artery disease, type 2 diabetes, dementia, dyslipidemia, patient was recently admitted to the hospital back in July, and he was eventually discharged to [facility]. Patient was sent home last Saturday, and today the patient's was concerned about him developing shortness of breath, weakness, unable to do anything on his own, hence she brought him into the ER. Apparently when EMS arrived, patient was hypoxic, and brought into the ER, O2 saturation on BiPAP was 87% went up to 92% after adjusting his BiPAP which is presently 08/14/% patient is an extremely poor historian, according to the the patient has been having difficulty swallowing, cannot even drink water, he chokes on whenever he eats or swallows. Chest x-ray clearly showed evidence of bilateral infiltrates involving left lower lobe and right midlung. Hence I believe the patient has clearly aspiration pneumonia based on his chest x-ray findings and based on his clinical history. In addition to this the patient was noted to be hypernatremic with elevated BUN of 45 creatinine 1.59 implying that the patient is quite dehydrated and he has hypovolemic hypernatremia as well as prerenal azotemia, his troponin was elevated and his BNP level was elevated however the chest x-ray is mostly pointing to more pneumonia than congestive heart failure. Patient also tested positive for COVID-19, but according to the this was noted even on his last admission, last month he had positive COVID-19 test, and this was few weeks ago and looking at his last discharge summary, patient had syncopal episode secondary to dehydration he also had bilateral buttock ulcers, atrial fibrillation with RVR, acute renal failure secondary to dehydration, lactic acidosis, hypotension, he does have underlying coronary artery disease and he also had elevated troponins. Reevaluated today on 08/21/23, patient remains on BiPAP, and I went ahead and transition the patient from BiPAP to 5 L nasal cannula. Patient tells me that his feeling much better today, he is arousable, and seems to be appropriate, less shortness of breath, hardly any cough, no wheezing, W scans 12.1 hemoglobin 9.2 but chest x-ray on admission showed multifocal infiltrates involving the right midlung and the left lower lobe. Hence I suspected aspiration pneumonia and the patient is being treated as such. Speech therapy evaluation is pending for evaluation for possible aspiration and echocardiogram showed LV dysfunction with ejection fraction of 35-40% . His echocardiogram showed also mild to moderate aortic stenosis and moderate pulmonary hypertension. Looking back the patient had positive COVID-19 screening on his last admission and on this admi ssion, hence I doubt the need for isolation Patient was reevaluated today on 08/24/2023, patient is now on 2 L nasal cannula, does not seem to be in any distress. O2 sats is 96%. His basic metabolic profile is normal, renal profile is normal. Chest x-ray from 08/22 showed increasing patchy infiltrates, and I believe the patient continues to have recurrent episodes of aspiration. Today I was informed that the family is considering hospice on this patient and would like to take him home with home hospice I believe this is likely scheduled to be done tomorrow. Reevaluated today on 08/25/2023, patient is doing well, he is on 2 L nasal cannula with O2 sat from 96%, patient seems to be very comfortable, not in any distress, his last chest x-ray was done on 08/22, and clearly showed bilateral pneumonia, no further x-rays were done as patient is being considered for hospice at home. No labs done on this patient except a blood sugar 158. Objective - Vital Signs Vital signs: Vital Signs Temp 98.7 F 08/25/23 08:05 Pulse 82 08/25/23 08:05 Resp 19 08/25/23 08:05 BP 136/82 08/25/23 08:05 Pulse Ox 96 08/25/23 08:05 FiO2 50 08/21/23 08:20 Intake & Output 08/24/23 08/25/23 08/25/23 18:59 06:59 18:59 Intake Total 588 59 Output Total 500 575 375 Balance 88 -575 -316 Intake: Oral 588 59 Output: Urine 500 575 375 Other: Voiding Method Indwelling Catheter Indwelling Catheter Indwelling Catheter - Exam Physical Exam: Revealed an 88-year-old white male awake, on 2 L nasal cannula Head: Atraumatic, normocephalic. HEENT:[Neck is supple.] [No neck masses.] [No thyromegaly.] [No JVD.] Chest: [Crackles bilaterally at the bases noted. Cardiac Exam: [Irregular irregular rhythm Normal S1 and S2, no S3 gallop, 2/6 systolic murmur over the aortic area. Abdomen: [Obese, Soft, nontender, no megaly, no rebound, no guarding, normal bowel sounds.] Extremities: [No clubbing, no edema, no cyanosis.] Neurological Exam: Alert and oriented 3, no gross focal neurologic deficit except for a right-sided weakness Skin: No rashes - Labs CBC & Chem 7: 08/23/23 07:13 08/24/23 07:07 Labs: Abnormal Lab Results - Last 24 Hours (Table) 08/24/23 08/24/23 08/25/23 Range/Units 16:02 20:03 06:17 POC Glucose (mg/dL) 285 H 294 H 169 H (70-110) mg/dL 08/25/23 Range/Units 11:46 POC Glucose (mg/dL) 158 H (70-110) mg/dL Assessment and Plan Assessment: Impression: Acute hypoxic respiratory failure secondary to recurrent aspiration pneumonia Acute metabolic encephalopathy Acute kidney injury, most likely dehydration related prerenal azotemia, resolved Acute hypovolemic hypernatremia, resolved Elevated troponin/troponin leak, most likely secondary to supply/demand mismatch Left ventricular dysfunction as noted on the echocardiogram Mild to moderate aortic stenosis Moderate pulmonary hypertension Underlying dementia History of Parkinson's disease Chronic dysphagia with difficulty swallowing and choking episode Benign essential hypertension Coronary artery disease and previous cardiac stent Type 2 diabetes, insulin-dependent Remote history of alcohol use Ex-smoker History of TIA Recommendation: Continue present supportive care measures Continue oxygen and titrate accordingly Continue antibiotics Continue aspiration precautions Possible home hospice in the next 24 hours. Will follow as needed Long-term Prognosis is poor Time with Patient: Less than 30
[2023-08-25 12:36] VITALS: BP 188/81; PULSE 59; RESP 18
--- NOTE | 2023-08-27 04:43 | P.DS ---
Providers Date of admission: 08/20/23 12:02 Attending physician: Rayshawn Patel MD Consults: 08/20/23 11:45 Consult Physician Routine Consulting Provider: Cuca Herron Consult Reason/Comments: hypoxic respiratory failure Do you want consulting provider notified?: Yes Primary care physician: Pablo Multani [facility] Course: Diagnoses: Recurrent aspiration pneumonia Severe metabolic/toxic encephalopathy Deconditioning Covid infection with no strong evidence of pneumonia Acute hypoxic respiratory failure. Be secondary to above Cardiomyopathy with ejection fraction 35-40% Acute kidney injury Acute GI bleed is suspected The [place] blood loss anemia and suspected Severe hypernatremia Mildly elevated troponin which is thought secondary to supply/demand mismatch Dementia. Hospital course: This is a pleasant 88 race old male with multiple medical problems as below.Patient is brought because of shortness of breath. Patient is poor historian Patient's was found to have multiple medical problems including Covid infection, metabolic/toxic encephalopathy, acute GI bleed to suspected evaluated by general surgery team and found adequate surgical candidate. Acute kidney injury, anemia, hypernatremia, elevated troponin secondary to type II SC and dementia. Also with cardiomyopathy with ejection fraction 35-40%, he was evaluated by pulmonary, cardiology and Gen. surgery team and treated with Zosyn IV fluid and Protonix. Eliquis and Plavix had to be held and later on Plavix was added. Despite treatment patient made poor progress regarding his health and he continued to have recurrent aspiration. His prognosis was poor to start with. Patient was made DO NOT RESUSCITATE by family and at bedside in the emergency room since day one. With patient To do poorly during this hospital stay family decided to proceed with hospice care. Patient is going to be discharged home with hospice on 08/25, I discussed this with the hospice nurse and she confirms information for me Patient other than that is medically stable but his prognosis is very poor. Left expectancy is felt to be less than 6 month and hospice care looks eligible for him Patient was found stable and can be discharged home in guarded prognosis however he needs follow-up as an outpatient. Patient was instructed to follow up with PCP within one week and patient agrees Physical exam -Gen: patient is a awake but confused, follows simple commands, no distress CVS: S1-S2, RRR, no murmur -Lungs: B/L CTA, no wheezing sounds on both lower zones bilaterally Abdomen: soft, no distention, no tenderness, positive bowel sounds -Extremity: Mild bilateral pitting leg leg edema or induration Time spent more than 35 minutes Patient Condition at Discharge: Critical Plan - Discharge Summary Discharge Rx Participant: No New Discharge Prescriptions: New Ferrous Sulfate [Iron (65 MG Elemental)] 325 mg PO BID-W/MEALS #60 tab Lidocaine 4% Patch 1 patch TOPICAL DAILY #30 patch Pantoprazole [Protonix] 40 mg PO DAILY 30 Days #30 tab Acetaminophen Tab [Tylenol] 650 mg PO Q6HR PRN tab PRN Reason: Mild Pain Or Fever > 100.5 Metoprolol Tartrate [Lopressor] 50 mg PO BID #120 tab Amoxic-Pot Clav 600-42.9MG/5Ml [Augmentin 600-42.9 mg/5 ml Liquid] 2.5 ml PO Q12H #240 ml Continue traZODone HCL [Desyrel] 50 mg PO HS Clopidogrel [Plavix] 75 mg PO DAILY sitaGLIPtin [Januvia] 100 mg PO DAILY Atorvastatin [Lipitor] 40 mg PO DAILY Oxybutynin Chloride [oxyBUTYnin chloride ER] 10 mg PO DAILY Citalopram Hydrobromide [CeleXA] 10 mg PO DAILY Donepezil [Aricept] 10 mg PO HS amLODIPine [Norvasc] 5 mg PO DAILY tab hydrALAZINE HCL [Apresoline] 25 mg PO TID INSULIN ASPART (NovoLOG) [NovoLOG (formulary)] See Protocol SQ AC-TID Insulin Glargine,Hum.rec.anlog [Basaglar Kwikpen U-100] 25 unit SQ DAILY Furosemide [Lasix] 40 mg PO DAILY Cholecalciferol [Vitamin D3 (25 Mcg = 1000 Iu)] 25 mcg PO DAILY Albuterol Inhaler [Ventolin Hfa Inhaler] 2 puff INHALATION RT-Q4H PRN PRN Reason: Shortness Of Breath Losartan [Cozaar] 50 mg PO DAILY tab Gabapentin [Neurontin] 100 mg PO BID 3 Days #6 cap Tamsulosin [Flomax] 0.4 mg PO HS Discontinued Apixaban [Eliquis] 5 mg PO BID #30 tab Metoprolol Tartrate [Lopressor] 25 mg PO BID #30 tab Enalapril [Vasotec] 40 mg PO DAILY Discharge Medication List Atorvastatin [Lipitor] 40 mg PO DAILY 12/07/15 [History] Clopidogrel [Plavix] 75 mg PO DAILY 12/07/15 [History] sitaGLIPtin [Januvia] 100 mg PO DAILY 12/07/15 [History] traZODone HCL [Desyrel] 50 mg PO HS 12/07/15 [History] Oxybutynin Chloride [oxyBUTYnin chloride ER] 10 mg PO DAILY 01/22/18 [History] Citalopram Hydrobromide [CeleXA] 10 mg PO DAILY 12/13/22 [History] Donepezil [Aricept] 10 mg PO HS 12/13/22 [History] Albuterol Inhaler [Ventolin Hfa Inhaler] 2 puff INHALATION RT-Q4H PRN 02/24/23 [History] Gabapentin [Neurontin] 100 mg PO BID 3 Days #6 cap 07/23/23 [Rx] Losartan [Cozaar] 50 mg PO DAILY tab 07/23/23 [Rx] amLODIPine [Norvasc] 5 mg PO DAILY tab 07/23/23 [Rx] Cholecalciferol [Vitamin D3 (25 Mcg = 1000 Iu)] 25 mcg PO DAILY 08/20/23 [History] Furosemide [Lasix] 40 mg PO DAILY 08/20/23 [History] INSULIN ASPART (NovoLOG) [NovoLOG (formulary)] See Protocol SQ AC-TID 08/20/23 [History] Insulin Glargine,Hum.rec.anlog [Basaglar Kwikpen U-100] 25 unit SQ DAILY 08/20/23 [History] Tamsulosin [Flomax] 0.4 mg PO HS 08/20/23 [History] hydrALAZINE HCL [Apresoline] 25 mg PO TID 08/20/23 [History] Acetaminophen Tab [Tylenol] 650 mg PO Q6HR PRN tab 08/25/23 [Rx] Ferrous Sulfate [Iron (65 MG Elemental)] 325 mg PO BID-W/MEALS #60 tab 08/25/23 [Rx] Lidocaine 4% Patch 1 patch TOPICAL DAILY #30 patch 08/25/23 [Rx] Metoprolol Tartrate [Lopressor] 50 mg PO BID #120 tab 08/25/23 [Rx] Pantoprazole [Protonix] 40 mg PO DAILY 30 Days #30 tab 08/25/23 [Rx] Amoxic-Pot Clav 600-42.9MG/5Ml [Augmentin 600-42.9 mg/5 ml Liquid] 2.5 ml PO Q12H #240 ml 08/26/23 [Rx] Follow up Appointment(s)/Referral(s): Pablo Multani MD [Primary Care Provider] - 1-2 days Discharge Disposition: HOME WITH HOSPICE
== END 2023-08-25 15:53 | disposition hospice, inpatient (51) | DRG 177 ==
LOC: EC 08:36 → 3SCARD 12:02
PROVIDERS: ADMIT Internal Medicine; ATTEND Internal Medicine
PROC: 5A09457 Assistance with Respiratory Ventilation, 24-96 Consecutive Hours, Continuous Positive Airway Pressure (ICD-10-PCS; principal; 2023-08-21)
DX: J69.0 Pneumonitis due to inhalation of food and vomit (principal); G92.8 Other toxic encephalopathy; J96.01 Acute respiratory failure with hypoxia; U07.1 COVID-19; I50.22 Chronic systolic (congestive) heart failure; K92.2 Gastrointestinal hemorrhage, unspecified; N17.9 Acute kidney failure, unspecified; E87.0 Hyperosmolality and hypernatremia; D62 Acute posthemorrhagic anemia; I24.89 Other forms of acute ischemic heart disease; I69.351 Hemiplegia and hemiparesis following cerebral infarction affecting right dominant side; Z66 Do not resuscitate; Z20.822 Contact with and (suspected) exposure to COVID-19; I48.0 Paroxysmal atrial fibrillation; E78.5 Hyperlipidemia, unspecified; E86.0 Dehydration; Z79.890 Hormone replacement therapy; R00.1 Bradycardia, unspecified; F02.80 Dementia in other diseases classified elsewhere, unspecified severity, without behavioral disturbance, psychotic disturbance, mood disturbance, and anxiety; I11.0 Hypertensive heart disease with heart failure; R13.10 Dysphagia, unspecified; I08.1 Rheumatic disorders of both mitral and tricuspid valves; I25.10 Atherosclerotic heart disease of native coronary artery without angina pectoris; I25.5 Ischemic cardiomyopathy; Z87.891 Personal history of nicotine dependence; E86.1 Hypovolemia; I08.3 Combined rheumatic disorders of mitral, aortic and tricuspid valves; G20.A1 Parkinson's disease without dyskinesia, without mention of fluctuations; Z79.01 Long term (current) use of anticoagulants; I27.20 Pulmonary hypertension, unspecified; Z79.02 Long term (current) use of antithrombotics/antiplatelets; Z79.4 Long term (current) use of insulin; Z79.84 Long term (current) use of oral hypoglycemic drugs; Z79.899 Other long term (current) drug therapy; Z82.49 Family history of ischemic heart disease and other diseases of the circulatory system; Z91.81 History of falling; Z95.5 Presence of coronary angioplasty implant and graft; Z87.19 Personal history of other diseases of the digestive system; Z98.41 Cataract extraction status, right eye
CPT/HCPCS: 36415; 51702; 71045; 80048; 80053; 80076; 81001; 82272; 82607; 82746; 83036; 83605; 83735; 83880; 84145; 84484; 85025; 85610; 85730; 87040; 87636; 93005; 93306; 94660; 94760; 96365; 96366; 96367; 96375; 99291